=== PATIENT | female | born 1955 | race African-American/Black ===

== ENCOUNTER → 2017-05-07 | Outpatient (CLI) | payer MEDICARE | LOC: RAD 16:16 | PROVIDERS: ATTEND Nurse Practitioner Family | DX: Z53.29 Procedure and treatment not carried out because of patient's decision for other reasons; M25.512 Pain in left shoulder; M25.511 Pain in right shoulder ==

== ENCOUNTER → 2017-06-03 | Outpatient (CLI) | payer MEDICARE ==
--- NOTE | 2017-06-03 11:26 | Diagnostic Imaging Report ---
PROCEDURE: MRI right joint upper extremity without contrast. TECHNIQUE: Multiplanar, multisequence non contrast-enhanced MRI of the right upper extremity was accomplished. INDICATION: Right shoulder pain. FINDINGS: There is no os acromiale or Hill-Sachs deformity. The long head of biceps tendon is within its groove. The subscapularis tendon appears intact. The proximal aspect of the long head of biceps demonstrates a linear increased signal suggestive of a nondisplaced longitudinal tear involving the horizontal portion of the signal proximal to its turn around the lesser tuberosity. Acromioclavicular joint demonstrates subchondral edema and mild hypertrophy from osteoarthritis with small inferior osteophytes abutting the myotendinous junction of the supraspinatus. The supraspinatus tendon demonstrates thickening and low-grade bursal side and intrasubstance partial tears. There is background tendinosis in the supraspinatus and infraspinatus tendons. There are inferior osteophytes noted at the humeral head compatible with glenohumeral joint osteoarthritis. Suggestion of increased signal in the superior segment of the labrum posteriorly could be degenerative or related to labral tear. This can be better evaluated with MR arthrogram if needed. The muscle bulk and signal around the shoulder is normal. Minimal cystic change along the lateral posterior aspect of the humeral head is seen likely reactive change related to rotator cuff tendinopathy. IMPRESSION: 1. Rotator cuff tendinosis with partial tears particularly prominent in the supraspinatus. 2. There is a longitudinal nondisplaced tear suggested within the proximal aspect of the long head of biceps tendon. 3. Acromioclavicular and glenohumeral joints osteoarthritis. 4. Increased signal in the posterior superior aspect of the labrum may relate to degeneration or possible tear. Dictated by: Dictated on workstation # [id number]
--- NOTE | 2017-06-03 12:30 | Diagnostic Imaging Report ---
PROCEDURE: MRI left upper extremity without contrast. TECHNIQUE: Multiplanar, multisequence non contrast-enhanced MRI of the left upper extremity was accomplished. INDICATION: Chronic bilateral shoulder pain. FINDINGS: There is no os acromiale or Hill-Sachs deformity. The long head biceps tendon is within its groove. There is acromioclavicular joint osteoarthritis with small inferior osteophytes that have minimal impression upon the supraspinatus tendon. Mild subchondral edema is seen. The supraspinatus and infraspinatus tendons demonstrate thickening and increased signal compatible with tendinosis with associated intrasubstance and bursal-sided partial tears. No full-thickness or retracted tear. The subscapularis tendon demonstrates increased signal and thickening compatible with tendinosis. There are mild inferior osteophytes at the humeral head compatible with glenohumeral joint osteoarthritis changes. There is suggestion of mild thinning and fissuring of the cartilage of the glenohumeral joint. There is a klmmd-fe-tvosaajo joint effusion with suggestion of tiny loose bodies or debris seen within the axillary recess measuring up to 5 mm in length. There is increased signal along the posterosuperior aspect of the labrum suggestive of degeneration or nondisplaced tear. The muscle bulk and signal is within normal limits. IMPRESSION: 1. Prominent partial tears and background tendinosis within the supraspinatus and infraspinatus tendons. 2. Yxpti-gm-uusapcqk glenohumeral joint effusion with small debris or loose bodies seen within the axillary recess of the joint. 3. Glenohumeral and acromioclavicular osteoarthritis changes. 4. Suggestion of labral degeneration or possible underlying tear. Dictated by: Dictated on workstation # [id number]
== END ==
LOC: RAD 09:13
PROVIDERS: ATTEND Nurse Practitioner Family
DX: M25.512 Pain in left shoulder (principal); M25.511 Pain in right shoulder
CPT/HCPCS: 73221

== ENCOUNTER → 2017-08-26 | Outpatient (CLI) | payer MEDICARE ==
--- NOTE | 2017-08-26 08:44 | Diagnostic Imaging Report ---
INDICATION: Postprandial emesis. Gastroesophageal reflux disease with esophagitis. TECHNIQUE: Multiple real-time mayer scale sonographic images of the abdomen. CORRELATION STUDY: None FINDINGS: LIVER: Normal echotexture within the visualized portions of the liver. There is normal, hepatopedal direction of flow within the main portal vein. Liver length is 16 cm. GALLBLADDER: No shadowing gallstones or pericholecystic fluid. COMMON BILE DUCT: Borderline at 6 mm. PANCREAS: Largely obscured and not well visualized. SPLEEN: Largely obscured by overlying bowel gas not well visualized. ABDOMINAL AORTA: Proximal mid aspect appearing unremarkable. Distally not visualized, obscured. INFERIOR VENA CAVA: Limited in visualization. RIGHT KIDNEY: 8.6 cm. Unremarkable. LEFT KIDNEY: 9.4 cm. Limited in visualization. OTHER: None. IMPRESSION: 1. Overall fairly limited abdominal ultrasound evaluation with large number of particularly midline and left-sided abdominal structures obscured by overlying bowel gas. Visualized anatomical structures demonstrate borderline dilatation of the common bile duct, but otherwise unremarkable. Dictated by: Dictated on workstation # [id number]
== END ==
LOC: RAD 06:53
PROVIDERS: ATTEND Nurse Practitioner Family
DX: K21.9 Gastro-esophageal reflux disease without esophagitis (principal)
CPT/HCPCS: 76700

== ENCOUNTER → 2017-10-30 | Outpatient (CLI) | payer MEDICARE ==
--- NOTE | 2017-10-30 15:53 | Diagnostic Imaging Report ---
INDICATION: COPD. TIME OF EXAM: 3:55 p.m. No prior studies are available for comparison. The heart size is normal. The lungs do show some hyperinflation consistent with COPD. No infiltrates are seen. No effusion or pneumothorax is identified. IMPRESSION: COPD. No acute feature is detected. Dictated by: Dictated on workstation # [id number]
== END ==
LOC: RAD 15:27
PROVIDERS: ATTEND Nurse Practitioner Family
DX: J44.9 Chronic obstructive pulmonary disease, unspecified (principal)
CPT/HCPCS: 71046

== ENCOUNTER → 2017-11-03 | Outpatient (CLI) | payer MEDICARE ==
[~2017-11-03] MED LIST: RT-ALBUTEROL SULF 2.5 MG/3 ML PRE-MIX VIAL INH ONE
== END ==
LOC: RT 13:52
PROVIDERS: ATTEND Nurse Practitioner Family
DX: J44.9 Chronic obstructive pulmonary disease, unspecified (principal); J45.909 Unspecified asthma, uncomplicated
CPT/HCPCS: 94060; 94726; 94729

== ENCOUNTER 2018-01-05 19:52 | Inpatient (IN) | payer MEDICARE ==
[~2018-01-05] VITALS: Ht 165.1 cm; Wt 72.6 kg
--- OUTSIDE RECORDS SUMMARY | 2018-01-05 19:57 | XMS REPORT ---
Author Author THADDEUS LOVE Organization [facility] Address [address] [place] [address] Care Team Providers Care Superintendent Warehouse Name Role Phone THADDEUS LOVE Unavailable PROBLEMS Type Condition ICD9-CM Code ORA48-HY Code Onset Dates Condition Status SNOMED Code Problem COPD with acute bronchitis J44.0 Active 406789224059957 Problem Non-seasonal allergic rhinitis due to pollen J30.1 Active 41286335 Problem Chronic obstructive pulmonary disease, unspecified COPD type J44.9 Active 16098453 Problem Essential hypertension I10 Active 33354882 Problem GERD without esophagitis K21.9 Active 199829931 Problem Moderate single current episode of major depressive disorder F32.1 Active 16398982 Problem Other chronic pain G89.29 Active 08245607 ALLERGIES No Information ENCOUNTERS Encounter Location Date Diagnosis [place] [address] [place] [id number] [place] [address]60- 2063 Nov, [place] [address] [place] [id number] [place] [address] 98854- 5533 Nov, [place] [address] [place] [address] 99272- 8213 Oct, [place] [address] [place] [id number] [place] [address] 77705- 9112 Oct, Essential hypertension I10 ; Chronic obstructive pulmonary disease, unspecified COPD type J44.9 ; Closed fracture of left foot with routine healing, subsequent encounter S92.902D ; Syncope and collapse R55 ; Tobacco abuse Z72.0 ; Tobacco abuse counseling Z71.6 ; Moderate single current episode of major depressive disorder F32.1 and Non-seasonal allergic rhinitis due to pollen J30.1 [place] [address] [place] [id number] [place] [address] 51518- 4456 Sep, [place] [address] [place] [id number] [place] [address] 06017- 5370 Aug, [place] [address] [place] [id number] [place] [address] 08763- 3445 Aug, Essential hypertension I10 ; GERD without esophagitis K21.9 ; Moderate single current episode of major depressive disorder F32.1 ; Other chronic pain G89.29 ; Chronic obstructive pulmonary disease, unspecified COPD type J44.9 and Overweight (BMI 25.0-29.9) E66.3 [place] [address] [place] [address] [id number] [place] [address] 05416- 7867 Aug, [place] [address] [place] [id number] [place] [address] 92393- 9417 Jul, [place] [address] [place] [id number] [place] [address] 95704- 8010 Jun, [place] [address] [place] [id number] [place] [address] 08793- 9540 Jun, [place] [address] [place] [id number] [place] [address] 58416- 0501 Jun, COPD with acute bronchitis J44.0 [place] [address] [place] [address] [id number] [place] [address] 98406- 7934 May, Encounter for immunization Z23 [place] [address] [place] [address] [id number] [place] [address] 03237- 9993 May, [place] [address] [place] [id number] [place] [address] 36654- 3601 28 Apr, 2017 Encounter to establish care Z76.89 ; GERD without esophagitis K21.9 ; Moderate single current episode of major depressive disorder F32.1 ; Essential hypertension I10 ; COPD with acute bronchitis J44.0 ; Overweight (BMI 25.0-29.9) E66.3 ; Pain in left shoulder M25.512 ; Pain in right shoulder M25.511 and Other chronic pain G89.29 [place] [address] [id number] [place] [address], [place] [address] Apr, [facility] [address] [facility] [id number] [place] [address] Apr, Bruises easily R23.8 [facility] [address] [facility] [id number] [place] [address] Mar, Bruises easily R23.8 and COPD with acute bronchitis J44.0 IMMUNIZATIONS No Known Immunizations SOCIAL HISTORY Never Assessed REASON FOR VISIT Lab--[facility] PLAN OF CARE VITAL SIGNS MEDICATIONS Unknown Medications RESULTS No Results PROCEDURES Procedure Date Ordered Result Body Site LAB NOT BILLED BY [facility] Apr 10, 2017 PROTHROMBIN TIME Apr 10, 2017 VENIPUNCT, ROUTINE* Apr 10, 2017 INSTRUCTIONS MEDICATIONS ADMINISTERED No Known Medications MEDICAL (GENERAL) HISTORY Type Description Date Medical History Hypertension Medical History Acid Reflux Medical History Depression Medical History Anxiety Medical History COPD Surgical History Tonsilectomy Surgical History x2 Hospitalization History Kidney Infection Hospitalization History past surgery/childbirth Hospitalization History ortho left foot 10/18/17
--- OUTSIDE RECORDS SUMMARY | 2018-01-05 19:58 | XMS REPORT ---
Author Author ARIA PRECIADO Organization [facility] Address [address] [place] [address] Care Team Providers Care Sammying Machine Operator Name Role Phone ARIA PRECIADO Unavailable PROBLEMS Type Condition ICD9-CM Code QWP68-IK Code Onset Dates Condition Status SNOMED Code Problem COPD with acute bronchitis J44.0 Active 831426582035696 Problem Non-seasonal allergic rhinitis due to pollen J30.1 Active 22895663 Problem Chronic obstructive pulmonary disease, unspecified COPD type J44.9 Active 29853432 Problem Essential hypertension I10 Active 61433428 Problem GERD without esophagitis K21.9 Active 979450672 Problem Moderate single current episode of major depressive disorder F32.1 Active 79600192 Problem Other chronic pain G89.29 Active 65171966 ALLERGIES No Information ENCOUNTERS Encounter Location Date Diagnosis [place] [id number] [place] [address] 36248- 0355 December, Closed nondisplaced fracture of third metatarsal bone of left foot with routine healing, subsequent encounter S92.335D and Closed nondisplaced fracture of fourth metatarsal bone of left foot with routine healing, subsequent encounter S92.345D [place] [address] [place] [id number] [place] [address] 71631- 1287 Nov, Closed nondisplaced fracture of fifth metatarsal bone of left foot, initial encounter S92.355A [place] [address] [place] [id number] [address] Nov, [place] [address] [place] [id number] [place] [address] 57927- 7034 Oct, [place] [address] [place] [id number] [address] Oct, Essential hypertension I10 ; Chronic obstructive pulmonary disease, unspecified COPD type J44.9 ; Closed fracture of left foot with routine healing, subsequent encounter S92.902D ; Syncope and collapse R55 ; Tobacco abuse Z72.0 ; Tobacco abuse counseling Z71.6 ; Moderate single current episode of major depressive disorder F32.1 and Non-seasonal allergic rhinitis due to pollen J30.1 [place] [address] [address]- [address] Sep, [place] [address] 66643- 4695 Aug, [place] [address] 64927- 1412 Aug, Essential hypertension I10 ; GERD without esophagitis K21.9 ; Moderate single current episode of major depressive disorder F32.1 ; Other chronic pain G89.29 ; Chronic obstructive pulmonary disease, unspecified COPD type J44.9 and Overweight (BMI 25.0-29.9) E66.3 [place] [address] [address]20- 1137 Aug, [place] [address] 04305- 1514 Jul, [place] [address] 60237- 9013 Jun, [place] [address] 43279- 3925 Jun, [place] [address] 10796- 0673 Jun, COPD with acute bronchitis J44.0 [place] [address] 02630- 5105 May, Encounter for immunization Z23 [place] [address] 79920- 8937 May, [place] [address] 44383- 9407 Apr, Encounter to establish care Z76.89 ; GERD without esophagitis K21.9 ; Moderate single current episode of major depressive disorder F32.1 ; Essential hypertension I10 ; COPD with acute bronchitis J44.0 ; Overweight (BMI 25.0-29.9) E66.3 ; Pain in left shoulder M25.512 ; Pain in right shoulder M25.511 and Other chronic pain G89.29 [place] [address] [address] Apr, [place] [address] [place] [id number] [place] [address] 50548- 6552 Apr, Bruises easily R23.8 [place] [address] [place] [address] 95288- 1397 Mar, Bruises easily R23.8 and COPD with acute bronchitis J44.0 IMMUNIZATIONS Vaccine Route Administration Date Status FLUARIX QUAD (3 AND UP) 2016 IM Intramuscular Jun 02, 2017 Administered SOCIAL HISTORY Never Assessed REASON FOR VISIT Flu shot-AHarrymanRN PLAN OF CARE VITAL SIGNS MEDICATIONS Unknown Medications RESULTS No Results PROCEDURES Procedure Date Ordered Result Body Site FLUARIX QUAD (3 AND UP) 2016Jun 02, 2017 SINGLE IMMUNIZATION ADMIN Jun 02, 2017 INSTRUCTIONS MEDICATIONS ADMINISTERED No Known Medications MEDICAL (GENERAL) HISTORY Type Description Date Medical History Hypertension Medical History Acid Reflux Medical History Depression Medical History Anxiety Medical History COPD Surgical History Tonsilectomy Surgical History x2 Hospitalization History Kidney Infection Hospitalization History past surgery/childbirth Hospitalization History ortho left foot 10/18/17
--- OUTSIDE RECORDS SUMMARY | 2018-01-05 19:58 | XMS REPORT ---
Author Author ARIA PRECIADO Organization [facility] Address [address] [place] [address] Care Team Providers Care Assistant Public Defender Name Role Phone ARIA PRECIADO Unavailable PROBLEMS Type Condition ICD9-CM Code TWF91-AD Code Onset Dates Condition Status SNOMED Code Problem COPD with acute bronchitis J44.0 Active 608567408710441 Problem Non-seasonal allergic rhinitis due to pollen J30.1 Active 50152427 Problem Chronic obstructive pulmonary disease, unspecified COPD type J44.9 Active 02274005 Problem Essential hypertension I10 Active 21229459 Problem GERD without esophagitis K21.9 Active 971112426 Problem Moderate single current episode of major depressive disorder F32.1 Active 91490395 Problem Other chronic pain G89.29 Active 82898933 ALLERGIES No Information ENCOUNTERS Encounter Location Date Diagnosis [place] [address] [place] [address] 16498- 1827 December, Closed nondisplaced fracture of third metatarsal bone of left foot with routine healing, subsequent encounter S92.335D and Closed nondisplaced fracture of fourth metatarsal bone of left foot with routine healing, subsequent encounter S92.345D [place] [address] [place] [id number] [place] [address] 98084- 7177 Nov, Closed nondisplaced fracture of fifth metatarsal bone of left foot, initial encounter S92.355A [place] [address] [place] [id number] [address]- 5[address] Nov, [place] [address] [place] [id number] [place] [address] 72137- 8816 Oct, [place] [address] [place] [id number] [address] Oct, Essential hypertension I10 ; Chronic obstructive pulmonary disease, unspecified COPD type J44.9 ; Closed fracture of left foot with routine healing, subsequent encounter S92.902D ; Syncope and collapse R55 ; Tobacco abuse Z72.0 ; Tobacco abuse counseling Z71.6 ; Moderate single current episode of major depressive disorder F32.1 and Non-seasonal allergic rhinitis due to pollen J30.1 [place] [address] 77[address]- 6676 Sep, [place] [address] 67152- 4056 Aug, [place] [address] 75593- 7094 Aug, Essential hypertension I10 ; GERD without esophagitis K21.9 ; Moderate single current episode of major depressive disorder F32.1 ; Other chronic pain G89.29 ; Chronic obstructive pulmonary disease, unspecified COPD type J44.9 and Overweight (BMI 25.0-29.9) E66.3 [place] [address] 66463- 8958 Aug, [place] [address] 67744- 7787 Jul, [place] [address] 92516- 3049 Jun, [place] [address] 58064- 2911 Jun, [place] [address] 38208- 9734 Jun, COPD with acute bronchitis J44.0 [place] [address] 92783- 5309 May, Encounter for immunization Z23 [place] [address] 60162- 8274 May, [place] [address] 00839- 1749 Apr, Encounter to establish care Z76.89 ; GERD without esophagitis K21.9 ; Moderate single current episode of major depressive disorder F32.1 ; Essential hypertension I10 ; COPD with acute bronchitis J44.0 ; Overweight (BMI 25.0-29.9) E66.3 ; Pain in left shoulder M25.512 ; Pain in right shoulder M25.511 and Other chronic pain G89.29 [place] [address] [place] [id number] [place] [address] 59948- 8273 Apr, [place] [address] [place] [id number] [place] [address] 82209- 4642 Apr, Bruises easily R23.8 [place] [address] [place] [id number] [place] [address] 17142- 6543 Mar, Bruises easily R23.8 and COPD with acute bronchitis J44.0 IMMUNIZATIONS No Known Immunizations SOCIAL HISTORY Never Assessed REASON FOR VISIT PLAN OF CARE VITAL SIGNS MEDICATIONS Unknown Medications RESULTS No Results PROCEDURES No Known procedures INSTRUCTIONS MEDICATIONS ADMINISTERED No Known Medications MEDICAL (GENERAL) HISTORY Type Description Date Medical History Hypertension Medical History Acid Reflux Medical History Depression Medical History Anxiety Medical History COPD Surgical History Tonsilectomy Surgical History x2 Hospitalization History Kidney Infection Hospitalization History past surgery/childbirth Hospitalization History ortho left foot 10/18/17
--- OUTSIDE RECORDS SUMMARY | 2018-01-05 19:58 | XMS REPORT ---
Author Author ARIA PRECIADO Organization [facility] Address [address] [place] [address] Care Team Providers Care Insurance Producer Name Role Phone ARIA PRECIADO Unavailable PROBLEMS Type Condition ICD9-CM Code ASQ31-BE Code Onset Dates Condition Status SNOMED Code Problem COPD with acute bronchitis J44.0 Active 097990433320428 Problem Non-seasonal allergic rhinitis due to pollen J30.1 Active 10186972 Problem Chronic obstructive pulmonary disease, unspecified COPD type J44.9 Active 46341488 Problem Essential hypertension I10 Active 42745528 Problem GERD without esophagitis K21.9 Active 860685980 Problem Moderate single current episode of major depressive disorder F32.1 Active 28571096 Problem Other chronic pain G89.29 Active 95317598 ALLERGIES No Information ENCOUNTERS Encounter Location Date Diagnosis [place] [address] [place] [address] 98248- 0116 December, Closed nondisplaced fracture of third metatarsal bone of left foot with routine healing, subsequent encounter S92.335D and Closed nondisplaced fracture of fourth metatarsal bone of left foot with routine healing, subsequent encounter S92.345D [place] [address] [place] [id number] [place] [address] 88419- 2297 Nov, Closed nondisplaced fracture of fifth metatarsal bone of left foot, initial encounter S92.355A [place] [address] [place] [id number] [address]- 8[address] Nov, [place] [address] [place] [address] [id number] [place] [address] 86263- 8380 Oct, [place] [address] [place] [id number] [address]- [address] Oct, Essential hypertension I10 ; Chronic obstructive pulmonary disease, unspecified COPD type J44.9 ; Closed fracture of left foot with routine healing, subsequent encounter S92.902D ; Syncope and collapse R55 ; Tobacco abuse Z72.0 ; Tobacco abuse counseling Z71.6 ; Moderate single current episode of major depressive disorder F32.1 and Non-seasonal allergic rhinitis due to pollen J30.1 [place] [address] [address]- [address] Sep, [place] [address] 86388- 0708 Aug, [place] [address] 91460- 8749 Aug, Essential hypertension I10 ; GERD without esophagitis K21.9 ; Moderate single current episode of major depressive disorder F32.1 ; Other chronic pain G89.29 ; Chronic obstructive pulmonary disease, unspecified COPD type J44.9 and Overweight (BMI 25.0-29.9) E66.3 [place] [address] 22499- 5060 Aug, [place] [address] 44264- 7124 Jul, [place] [address] 29939- 4424 Jun, [place] [address] 91532- 6244 Jun, [place] [address] 28170- 4273 Jun, COPD with acute bronchitis J44.0 [place] [address] 54235- 0381 May, Encounter for immunization Z23 [place] [address] 50708- 2541 May, [place] [address] 96791- 9018 Apr, Encounter to establish care Z76.89 ; GERD without esophagitis K21.9 ; Moderate single current episode of major depressive disorder F32.1 ; Essential hypertension I10 ; COPD with acute bronchitis J44.0 ; Overweight (BMI 25.0-29.9) E66.3 ; Pain in left shoulder M25.512 ; Pain in right shoulder M25.511 and Other chronic pain G89.29 [place] [address] [place] [address] 32203- 1136 Apr, [place] [address] [place] [id number] [place] [address] 47976- 6599 Apr, Bruises easily R23.8 [place] [address] [place] [id number] [place] [address] 83618- 8908 Mar, Bruises easily R23.8 and COPD with acute bronchitis J44.0 IMMUNIZATIONS No Known Immunizations SOCIAL HISTORY Never Assessed REASON FOR VISIT Eye Exam PLAN OF CARE VITAL SIGNS MEDICATIONS Unknown [...]
--- OUTSIDE RECORDS SUMMARY | 2018-01-05 19:58 | XMS REPORT ---
Author Author PRECIADOARIA Charlton Organization [facility] Address [address] [place] [address] Care Team Providers Care Steel Manager Name Role Phone ARIA PRECIADO Unavailable PROBLEMS Type Condition ICD9-CM Code [id number] Code Onset Dates Condition Status SNOMED Code Problem COPD with acute bronchitis J44.0 Active 380095177547952 Problem Non-seasonal allergic rhinitis due to pollen J30.1 Active 86603843 Problem Chronic obstructive pulmonary disease, unspecified COPD type J44.9 Active 61258773 Problem Essential hypertension I10 Active 51610664 Problem GERD without esophagitis K21.9 Active 443345981 Problem Moderate single current episode of major depressive disorder F32.1 Active 50596367 Problem Other chronic pain G89.29 Active 71665294 ALLERGIES No Known Allergies ENCOUNTERS Encounter Location Date Diagnosis [place] [id number] [place] [phone] December, [place] [id number] [place] [address]1759- 2782 Nov, Closed nondisplaced fracture of fifth metatarsal bone of left foot, initial encounter S92.355A [place] [id number] [place] [address] 9[address]12- 8919 Nov, [place] [id number] [place] [address] 24403- 0929 Oct, [place] [address] [address] Oct, Essential hypertension I10 ; Chronic obstructive pulmonary disease, unspecified COPD type J44.9 ; Closed fracture of left foot with routine healing, subsequent encounter S92.902D ; Syncope and collapse R55 ; Tobacco abuse Z72.0 ; Tobacco abuse counseling Z71.6 ; Moderate single current episode of major depressive disorder F32.1 and Non-seasonal allergic rhinitis due to pollen J30.1 [place] [id number] [place] [address] 23679- 4919 Sep, [place] [id number] [place] [address] 46281- 2482 Aug, [place] [address] [address] Aug, Essential hypertension I10 ; GERD without esophagitis K21.9 ; Moderate single current episode of major depressive disorder F32.1 ; Other chronic pain G89.29 ; Chronic obstructive pulmonary disease, unspecified COPD type J44.9 and Overweight (BMI 25.0-29.9) E66.3 [place] [id number] [place] [address] 67620- 3873 Aug, [place] [address] [address] Jul, [place] [id number] [place] [address]12- [address] Jun, [place] [address] [address]- [address] Jun, [place] [id number] [place] [address] 59015- 15[address] Jun, COPD with acute bronchitis J44.0 [place] [id number] [place] [address] 91779- 4[address] May, Encounter for immunization Z23 [place] [id number] [place] [address] 50046- 1560 May, [place] [id number] [place] [address] 18222- 1754 28 Apr, 2017 Encounter to establish care Z76.89 ; GERD without esophagitis K21.9 ; Moderate single current episode of major depressive disorder F32.1 ; Essential hypertension I10 ; COPD with acute bronchitis J44.0 ; Overweight (BMI 25.0-29.9) E66.3 ; Pain in left shoulder M25.512 ; Pain in right shoulder M25.511 and Other chronic pain G89.29 [place] [address] [id number] [address] Apr, [facility] [address] [facility] [id number] [address] Apr, Bruises easily R23.8 [place] [id number] [address] Mar, Bruises easily R23.8 and COPD with acute bronchitis J44.0 IMMUNIZATIONS No Known Immunizations SOCIAL HISTORY Never Assessed REASON FOR VISIT Establish Care--Flo, -Pt transferring care from a provider in [place]., -Left leg pain/burning off and on for past few months, -Knot on right miranda pt would like looked at PLAN OF CARE Activity Details Follow Up 3 Months Reason:CHM VITAL SIGNS Height 65 in 2017-05-01 Weight 175.2 lbs 2017-05-01 Temperature 98.5 degrees Fahrenheit 2017-05-01 Heart Rate 76 bpm 2017-05-01 Respiratory Rate 20 2017-05-01 BMI 29.15 kg/m2 2017-05-01 Blood pressure systolic 136 mmHg 2017-05-01 Blood pressure diastolic 80 mmHg 2017-05-01 MEDICATIONS Medication Instructions Dosage Frequency Start Date End Date Duration Status Potassium 99 MG Orally Once a day 1 tablet 24h Active Losartan Potassium-HCTZ 100-25 MG Orally Once a day 1 tablet 24h Active Womens One Daily - Active Ventolin HFA 108 (90 Base) MCG/ACT Inhalation every 4 hrs 2 puffs as needed 4h Active Meloxicam 15 MG Orally Once a day 1 tablet 24h Active Ipratropium-Albuterol 0.5-2.5 (3) MG/3ML Inhalation every 6 hrs 3 ml 6h Active Amlodipine Besylate 10 MG Orally Once a day 1 tablet 24h Active Paroxetine HCl 40 MG Orally Once a day 1 tablet in the morning 24h Active BusPIRone HCl 10 mg Orally TID PRN 1 tablet Active PredniSONE 20 mg Orally Once a day 1 tablet 24h Apr, May, 05 days Active Aspirin 81 MG Orally Once a day 1 tablet 24h Active Pantoprazole Sodium 40 MG Orally Once a day 1 tablet 24h 90 days Active Albuterol Sulfate (2.5 MG/3ML) 0.083% Inhalation Three times a day 3 ml 8h Active Doxycycline Monohydrate 100 mg Orally every 12 hrs 1 capsule 12h 28 Apr, 2017 May, 10 days Active RESULTS Name Result Date Reference Range LIPID PANEL 2017-05-01 Cholesterol, Total 187 100-199 Triglycerides 93 0-149 HDL Cholesterol 63 >39 VLDL Cholesterol Jese 19 5-40 LDL Cholesterol Calc 105 0-99 Comment: MRI : Shoulder, Right 2017-06-03 MRI : Shoulder, Left 2017-06-03 PROCEDURES Procedure Date Ordered Result Body Site LAB [facility] May 01, 2017 FQ VISIT ESTABLISHED PATIENT May 01, 2017 VARGAS AN* May 01, 2017 INSTRUCTIONS MEDICATIONS ADMINISTERED No Known Medications MEDICAL (GENERAL) HISTORY Type Description Date Medical History Hypertension Medical History Acid Reflux Medical History Depression Medical History Anxiety Medical History COPD Surgical History Tonsilectomy Surgical History x2 Hospitalization History Kidney Infection Hospitalization History past surgery/childbirth Hospitalization History ortho left foot 10/18/17
--- OUTSIDE RECORDS SUMMARY | 2018-01-05 19:58 | XMS REPORT ---
Author Author THADDEUS LOVE Organization [facility] Address [address] [place] [address] Care Team Providers Care Test Preparation Tutor Name Role Phone THADDEUS LOVE Unavailable PROBLEMS Type Condition ICD9-CM Code GDT19-IT Code Onset Dates Condition Status SNOMED Code Problem COPD with acute bronchitis J44.0 Active 034922835339960 Problem Non-seasonal allergic rhinitis due to pollen J30.1 Active 99839772 Problem Chronic obstructive pulmonary disease, unspecified COPD type J44.9 Active 91377423 Problem Essential hypertension I10 Active 84007214 Problem GERD without esophagitis K21.9 Active 764005867 Problem Moderate single current episode of major depressive disorder F32.1 Active 69902452 Problem Other chronic pain G89.29 Active 64990041 ALLERGIES No Known Allergies ENCOUNTERS Encounter Location Date Diagnosis [place] [id number] [place] [address]- [address] Nov, [place] [id number] [place] [address]25- 4[address] Nov, [place] [id number] [place] [address] 22477- 5539 Oct, [place] [id number] [place] [address] 74008- 9[address] Oct, Essential hypertension I10 ; Chronic obstructive pulmonary disease, unspecified COPD type J44.9 ; Closed fracture of left foot with routine healing, subsequent encounter S92.902D ; Syncope and collapse R55 ; Tobacco abuse Z72.0 ; Tobacco abuse counseling Z71.6 ; Moderate single current episode of major depressive disorder F32.1 and Non-seasonal allergic rhinitis due to pollen J30.1 [place] [id number] [place] [address]- [address] Sep, [place] [address] [place] [address] 03842- 7661 Aug, [place] [id number] [place] [address] 18600- 2916 Aug, Essential hypertension I10 ; GERD without esophagitis K21.9 ; Moderate single current episode of major depressive disorder F32.1 ; Other chronic pain G89.29 ; Chronic obstructive pulmonary disease, unspecified COPD type J44.9 and Overweight (BMI 25.0-29.9) E66.3 [place] [id number] [place] [address] 98699- 6933 Aug, [place] [id number] [place] [address] 30613- 7855 Jul, [place] [id number] [place] [address] 85472- 3376 Jun, [place] [id number] [place] [address] 91727- 4817 Jun, [place] [id number] [place] [address] 64150- 9019 Jun, COPD with acute bronchitis J44.0 [place] [id number] [place] [address] 64098- 6216 May, Encounter for immunization Z23 [place] [id number] [place] [address] 80973- 2555 May, [place] [id number] [place] [address] 19802- 5428 28 Apr, 2017 Encounter to establish care Z76.89 ; GERD without esophagitis K21.9 ; Moderate single current episode of major depressive disorder F32.1 ; Essential hypertension I10 ; COPD with acute bronchitis J44.0 ; Overweight (BMI 25.0-29.9) E66.3 ; Pain in left shoulder M25.512 ; Pain in right shoulder M25.511 and Other chronic pain G89.29 [place] [id number] [place] [address] Apr, [facility] [address] [facility] [id number] [place] [address] Apr, Bruises easily R23.8 [facility] [address] [facility] [id number] [place] [address] Mar, Bruises easily R23.8 and COPD with acute bronchitis J44.0 IMMUNIZATIONS No Known Immunizations SOCIAL HISTORY Never Assessed REASON FOR VISIT bruising, does not recall running into or injury, misc bruises found on body- AHarrymanRN, Believes she has developed a sinus infection, cough, head congestion, runny nose x3 days PLAN OF CARE Activity Details Follow Up establish care with a new pcp Reason: VITAL SIGNS Height 65 in 2017-04-02 Weight 174.6 lbs 2017-04-02 Temperature 98.9 degrees Fahrenheit 2017-04-02 Heart Rate 86 bpm 2017-04-02 Respiratory Rate 20 2017-04-02 BMI 29.05 kg/m2 2017-04-02 Blood pressure systolic 136 mmHg 2017-04-02 Blood pressure diastolic 82 mmHg 2017-04-02 MEDICATIONS Medication Instructions Dosage Frequency Start Date End Date Duration Status Tylenol 325 MG Orally every 6 hrs 2 tablets as needed 6h Active Ipratropium-Albuterol 0.5-2.5 (3) MG/3ML Inhalation every 6 hrs 3 ml 6h Active Paroxetine HCl 40 MG Orally Once a day 1 tablet in the morning 24h Active Meloxicam 15 MG Orally Once a day 1 tablet 24h Active Amlodipine Besylate 10 MG Orally Once a day 1 tablet 24h Active Benzonatate 100 mg Orally Three times a day 1 capsule as needed 8h Mar, Apr, 07 days Active Doxycycline Hyclate 100 mg Orally every 12 hrs 1 capsule 12h Mar, Apr, 10 days Active Pantoprazole Sodium 40 MG Orally Once a day 1 tablet 24h Active Albuterol Sulfate (2.5 MG/3ML) 0.083% Inhalation Three times a day 3 ml 8h Active Aspirin 81 MG Orally Once a day 1 tablet 24h Active Potassium 99 MG Orally Once a day 1 tablet 24h Active Losartan Potassium-HCTZ 100-25 MG Orally Once a day 1 tablet 24h Active BusPIRone HCl 10 mg Orally TID PRN 1 tablet Active Ventolin HFA 108 (90 Base) MCG/ACT Inhalation every 4 hrs 2 puffs as needed 4h Active Womens One Daily - Active PredniSONE 20 mg Orally twice a day 1 tablet 12h 30 Mar, 2017 4 Apr, 2017 05 days Active RESULTS No Results PROCEDURES Procedure Date Ordered Result Body Site [facility] VISIT NEW PATIENT Apr 02, 2017 INSTRUCTIONS MEDICATIONS ADMINISTERED No Known Medications MEDICAL (GENERAL) HISTORY Type Description Date Medical History Hypertension Medical History Acid Reflux Medical History Depression Medical History Anxiety Medical History COPD Surgical History Tonsilectomy Surgical History x2 Hospitalization History Kidney Infection Hospitalization History past surgery/childbirth Hospitalization History ortho left foot 10/18/17
--- NOTE | 2018-01-05 20:55 | ED Respiratory ---
General Chief Complaint: Respiratory Problems Stated Complaint: HARD TO BREATHE, CP/RIB PAIN WHILE COUGHING Source: patient Exam Limitations: no limitations History of Present Illness Date Seen by Provider: Jan 05, 2018 Time Seen by Provider: 20:53 Initial Comments to ER with reports of wheezing, difficult breathing, chest pain with coughing. No fevers or chills. This is been getting progressively worse and has few days. She has a history of COPD. She takes a nebulizer at home 3 times a day. Timing/Duration: constant, getting worse Severity: moderate Modifying Factors: Improves With Coughing Associated Symptoms: cough, shortness of breath, wheezing Allergies and Home Medications Allergies Coded Allergies: No Known Drug Allergies (Unverified , 11/03/17) Patient Home Medication List Home Medication List Reviewed: Yes Review of Systems Constitutional: see HPI EENTM: see HPI, nose congestion Respiratory: see HPI, cough Cardiovascular: no symptoms reported Musculoskeletal: no symptoms reported Skin: no symptoms reported Psychiatric/Neurological: No Symptoms Reported Hematologic/Lymphatic: No Symptoms Reported Past Sviwhlm-Cmopil-Ckvtfw Hx Patient Social History Recent Foreign Travel: No Contact w/Someone Who Travel: No Physical Exam Vital Signs Capillary Refill : General Appearance: WD/WN, mild distress, other (speaks in short phrases; initial oxygen saturation 84% on room air.) HEENT: PERRL/EOMI, normal ENT inspection Neck: non-tender, full range of motion Respiratory: no respiratory distress, no accessory muscle use, decreased breath sounds, wheezing Cardiovascular: regular rate, rhythm, no murmur Gastrointestinal: normal bowel sounds, non tender, soft Neurologic/Psychiatric: alert, normal mood/affect, oriented x 3 Skin: normal color, warm/dry Focused Exam Lactate Level 01/05/18 20:45: Lactic Acid Level 1.99 Lactic Acid Level Laboratory Tests Test 01/05/18 20:45 Lactic Acid Level 1.99 MMOL/L (0.50-2.00) Progress/Results/Core Measures Suspected Sepsis SIRS Temperature: Pulse: Respiratory Rate: Laboratory Tests 01/05/18 20:45: White Blood Count 5.2 Blood Pressure / Mean: 01/05/18 20:45: Lactic Acid Level 1.99 Laboratory Tests 01/05/18 20:45: Creatinine 0.85, Platelet Count 274, Total Bilirubin 0.4 Results/Orders Lab Results Laboratory Tests Test 01/05/18 20:45 Range/Units White Blood Count 5.2 4.3-11.0 10^3/uL Red Blood Count 3.98 L 4.35-5.85 10^6/uL Hemoglobin 13.2 11.5-16.0 G/DL Hematocrit 38 35-52 % Mean Corpuscular Volume 95 80-99 FL Mean Corpuscular Hemoglobin 33 25-34 PG Mean Corpuscular Hemoglobin Concent 35 32-36 G/DL Red Cell Distribution Width 12.6 10.0-14.5 % Platelet Count 274 130-400 10^3/uL Mean Platelet Volume 9.1 7.4-10.4 FL Neutrophils (%) (Auto) 29 L 42-75 % Lymphocytes (%) (Auto) 60 H 12-44 % Monocytes (%) (Auto) 7 0-12 % Eosinophils (%) (Auto) 3 0-10 % Basophils (%) (Auto) 1 0-10 % Neutrophils # (Auto) 1.5 L 1.8-7.8 X 10^3 Lymphocytes # (Auto) 3.1 1.0-4.0 X 10^3 Monocytes # (Auto) 0.3 0.0-1.0 X 10^3 Eosinophils # (Auto) 0.2 0.0-0.3 10^3/uL Basophils # (Auto) 0.1 0.0-0.1 10^3/uL Sodium Level 143 135-145 MMOL/L Potassium Level 3.0 L 3.6-5.0 MMOL/L Chloride Level 107 98-107 MMOL/L Carbon Dioxide Level 23 21-32 MMOL/L Anion Gap 13 5-14 MMOL/L Blood Urea Nitrogen 8 7-18 MG/DL Creatinine 0.85 0.60-1.30 MG/DL Estimat Glomerular Filtration Rate > 60 BUN/Creatinine Ratio 9 Glucose Level 95 70-105 MG/DL Lactic Acid Level 1.99 0.50-2.00 MMOL/L Calcium Level 9.2 8.5-10.1 MG/DL Total Bilirubin 0.4 0.1-1.0 MG/DL Aspartate Amino Transf (AST/SGOT) 23 5-34 U/L Alanine Aminotransferase (ALT/SGPT) 17 0-55 U/L Alkaline Phosphatase 63 40-136 U/L Troponin I < 0.30 <0.30 NG/ML Total Protein 7.3 6.4-8.2 GM/DL Albumin 4.2 3.2-4.5 GM/DL My Orders Orders - TEETEE MONIQUE APRN Cbc With Automated Diff (01/05/18 20:50) Blood Culture (01/05/18 20:50) Lactic Acid Analyzer (01/05/18 20:50) Comprehensive Metabolic Panel (01/05/18 20:50) Troponin I (01/05/18 20:50) Ekg Tracing (01/05/18 20:50) Continuous Ekg Monitoring (01/05/18 20:50) Chest 1 View, Ap/Pa Only (01/05/18 20:50) Iv Heplock-Insert (Order) (01/05/18 20:50) Albuterol/Ipra Inhalation Soln (Duoneb I (01/05/18 21:00) Albuterol Pre-Mix Nebs (Rt) (Proventil (01/05/18 21:00) Svn Small Volume Nebulizer (01/05/18 20:50) Svn Small Volume Nebulizer (01/05/18 20:50) Methylprednisolone Sod Succ (Solu-Medrol (01/05/18 21:00) Medications Given in ED Current Medications Medications Dose Ordered Sig/Jeevan Route Start Time Stop Time Status Last Admin Dose Admin Methylprednisolone Sodium Succinate 125 mg ONCE ONCE IVP 01/05/18 21:00 01/05/18 21:01 DC 01/05/18 20:56 125 MG Vital Signs/I&O Capillary Refill : Diagnostic Imaging Diagonstic Imaging: Xray Plain Films/CT/US/NM/MRI: chest Comments NAME: MARY GUDINO [facility] REC#: [id number] PT STATUS: REG ER : 1955 PHYSICIAN: TEETEE MONIQUE APRN ADMIT DATE: 01/05/18/ER Draft Date of Exam:01/05/18 CHEST 1 VIEW, AP/PA ONLY INDICATION: Cough and wheezing. Comparison with 10/30/2017. FINDINGS: There is obstructive pulmonary disease with flattening of the diaphragm. Mild interstitial changes noted in the lung bases. No acute infiltrates have occurred. The upper lungs are clear. There is mild cardiomegaly. No pneumothorax or pleural effusion. IMPRESSION: 1. Obstructive interstitial lung disease. No acute infiltrates. 2. Slight increasing cardiac size with no evidence of pulmonary edema. Dictated on workstation # [id number] Dict: 01/05/182109 Trans: 01/05/182113 [facility] [id number] Interpreted by: CHECO GALLEGOS MD Electronically signed by: Departure Communication (Admissions) Time/Spoke to Admitting Phy: 22:[address] Panchal.labs and chest x-ray are unremarkable. Wheezing has improved after a DuoNeb and 2 albuterol treatments, however, oxygen saturation dropped back down to 87% on the oxygen is turned off. We'll admit for supplemental oxygen, home O2 study upstairs tomorrow steroids and Zithromax overnight. Impression Primary Impression: COPD exacerbation Disposition: 01 HOME, SELF-CARE Condition: Stable Admissions Decision to Admit Reason: Admit from ER (General) Decision to Admit/Date: Jan 05, 2018 Time/Decision to Admit Time: 22:10 Departure-Patient Inst. Referrals: [facility]/ (PCP) Primary Care Physician ARIA PRECIADO APRN (Family) Primary Care Physician TEETEE MONIQUE APRN Jan 05, 2018 20:55
[2018-01-05 20:57] LABS: BASOPHILS # (AUTO) 0.1 10^3/uL (0.0-0.1); BASOPHILS % (AUTO) 1 % (0-10); EOSINOPHILS # (AUTO) 0.2 10^3/uL (0.0-0.3); EOSINOPHILS % (AUTO) 3 % (0-10); HEMATOCRIT 38 % (35-52); HEMOGLOBIN 13.2 G/DL (11.5-16.0); LYMPHOCYTES # (AUTO) 3.1 X 10^3 (1.0-4.0); LYMPHOCYTES % (AUTO) 60 % (12-44); MEAN CORPUSCULAR HEMOGLOBIN 33 PG (25-34); MEAN CORPUSCULAR HGB CONC 35 G/DL (32-36); MEAN CORPUSCULAR VOLUME 95 FL (80-99); MEAN PLATELET VOLUME 9.1 FL (7.4-10.4); MONOCYTES # (AUTO) 0.3 X 10^3 (0.0-1.0); MONOCYTES % (AUTO) 7 % (0-12); NEUTROPHILS # (AUTO) 1.5 X 10^3 (1.8-7.8); NEUTROPHILS % (AUTO) 29 % (42-75); PLATELET COUNT 274 10^3/uL (130-400); RED BLOOD COUNT 3.98 10^6/uL (4.35-5.85); RED CELL DISTRIBUTION WIDTH 12.6 % (10.0-14.5); WHITE BLOOD COUNT 5.2 10^3/uL (4.3-11.0)
[2018-01-05] MEDS ORDERED: methylPREDNISolone 125 MG (Solu-MEDROL) VIAL IVP ONE (21:00)
[2018-01-05] MEDS ORDERED: RT-ALBUTEROL SULF 2.5 MG/3 ML PRE-MIX VIAL INH SCH (21:00)
[2018-01-05] MEDS ORDERED: RT-ALBUTEROL/IPRATROPIUM 3 ML (DUONEB) VIAL INH ONE (21:00)
--- NOTE | 2018-01-05 21:15 | Diagnostic Imaging Report ---
INDICATION: Cough and wheezing. Comparison with 10/30/2017. FINDINGS: There is obstructive pulmonary disease with flattening of the diaphragm. Mild interstitial changes noted in the lung bases. No acute infiltrates have occurred. The upper lungs are clear. There is mild cardiomegaly. No pneumothorax or pleural effusion. IMPRESSION: 1. Obstructive interstitial lung disease. No acute infiltrates. 2. Slight increasing cardiac size with no evidence of pulmonary edema. Dictated by: Dictated on workstation # [id number]
[2018-01-05 21:19] LABS: ALANINE AMINOTRANSFERASE 17 U/L (0-55); ALBUMIN 4.2 GM/DL (3.2-4.5); ALKALINE PHOSPHATASE 63 U/L (40-136); BILIRUBIN,TOTAL 0.4 MG/DL (0.1-1.0); BUN/CREATININE RATIO 9; CALCIUM 9.2 MG/DL (8.5-10.1); CARBON DIOXIDE 23 MMOL/L (21-32); CHLORIDE 107 MMOL/L (98-107); CREATININE SERUM 0.85 MG/DL (0.60-1.30); GFR ESTIMATED > 60; GLUCOSE 95 MG/DL (70-105); SODIUM 143 MMOL/L (135-145); TOTAL PROTEIN 7.3 GM/DL (6.4-8.2)
[2018-01-05] MEDS ORDERED: diphenhydrAMINE 50 MG/ML INJ (BENADRYL) ONE (22:23)
[2018-01-05] MEDS ORDERED: diphenhydrAMINE 50 MG/ML INJ (BENADRYL) IVP ONE (22:30)
[2018-01-05 22:55] VITALS: BP 133/60
[2018-01-05] MEDS ORDERED: diphenhydrAMINE 50 MG/ML INJ (BENADRYL) IV PRN (23:30)
[2018-01-05] MEDS ORDERED: AZITHROMYCIN 250 MG TAB (ZITHROMAX) PO ONE (23:30)
[2018-01-06] MEDS ORDERED: RT-ALBUTEROL SULF 2.5 MG/3 ML PRE-MIX VIAL INH PRN
[2018-01-06 00:03] VITALS: BP 133/60
[2018-01-06] MEDS: NS W/KCL 40 MEQ/L 1,000 ML IV SCH ×4 (00:47→23:58)
[2018-01-06] MEDS: RT-ALBUTEROL/IPRATROPIUM 3 ML (DUONEB) VIAL INH SCH ×6 (02:27→22:22)
[2018-01-06 04:00] VITALS: BP 121/69
[2018-01-06] MEDS: methylPREDNISolone 125 MG (Solu-MEDROL) VIAL IV SCH ×3 (06:03→22:47)
[2018-01-06 08:00] VITALS: BP 128/67
[2018-01-06] MEDS: AZITHROMYCIN 250 MG TAB (ZITHROMAX) PO SCH (08:35)
[2018-01-06] MEDS ORDERED: KCL 20 MEQ TAB (K-DUR) PO NR (09:30)
[2018-01-06] MEDS: RT-BUDESONIDE NEBS 0.5 MG/2ML (PULMICORT) AMP INH SCH ×2 (10:15→20:28)
[2018-01-06] MEDS ORDERED: AMLO10TA2 PO (10:17)
[2018-01-06] MEDS ORDERED: FLUT1AER INH (10:17)
[2018-01-06] MEDS ORDERED: FLUT16SP22 NS (10:17)
[2018-01-06] MEDS ORDERED: VARE1TAB22 PO (10:17)
[2018-01-06] MEDS ORDERED: CYCL10TA9 PO (10:17)
[2018-01-06] MEDS ORDERED: PARO40TA3 PO (10:17)
[2018-01-06] MEDS ORDERED: SERT50TA9 PO (10:17)
[2018-01-06] MEDS ORDERED: PANT40TA3 PO (10:17)
[2018-01-06] MEDS ORDERED: BUSP10TA95 PO (10:17)
[2018-01-06] MEDS ORDERED: TIOT18CA2 INH (10:17)
[2018-01-06] MEDS ORDERED: ALBU18HF2 INH (10:17)
[2018-01-06] MEDS ORDERED: IBUP-1780 PO (10:17)
[2018-01-06] MEDS ORDERED: RT-IPRATROPIUM (ATROVENT) 0.5MG/2.5ML AMP IH STA (10:22)
[2018-01-06] MEDS ORDERED: RT-ALBUTEROL SULF 2.5 MG/3 ML PRE-MIX VIAL INH STA (10:22)
[2018-01-06] MEDS ORDERED: RT-IPRATROPIUM (ATROVENT) 0.5MG/2.5ML AMP IH ONE (10:26)
[2018-01-06 12:00] VITALS: BP 131/69
[2018-01-06] MEDS: IBUPROFEN 600 MG (MOTRIN) TAB PO PRN (13:38)
[2018-01-06] MEDS ORDERED: MULT-985 PO (14:45)
[2018-01-06] MEDS ORDERED: ALBU2.5V4 NEB (14:45)
[2018-01-06] MEDS ORDERED: BUDE10.22 INH (14:45)
[2018-01-06] MEDS ORDERED: POTA99TA21 PO (14:45)
[2018-01-06] MEDS: amLODIPine 10 MG (NORVASC) TAB PO SCH (18:28)
[2018-01-06 19:56] VITALS: BP 142/80
--- NOTE | 2018-01-06 22:28 | History & Physicial ([facility]) ---
HPI History of Present Illness: 62 yo F with COPD that presented to ER with respiratory distress. States that she has been feeling sick for 2 weeks prior to coming to ER. 2 days prior to ER started having alot of troubles with breathing that was no longer improving with inhalers. States that she was using her albuterol inhaler 4-6 times per day. States that she is not usually on oxygen at home. She has never required oxygen at home. She is having a non productive cough. Denies any fever + chills. Denies any sick contacts. States that she does not have any allergies. States that she has been having coughing fits for the last month and has passed out 2 times due to these fits. She has had cardiac workup since she has had this passing out spells and everything has come back negative. States that she has never been hospitalized for her COPD and denies previous intubation. Patient received 2 hr of breathing treatments with little improvement and was still hypoxic. Source: patient, RN/MD, old records Exam Limitations: no limitations Date seen by provider: Jan 06, 2018 Time Seen by Provider: 09:45 Attending Physician Elvie Panchal MD PCP Center[facility] [place] Consult Date of Admission Jan 05, 2018 at 22:11 Home Medications Home Medications Reviewed patient Home Medication Reconciliation performed by pharmacy medication reconciliations filling technician and/or nursing. Patients Allergies have been reviewed. Allergies Coded Allergies: No Known Drug Allergies (Unverified , 11/03/17) [id number] Hx Patient Social History Alcohol Use: Denies Use Recreational Drug Use: No Smoking Status: Former Smoker Type Used: Cigarettes Recent Foreign Travel: No Contact w/other who traveled: No Recent Infectious Disease Expo: No Physical Abuse Screen: No Sexual Abuse: No Past Medical History COPD Tobacco Abuse Family Medical History Significant Family History: Heart Disease, Diabetes, Hypertension Family History: Patient reports no known family medical history. Review of Systems ([facility]) Constitutional: chills; No fever; weakness EENTM: no symptoms reported; No mouth pain, No nose congestion, No throat pain Respiratory: cough, dyspnea on exertion; No hemoptysis, No orthopnea; short of breath Cardiovascular: no symptoms reported; No chest pain, No edema, No palpitations Gastrointestinal: no symptoms reported; No abdominal pain, No constipation, No diarrhea, No nausea, No vomiting Genitourinary: no symptoms reported; No dysuria, No frequency, No hematuria : No Musculoskeletal: back pain; No joint pain, No muscle pain Skin: no symptoms reported; No lesions, No rash Psychiatric/Neurological: Anxiety; Denies Headache Reviewed Test Results Reviewed Test Results Lab Laboratory Tests Test 01/05/18 20:45 Range/Units White Blood Count 5.2 4.3-11.0 10^3/uL Red Blood Count 3.98 L 4.35-5.85 10^6/uL Hemoglobin 13.2 11.5-16.0 G/DL Hematocrit 38 35-52 % Mean Corpuscular Volume 95 80-99 FL Mean Corpuscular Hemoglobin 33 25-34 PG Mean Corpuscular Hemoglobin Concent 35 32-36 G/DL Red Cell Distribution Width 12.6 10.0-14.5 % Platelet Count 274 130-400 10^3/uL Mean Platelet Volume 9.1 7.4-10.4 FL Neutrophils (%) (Auto) 29 L 42-75 % Lymphocytes (%) (Auto) 60 H 12-44 % Monocytes (%) (Auto) 7 0-12 % Eosinophils (%) (Auto) 3 0-10 % Basophils (%) (Auto) 1 0-10 % Neutrophils # (Auto) 1.5 L 1.8-7.8 X 10^3 Lymphocytes # (Auto) 3.1 1.0-4.0 X 10^3 Monocytes # (Auto) 0.3 0.0-1.0 X 10^3 Eosinophils # (Auto) 0.2 0.0-0.3 10^3/uL Basophils # (Auto) 0.1 0.0-0.1 10^3/uL Sodium Level 143 135-145 MMOL/L Potassium Level 3.0 L 3.6-5.0 MMOL/L Chloride Level 107 98-107 MMOL/L Carbon Dioxide Level 23 21-32 MMOL/L Anion Gap 13 5-14 MMOL/L Blood Urea Nitrogen 8 7-18 MG/DL Creatinine 0.85 0.60-1.30 MG/DL Estimat Glomerular Filtration Rate > 60 BUN/Creatinine Ratio 9 Glucose Level 95 70-105 MG/DL Lactic Acid Level 1.99 0.50-2.00 MMOL/L Calcium Level 9.2 8.5-10.1 MG/DL Total Bilirubin 0.4 0.1-1.0 MG/DL Aspartate Amino Transf (AST/SGOT) 23 5-34 U/L Alanine Aminotransferase (ALT/SGPT) 17 0-55 U/L Alkaline Phosphatase 63 40-136 U/L Troponin I < 0.30 <0.30 NG/ML Total Protein 7.3 6.4-8.2 GM/DL Albumin 4.2 3.2-4.5 GM/DL Radiology Date of Exam: 01/05/18 CHEST 1 VIEW, AP/PA ONLY INDICATION: Cough and wheezing. Comparison with 10/30/2017. FINDINGS: There is obstructive pulmonary disease with flattening of the diaphragm. Mild interstitial changes noted in the lung bases. No acute infiltrates have occurred. The upper lungs are clear. There is mild cardiomegaly. No pneumothorax or pleural effusion. IMPRESSION: 1. Obstructive interstitial lung disease. No acute infiltrates. 2. Slight increasing cardiac size with no evidence of pulmonary edema. Physical Exam-([facility]) Physical Exam Vital Signs VS - Last 72 Hours, by Label 01/05/18 01/05/18 01/05/18 01/05/18 20:45 22:14 22:14 22:45 Temp 97.1 98.0 Pulse 73 92 Resp 20 20 B/P (MAP) 159/86 (110) 159/86 Pulse Ox 89 94 O2 Delivery Room Air Nasal Cannula Nasal Cannula O2 Flow Rate 3.00 3.00 01/05/18 01/05/18 01/06/18 01/06/18 22:55 23:00 00:03 00:03 Temp 97.5 Pulse 88 88 Resp 20 B/P (MAP) 133/60 (84) Pulse Ox 94 94 94 O2 Delivery Nasal Cannula Nasal Cannula Nasal Cannula O2 Flow Rate 4.00 4.00 4.00 FiO2 36 01/06/18 01/06/18 01/06/18 01/06/18 02:27 04:00 07:24 08:00 Temp 96.8 97.9 Pulse 63 77 Resp 17 20 B/P (MAP) 121/69 (86) 128/67 (87) Pulse Ox 94 96 97 97 O2 Delivery Nasal Cannula Nasal Cannula Nasal Cannula Nasal Cannula O2 Flow Rate 4.00 4.00 4.00 4.00 01/06/18 01/06/18 01/06/18 01/06/18 10:13 10:20 10:27 11:19 Pulse Ox 96 98 100 100 O2 Delivery Nasal Cannula Nasal Cannula O2 Flow Rate 4.00 4.00 01/06/18 01/06/18 01/06/18 01/06/18 12:00 14:48 15:58 16:00 Temp 96.9 98.1 Pulse 78 88 Resp 20 20 B/P (MAP) 131/69 (89) Pulse Ox 97 97 94 93 O2 Delivery Nasal Cannula Nasal Cannula Nasal Cannula Nasal Cannula O2 Flow Rate 4.00 4.00 3.00 4.00 01/06/18 01/06/18 01/06/18 19:56 20:28 20:31 Temp 97.1 Pulse 82 Resp 20 B/P (MAP) 142/80 (100) Pulse Ox 96 94 95 O2 Delivery Nasal Cannula Nasal Cannula Nasal Cannula O2 Flow Rate 3.00 3.00 3.00 Capillary Refill : Less Than 3 Seconds General Appearance: moderate distress (coughing fit during visit) HEENT: PERRL/EOMI Neck: non-tender, full range of motion, supple Respiratory: respiratory distress, decreased breath sounds, wheezing Cardiovascular: regular rate, rhythm, no edema, no murmur Gastrointestinal: normal bowel sounds, non tender, soft, no organomegaly Back: no CVA tenderness, no vertebral tenderness Extremities: normal range of motion, non-tender, no pedal edema, no calf tenderness, normal capillary refill 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 tested, no motor/sensory deficits, alert, normal mood/affect, oriented x 3 Skin: normal color, warm/dry Lymphatic: no adenopathy Assessment/Plan Assessment/Plan Admission Status: Observation (1) COPD exacerbation Status: Acute Assessment & Plan: - Patient having hypoxia and requiring 1hr long breathing treatments, Continue steroids and antibiotic at this time (2) HTN (hypertension) Status: Acute Assessment & Plan: - Start home meds Qualifiers: Qualified Codes: I10 - Essential (primary) hypertension (3) Hypokalemia Status: Acute Assessment & Plan: - replaced, repeat BMP in AM (4) Tobacco abuse Status: Chronic Assessment & Plan: - Discussed the importance of cessation (5) DVT prophylaxis Assessment & Plan: Lovenox Clinical Quality Measures DVT/VTE Risk/Contraindication: Risk Factor Score Per Nursin RFS Level Per Nursing on Admit: 3=High Copy Copies To 1: [facility], ELVIE Clark MD Jan 06, 2018 22:28
[2018-01-06] MEDS: ACETAMINOPHEN 500 MG TAB (TYLENOL) PO PRN (22:44)
[2018-01-06] MEDS: ENOXAPARIN 40 MG/0.4 ML (LOVENOX) SYR SC SCH (23:57)
[2018-01-07] VITALS: BP 148/79
[2018-01-07] MEDS: RT-ALBUTEROL/IPRATROPIUM 3 ML (DUONEB) VIAL INH SCH ×6 (02:01→22:49)
[2018-01-07 04:15] VITALS: BP 145/81
[2018-01-07] MEDS: NS W/KCL 40 MEQ/L 1,000 ML IV SCH (04:35)
[2018-01-07 05:26] LABS: BASOPHILS % (AUTO) 0 % (0-10); EOSINOPHILS % (AUTO) 0 % (0-10); HEMATOCRIT 36 % (35-52); HEMOGLOBIN 12.5 G/DL (11.5-16.0); LYMPHOCYTES # (AUTO) 1.1 X 10^3 (1.0-4.0); LYMPHOCYTES % (AUTO) 14 % (12-44); MEAN CORPUSCULAR HEMOGLOBIN 33 PG (25-34); MEAN CORPUSCULAR HGB CONC 35 G/DL (32-36); MEAN CORPUSCULAR VOLUME 95 FL (80-99); MEAN PLATELET VOLUME 9.1 FL (7.4-10.4); MONOCYTES # (AUTO) 0.3 X 10^3 (0.0-1.0); MONOCYTES % (AUTO) 4 % (0-12); NEUTROPHILS # (AUTO) 6.3 X 10^3 (1.8-7.8); NEUTROPHILS % (AUTO) 83 % (42-75); PLATELET COUNT 322 10^3/uL (130-400); RED BLOOD COUNT 3.81 10^6/uL (4.35-5.85); RED CELL DISTRIBUTION WIDTH 12.8 % (10.0-14.5); WHITE BLOOD COUNT 7.7 10^3/uL (4.3-11.0)
[2018-01-07 05:53] LABS: ALANINE AMINOTRANSFERASE 17 U/L (0-55); ALBUMIN 4.2 GM/DL (3.2-4.5); ALKALINE PHOSPHATASE 60 U/L (40-136); BILIRUBIN,TOTAL 0.6 MG/DL (0.1-1.0); BUN/CREATININE RATIO 8; CALCIUM 9.6 MG/DL (8.5-10.1); CARBON DIOXIDE 22 MMOL/L (21-32); CHLORIDE 112 MMOL/L (98-107); CREATININE SERUM 0.77 MG/DL (0.60-1.30); GFR ESTIMATED > 60; GLUCOSE 140 MG/DL (70-105); POTASSIUM 4.3 MMOL/L (3.6-5.0); SODIUM 144 MMOL/L (135-145); TOTAL PROTEIN 7.2 GM/DL (6.4-8.2)
[2018-01-07] MEDS: methylPREDNISolone 125 MG (Solu-MEDROL) VIAL IV SCH (06:13)
[2018-01-07] MEDS: RT-BUDESONIDE NEBS 0.5 MG/2ML (PULMICORT) AMP INH SCH ×2 (06:30→18:56)
[2018-01-07 08:00] VITALS: BP 163/76
[2018-01-07] MEDS: PANTOPRAZOLE 40 MG (PROTONIX) TAB PO SCH (10:00)
[2018-01-07] MEDS: AZITHROMYCIN 250 MG TAB (ZITHROMAX) PO SCH (10:00)
[2018-01-07] MEDS: amLODIPine 10 MG (NORVASC) TAB PO SCH (10:00)
[2018-01-07] MEDS: FLUTICASONE NASAL SPRAY (FLONASE) 16 GM BTL NS SCH (10:12)
[2018-01-07 12:00] VITALS: BP 170/98
[2018-01-07] MEDS: predniSONE 20 MG TAB PO SCH (12:14)
[2018-01-07] MEDS: IBUPROFEN 600 MG (MOTRIN) TAB PO PRN (13:17)
--- NOTE | 2018-01-07 15:51 | Progress Note (SOAP) ---
Subjective Subjective/Events-last exam Patient states that she feels better but still having profound shortness of breath. She has only been able to get up to the commode. She has had poor appetite and states that she has really only tolerated fluids. Review of Systems Date Seen by Provider: Jan 07, 2018 Time Seen by Provider: 11:20 Pulmonary: Dyspnea, Cough Cardiovascular: No: Chest Pain, Palpitations, Edema Gastrointestinal: Other (poor appetite) Genitourinary: No Dysuria, No Frequency, No Incontinence Focused Exam Lactate Level 01/05/18 20:45: Lactic Acid Level 1.99 Objective Exam Last Set of Vital Signs Vital Signs Date Time Temp Pulse Resp B/P (MAP) Pulse Ox O2 Delivery O2 Flow Rate FiO2 01/07/18 14:13 94 Nasal Cannula 2.00 01/07/18 12:00 98.4 95 18 170/98 (122) 01/06/18 00:03 36 Capillary Refill : Less Than 3 Seconds I&O Intake and Output 01/07/18 00:00 Intake Total 3960 ml Output Total 2400 ml Balance 1560 ml Intake Oral 1960 ml IV Total 2000 ml Output Urine Total 2400 ml # Voids 1 General: Alert, Oriented X3, Cooperative, Mild Distress (Converstational dypsnea) Lungs: Other (diffuse wheezing with diminshed breath sounds) Heart: Regular Rate, No Murmurs Abdomen: Normal Bowel Sounds, Soft, No Tenderness Extremities: No Edema, No Tenderness/Swelling Neuro: Normal Speech, Sensation Intact, Cranial Nerves 3-12 NL Psych/Mental Status: Mental Status NL, Mood NL Results/Procedures Lab Laboratory Tests 01/07/18 05:18: White Blood Count 7.7, Red Blood Count 3.81L, Hemoglobin 12.5, Hematocrit 36, Mean Corpuscular Volume 95, Mean Corpuscular Hemoglobin 33, Mean Corpuscular Hemoglobin Concent 35, Red Cell Distribution Width 12.8, Platelet Count 322, Mean Platelet Volume 9.1, Neutrophils (%) (Auto) 83H, Lymphocytes (%) (Auto) 14 , Monocytes (%) (Auto) 4, Eosinophils (%) (Auto) 0, Basophils (%) (Auto) 0, Neutrophils # (Auto) 6.3, Lymphocytes # (Auto) 1.1, Monocytes # (Auto) 0.3, Eosinophils # (Auto) 0.0, Basophils # (Auto) 0.0, Sodium Level 144, Potassium Level 4.3, Chloride Level 112H, Carbon Dioxide Level 22, Anion Gap 10, Blood Urea Nitrogen 6L, Creatinine 0.77, Estimat Glomerular Filtration Rate > 60, BUN/ Creatinine Ratio 8, Glucose Level 140H, Calcium Level 9.6, Total Bilirubin 0.6, Aspartate Amino Transf (AST/SGOT) 19, Alanine Aminotransferase (ALT/SGPT) 17, Alkaline Phosphatase 60, Total Protein 7.2, Albumin 4.2 Microbiology 01/05/18 Blood Culture - Preliminary, Resulted No growth Radiology Date of Exam: 01/05/18 CHEST 1 VIEW, AP/PA ONLY INDICATION: Cough and wheezing. Comparison with 10/30/2017. FINDINGS: There is obstructive pulmonary disease with flattening of the diaphragm. Mild interstitial changes noted in the lung bases. No acute infiltrates have occurred. The upper lungs are clear. There is mild cardiomegaly. No pneumothorax or pleural effusion. IMPRESSION: 1. Obstructive interstitial lung disease. No acute infiltrates. 2. Slight increasing cardiac size with no evidence of pulmonary edema. Assessment/Plan Assessment/Plan (1) COPD exacerbation Status: Acute Assessment & Plan: - Patient having hypoxia and requiring 1hr long breathing treatments, Continue steroids and antibiotic at this time 01/07: Steroids transitioned to PO, Continue Azithromycin, MAT protocol, Discussed with patient that she may need to d.c home on oxygen (2) HTN (hypertension) Status: Acute Assessment & Plan: - Start home meds Qualifiers: Qualified Codes: I10 - Essential (primary) hypertension (3) Hypokalemia Status: Acute Assessment & Plan: - replaced, repeat BMP in AM 01/07: Resolved (4) Tobacco abuse Status: Chronic Assessment & Plan: - Discussed the importance of cessation (5) DVT prophylaxis Assessment & Plan: Lovenox Clinical Quality Measures DVT/VTE Risk/Contraindication: Risk Factor Score Per Nursin RFS Level Per Nursing on Admit: 3=High ELVIE CARRIZALES MD Jan 07, 2018 15:51
[2018-01-07 16:25] VITALS: BP 136/68
[2018-01-07 19:35] VITALS: BP 139/82
[2018-01-07] MEDS: ACETAMINOPHEN 500 MG TAB (TYLENOL) PO PRN (20:25)
[2018-01-07] MEDS: ENOXAPARIN 40 MG/0.4 ML (LOVENOX) SYR SC SCH (22:05)
[2018-01-08] VITALS: BP 131/71
[2018-01-08] MEDS: RT-ALBUTEROL/IPRATROPIUM 3 ML (DUONEB) VIAL INH SCH ×6 (02:16→21:56)
[2018-01-08 05:56] LABS: BASOPHILS % (AUTO) 0 % (0-10); EOSINOPHILS % (AUTO) 0 % (0-10); HEMATOCRIT 40 % (35-52); HEMOGLOBIN 13.1 G/DL (11.5-16.0); LYMPHOCYTES # (AUTO) 2.6 X 10^3 (1.0-4.0); LYMPHOCYTES % (AUTO) 25 % (12-44); MEAN CORPUSCULAR HEMOGLOBIN 32 PG (25-34); MEAN CORPUSCULAR HGB CONC 33 G/DL (32-36); MEAN CORPUSCULAR VOLUME 96 FL (80-99); MEAN PLATELET VOLUME 9.3 FL (7.4-10.4); MONOCYTES # (AUTO) 0.9 X 10^3 (0.0-1.0); MONOCYTES % (AUTO) 8 % (0-12); NEUTROPHILS # (AUTO) 7.2 X 10^3 (1.8-7.8); NEUTROPHILS % (AUTO) 67 % (42-75); PLATELET COUNT 381 10^3/uL (130-400); RED BLOOD COUNT 4.13 10^6/uL (4.35-5.85); RED CELL DISTRIBUTION WIDTH 13.2 % (10.0-14.5); WHITE BLOOD COUNT 10.7 10^3/uL (4.3-11.0)
[2018-01-08] MEDS: RT-BUDESONIDE NEBS 0.5 MG/2ML (PULMICORT) AMP INH SCH ×2 (06:30→19:05)
[2018-01-08 06:38] LABS: ALANINE AMINOTRANSFERASE 19 U/L (0-55); ALBUMIN 4.2 GM/DL (3.2-4.5); ALKALINE PHOSPHATASE 58 U/L (40-136); BILIRUBIN,TOTAL 0.7 MG/DL (0.1-1.0); BUN/CREATININE RATIO 15; CALCIUM 9.8 MG/DL (8.5-10.1); CARBON DIOXIDE 24 MMOL/L (21-32); CHLORIDE 105 MMOL/L (98-107); GFR ESTIMATED > 60; GLUCOSE 98 MG/DL (70-105); POTASSIUM 3.5 MMOL/L (3.6-5.0); SODIUM 143 MMOL/L (135-145); TOTAL PROTEIN 7.2 GM/DL (6.4-8.2)
[2018-01-08 08:00] VITALS: BP 160/92
[2018-01-08] MEDS: PANTOPRAZOLE 40 MG (PROTONIX) TAB PO SCH (08:35)
[2018-01-08] MEDS: FLUTICASONE NASAL SPRAY (FLONASE) 16 GM BTL NS SCH (08:35)
[2018-01-08] MEDS: amLODIPine 10 MG (NORVASC) TAB PO SCH (08:35)
[2018-01-08] MEDS: AZITHROMYCIN 250 MG TAB (ZITHROMAX) PO SCH (08:35)
[2018-01-08] MEDS ORDERED: KCL 20 MEQ TAB (K-DUR) PO NR (09:30)
[2018-01-08] MEDS: predniSONE 20 MG TAB PO SCH (12:26)
--- NOTE | 2018-01-08 13:51 | Physical Therapy Evaluation ---
PT Evaluation-General Medical Diagnosis Admission Date Jan 07, 2018 at 09:57 Medical Diagnosis: COPD exacerbation Onset Date: Jan 07, 2018 Therapy Diagnosis Therapy Diagnosis: decreased pulmonary function Height/Weight Height (Feet): 5 Height (Inches): 5.00 Weight (Pounds): 160 Weight (Ounces): 0.0 Precautions Precautions/Isolations: Fall Prevention Weight Bear Status Right Lower Extremity: Right Full Weight Bearing Left Lower Extremity: Left Full Weight Bearing Referral Physician: Abdulkadir Reason for Referral: Evaluation/Treatment Medical History Pertinent Medical History: COPD, Smoking Current History ED with SOB Reviewed History: Yes Social History Home: [facility] Current Living Status: Other Family Prior/Core FIM Prior Level of Function Functional [place] Measure 0=Not Assessed/NA 4=Minimal Assistance 1=Total Assistance 5=Supervision or Setup 2=Maximal Assistance 6=Modified [place] 3=Moderate Assistance 7=Complete [place] Bed Mobility: 7 Transfers (B,C,W/C) (FIM): 7 Gait: 7 Locomotion: 7 PT Evaluation-Current Subjective Patient agrees to PT. Pain Numeric Pain Scale: 0-No Pain Location: No Pain Reported Objective Patient Orientation: Normal For Age Problem Solving: Fair Attachments: Oxygen (2L) ROM/Strength ROM Lower Extremities bilateral LE WNL Strength Lower Extremities 4+/5 grossly bilaterally Integumentary/Posture Integumentary refer to nursing notes Bowel Incontinence: No Bladder Incontinence: No Posture WFL Neuromuscular (Tone, Coordination, Reflexes) grossly intact Sensory Vision: Functional Hearing: Functional Sensation Right Lower Extremit: Intact Sensation Left Lower Extremity: Intact Transfers Functional [place] Measure 0=Not Assessed/NA 4=Minimal Assistance 1=Total Assistance 5=Supervision or Setup 2=Maximal Assistance 6=Modified [place] 3=Moderate Assistance 7=Complete [place] Transfers (B, C, W/C) (FIM): 7 Scootin Supine to/from Sit: 7 Sit to/from Stand: 7 Gait Mode of Locomotion: Walk Anticipated Mode of Locomotion: Walk Gait (FIM): 5 Distance (FIM): 3=150 ft Distance: 150' Gait Level of Assist: 5 Gait Persons Needed: 1 Gait Assistive Device: FWW Comments/Gait Description RA at 94% with ambulation with use of FWW Balance Sitting Static: Normal Sitting Dynamic: Normal Standing Static: Normal Standing Dynamic: Normal Assessment/Needs 62 y.o. female, will be seen short term by skilled PT to address pulmonary functional with functional mobility to ensure safe return to home with family. Rehab Potential: Fair PT Equities Trader Goals Custodial Goals PT Equities Trader Goals Time Frame: Jan 16, 2018 Transfers (B,C,W/C) (FIM): 7 Gait (FIM): 7 Gait distance (FIM): 3=150 ft Gait Level of Assist: 7 Gait Assistive Device: None PT Plan Problem List Problem List: Activity Tolerance, Safety, Gait Treatment/Plan Treatment Plan: Continue Plan of Care Treatment Plan: Education, Functional Activity [place], Functional Strength, Gait , Safety, Therapeutic Exercise Treatment Duration: Jan 16, 2018 Frequency: 6 times per week Estimated Hrs Per Day: .5 hour per day Patient and/or Family Agrees t: Yes Discharge Recommendations Therapy D/C Recommendations: Home w/ Family Support Time/GCodes Time In: 1305 Time Out: 1326 Total Billed Treatment Time: 21 Total Billed Treatment 1 visit EVModC 21 min G Codes Necessary: Yes PT/OT Therapy GCodes Therapy Functional Limitation: Physical Therapy Test(s)/Tool used to determine: Level of Assistance Scale Functional Limitation-Current Charge Code: JASMINCUVic Modifier: [place] Functional Limitation-Goal Charge Code: TIFF Modifier: JANNA DAY PT Jan 08, 2018 13:50
[2018-01-08 16:42] VITALS: BP 156/85
[2018-01-08 19:37] VITALS: BP 144/78
[2018-01-08] MEDS: IBUPROFEN 600 MG (MOTRIN) TAB PO PRN (20:29)
--- NOTE | 2018-01-08 20:58 | Progress Note (SOAP) ---
Subjective Subjective/Events-last exam Patient feeling better this AM but still having periods of profound shortness of breath. States that she is having alot of anxiety when she has these episodes. Continues to have non productive cough. Appetite improving. Has not been out of bed much since admission Review of Systems Date Seen by Provider: Jan 08, 2018 Time Seen by Provider: 11:15 Pulmonary: Dyspnea, Cough Cardiovascular: No: Chest Pain, Palpitations Gastrointestinal: No: Abdominal Pain, Diarrhea, Constipation Neurological: Weakness; No: Confusion Objective Exam Last Set of Vital Signs Vital Signs Date Time Temp Pulse Resp B/P (MAP) Pulse Ox O2 Delivery O2 Flow Rate FiO2 01/08/18 19:37 97.5 75 14 144/78 (100) 96 Nasal Cannula 2.00 01/06/18 00:03 36 Capillary Refill : Less Than 3 SecondsLess Than 3 Seconds I&O Intake and Output 01/08/18 00:00 Intake Total 2760 ml Output Total 3550 ml Balance -790 ml Intake Oral 1110 ml IV Total 1650 ml Output Urine Total 3550 ml # Bowel Movements 1 General: Alert, Oriented X3, Cooperative, Mild Distress (with coughing episodes ) Lungs: Other (diffuse wheezing, conversational dypsnea, + accessory muscle use with breathing) Heart: Regular Rate, No Murmurs Abdomen: Normal Bowel Sounds, Soft, No Tenderness, No Hepatosplenomegaly Extremities: No Edema, No Tenderness/Swelling Psych/Mental Status: Mental Status NL, Mood NL Results/Procedures Lab Laboratory Tests 01/08/18 05:20: White Blood Count 10.7, Red Blood Count 4.13L, Hemoglobin 13.1, Hematocrit 40, Mean Corpuscular Volume 96, Mean Corpuscular Hemoglobin 32, Mean Corpuscular Hemoglobin Concent 33, Red Cell Distribution Width 13.2, Platelet Count 381, Mean Platelet Volume 9.3, Neutrophils (%) (Auto) 67, Lymphocytes (%) (Auto) 25, Monocytes (%) (Auto) 8, Eosinophils (%) (Auto) 0, Basophils (%) (Auto) 0, Neutrophils # (Auto) 7.2, Lymphocytes # (Auto) 2.6, Monocytes # (Auto) 0.9, Eosinophils # (Auto) 0.0, Basophils # (Auto) 0.0, Sodium Level 143, Potassium Level 3.5L, Chloride Level 105, Carbon Dioxide Level 24, Anion Gap 14, Blood Urea Nitrogen 12, Creatinine 0.80, Estimat Glomerular Filtration Rate > 60, BUN/ Creatinine Ratio 15, Glucose Level 98, Calcium Level 9.8, Total Bilirubin 0.7, Aspartate Amino Transf (AST/SGOT) 20, Alanine Aminotransferase (ALT/SGPT) 19, Alkaline Phosphatase 58, Total Protein 7.2, Albumin 4.2 Microbiology 01/05/18 Blood Culture - Preliminary, Resulted No growth Radiology Date of Exam: 01/05/18 CHEST 1 VIEW, AP/PA ONLY INDICATION: Cough and wheezing. Comparison with 10/30/2017. FINDINGS: There is obstructive pulmonary disease with flattening of the diaphragm. Mild interstitial changes noted in the lung bases. No acute infiltrates have occurred. The upper lungs are clear. There is mild cardiomegaly. No pneumothorax or pleural effusion. IMPRESSION: 1. Obstructive interstitial lung disease. No acute infiltrates. 2. Slight increasing cardiac size with no evidence of pulmonary edema. Assessment/Plan Assessment/Plan (1) COPD exacerbation Status: Acute Assessment & Plan: - Patient having hypoxia and requiring 1hr long breathing treatments, Continue steroids and antibiotic at this time 01/07: Steroids transitioned to PO, Continue Azithromycin, MAT protocol, Discussed with patient that she may need to d.c home on oxygen 01/08: Home O2 eval tomorrow (2) HTN (hypertension) Status: Acute Assessment & Plan: - Start home meds Qualifiers: Qualified Codes: I10 - Essential (primary) hypertension (3) Hypokalemia Status: Acute Assessment & Plan: - replaced, repeat BMP in AM 01/07: Resolved 01/08: PO replacement, Repeat BMP in AM (4) Tobacco abuse Status: Chronic Assessment & Plan: - Discussed the importance of cessation 01/08: She has been tobacco free since October, Discussed the importance of continued cessation (5) DVT prophylaxis Assessment & Plan: Lovenox Dispo: Plan for D/c Friday or Friday, Will need home O2 Clinical Quality Measures DVT/VTE Risk/Contraindication: Risk Factor Score Per Nursin RFS Level Per Nursing on Admit: 3=High ELVIE CARRIZALES MD Jan 08, 2018 8:58 pm
[2018-01-08] MEDS: ENOXAPARIN 40 MG/0.4 ML (LOVENOX) SYR SC SCH (22:34)
[2018-01-09 00:23] VITALS: BP 123/70
[2018-01-09] MEDS: RT-ALBUTEROL/IPRATROPIUM 3 ML (DUONEB) VIAL INH SCH ×4 (02:06→14:40)
[2018-01-09 05:48] LABS: BASOPHILS % (AUTO) 0 % (0-10); EOSINOPHILS % (AUTO) 0 % (0-10); HEMATOCRIT 40 % (35-52); HEMOGLOBIN 13.8 G/DL (11.5-16.0); LYMPHOCYTES # (AUTO) 2.6 X 10^3 (1.0-4.0); LYMPHOCYTES % (AUTO) 34 % (12-44); MEAN CORPUSCULAR HEMOGLOBIN 32 PG (25-34); MEAN CORPUSCULAR HGB CONC 34 G/DL (32-36); MEAN CORPUSCULAR VOLUME 94 FL (80-99); MEAN PLATELET VOLUME 8.8 FL (7.4-10.4); MONOCYTES # (AUTO) 0.7 X 10^3 (0.0-1.0); MONOCYTES % (AUTO) 9 % (0-12); NEUTROPHILS # (AUTO) 4.4 X 10^3 (1.8-7.8); NEUTROPHILS % (AUTO) 58 % (42-75); PLATELET COUNT 362 10^3/uL (130-400); RED BLOOD COUNT 4.29 10^6/uL (4.35-5.85); RED CELL DISTRIBUTION WIDTH 12.7 % (10.0-14.5); WHITE BLOOD COUNT 7.7 10^3/uL (4.3-11.0)
[2018-01-09 06:07] LABS: BUN/CREATININE RATIO 21; CALCIUM 9.7 MG/DL (8.5-10.1); CARBON DIOXIDE 23 MMOL/L (21-32); CHLORIDE 106 MMOL/L (98-107); CREATININE SERUM 0.82 MG/DL (0.60-1.30); GFR ESTIMATED > 60; GLUCOSE 93 MG/DL (70-105); POTASSIUM 3.7 MMOL/L (3.6-5.0); SODIUM 141 MMOL/L (135-145)
[2018-01-09 06:27] VITALS: BP 123/70
[2018-01-09] MEDS: RT-BUDESONIDE NEBS 0.5 MG/2ML (PULMICORT) AMP INH SCH (06:27)
[2018-01-09 08:00] VITALS: BP 149/83
[2018-01-09] MEDS: PANTOPRAZOLE 40 MG (PROTONIX) TAB PO SCH (08:50)
[2018-01-09] MEDS: amLODIPine 10 MG (NORVASC) TAB PO SCH (08:51)
[2018-01-09] MEDS: AZITHROMYCIN 250 MG TAB (ZITHROMAX) PO SCH (08:51)
[2018-01-09] MEDS: FLUTICASONE NASAL SPRAY (FLONASE) 16 GM BTL NS SCH (08:51)
--- NOTE | 2018-01-09 10:45 | Physical Therapy Daily Note ---
PT Daily Note-Current Transfers Functional [place] Measure 0=Not Assessed/NA 4=Minimal Assistance 1=Total Assistance 5=Supervision or Setup 2=Maximal Assistance 6=Modified [place] 3=Moderate Assistance 7=Complete IndependenceIRFPAI Quality Coding Scale 6 Independent with activity with or without an assistive device 5 Patient requires set up or clean up by helper. Patient completes activity by themselves 4 Supervision or touching assist (CGA). [place] provide cues , steadying assist 3 The helper provides less than half the effort to complete the activity 2 The helper provides more than half the effort to complete the activity 1 Dependent. The helper does all the effort to complete an activity 7 Patient refused to complete or attempt activity 9 The patient did not perform the activity before the current illness or injury 88 Not attempted due to Medical conditions or safety concerns Weight Bearing Right Lower Extremity: Right Full Weight Bearing Left Lower Extremity: Left Full Weight Bearing Assessment Patient and nursing report she has been up in hallway with use of FWW for energy conservation modified independently. SAO2 remain >90% on RA with and without activity per RN. Patient also reports she has a FWW at home for use. PT to dismiss patient from services at this time due to current LOF. PT Retirement Goals Retirement Goals PT Assistant Professor Of Music Goals Time Frame: Jan 16, 2018 Transfers (B,C,W/C) (FIM): 7 Gait (FIM): 7 Gait distance (FIM): 3=150 ft Gait Level of Assist: 7 Gait Assistive Device: None PT Plan Treatment/Plan Treatment Plan: Discontinue PT Treatment Plan: Education, Functional Activity [place], Functional Strength, Gait , Safety, Therapeutic Exercise Treatment Duration: Jan 16, 2018 Frequency: 6 times per week Estimated Hrs Per Day: .5 hour per day Patient and/or Family Agrees t: Yes Time/GCodes Time In: 1035 Time Out: 1040 Total Billed Treatment Time: 5 Total Billed Treatment 1 visit G Codes Necessary: Yes PT/OT Therapy GCodes Therapy Functional Limitation: Physical Therapy Test(s)/Tool used to determine: Level of Assistance Scale Functional Limitation-Current Charge Code: MOBCUR Modifier: CJ Functional Limitation-Goal Charge Code: MOBGOAL Modifier: CH Functional Limitation-D/C Charge Codes: MOBDC Modifier: JANNA JESUS PT Jan 09, 2018 10:45
[2018-01-09] MEDS: predniSONE 20 MG TAB PO SCH (11:35)
--- NOTE | 2018-01-09 13:33 | Discharge Summary ---
Diagnosis/Chief Complaint Date of Admission Jan 07, 2018 at 09:57 Date of Discharge 01/09/2018 Admission Diagnosis Admission Diagnosis COPD Exacerbation HTN Hypokalemia Tobacco Abuse Discharge Diagnosis See Above Chief Complaint/HPI Chief Complaint/HPI 62 yo F with COPD that presented to ER with respiratory distress. States that she has been feeling sick for 2 weeks prior to coming to ER. 2 days prior to ER started having alot of troubles with breathing that was no longer improving with inhalers. States that she was using her albuterol inhaler 4-6 times per day. States that she is not usually on oxygen at home. She has never required oxygen at home. She is having a non productive cough. Denies any fever + chills. Denies any sick contacts. States that she does not have any allergies. States that she has been having coughing fits for the last month and has passed out 2 times due to these fits. She has had cardiac workup since she has had this passing out spells and everything has come back negative. States that she has never been hospitalized for her COPD and denies previous intubation. Patient received 2 hr of breathing treatments with little improvement and was still hypoxic. Discharge Summary-Simple/Stand Procedures None Consultations None Discharge Physical Examination Allergies: Coded Allergies: No Known Drug Allergies (Unverified , 11/03/17) Vitals & I&Os Vital Sign - Last 12Hours Date Time Temp Pulse Resp B/P (MAP) Pulse Ox O2 Delivery O2 Flow Rate FiO2 01/09/18 10:54 96 Room Air 01/09/18 08:00 98.4 77 19 149/83 (105) 2.00 01/06/18 00:03 36 Intake and Output 01/09/18 00:00 Intake Total 1740 ml Output Total 3250 ml Balance -1510 ml General Appearance: Alert, Oriented X3, Cooperative, No Acute Distress Respiratory: Clear to Auscultation, Normal Air Movement, Other (Normal work of breathing, mild dyspnea with activity) Cardiovascular: Regular Rate, No Murmurs Abdominal: Normal Bowel Sounds, Soft, No Tenderness, No Hepatosplenomegaly, No Masses Extremities: No Edema Skin: No Rashes Neuro: Normal Speech, Strength at 5/5 X4 Ext, Cranial Nerves 3-12 NL Psych/Mental Status: Mental Status NL, Mood NL Hospital Course See final discharge diagnosis. Radiology Reviewed Date of Exam: 01/05/18 CHEST 1 VIEW, AP/PA ONLY INDICATION: Cough and wheezing. Comparison with 10/30/2017. FINDINGS: There is obstructive pulmonary disease with flattening of the diaphragm. Mild interstitial changes noted in the lung bases. No acute infiltrates have occurred. The upper lungs are clear. There is mild cardiomegaly. No pneumothorax or pleural effusion. IMPRESSION: 1. Obstructive interstitial lung disease. No acute infiltrates. 2. Slight increasing cardiac size with no evidence of pulmonary edema. Discussion & Recommendations 62 yo F that presented with dyspnea and hypoxia that did not improve with continuous treatments COPD Exacerbation: Patient has long history of COPD w/o previous home oxygen requirements. Patient was hypoxic upon arrival and did not improve in ER with 2 hrs of treatments. She required MAT protocol and oxygen x 2 days. She was able to be titrated off oxygen and maintained oxygen with activity. Patient was sent home with steroid taper and nebulizer treatments. Discussed the importance of continued cessation of tobacco use as she has not smoked since October. Discussed possible pulmonary rehab as outpatient. HTN: Continued on home meds Hypokalemia: Replaced and resolved by discharge. Tobacco Abuse: See above Patient was sent home with close follow up with PCP at [facility] Discharge Condition at discharge Stable Instructions to patient/family Please see electronic discharge instructions given to patient. Discharge Medications Reviewed and agree with Discharge Medication list on patient's Discharge Instruction sheet Clinical Quality Measures DVT/VTE Risk/Contraindication: Risk Factor Score Per Nursin RFS Level Per Nursing on Admit: 3=High [facility] MD Jan 09, 2018 13:33
[2018-01-09] MEDS ORDERED: TIOT18CA2 INH (13:36)
[2018-01-09] MEDS ORDERED: PRD20T PO (13:36)
--- NOTE | 2018-01-09 13:51 | Discharge Instructions ---
Discharge Inst-[facility] Discharge Medications New, Converted or Re-Newed RX: Transmitted to Pharmacy New Medications: Prednisone (Prednisone) 20 Mg Tab 40 MG PO DAILY@1200 for 7 Days, #14 TAB Continued Medications: Albuterol Sulfate (Ventolin Hfa) 18 Gm Hfa.aer.ad 2 PUFF INH Q4H PRN for SHORTNESS OF BREATH, INHALER Albuterol Sulfate (Albuterol Sulfate) 2.5 Mg/3 Ml Vial.neb 2.5 MG NEB Q4H PRN for SHORTNESS OF BREATH, EA Amlodipine Besylate (Amlodipine Besylate) 10 Mg Tablet 10 MG PO DAILY, TAB Budesonide/Formoterol Fumarate (Symbicort 80-4.5 Mcg Inhaler) 10.2 Gm Hfa.aer.ad 2 PUFF INH DAILY, INHALER Fluticasone Propionate (Fluticasone Propionate) 16 Gm [place].susp 2 SPRAYS NS DAILY, EA Ibuprofen (Ibuprofen) 800 Mg Tablet 800 MG PO TID PRN for PAIN-MILD, TAB Multivitamin with Minerals (Hair, Skin & Nails) 1 Each Tablet 1 TAB PO DAILY, TAB Pantoprazole Sodium (Pantoprazole Sodium) 40 Mg Tablet.dr 40 MG PO DAILY, TAB Potassium Gluconate (Potassium) 99 Mg Tablet 99 MG PO DAILY, TAB Tiotropium [place] (Spiriva) 1 Inh Aerp 1 CAP INH DAILY, #30 EA (This prescription has been renewed) Varenicline Tartrate (Chantix) 1 Mg Tablet 1 MG PO DAILY, TAB Discontinued Medications: Buspirone HCl (Buspirone HCl) 10 Mg Tablet 10 MG PO DAILY, TAB Paroxetine HCl (Paroxetine HCl) 40 Mg Tablet 40 MG PO DAILY, TAB Sertraline HCl (Sertraline HCl) 50 Mg Tablet 50 MG PO DAILY, TAB Patient Instructions Goal/Follow Up Appt: You have a follow up appt on January 15 @ 1 pm with Minna Valera Patient Instructions: - make sure to complete your steroids - Schedule your breathing treatments Return to The Hospital For: - Shortness of breath that is not relieved by breathing treatments - chest pain Activity & Diet Discharge Diet: No Restrictions Activity as Tolerated: Yes Orders-Post D/C & Referrals Pneu Vac Indicated: Yes Copy Copies To 1: [facility] MD Jan 09, 2018 13:51
--- OUTSIDE RECORDS SUMMARY | 2018-01-12 09:58 | XMS REPORT ---
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 Name Role Phone ARIA PRECIADO Unavailable PROBLEMS Type Condition ICD9-CM Code VPQ48-SZ Code Onset Dates Condition Status SNOMED Code Problem COPD with acute bronchitis J44.0 Active 513091076707513 Problem Non-seasonal allergic rhinitis due to pollen J30.1 Active 55124119 Problem Chronic obstructive pulmonary disease, unspecified COPD type J44.9 Active 25161429 Problem Essential hypertension I10 Active 56304250 Problem GERD without esophagitis K21.9 Active 100351502 Problem Moderate single current episode of major depressive disorder F32.1 Active 20923819 Problem Other chronic pain G89.29 Active 46837414 ALLERGIES No Information ENCOUNTERS Encounter Location Date Diagnosis [place] [id number] [place] [phone] December, Closed nondisplaced fracture of third metatarsal bone of left foot with routine healing, subsequent encounter S92.335D and Closed nondisplaced fracture of fourth metatarsal bone of left foot with routine healing, subsequent encounter S92.345D [place] [address] [place] [id number] [place] [address] Nov, Closed nondisplaced fracture of fifth metatarsal bone of left foot, initial encounter S92.355A [place] [address] [place] [id number] [address] Nov, [place] [address] [place] [id number] [place] [address] Oct, [place] [address] [place] [id number] [address] Oct, Essential hypertension I10 ; Chronic obstructive pulmonary disease, unspecified COPD type J44.9 ; Closed fracture of left foot with routine healing, subsequent encounter S92.902D ; Syncope and collapse R55 ; Tobacco abuse Z72.0 ; Tobacco abuse counseling Z71.6 ; Moderate single current episode of major depressive disorder F32.1 and Non-seasonal allergic rhinitis due to pollen J30.1 [place] [address] [address] Sep, [place] [address] [address] Aug, [place] [address] [address] Aug, Essential hypertension I10 ; GERD without esophagitis K21.9 ; Moderate single current episode of major depressive disorder F32.1 ; Other chronic pain G89.29 ; Chronic obstructive pulmonary disease, unspecified COPD type J44.9 and Overweight (BMI 25.0-29.9) E66.3 [place] [address] [address] Aug, [place] [address] [address] Jul, [place] [address] [address] Jun, [place] [address] [address] Jun, [place] [address] [address] Jun, COPD with acute bronchitis J44.0 [place] [address] [address] May, Encounter for immunization Z23 [place] [address] [address] May, [place] [address] [address] Apr, Encounter to establish care Z76.89 ; GERD without esophagitis K21.9 ; Moderate single current episode of major depressive disorder F32.1 ; Essential hypertension I10 ; COPD with acute bronchitis J44.0 ; Overweight (BMI 25.0-29.9) E66.3 ; Pain in left shoulder M25.512 ; Pain in right shoulder M25.511 and Other chronic pain G89.29 [place] [address] [place] [address] Apr, [place] [address] [place] [id number] [place] [address] Apr, Bruises easily R23.8 [place] [address] [place] [id number] [place] [address] Mar, Bruises easily R23.8 and COPD with acute bronchitis J44.0 IMMUNIZATIONS No Known Immunizations SOCIAL HISTORY Never Assessed REASON FOR VISIT eye exam PLAN OF CARE VITAL SIGNS MEDICATIONS Unknown [...]
== END 2018-01-09 15:10 | disposition home or self-care (01) | DRG 192 ==
LOC: EDUNIT# 19:52 → ER 19:53 → UNDOADMOB 22:11 → 4TH 22:11 → UNDOADMOB 22:45 → INTOOBSV 01-07 09:57 → OBSVTOIN 01-07 09:57 → UNDODISIN 01-09 15:10
PROVIDERS: ADMIT Family Medicine; ATTEND Family Medicine
DX: J44.1 Chronic obstructive pulmonary disease with (acute) exacerbation (principal); R09.02 Hypoxemia; R06.03 Acute respiratory distress; I10 Essential (primary) hypertension; E87.6 Hypokalemia; F41.9 Anxiety disorder, unspecified; Z87.891 Personal history of nicotine dependence
CPT/HCPCS: 36415; 71045; 80048; 80053; 83605; 84484; 85025; 87040; 93005; 94640; 94644; 94760; 94761; G0378

== ENCOUNTER 2019-03-14 10:27 | Inpatient (IN) | payer MEDICARE | END 2019-03-18 11:04 | disposition other institution (70) | LOC: 4TH 03-16 08:38 → ER 10:27 → 4TH 13:03 | DX: J44.1 Chronic obstructive pulmonary disease with (acute) exacerbation (principal); J18.9 Pneumonia, unspecified organism; R64 Cachexia; F10.239 Alcohol dependence with withdrawal, unspecified; K90.9 Intestinal malabsorption, unspecified; T17.208A Unspecified foreign body in pharynx causing other injury, initial encounter; R07.89 Other chest pain; R01.1 Cardiac murmur, unspecified; K44.9 Diaphragmatic hernia without obstruction or gangrene; K46.9 Unspecified abdominal hernia without obstruction or gangrene; I10 Essential (primary) hypertension; R32 Unspecified urinary incontinence; R35.0 Frequency of micturition; I25.10 Atherosclerotic heart disease of native coronary artery without angina pectoris; F41.9 Anxiety disorder, unspecified; F32.9 Major depressive disorder, single episode, unspecified; F10.20 Alcohol dependence, uncomplicated; R68.81 Early satiety; E87.6 Hypokalemia; K21.9 Gastro-esophageal reflux disease without esophagitis; R13.10 Dysphagia, unspecified; R63.4 Abnormal weight loss; N73.6 Female pelvic peritoneal adhesions (postinfective); R55 Syncope and collapse; M81.0 Age-related osteoporosis without current pathological fracture; M19.91 Primary osteoarthritis, unspecified site; Z87.891 Personal history of nicotine dependence ==

== ENCOUNTER → 2019-10-19 | Outpatient (CLI) | payer MEDICARE ==
[~2019-10-19] MED LIST changes: +ALBU18HF2 INH; +ALBU2.5V4 NEB; +ALPR0.254 PO; +AMLO10TA7 PO; +BUDE10.22 INH; +BUSP10TA95 PO; +CEFD300C3 PO; +CYCL10TA9 PO; +FLUT16SP22 NS; +FLUT1AER INH; +IBUP-1780 PO; +IBUP-844 PO; +MULT-985 PO; +PANT40TA3 PO; +PARO40TA3 PO; +POTA99TA21 PO; +PRD20T PO; +PRED10TA22 PO; -RT-ALBUTEROL SULF 2.5 MG/3 ML PRE-MIX VIAL INH ONE; +SERT50TA9 PO; +TIOT18CA2 INH; +VARE1TAB22 PO; +VNL37.5T PO
--- NOTE | 2019-10-19 14:46 | Diagnostic Imaging Report ---
PROCEDURE: CT chest without contrast. TECHNIQUE: Multiple contiguous axial images were obtained through the chest without the use of intravenous contrast. Auto Exposure Controls were utilized during the CT exam to meet ALARA standards for radiation dose reduction. INDICATION: Cough, chest pain. COMPARISON: The previous CTA chest exam of 03/15/2019 noted emphysematous changes involving both lungs but failed to show any sign of an acute abnormality. FINDINGS: On this exam, the lungs remain hyperexpanded. There is still no evidence for failure, pneumonia or for pleural effusion to indicate an acute abnormality. There is no parenchymal lung mass visualized either. The heart size is stable when compared to the prior exam. Dense coronary artery calcifications are again evident. The ascending aorta is not abnormally dilated. There is no obvious mediastinal or hilar adenopathy. The thyroid gland was not well visualized. There is no definite breast mass identified. According to our records, the patient has not had a mammogram. If the patient has had a recent (within 1 year) mammogram elsewhere, then no further imaging would be necessary. However, if the patient has not had recent mammogram, then mammography would be recommended. The sections through the upper abdomen failed to show any sign of an acute abnormality. The bone windows are unremarkable for fracture or for destructive lesion. IMPRESSION: 1. There is no evidence for an acute cardiopulmonary abnormality. 2. There are emphysematous changes, cardiomegaly and evidence of coronary artery disease. 3. There is no obvious breast mass. Recommendations as above. Dictated by: Dictated on workstation # [id number]
== END ==
LOC: RAD 12:59
PROVIDERS: ATTEND Nurse Practitioner Primary Care
DX: J44.9 Chronic obstructive pulmonary disease, unspecified (principal); R05 Cough
CPT/HCPCS: 71250

== ENCOUNTER → 2019-12-07 | Outpatient (CLI) | payer MEDICARE ==
--- NOTE | 2019-12-07 16:32 | Diagnostic Imaging Report ---
INDICATION: Screening for osteoporosis. FINDINGS: The bone mineral density of the hips and spine was measured. COMPARISON: There are no prior studies available for comparison. The T-score for the spine is 0.8. This value is within normal limits. The total T-score for the left hip is -1.5 and for the right hip is -1.7. The T-score for the left femoral neck is -1.8 and for the right femoral neck is -1.5. All these values indicate osteopenia. AP Spine L1-L4: [BMD (g/cm2): 1.297] [T-Score: 0.8] [Z-Score: 2.1] [BMD Previous: NA] [BMD % Change: NA] LT Hip Neck: [BMD (g/cm2): 0.783] [T-Score: -1.8] [Z-Score: -1.0] LT Hip Total: [BMD (g/cm2):0.814] [T-Score:-1.5] [Z-Score: -1.1] [BMD Previous: NA] [BMD % Change: NA] RT Hip Neck: [BMD (g/cm2):0.824] [T-Score:-1.5] [Z-Score:-0.8] RT Hip Total: [BMD (g/cm2):0.795] [T-score:-1.7] [Z-Score:-1.2] [BMD Previous:NA] [BMD % Change:NA] *Indicates significant change from prior examination based on 95% confidence level. World Health Organization criteria for BMD interpretation classify patients as Normal (T-score at or above -1.0), Osteopenic (T-score between -1.0 and -2.5) or Osteoporotic (T-score at or below -2.5). LIMITATIONS AND MODIFICATION: None. FRACTURE RISK (FRAX SCORE): The ten year probability of (%): Major Osteoporotic Fracture: [NA] Hip Fracture: [NA] IMPRESSION: 1. The bone mineral density of the lumbar spine is within normal limits. 2. There is osteopenia of the hips and femoral necks. 3. See below National Osteoporosis Foundation guidelines on when to potentially initiate pharmacologic therapy. Based on the National Osteoporosis Foundation Guidelines, pharmacologic treatment should be initiated in any of the following, unless clinical conditions suggest otherwise: * Any patient with prior fragility fracture of the hip or vertebrae. A spine fracture indicates 5X risk for subsequent spine fracture and 2X risk for subsequent hip fracture. * Osteoporosis (T-score <-2.5). * Postmenopausal women and men age 50 and older with low bone mass/osteopenia (T-score between -1.0 and -2.5) by DXA and 10-year major osteoporotic fracture greater than 20% or a 10-year probability of hip fracture greater than 3%. These fracture risks are supplied above in the FRAX score, if applicable. * Clinician judgement and/or patient preferences may indicate treatment for people with 10-year fracture probabilities above or below these levels. Dictated by: Dictated on workstation # [id number]
--- NOTE | 2019-12-08 08:59 | Diagnostic Imaging Report ---
EXAMINATION: Digital mammogram bilateral screening with CAD. INDICATION: Screening. COMPARISON: There are no prior studies available for comparison. PERSONAL HISTORY: At this time, there are no current complaints. FINDINGS: There are scattered fibroglandular densities in both breasts which could obscure a lesion. There is no primary or secondary sign of malignancy noted. The tomographic views are also unremarkable for any evidence for malignancy. IMPRESSION: 1. There is no evidence for malignancy. 2. The patient should have her annual bilateral screening mammogram on schedule in December 2020. ACR BI-RADS Category 1: Negative. Result letter will be mailed to the patient. Note: At least 10% of breast cancer is not imaged by mammography. Dictated by: Dictated on workstation # [id number]
== END ==
LOC: RAD 14:05
PROVIDERS: ATTEND Nurse Practitioner Primary Care
DX: Z12.31 Encounter for screening mammogram for malignant neoplasm of breast (principal); N95.9 Unspecified menopausal and perimenopausal disorder; M85.851 Other specified disorders of bone density and structure, right thigh; M85.852 Other specified disorders of bone density and structure, left thigh
CPT/HCPCS: 77063; 77067; 77080

== ENCOUNTER → 2020-02-02 | Outpatient (CLI) | payer MEDICARE ==
[~2020-02-02] VITALS: Ht 165 cm; Wt 52.0 kg
[~2020-02-02] MED LIST changes: +CATHETER FLUSH 10 ML SYR IV PRN; +REGADENOSON 0.4 MG/5 ML SYR (LEXISCAN) IV ONE
[2020-02-02 13:07] VITALS: BP 167/112
--- NOTE | 2020-02-02 14:59 | Cardiology Stress Test Report ---
Stress Test Report Date of Procedure/Referring: Date of Procedure: Feb 02, 2020 PCP Sheila Lambert MD Admitting Physician [facility] Indications: Hypertension Baseline Heart Rate: 51 Baseline Blood Pressure: Blood Pressure Systolic: 167 Blood Pressure Diastolic: 112 Baseline EKG: Baseline EKG: normal sinus rhythm Summary After explaining the procedure to the patient, she signed a consent and then brought to the stress nuclear laboratory. Patient received 0.4 mg Lexiscan for stress test, ECG, heart rate and blood pressure were monitored continuously. Resting and stress dose of radio tracer were injected, imaging was acquired and reviewed in short axis, horizontal long axis and vertical long axis views. TID 1.09 SSS: 0 SDS: 0 EF: 66 1. Patient tolerated Lexiscan well 2. Baseline hypertension persisted throughout test 3. Baseline sinus bradycardia 4. No ischemia or infarction on SPECT images 5. Normal LV size, EF 66 percent SHEILA LAMBERT MD Feb 02, 2020 14:59
== END ==
LOC: CARD 11:35
PROVIDERS: ATTEND Internal Medicine Cardiovascular Disease
DX: J44.9 Chronic obstructive pulmonary disease, unspecified (principal); I10 Essential (primary) hypertension; R55 Syncope and collapse
CPT/HCPCS: 78452; 93017; 93306; A9502

== ENCOUNTER → 2020-03-29 | Outpatient (CLI) | payer MEDICARE ==
[~2020-03-29] MED LIST changes: -CATHETER FLUSH 10 ML SYR IV PRN; -REGADENOSON 0.4 MG/5 ML SYR (LEXISCAN) IV ONE; +RT-ALBUTEROL SULF 2.5 MG/3 ML PRE-MIX VIAL INH ONE
== END ==
LOC: RT 10:30
PROVIDERS: ATTEND Nurse Practitioner Family
DX: J44.9 Chronic obstructive pulmonary disease, unspecified (principal)
CPT/HCPCS: 94060; 94726; 94729

== ENCOUNTER 2020-04-22 09:42 | Emergency (ER) | payer MEDICARE ==
[~2020-04-22] VITALS: Ht 163 cm; Wt 47.0 kg
[~2020-04-22 09:42] MED LIST changes: -PANT40TA3 PO; +PANT40TA52 PO; -RT-ALBUTEROL SULF 2.5 MG/3 ML PRE-MIX VIAL INH ONE
[2020-04-22] MEDS ORDERED: RT-ALBUTEROL INHALER HFA (VENTOLIN HFA) 18 GM IH ONE (10:02)
[2020-04-22] MEDS ORDERED: RX-ALBUTEROL INHALER (VENTOLIN HFA) 18 GM IH STA (10:05)
[2020-04-22 10:14] LABS: BASOPHILS % (AUTO) 1 % (0-10); EOSINOPHILS # (AUTO) 0.3 10^3/uL (0.0-0.3); EOSINOPHILS % (AUTO) 5 % (0-10); HEMATOCRIT 43 % (35-52); HEMOGLOBIN 14.5 G/DL (11.5-16.0); LYMPHOCYTES # (AUTO) 2.3 X 10^3 (1.0-4.0); LYMPHOCYTES % (AUTO) 42 % (12-44); MEAN CORPUSCULAR HEMOGLOBIN 33 PG (25-34); MEAN CORPUSCULAR HGB CONC 34 G/DL (32-36); MEAN CORPUSCULAR VOLUME 96 FL (80-99); MEAN PLATELET VOLUME 8.7 FL (7.4-10.4); MONOCYTES # (AUTO) 0.6 X 10^3 (0.0-1.0); MONOCYTES % (AUTO) 11 % (0-12); NEUTROPHILS # (AUTO) 2.3 X 10^3 (1.8-7.8); NEUTROPHILS % (AUTO) 42 % (42-75); PLATELET COUNT 309 10^3/uL (130-400); WHITE BLOOD COUNT 5.6 10^3/uL (4.3-11.0)
[2020-04-22] MEDS ORDERED: methylPREDNISolone 125 MG (Solu-MEDROL) VIAL IVP ONE (10:15)
[2020-04-22 10:25] LABS: ALBUMIN 4.3 GM/DL (3.2-4.5); INR 0.9 (0.8-1.4); PROTHROMBIN TIME PATIENT 12.7 SEC (12.2-14.7)
[2020-04-22 10:26] LABS: CHLORIDE 105 MMOL/L (98-107); POTASSIUM 3.5 MMOL/L (3.6-5.0); SODIUM 140 MMOL/L (135-145)
[2020-04-22 10:27] LABS: CALCIUM 9.4 MG/DL (8.5-10.1)
[2020-04-22 10:28] LABS: GLUCOSE 104 MG/DL (70-105); TOTAL PROTEIN 7.3 GM/DL (6.4-8.2)
[2020-04-22 10:29] LABS: CARBON DIOXIDE 24 MMOL/L (21-32)
[2020-04-22 10:30] LABS: BILIRUBIN,TOTAL 0.6 MG/DL (0.1-1.0)
[2020-04-22 10:31] LABS: ALKALINE PHOSPHATASE 72 U/L (40-136)
[2020-04-22 10:32] LABS: CREATININE SERUM 0.78 MG/DL (0.60-1.30); GFR ESTIMATED > 60
--- NOTE | 2020-04-22 10:32 | ED Respiratory ---
General Chief Complaint: Respiratory Problems Stated Complaint: SOA / COUGH Nursing Triage Note: Patient reports SOA with exertion, chest pain with cough and raising L arm. Source: patient Exam Limitations: no limitations History of Present Illness Date Seen by Provider: Apr 22, 2020 Time Seen by Provider: 09:55 Initial Comments This 64-year-old woman with COPD presents to the emergency room with complaints of worsening cough and shortness of breath since last night. Cough is productive and she thought she saw a small amount of blood in her sputum. She used her nebulizer machine multiple times through the night without significant improvement. She was last on prednisone about a month ago. She denies any current smoking. She also complains of chest pain with cough, deep breathing, by movement of the arms. She is afebrile. She is not aware of any COVID-19 exposures. She currently uses Breo and Incr[employer]. She receives her primary care at the [facility] clinic. Oxygen saturation is presently 97 percent on room air and she is not in respiratory distress. She had a negative stress test and an echocardiogram showing grade 1 diastolic dysfunction about 2 months ago. Allergies and Home Medications Allergies Coded Allergies: No Known Drug Allergies (Unverified , 11/03/17) Home Medications Albuterol Sulfate 18 Gm Hfa.aer.ad, 2 PUFF INH Q4H PRN for SHORTNESS OF BREATH, (Reported) Albuterol Sulfate 2.5 Mg/3 Ml Vial.neb, 2.5 MG NEB Q4H PRN for SHORTNESS OF BREATH, (Reported) Alprazolam 0.25 Mg Tablet, 0.25 MG PO Q4H PRN for ANXIETY Prescribed by: VICKI WATERS on 03/18/19 1002 Amlodipine Besylate 10 Mg Tablet, 10 MG PO DAILY, (Reported) Azithromycin 250 Mg Tablet, 250 MG PO UD TAKE 2 TABLETS ON DAY ONE THEN TAKE 1 TABLET DAILY FOR FOUR MORE DAYS Prescribed by: VERONICA TORRES on 04/22/20 1118 Cefdinir 300 Mg Capsule, 300 MG PO BID Prescribed by: VICKI WATERS on 03/18/19 1002 Fluticasone Propionate 16 Gm [place].susp, 1 SPRAYS NS DAILY, (Reported) Ibuprofen 600 Mg Tablet, 600 MG PO DAILY PRN for PAIN-MILD, (Reported) Lisinopril 10 Mg Tablet, 10 MG PO DAILY Prescribed by: VERONICA TORRES on 04/22/20 1118 Pantoprazole Sodium 40 Mg Tablet.dr, 40 MG PO DAILY, (Reported) Potassium Gluconate 99 Mg Tablet, 99 MG PO Q48H, (Reported) Prednisone 10 Mg Tab.ds.pk, 10 MG PO DAILY Take 6 tabs(60mg)daily,decrease by 1 tab(10MG)daily. Prescribed by: VICKI WATERS on 03/18/19 1002 Prednisone 20 Mg Tab, 60 MG PO DAILY 60 mg x 2 days, then 40 mg x 2 days, then 20 mg x 2 days. Prescribed by: VERONICA TORRES on 04/22/20 1118 Venlafaxine HCl 37.5 Mg Tab, 37.5 MG PO DAILY@0800 Prescribed by: VICKI WATERS on 03/18/19 1002 Patient Home Medication List Home Medication List Reviewed: Yes Review of Systems Review of Systems Constitutional: weight loss EENTM: other (runny nose) Respiratory: see HPI Cardiovascular: no symptoms reported Gastrointestinal: no symptoms reported Genitourinary: no symptoms reported : No Musculoskeletal: see HPI Skin: no symptoms reported Psychiatric/Neurological: No Symptoms Reported Hematologic/Lymphatic: No Symptoms Reported Immunological/Allergic: no symptoms reported Past [id number] Hx Past Med/Social Hx: Reviewed Nursing Past Med/Soc Hx Patient Social History Alcohol Use: Denies Use Number of Drinks Today: Alcohol Beverage of Choice: Wine Recreational Drug Use: Yes Drug of Choice: marijuana Smoking Status: Former Smoker Type Used: Cigarettes Former Smoker, Quit: Oct 02, 2017 Recent Foreign Travel: No Contact w/Someone Who Travel: No Recent Infectious Disease Expo: No Recent Hopitalizations: No Seasonal Allergies Seasonal Allergies: No Past Medical History Surgeries: Yes (L foot) Section, Orthopedic, Tonsillectomy, Tubal Ligation Respiratory: Yes Asthma, Chronic Bronchitis, COPD Currently Using CPAP: No Currently Using BIPAP: No Cardiac: Yes Hypertension Neurological: No Female Reproductive Disorders: Denies 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 History: IUD, Tubal Ligation Sexually Transmitted Disease: No HIV/AIDS: No Genitourinary: Yes (INCONTINENCE ) Kidney Infection Gastrointestinal: Yes Gastroesophageal Reflux Musculoskeletal: Yes Osteoporosis, Arthritis Endocrine: No HEENT: Yes Dysphagia Hearing Impairment: Hard of Hearing Cancer: No Psychosocial: Yes Anxiety, Depression Integumentary: Yes Eczema Blood Disorders: Yes (had blood transfusion - 1972) Adverse Reaction/Blood Tranf: No Family Medical History Cardiovascular disease Diabetes mellitus Heart Disease, Diabetes, Hypertension Mother when she was 42 patient states she had a heart issue and also states it seems to run on her moms side of the family. Father when he was in his 70's and the reason is unknown. Patient has 4 kids and over 16 grandkids and 30 great grandkids. Physical Exam Vital Signs - First Documented 04/22/20 09:55 Temp 36.5 Pulse 68 Resp 30 B/P (MAP) 175/103 (127) Pulse Ox 98 Capillary Refill : Less Than 3 Seconds Height: 5'5.00" Weight: 136lbs. 1.0oz. 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 nml as tested, no motor/sensory deficits, alert, normal mood/affect, oriented x 3 Skin: normal color, warm/dry Progress/Results/Core Measures Suspected Sepsis Recent Fever Within 48 Hours: No Infection Criteria Present: None New/Unexplained Altered Menta: No Sepsis Screen: No Definite Risk SIRS Temperature: Pulse: 68 Respiratory Rate: 30 Laboratory Tests 04/22/20 10:00: White Blood Count 5.6 Blood Pressure 175 /103 Mean: 127 Laboratory Tests 04/22/20 10:00: Creatinine 0.78, INR Comment 0.9, Platelet Count 309, Total Bilirubin 0.6 Results/Orders Lab Results Laboratory Tests Test 04/22/20 10:00 Range/Units White Blood Count 5.6 4.3-11.0 10^3/uL Red Blood Count 4.46 4.35-5.85 10^6/uL Hemoglobin 14.5 11.5-16.0 G/DL Hematocrit 43 35-52 % Mean Corpuscular Volume 96 80-99 FL Mean Corpuscular Hemoglobin 33 25-34 PG Mean Corpuscular Hemoglobin Concent 34 32-36 G/DL Red Cell Distribution Width 12.9 10.0-14.5 % Platelet Count 309 130-400 10^3/uL Mean Platelet Volume 8.7 7.4-10.4 FL Neutrophils (%) (Auto) 42 42-75 % Lymphocytes (%) (Auto) 42 12-44 % Monocytes (%) (Auto) 11 0-12 % Eosinophils (%) (Auto) 5 0-10 % Basophils (%) (Auto) 1 0-10 % Neutrophils # (Auto) 2.3 1.8-7.8 X 10^3 Lymphocytes # (Auto) 2.3 1.0-4.0 X 10^3 Monocytes # (Auto) 0.6 0.0-1.0 X 10^3 Eosinophils # (Auto) 0.3 0.0-0.3 10^3/uL Basophils # (Auto) 0.0 0.0-0.1 10^3/uL Prothrombin Time 12.7 12.2-14.7 SEC INR Comment 0.9 0.8-1.4 Activated Partial Thromboplast Time 29 24-35 SEC D-Dimer 0.45 0.00-0.49 UG/ML Sodium Level 140 135-145 MMOL/L Potassium Level 3.5 L 3.6-5.0 MMOL/L Chloride Level 105 98-107 MMOL/L Carbon Dioxide Level 24 21-32 MMOL/L Anion Gap 11 5-14 MMOL/L Blood Urea Nitrogen 7 7-18 MG/DL Creatinine 0.78 0.60-1.30 MG/DL Estimat Glomerular Filtration Rate > 60 BUN/Creatinine Ratio 9 Glucose Level 104 70-105 MG/DL Calcium Level 9.4 8.5-10.1 MG/DL Corrected Calcium 9.2 8.5-10.1 MG/DL Magnesium Level 2.2 1.6-2.4 MG/DL Total Bilirubin 0.6 0.1-1.0 MG/DL Aspartate Amino Transf (AST/SGOT) 29 5-34 U/L Alanine Aminotransferase (ALT/SGPT) 38 0-55 U/L Alkaline Phosphatase 72 40-136 U/L Myoglobin 42.1 10.0-92.0 NG/ML Troponin I < 0.028 <0.028 NG/ML C-Reactive Protein High Sensitivity 0.67 H 0.00-0.50 MG/DL B-Type Natriuretic Peptide 23.3 <100.0 PG/ML Total Protein 7.3 6.4-8.2 GM/DL Albumin 4.3 3.2-4.5 GM/DL Micro Results Microbiology 04/22/20 Influenza Types A,B Antigen (BILL) - Final, Complete My Orders Orders - VERONICA MCDONALD MD Cbc With Automated Diff (04/22/20 10:04) Magnesium (04/22/20 10:04) Chest 1 View, Ap/Pa Only (04/22/20 10:04) Ekg Tracing (04/22/20 10:04) Comprehensive Metabolic Panel (04/22/20 10:04) Myoglobin Serum (04/22/20 10:04) Protime With Inr (04/22/20 10:04) Partial Thromboplastin Time (04/22/20 10:04) O2 (04/22/20 10:04) Monitor-Rhythm Ecg Trace Only (04/22/20 10:04) Lipid Panel (04/23/20 06:00) Ed Iv/Invasive Line Start (04/22/20 10:04) BNP (04/22/20 10:04) Troponin I (04/22/20 10:04) Hs C Reactive Protein (04/22/20 10:04) Rx-Albuterol Inhaler (Rx-Ventolin Hfa) (04/22/20 10:05) Albuterol Inhaler (Ventolin Hfa) (04/22/20 10:02) Methylprednisolone Sod Succ (Solu-Medrol (04/22/20 10:15) Fibrin Degradation Products (04/22/20 10:14) Influenza A And B Antigens (04/22/20 10:26) Coronavirus Sars-Cov-2 So 2018 (04/22/20 11:05) Medications Given in ED Current Medications Medications Dose Ordered Sig/Jeevan Route Start Time Stop Time Status Last Admin Dose Admin Albuterol Sulfate 18 gm STK-MED ONCE IH 04/22/20 10:02 04/22/20 10:06 DC 04/22/20 10:23 18 GM Methylprednisolone Sodium Succinate 125 mg ONCE ONCE IVP 04/22/20 10:15 04/22/20 10:16 DC 04/22/20 10:26 125 MG Vital Signs/I&O 04/22/20 09:55 Temp 36.5 Pulse 68 Resp 30 B/P (MAP) 175/103 (127) Pulse Ox 98 Capillary Refill : Less Than 3 Seconds Blood Pressure Mean: 127 Progress Note #1: Time: 10:33 Progress Note Patient was seen and examined. She is being given an albuterol inhaler with spacer and Solu-Medrol 125 mg IV. Workup is pending. Progress Note #2: Time: 11:21 Progress Note Workup was fairly unremarkable. Patient remained stable. She was noted to be persistently hypertensive. She takes amlodipine 10 mg daily including this morning. I will add lisinopril and have her follow-up with her primary care provider. For her COPD exacerbation I will do a high dose short taper of prednisone and azithromycin. Patient did desire to be screened for COVID 19 which was performed before her discharge. She was given an inhaler with spacer and performed 8 puffs while in the ER. Patient was stable for discharge and was advised to have close follow-up. A slight pleural effusion was noted on x-ray and she is being advised to follow-up with her primary care provider regarding that. ECG Initial ECG Impression Date: Apr 22, 2020 Departure Impression Primary Impression: COPD exacerbation Additional Impressions: HTN (hypertension) Qualified Codes: I10 - Essential (primary) hypertension Atypical chest pain Pleural effusion Disposition: HOME, SELF-CARE Condition: Improved Departure-Patient Inst. Decision time for Depature: 11:11 Referrals: [facility] (PCP/Family) Primary Care Physician Patient Instructions: Chronic Obstructive Pulmonary Disease (COPD) (DC), High Blood Pressure (DC) Add. Discharge Instructions: Drink plenty of clear liquids. Use your inhaled medications as prescribed. Start your prednisone therapy about 6 hours after you receive the IV steroids in the hospital. Follow-up with your primary care provider as soon as possible. Please call today to set up an appointment. You have been swabbed for barragan virus. Please isolate at home until your results are known. You should be contacted by phone with your results. If you're COVID-19 test is negative, please continue to isolate until free of fever and significant symptoms for at least 72 hours. If you're COVID-19 test is positive, please continue to quarantine at home until you receive further instructions from the health department. For your pain you may take Tylenol (acetaminophen) up to 1000 mg every 6 hours as needed. Your high blood pressure appears uncontrolled on your current medications. Try adding lisinopril as prescribed and discuss further with your primary care provider at your appointment. Your chest x-ray showed a tiny amount of fluid on your lungs. Please discuss this with your primary care provider. All discharge instructions reviewed with patient and/or family. Voiced understanding. Scripts Prednisone (Prednisone) 20 Mg Tab 60 MG PO DAILY, #12 TAB 0 Refills 60 mg x 2 days, then 40 mg x 2 days, then 20 mg x 2 days. Prov: VERONICA MCDONALD MD 04/22/20 Lisinopril (Lisinopril) 10 Mg Tablet 10 MG PO DAILY, #30 TAB Prov: VERONICA MCDONALD MD 04/22/20 Azithromycin (Azithromycin) 250 Mg Tablet 250 MG PO UD, #6 TAB TAKE 2 TABLETS ON DAY ONE THEN TAKE 1 TABLET DAILY FOR FOUR MORE DAYS Prov: VERONICA MCDONALD MD 04/22/20 Copy Copies To 1: KATE WEBB JOSHUA T MD Apr 22, 2020 10:32
[2020-04-22 10:33] LABS: BUN/CREATININE RATIO 9
[2020-04-22 10:34] LABS: MAGNESIUM 2.2 MG/DL (1.6-2.4)
[2020-04-22 10:35] LABS: ALANINE AMINOTRANSFERASE 38 U/L (0-55)
--- NOTE | 2020-04-22 10:40 | Diagnostic Imaging Report ---
INDICATION: Dyspnea on exertion with chest pain and cough. COMPARISON: 03/14/2019. DISCUSSION: Single portable upright view of the chest was obtained. Normal heart size. Small right pleural effusion appears new. Underlying COPD is stable. No focal consolidation. No pneumothorax or osseous abnormality. IMPRESSION: 1. COPD with new small right pleural effusion. Dictated by: Dictated on workstation # [id number]
[2020-04-22] MEDS ORDERED: PRD20T PO (11:18)
[2020-04-22] MEDS ORDERED: AZIT250T12 PO (11:18)
[2020-04-22] MEDS ORDERED: LISI10TA2 PO (11:18)
[2020-04-22 11:28] VITALS: BP 184/89
== END 2020-04-22 11:50 | disposition home or self-care (01) ==
LOC: EDUNIT# 09:42 → ER 09:43
DX: J44.1 Chronic obstructive pulmonary disease with (acute) exacerbation (principal); I10 Essential (primary) hypertension; R07.89 Other chest pain; J90 Pleural effusion, not elsewhere classified; K21.9 Gastro-esophageal reflux disease without esophagitis; F32.9 Major depressive disorder, single episode, unspecified; F41.9 Anxiety disorder, unspecified; Z82.49 Family history of ischemic heart disease and other diseases of the circulatory system; M81.0 Age-related osteoporosis without current pathological fracture; Z87.891 Personal history of nicotine dependence; Z20.828 Contact with and (suspected) exposure to other viral communicable diseases; Z79.52 Long term (current) use of systemic steroids
CPT/HCPCS: 71045; 80053; 83735; 83874; 83880; 84484; 85025; 85379; 85610; 85730; 86141; 87804; 93041; 99284; U0002; 36415; 87635

== ENCOUNTER 2022-05-18 23:32 | Inpatient (IN) | payer MEDICARE ==
[~2022-05-18] VITALS: Ht 167.7 cm; Wt 70.4 kg
[~2022-05-18 23:32] MED LIST changes: +ALPR.25T PO; -ALPR0.254 PO; +AMLO-251 PO; -AMLO10TA7 PO; +ASCO1TAB42 PO; +ASPI81TA64 PO; +AZIT250T12 PO; +BUSP15TA60 PO; +CETI10TA17 PO; +CLOP75TA28 PO; +CYCL10TA25 PO; -CYCL10TA9 PO; +ELDE50SY PO; +FLUT9.9S NS; +HYDR-700 PO; +IPRA3AMP31 NEB; +LISI10TA25 PO; +MULT-1054 PO; -MULT-985 PO; +NITR0.4T42 SL; -POTA99TA21 PO; +POTA99TA26 PO; +SERT-413 PO; -SERT50TA9 PO; +TERA1CAP3 PO; +UMEC62.5 INH; +[UNRECOGNIZED DRUG - CODE] PO
[2022-05-18] MEDS ORDERED: CEFEPIME INJECTION 1,000 MG in NS (IVPB) 50 ML IV ONE (23:45)
[2022-05-18] MEDS ORDERED: methylPREDNISolone 125 MG (Solu-MEDROL) VIAL IVP ONE (23:45)
[2022-05-18] MEDS ORDERED: LIDOCAINE UROJET 2% GEL 10 ML PKG TOP ONE (23:45)
[2022-05-18 23:58] LABS: BASOPHILS % (AUTO) 0 % (0-10); EOSINOPHILS % (AUTO) 0 % (0-10); HEMATOCRIT 43 % (35-52); HEMOGLOBIN 13.4 g/dL (11.5-16.0); LYMPHOCYTES # (AUTO) 2.5 10^3/uL (1.0-4.0); LYMPHOCYTES % (AUTO) 22 % (12-44); MEAN CORPUSCULAR HEMOGLOBIN 32 pg (25-34); MEAN CORPUSCULAR HGB CONC 31 g/dL (32-36); MEAN CORPUSCULAR VOLUME 103 fL (80-99); MEAN PLATELET VOLUME 9.1 fL (9.0-12.2); MONOCYTES # (AUTO) 0.9 10^3/uL (0.0-1.0); MONOCYTES % (AUTO) 8 % (0-12); NEUTROPHILS # (AUTO) 7.5 10^3/uL (1.8-7.8); NEUTROPHILS % (AUTO) 68 % (42-75); PLATELET COUNT 335 10^3/uL (130-400)
[2022-05-19] VITALS (7 sets, daily range): BP systolic 100–175; BP diastolic 52–96
--- NOTE | 2022-05-19 00:08 | ED Respiratory ---
General Chief Complaint: Respiratory Problems Stated Complaint: EMS ARRIVAL,PT CODED Source: EMS, other (FAMILY) History of Present Illness Date Seen by Provider: May 18, 2022 Time Seen by Provider: 23:33 Initial Comments PT ARRIVES VIA EMS FROM FAMILY MEMBER'S HOUSE PT WITH O2 DEPENDENT COPD--NORMALLY ON 2L/NC CONTINUOUSLY , HAS HAD INCREASED SHORTNESS OF BREATH SINCE FRIDAY EVENING PT HAS BEEN USING NEBULIZER AND INHALER ALL DAY TODAY WITHOUT IMPROVEMENT, AND GOT MUCH WORSE TONIGHT EMS REPORT THAT INITIAL O2 SATS WERE IN THE 30'S AND UP TO 99% O BVM EMS REPORT THAT PT BECAME UNRESPONSIVE ENROUTE, AND APNEIC, BUT NEVER LOST PULSE PT IS SEMI-OBTUNDED ON ARRIVAL AND IN SEVERE RESPIRATORY DISTRESS ON ARRIVAL AND IS PROFUSELY DIAPHORETIC PT IS UNABLE TO TALK OR ANSWER ANY QUESTIONS OR FOLLOW ANY COMMANDS ON ARRIVAL MULTIPLE FAMILY MEMBERS ARE HERE ON PT'S ARRIVAL THEY REPORT THAT PT LIVES IN [place], AND WAS IN [place] ER ON FRIDAY FOR DIFFICULTY BREATHING SHE WAS TREATED AND RELEASED. SHE CAME HERE TO [facility] THIS WEEKEND FOR A FAMILY GET TOGETHER. FAMILY STATES THAT SHE BEGAN HAVING INCREASED SHORTNESS OF BREATH ON FRIDAY NIGHT, AND THEN MUCH WORSE THROUGHOUT THE DAY ALL DAY, AND NO IMPROVEMENT WITH MULTIPLE USES OF HER INHALERS AND NEBULIZER ALL DAY. PT WAS HOSPITALIZED HERE IN FOR THE SAME PROBLEM SHE DID NOT REQUIRE INTUBATION AT THAT TIME, BUT DID REQUIRE BIPAP PT HAS HAD SEVERAL VISITS HERE FOR BREATHING DIFFICULTY--VISITS [facility] FREQUENTLY TO VISIT FAMILY. A MULTITUDE OF FAMILY MEMBERS ARE HERE IN WAITING ROOM FAMILY REPORTS THAT PT DID HAVE A NORMAL CARDIAC CATH DONE IN [place], [place] SOMETIME THIS SUMMER. PCP: [facility] Allergies and Home Medications Allergies Coded Allergies: No Known Drug Allergies (Unverified , 11/03/17) Patient Home Medication List Home Medication List Reviewed: Yes Albuterol Sulfate (Ventolin Hfa) 90 Mcg Hfa.aer.ad, 2 PUFF INH Q6H PRN for SHORTNESS OF BREATH, (Reported) Entered as Reported by: NAOMI SHEPHERD on 04/10/22 1015 Amlodipine Besylate (Amlodipine Besylate) 10 Mg Tablet, 10 MG PO DAILY, (Reported) Entered as Reported by: GRIFFIN GOMEZ on 01/06/18 1017 Ascorbic Acid/Elderberry Fruit (Elderberry-Vit C 50-100 mg Chw) 100 Mg-50 Mg Tab.chew, 1 EACH PO DAILY, (Reported) Entered as Reported by: NAOMI SHEPHERD on 04/10/22 1015 Aspirin (Children's Aspirin) 81 Mg Tab.chew, 81 MG PO DAILY Prescribed by: VICKI WATERS on 04/11/22 1159 Buspirone HCl (Buspirone HCl) 15 Mg Tablet, 15 MG PO BID, (Reported) Entered as Reported by: NAOMI SHEPHERD on 04/10/22 101 Cetirizine HCl (Cetirizine HCl) 10 Mg Tablet, 10 MG PO DAILY, (Reported) Entered as Reported by: NAOMI SHEPHERD on 04/10/22 101 Clopidogrel Bisulfate (Clopidogrel) 75 Mg Tablet, 75 MG PO DAILY Prescribed by: VICKI WATERS on 04/11/22 1159 Cyclobenzaprine HCl (Cyclobenzaprine HCl) 10 Mg Tablet, 10 MG PO Q8H PRN for MUSCLE SPASMS, (Reported) Entered as Reported by: NAOMI SHEPHERD on 04/10/22 1015 Elderberry Fruit (Sambucus Elderberry Original) 50 Mg/5 Ml Syrup, 50 MG PO DAILY, (Reported) Entered as Reported by: NAOMI SHEPHERD on 04/10/22 1015 Fluticasone Propionate (Flonase Allergy Relief) 50 Mcg/Actuation [place].susp, 1 SPRAY NS BID PRN for CONGESTION, (Reported) Entered as Reported by: NAOMI SHEPHERD on 04/10/22 1015 Fluticasone/Vilanterol (Breo Ellipta 100-25 Mcg INH) 100 Mcg-25 Mcg/Dose Blst.w.dev, 1 PUFF INH DAILY, (Reported) Entered as Reported by: NAOMI SHEPHERD on 04/10/22 1015 Hydroxyzine HCl (Hydroxyzine HCl) 25 Mg Tablet, 25 MG PO TID PRN for ANXIETY, (Reported) Entered as Reported by: NAOMI SHEPHERD on 04/10/22 1015 Ipratropium/Albuterol Sulfate (Iprat-Albut 0.5-3(2.5) mg/3 ml) 0.5 Mg-3 Mg (2.5 Mg Base)/3 Ml Ampul.neb, 3 ML NEB Q6H, (Reported) Entered as Reported by: NAOMI SHEPHERD on 04/10/22 1015 Nitroglycerin (Nitroglycerin) 0.4 Mg Tab.subl, 0 MG SL NEEDED PRN for angina Prescribed by: VICKI WATERS on 04/11/22 1159 [place]-3/Dha/Epa/Fish Oil/Krill (Krill-Fish Oil 500 mg Softgel) 339 Mg-314 Mg-500 Mg Capsule, 1 EACH PO DAILY, (Reported) Entered as Reported by: NAOMI SHEPHERD on 04/10/22 1015 Pantoprazole Sodium (Pantoprazole Sodium) 40 Mg Tablet.dr, 40 MG PO DAILY, (Reported) Entered as Reported by: GRIFFIN GOMEZ on 01/06/18 1017 Prednisone (Prednisone) 10 Mg Tab.ds.pk, 10 MG PO DAILY Prescribed by: VICKI WATERS on 04/11/22 1159 Terazosin HCl (Terazosin HCl) 1 Mg Capsule, 2 MG PO HS Prescribed by: VICKI WATERS on 04/11/22 1159 Umeclidinium [place] (Incruse Ellipta) 62.5 Mcg/Actuation Blst.w.dev, 1 PUFF INH DAILY, (Reported) Entered as Reported by: NAOMI SHEPHERD on 04/10/22 1015 Review of Systems Review of Systems Constitutional: other (PT UNABLE TO GIVE ANY INFORMATION AT THIS TIME) Respiratory: see HPI Past Bduqicd-Gvzwtw-Reycpj Hx Patient Social History Tobacco Use?: Yes Tobacco type used: Cigarettes Smoking Status: Former Smoker Substance use?: Yes Substance type: Marijuana, Other Additional substance use comme: UDS + FOR COCAINE, THC, TRICYCLICS ON 05/18/22 Alcohol Use?: Yes Alcohol type: Beer, Hard Liquor, Wine Immunizations Up To Date First/Initial COVID19 Vaccinat: 2020 Seasonal Allergies Seasonal Allergies: No Past Medical History Surgeries: Yes (LEFT FOOT SURGERY; CARDIAC CATH SUMMER 2021-NO INTERVENTION) Cardiac, Section, Orthopedic, Tonsillectomy, Tubal Ligation Respiratory: Yes (O2 DEPENDENT COPD. 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 History: IUD, Tubal Ligation, Menopausal Sexually Transmitted Disease: No HIV/AIDS: No Genitourinary: Yes (INCONTINENCE ) Kidney Infection Gastrointestinal: Yes Gastroesophageal Reflux Musculoskeletal: Yes (LEFT FOOT SURGERY) Osteoporosis, Arthritis Endocrine: No HEENT: Yes Dysphagia Hearing Impairment: Hard of Hearing Cancer: No Psychosocial: Yes Anxiety, Depression Integumentary: Yes Eczema Blood Disorders: Yes (had blood transfusion - 1972) Adverse Reaction/Blood Tranf: No Family Medical History Cardiovascular disease Diabetes mellitus Heart Disease, Diabetes, Hypertension Mother when she was 42 patient states she had a heart issue and also states it seems to run on her moms side of the family. Father when he was in his 70's and the reason is unknown. Patient has 4 kids and over 16 grandkids and 30 great grandkids. SOCIAL HISTORY: -SMOKED 1 PPD, QUIT -ETOH--HISTORY OF ABUSE/HEAVY USE -DRUGS--THC, COCAINE SOCIAL HISTORY: -SMOKES -ETOH--HEAVY/REGULAR USE -DRUGS--UDS POSITIVE FOR COCAINE, THC, TRICYCLICS ON 05/19/22 Physical Exam Vital Signs - First Documented 05/19/22 00:09 FiO2 30 Capillary Refill : Height: 5'5.00" Weight: 136lbs. 1.0oz. [id number]; 19.99 BMI Method:Stated General Appearance: severe distress, other (SEMI-OBTUNDED, SEVERELY DYSPNEIC, PROFUSELY DIAPHORETIC. UNABLE TO TALK OR FOLLOW COMMANDS, AND DOES NOT MAKE ANY EYE CONTACT--BLANK STARE. ) Respiratory: other (SEVERELY DYSPNEIC ON NRB MASK ON ARRIVAL, WITH MINIMAL AERATION. ) Cardiovascular: tachycardia Gastrointestinal: soft Extremities: no pedal edema, slow capillary refill Neurologic/Psychiatric: other ( ABOVE) Skin: diaphoresis (PROFUSELY DIAPHORETIC. ), other (PT IS BLACK) Focused Exam Sepsis Stage: Sepsis Possible Source: Pulmonary Lactate Level 05/18/22 23:45: Lactic Acid Level 8.67*H Time of Focused Exam: 00:30 Respiratory: Other (INTUBATED) Cardiovascular: Regular Rate, Rhythm, No Edema Lactic Acid Level Laboratory Tests Test 05/18/22 23:45 Lactic Acid Level 8.67 MMOL/L (0.50-2.00) *H Within 3hrs of presentation: Admin fluids, Admin ABX, Blood cultures prior to ABX's, Focus exam, Lactate level Procedures/Interventions Reason for Intubation: RESPIRATORY DISTRESS/FAILURE Date of ETT Placement: May 18, 2022 Intubation Method: orotracheal Tube Size: 7.0 Medications: Rocuronium, Succinylcholine, Versed Positive End Tide CO2: Yes Breath Sounds after Intubation: bilateral-equal Intubation Complications: no complications Post Intubation Xray: Yes Progress/Results/Core Measures Suspected Sepsis SIRS Temperature: Pulse: Respiratory Rate: Laboratory Tests 05/18/22 23:45: White Blood Count 11.0 Blood Pressure / Mean: 05/18/22 23:45: Lactic Acid Level 8.67*H Laboratory Tests 05/18/22 23:45: Creatinine 1.09, INR Comment 0.9, Platelet Count 335, Total Bilirubin 0.4 Results/Orders Lab Results Laboratory Tests Test 05/18/22 23:38 05/18/22 23:45 05/18/22 23:55 05/19/22 00:29 Range/Units Blood Gas Puncture Site L RAD LRAD Blood Gas Patient Temperature 36 36 Arterial Blood pH 6.96 *L 7.34 *L 7.37-7.43 Arterial Blood Partial Pressure CO2 72 *H 35-45 MMHG Arterial Blood Partial Pressure O2 239 H 83 79-93 MMHG Arterial Blood HCO3 39 H 23-27 MMOL/L Arterial Blood Total CO2 40.9 *H 21.0-31.0 MMOL/L Arterial Blood Oxygen Saturation 99 98 94-100 % Arterial Blood Base Excess 12.3 H -2.5-2.5 MMOL/L Abdirahman Test YES-POS YES-POS Blood Gas Ventilator Setting NO NO Blood Gas Inspired Oxygen 15L Positive End Expirat White Blood Count 11.0 4.3-11.0 10^3/uL Red Blood Count 4.18 3.80-5.11 10^6/uL Hemoglobin 13.4 11.5-16.0 g/dL Hematocrit 43 35-52 % Mean Corpuscular Volume 103 H 80-99 fL Mean Corpuscular Hemoglobin 32 25-34 pg Mean Corpuscular Hemoglobin Concent 31 L 32-36 g/dL Red Cell Distribution Width 13.1 10.0-14.5 % Platelet Count 335 130-400 10^3/uL Mean Platelet Volume 9.1 9.0-12.2 fL Immature Granulocyte % (Auto) 1 % Neutrophils (%) (Auto) 68 42-75 % Lymphocytes (%) (Auto) 22 12-44 % Monocytes (%) (Auto) 8 0-12 % Eosinophils (%) (Auto) 0 0-10 % Basophils (%) (Auto) 0 0-10 % Neutrophils # (Auto) 7.5 1.8-7.8 10^3/uL Lymphocytes # (Auto) 2.5 1.0-4.0 10^3/uL Monocytes # (Auto) 0.9 0.0-1.0 10^3/uL Eosinophils # (Auto) 0.0 0.0-0.3 10^3/uL Basophils # (Auto) 0.0 0.0-0.1 10^3/uL Immature Granulocyte # (Auto) 0.2 H 0.0-0.1 10^3/uL Erythrocyte Sedimentation Rate 7 0-30 MM/HR Prothrombin Time 12.6 12.2-14.7 SEC INR Comment 0.9 0.8-1.4 Activated Partial Thromboplast Time 24 24-35 SEC D-Dimer 0.41 0.00-0.49 UG/ML Sodium Level 147 H 135-145 MMOL/L Potassium Level 3.4 L 3.6-5.0 MMOL/L Chloride Level 100 98-107 MMOL/L Carbon Dioxide Level 26 21-32 MMOL/L Anion Gap 21 H 5-14 MMOL/L Blood Urea Nitrogen 20 H 7-18 MG/DL Creatinine 1.09 0.60-1.30 MG/DL Estimat Glomerular Filtration Rate 56 BUN/Creatinine Ratio 18 Glucose Level 226 H 70-105 MG/DL Lactic Acid Level 8.67 *H 0.50-2.00 MMOL/L Calcium Level 9.5 8.5-10.1 MG/DL Corrected Calcium 9.1 8.5-10.1 MG/DL Magnesium Level 2.9 H 1.6-2.4 MG/DL Total Bilirubin 0.4 0.1-1.0 MG/DL Aspartate Amino Transf (AST/SGOT) 100 H 5-34 U/L Alanine Aminotransferase (ALT/SGPT) 131 H 0-55 U/L Alkaline Phosphatase 101 40-136 U/L Total Creatine Kinase 124 29-168 U/L Creatine Kinase MB 3.0 <6.6 NG/ML Myoglobin 90.4 10.0-92.0 NG/ML Troponin I < 0.028 <0.028 NG/ML C-Reactive Protein High Sensitivity 0.10 0.00-0.50 MG/DL B-Type Natriuretic Peptide 81.5 <100.0 PG/ML Total Protein 7.8 6.4-8.2 GM/DL Albumin 4.5 3.2-4.5 GM/DL Procalcitonin 0.03 <0.10 NG/ML Serum Alcohol < 10 <10 MG/DL Urine Color YELLOW Urine Clarity CLEAR Urine pH 6.0 5-9 Urine Specific [place] >=1.030 1.016-1.022 Urine Protein 2+ H NEGATIVE Urine Glucose (UA) TRACE H NEGATIVE Urine Ketones NEGATIVE NEGATIVE Urine Nitrite NEGATIVE NEGATIVE Urine Bilirubin NEGATIVE NEGATIVE Urine Urobilinogen 1.0 < = 1.0 MG/DL Urine Leukocyte Esterase NEGATIVE NEGATIVE Urine RBC (Auto) 1+ H NEGATIVE Urine RBC 10-25 H /HPF Urine WBC 2-5 /HPF Urine Squamous Epithelial Cells 2-5 /HPF Urine Crystals NONE /LPF Urine Bacteria FEW H /HPF Urine Casts PRESENT /LPF Urine Hyaline Casts 0-2 H /LPF Urine Mucus NEGATIVE /LPF Urine Culture Indicated YES Urine Opiates Screen NEGATIVE NEGATIVE Urine Oxycodone Screen NEGATIVE NEGATIVE Urine Methadone Screen NEGATIVE NEGATIVE Urine Propoxyphene Screen NEGATIVE NEGATIVE Urine Barbiturates Screen NEGATIVE NEGATIVE Ur Tricyclic Antidepressants Screen POSITIVE H NEGATIVE Urine Phencyclidine Screen NEGATIVE NEGATIVE Urine Amphetamines Screen NEGATIVE NEGATIVE Urine Methamphetamines Screen NEGATIVE NEGATIVE Urine Benzodiazepines Screen NEGATIVE NEGATIVE Urine Cocaine Screen POSITIVE H NEGATIVE Urine Cannabinoids Screen POSITIVE H NEGATIVE Influenza Type A (RT-PCR) Not Detected Not Detecte Influenza Type B (RT-PCR) Not Detected Not Detecte SARS-CoV-2 RNA (RT-PCR) Not Detected Not Detecte My Orders Orders - MANUEL LANDAVERDE DO Ed Iv/Invasive Line Start (05/18/22 23:45) Ekg Tracing (05/18/22 23:45) Catheter(Urinary) Insert & Ass 03,15 (05/18/22 23:45) Ng Tube Insert & Assessment (05/18/22 23:45) O2 (05/18/22:45) Monitor-Rhythm Ecg Trace Only (05/18/22:45) Chest 1 View, Ap/Pa Only (10/15/22 23:45) Alcohol (05/18/22:45) Arterial Blood Gas (05/18/22:45) Bnp Esteban (05/18/22:45) Cbc With Automated Diff (05/18/22:45) Comprehensive Metabolic Panel (05/18/22:45) Creatine Kinase (05/18/22:45) Creatine Kinase Mb (05/18/22:45) Hs C Reactive Protein (05/18/22:45) Fibrin Degradation Products (05/18/22:45) Drug Screen Stat (Urine) (05/18/22:45) Lactic Acid Analyzer (05/18/22:45) Magnesium (05/18/22:45) Procalcitonin (Pct) (05/18/22:45) Protime With Inr (05/18/22:45) Partial Thromboplastin Time (05/18/22:45) Ua Culture If Indicated (05/18/22:45) Erythrocyte Sedimentation Rate (05/18/22:45) Myoglobin Serum (05/18/22:45) Troponin I Esteban (05/18/22:45) Covid 19 Inhouse Test (05/18/22:45) Blood Culture (05/18/22:45) Sputum Culture (05/18/22:45) Urine Culture (05/18/22:45) Ed Iv/Invasive Line Start (05/18/22:45) Ed Iv/Invasive Line Start (05/18/22:45) Vital Signs Adult Sepsis Patie Q15M (05/18/22:45) O2 (05/18/22:45) Remove Rings In Anticipation O (05/18/22:45) Cefepime Injection (Maxipime Injection) (05/18/22:45) Lidocaine 2% (Urojet) (Xylocaine Urojet) (05/18/22:45) Influenza A And B By Pcr (05/18/22:45) Isolation Central Supply Req (05/18/22:45) Methylprednisolone Sod Succ (Solu-Medrol (05/18/22:45) Propofol Drip (Icu) (Diprivan Drip (Icu) (05/19/22 00:15) Sedation Communication Q48H (05/19/22 00:13) Propofol Drip (Icu) (Diprivan Drip (Icu) (05/19/22 00:15) Arterial Blood Gas (05/19/22 00:20) Arterial Blood Gas (05/19/22 00:30) Ed Iv/Invasive Line Start (05/19/22 00:33) Ns Iv 1000 Ml (Sodium Chloride 0.9%) (05/19/22 00:45) Medications Given in ED Current Medications Medications Dose Ordered Sig/Jeevan Route Start Time Stop Time Status Last Admin Dose Admin Cefepime HCl 1000 mg/Sodium Chloride 50 ml @ 100 mls/hr ONCE ONCE IV 05/18/22 23:45 05/19/22 00:14 DC 05/19/22 00:14 100 MLS/HR Methylprednisolone Sodium Succinate 125 mg ONCE ONCE IVP 05/18/22 23:45 05/18/22 23:51 DC 05/18/22 23:54 125 MG Vital Signs/I&O 05/18/22 05/18/22 05/19/22 05/19/22 23:34 23:34 00:09 00:23 Temp 36.0 Pulse 125 90 89 Resp 36 14 B/P (MAP) 246/149 (181) 156/93 Pulse Ox 100 100 O2 Delivery Ambu Bag Nasal Cannula O2 Flow Rate 15.00 15.00 FiO2 30 Capillary Refill : Progress Note : Progress Note PT IMMEDIATELY INTUBATED ON ARRIVAL,DUE TO SEVERE RESPIRATORY DISTRESS AND WITNESSED RESPIRATORY ARREST ENROUTE. O2 SATS REMAINED 100% ON VENTILATOR BP 150'S/90'S HR 90'S SEPSIS PROTOCOL INITIATED AND PT WAS GIVEN: -IV FLUIDS -ANTIBIOTICS -SOLU-MEDROL COVID TESTING DONE AND WAS NEGATIVE. ECG Initial ECG Impression Date: May 19, 2022 Initial ECG Impression Time: 00:02 Initial ECG Rate: 96 Initial ECG Rhythm: Normal Sinus Initial ECG Impression: Nonspecific Changes Diagnostic Imaging Comments CXR--PENDING RADIOLOGIST REVIEW -COPD CHANGES -ET TUBE IN PLACE Reviewed: Reviewed by Me Critical Care Note Critical Care Start Time: 23:33 Total Time (minutes) 60 Departure Communication (Admissions) 004--SPOKE WITH DR. WATERS, HOSPITALIST, ACCEPTS PT FOR ADMIT. 41--REPORT TO E-ICU PHYSICIAN. NO ADDITIONAL RECOMMENDATIONS AT THIS TIME. Impression Primary Impression: Acute on chronic respiratory failure with hypoxia and hypercapnia Additional Impressions: COPD exacerbation Cocaine use Marijuana use History of alcohol abuse HTN (hypertension) Lactic acidosis Disposition: ADMITTED INPATIENT Condition: Stable (BUT SERIOUS) Admissions Decision to Admit Reason: Admit from ER (General) Decision to Admit/Date: May 19, 2022 Time/Decision to Admit Time: 00:40 Departure-Patient Inst. Referrals: [facility] (PCP/Family) Primary Care Physician MANUEL LANDAVERDE DO May 19, 2022 00:08
[2022-05-19 00:11] LABS: ABG OXYGEN SATURATION 99 % (94-100); ABG PO2 239 MMHG (79-93)
[2022-05-19 00:13] LABS: ALLENS TEST YES-POS; INSPIRED O2 15L; VENTILATOR NO
[2022-05-19 00:13] LABS: BILIRUBIN,URINE NEGATIVE (NEGATIVE); CLARITY,URINE CLEAR; COLOR,URINE YELLOW; GLUCOSE, URINE (UA) TRACE (NEGATIVE); KETONES,URINE NEGATIVE (NEGATIVE); LEUKOCYTE ESTERASE ,URINE NEGATIVE (NEGATIVE); NITRITE,URINE NEGATIVE (NEGATIVE); PROTEIN,URINE 2+ (NEGATIVE)
[2022-05-19 00:15] LABS: PATIENT TEMP 36
[2022-05-19 00:15] LABS: CHLORIDE 100 MMOL/L (98-107); POTASSIUM 3.4 MMOL/L (3.6-5.0); SODIUM 147 MMOL/L (135-145)
[2022-05-19] MEDS ORDERED: PROPOFOL DRIP (ICU) 100 ML IV ONE (00:15)
[2022-05-19] MEDS ORDERED: PROPOFOL DRIP (ICU) 100 ML IV SCH (00:15)
[2022-05-19 00:16] LABS: ALBUMIN 4.5 GM/DL (3.2-4.5)
[2022-05-19 00:16] LABS: ABG PH 6.96 (7.37-7.43)
[2022-05-19 00:17] LABS: CALCIUM 9.5 MG/DL (8.5-10.1)
[2022-05-19 00:18] LABS: GLUCOSE 226 MG/DL (70-105); TOTAL PROTEIN 7.8 GM/DL (6.4-8.2)
[2022-05-19 00:19] LABS: BILIRUBIN,TOTAL 0.4 MG/DL (0.1-1.0); CARBON DIOXIDE 26 MMOL/L (21-32); ERYTHROCYTE SEDIMENTATION RATE 7 MM/HR (0-30)
[2022-05-19 00:21] LABS: AMPHETAMINE SCREEN, URINE NEGATIVE (NEGATIVE); BARBITURATE SCREEN URINE NEGATIVE (NEGATIVE); BENZODIAZEPINES SCREEN URINE NEGATIVE (NEGATIVE); CANNABINOID SCREEN, URINE POSITIVE (NEGATIVE); COCAINE SCREEN URINE POSITIVE (NEGATIVE); METHADONE STAT NEGATIVE (NEGATIVE); OPIATE SCREEN URINE NEGATIVE (NEGATIVE); OXYCODONE STAT NEGATIVE (NEGATIVE); PROPOXYPHENE STAT NEGATIVE (NEGATIVE); TRICYCLIC ANTIDEPRESSANTS SCRE POSITIVE (NEGATIVE)
[2022-05-19 00:21] LABS: ALKALINE PHOSPHATASE 101 U/L (40-136)
[2022-05-19 00:22] LABS: CREATININE SERUM 1.09 MG/DL (0.60-1.30); GFR ESTIMATED 56
[2022-05-19 00:23] LABS: BUN/CREATININE RATIO 18
[2022-05-19 00:25] LABS: ALANINE AMINOTRANSFERASE 131 U/L (0-55); CREATINE KINASE 124 U/L (29-168); MAGNESIUM 2.9 MG/DL (1.6-2.4)
[2022-05-19 00:27] LABS: FIBRIN DEGRADATION PRODUCTS 0.41 UG/ML (0.00-0.49); INR 0.9 (0.8-1.4); PROTHROMBIN TIME PATIENT 12.6 SEC (12.2-14.7)
[2022-05-19 00:33] LABS: ABG BASE EXCESS 12.3 MMOL/L (-2.5-2.5); ABG OXYGEN SATURATION 98 % (94-100); ABG PO2 83 MMHG (79-93)
[2022-05-19 00:34] LABS: ALLENS TEST YES-POS; INSPIRED O2 Positive End Expirat; VENTILATOR NO
[2022-05-19 00:35] LABS: ABG PCO2 72 MMHG (35-45); ABG PH 7.34 (7.37-7.43); ABG TCO2 40.9 MMOL/L (21.0-31.0); PATIENT TEMP 36
[2022-05-19 00:42] LABS: BACTERIA,URINE FEW /HPF; HYALINE CASTS, URINE 0-2 /LPF
[2022-05-19] MEDS ORDERED: NS IV 1000 ML 1,000 ML IV SCH (00:45)
[2022-05-19] MEDS: NOREPINEPHRINE 8 MG/250 ML 250 ML IV SCH (01:30)
[2022-05-19] MEDS ORDERED: EPINEPHrine 1 MG INJECTION 4 MG in NS (IVPB) 248 ML IV SCH (01:30)
[2022-05-19] MEDS: VASOPRESSIN INJECTION 20 UNIT in NS (IVPB) 100 ML IV SCH ×3 (01:30→23:44)
[2022-05-19] MEDS: D5 1/2 NS W/KCL 20 MEQ/L 1,000 ML IV SCH ×4 (02:07→21:30)
[2022-05-19] MEDS: fentaNYL DRIP PRE-MIX 250 ML IV SCH ×3 (02:08→16:23)
[2022-05-19 04:08] LABS: BASOPHILS % (AUTO) 0 % (0-10); EOSINOPHILS % (AUTO) 0 % (0-10); HEMATOCRIT 35 % (35-52); HEMOGLOBIN 11.2 g/dL (11.5-16.0); LYMPHOCYTES # (AUTO) 0.6 10^3/uL (1.0-4.0); LYMPHOCYTES % (AUTO) 6 % (12-44); MEAN CORPUSCULAR HEMOGLOBIN 32 pg (25-34); MEAN CORPUSCULAR HGB CONC 32 g/dL (32-36); MEAN CORPUSCULAR VOLUME 99 fL (80-99); MONOCYTES # (AUTO) 0.5 10^3/uL (0.0-1.0); MONOCYTES % (AUTO) 5 % (0-12); NEUTROPHILS # (AUTO) 8.9 10^3/uL (1.8-7.8); NEUTROPHILS % (AUTO) 89 % (42-75); PLATELET COUNT 247 10^3/uL (130-400)
[2022-05-19 04:22] LABS: ALBUMIN 3.4 GM/DL (3.2-4.5); POTASSIUM 3.3 MMOL/L (3.6-5.0)
[2022-05-19 04:24] LABS: CALCIUM 8.1 MG/DL (8.5-10.1)
[2022-05-19 04:25] LABS: TOTAL PROTEIN 5.9 GM/DL (6.4-8.2)
[2022-05-19 04:26] LABS: BILIRUBIN,TOTAL 0.3 MG/DL (0.1-1.0)
[2022-05-19 04:28] LABS: CREATININE SERUM 0.78 MG/DL (0.60-1.30); LYMPHOCYTES % (MANUAL) 2 %; MONOCYTES % (MANUAL) 4 %; NEUTROPHILS % (MANUAL) 94 %; PHOSPHORUS 3.4 MG/DL (2.3-4.7); RBC MORPH NORMAL
[2022-05-19 04:31] LABS: MAGNESIUM 2.3 MG/DL (1.6-2.4)
[2022-05-19] MEDS: MAGNESIUM 1 GM/100 ML IVPB 100 ML IV SCH (06:00)
[2022-05-19] MEDS ORDERED: NS IV 500 ML 500 ML IV PRN (06:00)
[2022-05-19] MEDS: KCL 20 MEQ TAB (K-DUR) PO SCH (06:00)
[2022-05-19] MEDS: inSUlin ASPART (NovoLOG) 1 UNIT/0.01 ML (CHARGE PER UNIT) SC SCH ×3 (06:00→18:01)
[2022-05-19] MEDS ORDERED: CEFEPIME INJECTION 1,000 MG in NS (IVPB) 50 ML IV SCH (06:00)
[2022-05-19] MEDS: POTASSIUM CL 10MEQ/50ML IVPB 50 ML IV SCH (06:00)
[2022-05-19] MEDS: methylPREDNISolone 125 MG (Solu-MEDROL) VIAL IVP SCH ×3 (06:25→17:59)
[2022-05-19] MEDS: RT-ALBUTEROL/IPRATROPIUM 3 ML (DUONEB) VIAL INH SCH ×5 (06:55→22:34)
--- NOTE | 2022-05-19 07:02 | Diagnostic Imaging Report ---
INDICATION: Post code, respiratory distress. Compared 04/09/2022. FINDINGS: ET tube mid thoracic trachea. No focal contusion, effusion or pneumothorax. No failure pattern. IMPRESSION: ET tube in good position. The lungs clear with no acute pleural pathology. Dictated by: Dictated on workstation # [id number]
--- NOTE | 2022-05-19 07:45 | History & Physical-Hospitalist ---
History of Present Illness HPI/Chief Complaint CC: Acute respiratory failure HPI: This is a 66yoAAF who is known to this examiner who has a h/o severe COPD maintained on O2 supplement at home and also has a long history of alcoholism and cocaine use along with smoking who presented to the ER obtunded requiring intubation. Patient is currently intubated and sedated and family is at the bedside. Reviewed meds and labs and imaging. Source: RN/MD, old records Date Seen 05/19/22 Time Seen by a Provider: 10:30 Attending Physician [place] PCP Admitting Physician: Susan Hector DO Attending Physician: Susan Hector DO Referring Physician Date of Admission May 19, 2022 at 00:40 Home Medications & Allergies Home Medications Reviewed patient Home Medication Reconciliation performed by pharmacy medication reconciliations tissue technician and/or nursing. Patients Allergies have been reviewed. Allergies Allergies Coded Allergies No Known Drug Allergies (Unverified11/03/17) Past Qoqjhof-Nozjkd-Efvmrv Hx Patient Social History Marrital Status: single Employed/Student: unemployed Tobacco Use?: No Tobacco type used: Cigarettes Smoking Status: Former Smoker Use of E-Cig and/or Vaping dev: No Substance use?: Yes Substance type: Marijuana, Other Additional substance use comme: UDS + FOR COCAINE, THC, TRICYCLICS ON 05/18/22 Substance frequency: Daily Alcohol Use?: Yes Alcohol type: Beer, Hard Liquor, Wine Alcohol Frequency: Daily Pt feels they are or have been: No Immunizations Up To Date First/Initial COVID19 Vaccinat: 2020 Second COVID19 Vaccination Elder: 2020 Tetanus Booster (TDap): Unknown Hepatitis A: No Hepatitis B: No Seasonal Allergies Seasonal Allergies: No Current Status status: No status: No Advance Directives: No Communicates: Verbally Primary Language: Citizen Of [place] Preferred Spoken Language: Citizen Of [place] Is interpretation needed?: No Sensory deficits: Hearing impairment Implanted or Applied Medical D: None Past Medical History Surgeries: Cardiac, Section, Orthopedic, Tonsillectomy, Tubal Ligation Asthma, Chronic Bronchitis, COPD Currently Using CPAP: No Currently Using BIPAP: No Coronary Artery Disease, High Cholesterol, Hypertension [employer] History: IUD, Tubal Ligation, Menopausal Sexually Transmitted Disease: No HIV/AIDS: No Kidney Infection Gastroesophageal Reflux Osteoporosis, Arthritis Dysphagia Hearing Impairment: Hard of Hearing Anxiety, Depression Eczema Blood Disorders: Yes (had blood transfusion - 1972) Adverse Reaction/Blood Tranf: No COPD Tobacco Abuse Family Medical History Cardiovascular disease Diabetes mellitus Heart Disease, Diabetes, Hypertension Mother when she was 42 patient states she had a heart issue and also states it seems to run on her moms side of the family. Father when he was in his 70's and the reason is unknown. Patient has 4 kids and over 16 grandkids and 30 great grandkids. SOCIAL HISTORY: -SMOKED 1 PPD, QUIT -ETOH--HISTORY OF ABUSE/HEAVY USE -DRUGS--THC, COCAINE SOCIAL HISTORY: -SMOKES -ETOH--HEAVY/REGULAR USE -DRUGS--UDS POSITIVE FOR COCAINE, THC, TRICYCLICS ON 05/19/22 Review of Systems ROS-Unable to Obtain: intubated Constitutional: see HPI Physical Exam Physical Exam Vital Signs Vital Signs - First Documented 05/19/22 00:09 FiO2 30 Capillary Refill : Less Than 3 Seconds Height, Weight, BMI Height: 5'5.00" Weight: 136lbs. 1.0oz. 61.137643yj; 23.47 BMI Method:Stated General Appearance: Chronically ill, Other (sedated intubated) Respiratory: No Accessory Muscle Use, No Respiratory Distress, Decreased Breath Sounds Cardiovascular: Regular Rate, Rhythm Results Results/Procedures Labs Laboratory Tests 05/18/22 23:45 05/19/22 03:57 Patient resulted labs reviewed. Assessment/Plan Admission Diagnosis Assessment: Acute respiratory failure requiring intubation Chronic respiratory failure on O2 at home Severe COPD Cocaine use Former smoker CAD HTN Plan: Intubation Monitor closely Admission Status: Inpatient Order (span 2 midnights) Reason for Inpatient Admission: resp failure SUSAN HECTOR DO May 19, 2022 07:45
[2022-05-19] MEDS ORDERED: ROCURONIUM 10 MG/ML 5 ML SYRINGE IV ONE (08:39)
[2022-05-19] MEDS ORDERED: MIDAZOLAM 5 MG/5 ML (VERSED) VIAL INJ ONE (08:39)
[2022-05-19] MEDS ORDERED: SUCCINYLCHOLINE INJ 100 MG/5 ML SYR/VIAL INJ ONE (08:39)
[2022-05-19] MEDS: CEFEPIME INJECTION 1,000 MG in NS (IVPB) 50 ML IV SCH ×2 (12:18→18:01)
[2022-05-19] MEDS ORDERED: NS 100 ML (IVPB) BAG IV ONE (22:30)
[2022-05-20] MEDS: CEFEPIME INJECTION 1,000 MG in NS (IVPB) 50 ML IV SCH ×5 (00:33→23:40)
[2022-05-20] MEDS: NOREPINEPHRINE 8 MG/250 ML 250 ML IV SCH (01:30)
[2022-05-20] MEDS: fentaNYL DRIP PRE-MIX 250 ML IV SCH ×3 (01:31→17:00)
[2022-05-20] MEDS: D5 1/2 NS W/KCL 20 MEQ/L 1,000 ML IV SCH ×3 (02:01→16:59)
[2022-05-20 02:45] VITALS: BP 118/56
[2022-05-20] MEDS: RT-ALBUTEROL/IPRATROPIUM 3 ML (DUONEB) VIAL INH SCH ×6 (02:45→22:15)
[2022-05-20 05:49] LABS: BASOPHILS % (AUTO) 0 % (0-10); EOSINOPHILS % (AUTO) 0 % (0-10); HEMATOCRIT 33 % (35-52); HEMOGLOBIN 10.7 g/dL (11.5-16.0); LYMPHOCYTES # (AUTO) 0.9 10^3/uL (1.0-4.0); LYMPHOCYTES % (AUTO) 10 % (12-44); MEAN CORPUSCULAR HEMOGLOBIN 32 pg (25-34); MEAN CORPUSCULAR HGB CONC 32 g/dL (32-36); MEAN CORPUSCULAR VOLUME 100 fL (80-99); MEAN PLATELET VOLUME 9.2 fL (9.0-12.2); MONOCYTES # (AUTO) 0.8 10^3/uL (0.0-1.0); MONOCYTES % (AUTO) 9 % (0-12); NEUTROPHILS # (AUTO) 7.5 10^3/uL (1.8-7.8); NEUTROPHILS % (AUTO) 81 % (42-75); PLATELET COUNT 244 10^3/uL (130-400); WHITE BLOOD COUNT 9.3 10^3/uL (4.3-11.0)
[2022-05-20] MEDS: MAGNESIUM 1 GM/100 ML IVPB 100 ML IV SCH (06:00)
[2022-05-20] MEDS: POTASSIUM CL 10MEQ/50ML IVPB 50 ML IV SCH (06:00)
[2022-05-20] MEDS: KCL 20 MEQ TAB (K-DUR) PO SCH (06:00)
[2022-05-20] MEDS: inSUlin ASPART (NovoLOG) 1 UNIT/0.01 ML (CHARGE PER UNIT) SC SCH ×5 (06:00→23:39)
[2022-05-20 06:13] LABS: BILIRUBIN,TOTAL 0.4 MG/DL (0.1-1.0); CALCIUM 8.4 MG/DL (8.5-10.1); CREATININE SERUM 0.9 MG/DL (0.60-1.30); MAGNESIUM 2.2 MG/DL (1.6-2.4); PHOSPHORUS 4.1 MG/DL (2.3-4.7); TOTAL PROTEIN 5.2 GM/DL (6.4-8.2)
[2022-05-20 07:08] VITALS: BP 124/63
[2022-05-20] MEDS ORDERED: NITR0.4T39 SL (10:10)
[2022-05-20] MEDS ORDERED: ASPI-999 PO (10:10)
[2022-05-20] MEDS ORDERED: POTA-179 PO (10:10)
[2022-05-20] MEDS ORDERED: CLOP75TA28 PO (10:10)
[2022-05-20] MEDS: VASOPRESSIN INJECTION 20 UNIT in NS (IVPB) 100 ML IV SCH ×2 (11:13→21:50)
--- NOTE | 2022-05-20 11:59 | Progress Note - Hospitalist ---
BRENNEN GEE 05/20/22 1159: Subjective HPI/CC On Admission Date Seen by Provider: May 20, 2022 Time Seen by Provider: 09:00 CC: Acute respiratory failure HPI: This is a 66yoAAF who is known to this examiner who has a h/o severe COPD maintained on O2 supplement at home and also has a long history of alcoholism and cocaine use along with smoking who presented to the ER obtunded requiring intubation. Patient is currently intubated and sedated and family is at the bedside. Reviewed meds and labs and imaging. Subjective/Events-last exam Sedated Resting comfortable without distress Focused Exam Lactate Level 05/19/22 03:57: Lactic Acid Level 2.25*H 05/19/22 06:05: Lactic Acid Level 2.22*H 05/19/22 06:23: Lactic Acid Level 4.48*H Time of Focused Exam: 00:30 Objective Exam Vital Signs Vital Signs Date Time Temp Pulse Resp B/P (MAP) Pulse Ox O2 Delivery O2 Flow Rate FiO2 05/20/22 11:00 59 14 120/62 (81) 97 Mechanical Ventilator 25.00 05/20/22 08:00 25 05/20/22 08:00 37.2 Capillary Refill : Less Than 3 Seconds General Appearance: No Apparent Distress, WD/WN HEENT: Normal ENT Inspection Respiratory: Lungs Clear, Normal Breath Sounds, No Accessory Muscle Use, No Respiratory Distress, Wheezing (slightly expiratory wheezing), Other (intubated) Cardiovascular: Regular Rate, Rhythm, No Edema, No Gallop, No JVD, No Murmur, Normal Peripheral Pulses Gastrointestinal: Normal Bowel Sounds, No Organomegaly, No Pulsatile Mass, Soft Extremity: Normal Capillary Refill, Normal Inspection Neurologic/Psychiatric: Other (sedated) Skin: Normal Color, Warm/Dry Results/Procedures Lab Laboratory Tests 05/20/22 04:53 Patient resulted labs reviewed. Imaging: Reviewed Imaging Films, Reviewed Imaging Report Radiology CXR 05/18/22: IMPRESSION: ET tube in good position. The lungs clear with no acute pleural pathology. Assessment/Plan Assessment and Plan Assess & Plan/Chief Complaint Assessment: Ms. Merlin Rutledge is a 66 y/o Female with PMH COPD on home O2, Polysubstance abuse, GERD, OA, Dysphagia, CAD, HLD, HTN, Anxiety, and Depression who presented obtunded and in acute respiratory failure likely due to COPD exacerbation, and was subsequently intubated in the late evening of 05/18/22. Plan: 1. Acute on chronic respiratory failure due to COPD exacerbation - Ventilator day #2 - Vent settings: VC TV: 450 mL RR: 14 PEEP: 6 FiO2: 25% I:E ratio of 1:4.8 - ABG 05/20/22: 7.394/46.5/74 - s/p Methylprednisone 125mg x3 doses > Cont intubation and sedation > Cont Cefepime 1g q6 hrs IV - Cont Albuterol inhaler q4 hr 2. Lactic acidosis - LA on presentation 8.67 -? 2.30 -> 2.25 -> 2.20 -> 4.48 > Cont Cefepime > Cont D5W 1/2 NS at 150 mL/hr 3. Hx of polysubstance abuse - Initial UDS + cocaine, THC, and TCA - Hx of alcohol abuse 4. CAD - Home meds of ASA 81 mg and Clopidogrel 75mg daily 5. HTN - Home meds of Amlodipine 10mg daily 6. Hx of anxiety - home meds of hydroxyzine 25mg TID PRN and Buspirone 15mg BID 7. Hx of GERD - home meds of pantoprazole 40mg daily Dispo: Cont intubation in the ICU Code: Full code Diet: NPO and receiving IVF SUSAN WATERS DO 05/21/22 0533: Subjective Subjective/Events-last exam Remains on vent and sedated Daughter at bedside Objective Exam General Appearance: Chronically ill, Other (sedated) Respiratory: Wheezing (slightly expiratory wheezing) Cardiovascular: Regular Rate, Rhythm Assessment/Plan Assessment and Plan Assess & Plan/Chief Complaint Maintain ventilator Supervisory-Addendum Brief Verification & Attestation Participated in pt care: history, MDM, physical Personally performed: exam, history, MDM, supervision of care Care discussed with: Medical Student Procedures: n/a Results interpretation: Verified all documentation Verification and Attestation of Medical Student E/M Service A medical student performed and documented this service in my presence. I reviewed and verified all information documented by the medical student and made modifications to such information, when appropriate. I personally performed the physical exam and medical decision making. Susan Waters May 21, 2022,05:33 BRENNEN GEE May 20, 2022 11:59 SUSAN WATERS DO May 21, 2022 05:33
--- NOTE | 2022-05-20 13:25 | Tele-ICU Consult ---
History of Present Illness History of Present Illness Date Seen by Provider: May 20, 2022 Time Seen by Provider: 08:14 Date of Admission (Tele-ICU Physician , consultation) Available chart/ vitals / labs / Images reviewed H&P is from ER notes Patient's information available about PMH, Shx, Fhx allergy reviewed inEMR. ROS as per chart and RN report Now in ICU, hemodynamically stable Video assessment done using teleICU camera, rest of exam as perchart VENT SETTINGS and ABG reviewed Sedation: RASS discussed with RN , NOT CANDIDATE for SBTreviewed possible contraindications including Ca rdiovascular Stability /Sedation Score / FI02/PEEP / ABG / CXR/ secretions Consultants: Hospital course: (05/19) 66yr old female admitted with respriatory failure, COPD exacerbation. Tox screen positive for cocaine, marijuana, and tricyclics A/P Acute resp failure ) hypercapneic , hypoxic ) - intubated 05/19 - AC 14 450 255 +6 AECOPD- nebs , steroids Anemia - delutional Elev LFT - long history of alcoholism and cocaine use along with smoking -cpm Lines : peripg , (Central Line Necessity Reviewed) Mckeon: + OG: Nutrition: to start TF Analgesia: Anxiety/ delirium VTE Prophylaxis: scd Stress Ulcer Prophylaxis: ppi Plans in collaboration with bedside consultants and IM MDs. Discussed with RN to reach out if any questions or concerns A total of 31 minutes of critical care time was devoted to this patient today, required to treat and/or prevent further deterioration of critical care condition ( as above ) . I am remotely monitoring this patient from another state. I am unable to do the bedside exam, and history/physical and pertinent information is taken from other notes in the computer and bedside staff. I cannot take responsibility for the accuracy of this information. Allergies and Home Medications Allergies Coded Allergies: No Known Drug Allergies (Unverified , 11/03/17) Home Medications Albuterol Sulfate 90 Mcg Hfa.aer.ad, 2 PUFF INH Q6H PRN for SHORTNESS OF BREATH, (Reported) Amlodipine Besylate 10 Mg Tablet, 10 MG PO DAILY, (Reported) Aspirin 81 Mg Tab.chew, 81 MG PO DAILY, (Reported) Buspirone HCl 15 Mg Tablet, 15 MG PO BID, (Reported) Clopidogrel Bisulfate 75 Mg Tablet, 75 MG PO DAILY, (Reported) Cyclobenzaprine HCl 10 Mg Tablet, 10 MG PO Q8H PRN for MUSCLE SPASMS, (Reported) Fluticasone/Vilanterol 100 Mcg-25 Mcg/Dose Blst.w.dev, 1 PUFF INH DAILY, ( Reported) Hydroxyzine HCl 25 Mg Tablet, 25 MG PO TID PRN for ANXIETY, (Reported) Ipratropium/Albuterol Sulfate 0.5 Mg-3 Mg (2.5 Mg Base)/3 Ml Ampul.neb, 3 ML NEB Q6H PRN for SHORTNESS OF BREATH, (Reported) Nitroglycerin 0.4 Mg Tab.subl, 0.4 MG SL UD PRN for CHEST PAIN, (Reported) Pantoprazole Sodium 40 Mg Tablet.dr, 40 MG PO DAILY, (Reported) Potassium Chloride 20 Meq Tab.er.prt, 20 MEQ PO BID, (Reported) Umeclidinium [place] 62.5 Mcg/Actuation Blst.w.dev, 1 PUFF INH DAILY, (Reported) Past Medical/Social/Family Hx Patient Social History Marrital Status: single Employed/Student: unemployed Tobacco Use?: No Tobacco type used: Cigarettes Smoking Status: Former Smoker Use of E-Cig and/or Vaping dev: No Substance use?: Yes Substance type: Marijuana, Other UDS + FOR COCAINE, THC, TRICYCLICS ON 05/18/22 Substance frequency: Daily Alcohol Use?: Yes Alcohol type: Beer, Hard Liquor, Wine Alcohol Frequency: Daily Pt stated abuse/neglect: No Immunizations Up To Date Influenza Vaccine Up-to-Date: No; Not Current First/Initial COVID19 Vaccinat: 2020 Second COVID19 Vaccination Elder: 2020 Tetanus Booster (TDap): Unknown Hepatitis A: No Hepatitis B: No TB Skin Test: None Current Status status: No status: No Advance Directives: No Communicates: Verbally Primary Language: Malagasy Preferred Spoken Language: Malagasy Is interpretation needed?: No Sensory deficits: Hearing impairment Implanted or Applied Medical D: None Past Medical History COPD Tobacco Abuse Family Medical History Family Hx: Mother when she was 42 patient states she had a heart issue and also states it seems to run on her moms side of the family. Father when he was in his 70's and the reason is unknown. Patient has 4 kids and over 16 grandkids and 30 great grandkids. SOCIAL HISTORY: -SMOKED 1 PPD, QUIT -ETOH--HISTORY OF ABUSE/HEAVY USE -DRUGS--THC, COCAINE SOCIAL HISTORY: -SMOKES -ETOH--HEAVY/REGULAR USE -DRUGS--UDS POSITIVE FOR COCAINE, THC, TRICYCLICS ON 05/19/22 Review of Systems Constitutional: see HPI Focused Exam Lactate Level 05/19/22 03:57: Lactic Acid Level 2.25*H 05/19/22 06:05: Lactic Acid Level 2.22*H 05/19/22 06:23: Lactic Acid Level 4.48*H Height, Weight, BMI Height: 5'5.00" Weight: 136lbs. 1.0oz. 61.065765ud; 27.18 BMI Method:Stated Time of Focused Exam: 00:30 Exam Exam Patient acknowledged, consented, and participated in this virtual visit which was conducted using real time audio/video Vital Signs Date Time Temp Pulse Resp B/P (MAP) Pulse Ox O2 Delivery O2 Flow Rate FiO2 05/20/22 13:12 59 05/20/22 13:00 58 9 119/63 (81) 97 Mechanical Ventilator 25.00 05/20/22 12:00 58 9 130/68 (88) 97 Mechanical Ventilator 25.00 05/20/22 11:00 59 14 120/62 (81) 97 Mechanical Ventilator 25.00 05/20/22 10:00 58 14 115/62 (79) 97 Mechanical Ventilator 25.00 05/20/22 09:00 58 14 120/60 (80) 96 Mechanical Ventilator 25.00 05/20/22 08:00 58 14 118/63 (81) 97 Mechanical Ventilator 25.00 05/20/22 08:00 94 Mechanical Ventilator 25 05/20/22 08:00 37.2 05/20/22 07:08 57 14 97 25 05/20/22 07:00 60 14 128/65 (86) 97 Mechanical Ventilator 25.00 05/20/22 07:00 58 05/20/22 06:00 60 14 117/62 (80) 96 Mechanical Ventilator 25.00 05/20/22 05:00 75 14 125/64 (85) 98 Mechanical Ventilator 25.00 05/20/22 04:00 58 14 113/56 (73) 96 Mechanical Ventilator 25.00 05/20/22 04:00 36.6 05/20/22 04:00 94 Mechanical Ventilator 25 05/20/22 03:00 58 14 115/56 (75) 96 Mechanical Ventilator 25.00 05/20/22 02:45 57 14 97 25 05/20/22 02:00 58 14 114/60 (75) 96 Mechanical Ventilator 25.00 05/20/22 01:00 61 14 122/62 (79) 96 Mechanical Ventilator 25.00 05/20/22 01:00 61 05/20/22 00:00 36.4 05/20/22 00:00 59 14 119/57 (75) 96 Mechanical Ventilator 25.00 05/19/22 23:59 96 Mechanical Ventilator 25 05/19/22 23:00 65 14 112/59 (74) 96 Mechanical Ventilator 25.00 05/19/22 22:35 67 14 98 25 05/19/22 22:00 64 14 101/56 (69) 95 Mechanical Ventilator 25.00 05/19/22 21:00 61 14 103/50 (70) 96 Mechanical Ventilator 25.00 05/19/22 20:00 95 Mechanical Ventilator 25 05/19/22 20:00 61 14 93/49 (62) 95 Mechanical Ventilator 25.00 05/19/22 19:00 60 05/19/22 19:00 60 14 104/48 (66) 97 Mechanical Ventilator 25.00 05/19/22 18:46 64 14 98 25 05/19/22 18:00 55 14 100/56 (71) 97 Mechanical Ventilator 25.00 05/19/22 17:59 56 101/54 05/19/22 17:00 56 14 101/54 (70) 96 Mechanical Ventilator 25.00 05/19/22 16:23 56 99/53 05/19/22 16:19 56 99/53 05/19/22 16:00 99 Mechanical Ventilator 25 05/19/22 16:00 56 14 99/53 (68) 96 Mechanical Ventilator 25.00 05/19/22 15:00 56 14 92/49 (63) 97 Mechanical Ventilator 25.00 05/19/22 14:35 55 14 98 25 05/19/22 14:00 54 19 105/54 (71) 98 Mechanical Ventilator 25.00 05/19/22 13:52 56 99/53 I & O 05/20/22 07:00 Intake Total 1450 ml Output Total 1150 ml Balance 300 ml Height & Weight Height: 5'5.00" Weight: 136lbs. 1.0oz. 61.252582jq; 27.18 BMI Method:Stated General Appearance: No Apparent Distress, WD/WN HEENT: Normal ENT Inspection Respiratory: Lungs Clear, Normal Breath Sounds, No Accessory Muscle Use, No Respiratory Distress, Wheezing (slightly expiratory wheezing), Other (intubated) Cardiovascular: Regular Rate, Rhythm, No Edema, No Gallop, No JVD, No Murmur, Normal Peripheral Pulses Capillary Refill: Less Than 3 Seconds Gastrointestinal: soft Extremity: Normal Capillary Refill, Normal Inspection Neurologic/Psychiatric: Other (sedated) Skin: Normal Color, Warm/Dry Results Lab Laboratory Tests 05/18/22 23:45 05/19/22 03:57 05/20/22 04:53 Assessment/Plan Assessment/Plan 1 TIMBO MERCEDES MD May 20, 2022 13:25
[2022-05-20 14:45] VITALS: BP 124/66
[2022-05-20 19:02] VITALS: BP 110/59
[2022-05-20 22:16] VITALS: BP 127/81
[2022-05-21] MEDS: D5 1/2 NS W/KCL 20 MEQ/L 1,000 ML IV SCH ×4 (00:47→19:01)
[2022-05-21] MEDS: NOREPINEPHRINE 8 MG/250 ML 250 ML IV SCH (01:40)
[2022-05-21 02:53] VITALS: BP 129/64
[2022-05-21] MEDS: RT-ALBUTEROL/IPRATROPIUM 3 ML (DUONEB) VIAL INH SCH ×6 (02:53→21:41)
[2022-05-21] MEDS: fentaNYL DRIP PRE-MIX 250 ML IV SCH ×3 (03:43→19:47)
[2022-05-21 04:49] LABS: ABG BASE EXCESS -0.1 MMOL/L (-2.5-2.5); ABG OXYGEN SATURATION 95 % (94-100); ABG PCO2 47 MMHG (35-45); ABG PO2 73 MMHG (79-93); ABG TCO2 26.5 MMOL/L (21.0-31.0)
[2022-05-21 04:52] LABS: ALLENS TEST YES-POS; INSPIRED O2 25%
[2022-05-21 04:53] LABS: PATIENT TEMP 36.5; VENTILATOR YES
[2022-05-21 04:54] LABS: ABG PH 7.34 (7.37-7.43)
[2022-05-21 05:30] LABS: BASOPHILS % (AUTO) 0 % (0-10); EOSINOPHILS # (AUTO) 0.1 10^3/uL (0.0-0.3); EOSINOPHILS % (AUTO) 1 % (0-10); HEMATOCRIT 34 % (35-52); HEMOGLOBIN 10.8 g/dL (11.5-16.0); LYMPHOCYTES # (AUTO) 1.8 10^3/uL (1.0-4.0); LYMPHOCYTES % (AUTO) 25 % (12-44); MEAN CORPUSCULAR HEMOGLOBIN 32 pg (25-34); MEAN CORPUSCULAR HGB CONC 32 g/dL (32-36); MEAN CORPUSCULAR VOLUME 100 fL (80-99); MEAN PLATELET VOLUME 9.1 fL (9.0-12.2); MONOCYTES # (AUTO) 0.9 10^3/uL (0.0-1.0); MONOCYTES % (AUTO) 12 % (0-12); NEUTROPHILS # (AUTO) 4.3 10^3/uL (1.8-7.8); NEUTROPHILS % (AUTO) 60 % (42-75); PLATELET COUNT 233 10^3/uL (130-400); WHITE BLOOD COUNT 7.1 10^3/uL (4.3-11.0)
[2022-05-21 05:46] LABS: ALBUMIN 2.8 GM/DL (3.2-4.5); POTASSIUM 4.3 MMOL/L (3.6-5.0)
[2022-05-21 05:47] LABS: CALCIUM 7.9 MG/DL (8.5-10.1)
[2022-05-21] MEDS: POTASSIUM CL 10MEQ/50ML IVPB 50 ML IV SCH (05:48)
[2022-05-21 05:49] LABS: TOTAL PROTEIN 4.9 GM/DL (6.4-8.2)
[2022-05-21] MEDS: KCL 20 MEQ TAB (K-DUR) PO SCH (05:49)
[2022-05-21 05:50] LABS: BILIRUBIN,TOTAL 0.4 MG/DL (0.1-1.0)
[2022-05-21] MEDS: inSUlin ASPART (NovoLOG) 1 UNIT/0.01 ML (CHARGE PER UNIT) SC SCH ×4 (05:50→23:11)
[2022-05-21 05:52] LABS: CREATININE SERUM 0.76 MG/DL (0.60-1.30); PHOSPHORUS 4.2 MG/DL (2.3-4.7)
[2022-05-21 05:55] LABS: MAGNESIUM 2.5 MG/DL (1.6-2.4)
[2022-05-21] MEDS: CEFEPIME INJECTION 1,000 MG in NS (IVPB) 50 ML IV SCH (05:57)
[2022-05-21] MEDS: MAGNESIUM 1 GM/100 ML IVPB 100 ML IV SCH (05:58)
[2022-05-21 07:08] VITALS: BP 138/66
[2022-05-21] MEDS: VASOPRESSIN INJECTION 20 UNIT in NS (IVPB) 100 ML IV SCH ×2 (07:47→20:12)
--- NOTE | 2022-05-21 08:21 | Tele-ICU Progress Note ---
Subjective Date Seen by a Provider: May 21, 2022 Time Seen by a Provider: 08:19 Subjective/Events-last exam (Tele-ICU Physician , Progress Note ) Available chart/ vitals / labs / Images reviewed Video assessment done using teleICU camera, rest of exam as per RN Discussed with RN Events overnight : Afebrile hemodynamically stable Respiratory - I/O = Drips: d51/2 with k @ 150 cc/h Pressors- no VENT SETTINGS and ABG reviewed Sedation: RASS discussed with RN , fent 3- , propofol 45 CANDIDATE for SBTreviewed possible contraindications including Cardiovascular Stability /Sedation Score / FI02/PEEP / ABG / CXR/ secretions Consultants: Hospital course: (05/19) 66yr old female admitted with respriatory failure, COPD exacerbation. Tox screen positive for cocaine, marijuana, and tricyclics A/P Acute resp failure ) hypercapneic , hypoxic ) - intubated 05/19 - AC 14 450 255 +6 - no secretions in ETT CANDIDATE for SBT - will try decrerase sedation and extubate AECOPD- nebs Anemia - delutional Elev LFT - improving long history of alcoholism and cocaine use along with smoking -cpm -thiamine - claude need ciwa if extubated Lines : periph , (Central Line Necessity Reviewed) Mckeon: + OG: Nutrition: to start TF if not extubated Analgesia: Anxiety/ delirium VTE Prophylaxis: scd Stress Ulcer Prophylaxis: ppi Plans in collaboration with bedside consultants and IM MDs. Discussed with RN to reach out if any questions or concerns A total of 31 minutes of critical care time was devoted to this patient today, required to treat and/or prevent further deterioration of critical care condition ( as above ) . I am remotely monitoring this patient from another state. I am unable to do the bedside exam, and history/physical and pertinent information is taken from other notes in the computer and bedside staff. I cannot take responsibility for the accuracy of this information. Sepsis Event Evaluation Height, Weight, BMI Height: 5'5.00" Weight: 136lbs. 1.0oz. 61.928011jc; 27.76 BMI Method:Stated Focused Exam Lactate Level 05/19/22 03:57: Lactic Acid Level 2.25*H 05/19/22 06:05: Lactic Acid Level 2.22*H 05/19/22 06:23: Lactic Acid Level 4.48*H Time of Focused Exam: 00:30 Exam Exam Patient acknowledged, consented, and participated in this virtual visit which was conducted using real time audio/video Vital Signs Date Time Temp Pulse Resp B/P (MAP) Pulse Ox O2 Delivery O2 Flow Rate FiO2 05/21/22 07:15 64 05/21/22 07:08 75 18 93 24 05/21/22 06:00 55 14 128/64 (82) 98 Mechanical Ventilator 25.00 05/21/22 05:00 58 14 110/56 (73) 98 Mechanical Ventilator 25.00 05/21/22 04:08 68 14 134/63 (79) 99 Mechanical Ventilator 25.00 05/21/22 03:56 55 129/64 05/21/22 03:43 97 Mechanical Ventilator 25 05/21/22 03:43 55 129/64 05/21/22 03:00 54 14 123/60 (89) 99 Mechanical Ventilator 25.00 05/21/22 02:53 55 14 100 25 05/21/22 02:05 55 116/57 05/21/22 02:00 53 14 127/61 (87) 99 Mechanical Ventilator 25.00 05/21/22 01:40 55 116/57 05/21/22 01:00 56 14 119/61 (78) 99 Mechanical Ventilator 25.00 05/21/22 01:00 56 05/21/22 00:00 55 14 116/57 (77) 98 Mechanical Ventilator 25.00 05/20/22 23:45 98 Mechanical Ventilator 25 05/20/22 23:00 59 14 116/58 (75) 98 Mechanical Ventilator 25.00 05/20/22 22:16 56 14 97 25 05/20/22 22:05 57 117/62 05/20/22 22:00 57 14 120/62 (87) 98 Mechanical Ventilator 25.00 05/20/22 21:50 57 117/62 05/20/22 21:00 56 14 115/61 (79) 98 Mechanical Ventilator 25.00 05/20/22 21:00 57 110/59 05/20/22 21:00 57 110/59 05/20/22 20:03 36.6 05/20/22 20:00 60 14 127/64 (79) 97 Mechanical Ventilator 25.00 05/20/22 19:29 97 Mechanical Ventilator 25 05/20/22 19:02 57 14 97 25 05/20/22 19:00 58 05/20/22 19:00 58 14 110/59 (78) 97 Mechanical Ventilator 25.00 05/20/22 18:00 59 14 115/64 (81) 96 Mechanical Ventilator 25.00 05/20/22 17:00 56 11 126/66 (86) 98 Mechanical Ventilator 25.00 05/20/22 16:00 57 14 123/64 (83) 98 Mechanical Ventilator 25.00 05/20/22 16:00 94 Mechanical Ventilator 25 05/20/22 15:40 36.8 05/20/22 15:00 59 14 120/65 (83) 97 Mechanical Ventilator 25.00 05/20/22 14:45 58 14 97 25 05/20/22 14:00 58 11 122/63 (82) 97 Mechanical Ventilator 25.00 05/20/22 13:12 59 05/20/22 13:00 58 9 119/63 (81) 97 Mechanical Ventilator 25.00 05/20/22 12:00 37.2 05/20/22 12:00 94 Mechanical Ventilator 25 05/20/22 12:00 58 9 130/68 (88) 97 Mechanical Ventilator 25.00 05/20/22 11:00 59 14 120/62 (81) 97 Mechanical Ventilator 25.00 05/20/22 10:00 58 14 115/62 (79) 97 Mechanical Ventilator 25.00 05/20/22 09:00 58 14 120/60 (80) 96 Mechanical Ventilator 25.00 I & O 05/21/22 07:00 Intake Total 1550 ml Output Total 2850 ml Balance -1300 ml Height & Weight Height: 5'5.00" Weight: 136lbs. 1.0oz. 61.752841cj; 27.76 BMI Method:Stated General Appearance: Chronically ill, Other (sedated) HEENT: Normal ENT Inspection Respiratory: Wheezing (slightly expiratory wheezing) Cardiovascular: Regular Rate, Rhythm Capillary Refill: Less Than 3 Seconds Gastrointestinal: soft Extremity: Normal Capillary Refill, Normal Inspection Neurologic/Psychiatric: Other (sedated) Skin: Normal Color, Warm/Dry Results Lab Laboratory Tests 05/20/22 04:53 05/21/22 04:45 Assessment/Plan Assessment/Plan 1 TIMBO MERCEDES MD May 21, 2022 08:21
[2022-05-21] MEDS ORDERED: fentaNYL INJ 100 MCG/2 ML AMP IVP NR (08:30)
[2022-05-21] MEDS ORDERED: THIAMINE 100 MG/ML 2 ML (VITAMIN B-1) VIAL IV NR (08:30)
[2022-05-21] MEDS: PANTOPRAZOLE 40 MG (PROTONIX) VIAL IV SCH (08:38)
[2022-05-21] MEDS: DexMEDEtomidine 250 ML DRIP 250 ML IV SCH (08:42)
[2022-05-21 10:40] VITALS: BP 206/110
[2022-05-21] MEDS: hydrALAZINE (APESOLINE) 20 MG/ML VIAL IV PRN (10:50)
--- NOTE | 2022-05-21 11:11 | Progress Note - Hospitalist ---
BRENNEN GEE 05/21/22 1111: Subjective HPI/CC On Admission Date Seen by Provider: May 21, 2022 Time Seen by Provider: 08:45 CC: Acute respiratory failure HPI: This is a 66yoAAF who is known to this examiner who has a h/o severe COPD maintained on O2 supplement at home and also has a long history of alcoholism and cocaine use along with smoking who presented to the ER obtunded requiring intubation. Patient is currently intubated and sedated and family is at the bedside. Reviewed meds and labs and imaging. Subjective/Events-last exam Sedated Resting comfortably Not in acute distress Focused Exam Lactate Level 05/19/22 03:57: Lactic Acid Level 2.25*H 05/19/22 06:05: Lactic Acid Level 2.22*H 05/19/22 06:23: Lactic Acid Level 4.48*H Time of Focused Exam: 00:30 Objective Exam Vital Signs Vital Signs Date Time Temp Pulse Resp B/P (MAP) Pulse Ox O2 Delivery O2 Flow Rate FiO2 05/21/22 10:00 58 14 152/71 (98) 98 Mechanical Ventilator 24.00 05/21/22 08:00 36.7 05/21/22 08:00 25 Capillary Refill : Less Than 3 Seconds General Appearance: No Apparent Distress, WD/WN HEENT: Normal ENT Inspection Neck: Normal Inspection Respiratory: Lungs Clear, No Accessory Muscle Use, No Respiratory Distress, Wheezing (decrease in wheezing compared to yesterday) Cardiovascular: Regular Rate, Rhythm, No Edema, No Gallop, No JVD, No Murmur, Normal Peripheral Pulses Gastrointestinal: Normal Bowel Sounds, No Organomegaly, No Pulsatile Mass, Soft Rectal: Deferred Extremity: Normal Capillary Refill, Normal Inspection Neurologic/Psychiatric: Other (sedated) Skin: Normal Color, Warm/Dry Results/Procedures Lab Laboratory Tests 05/21/22 04:45 Patient resulted labs reviewed. Imaging: Reviewed Imaging Films, Reviewed Imaging Report Assessment/Plan Assessment and Plan Assess & Plan/Chief Complaint Assessment: Ms. Merlin Rutledge is a 66 y/o Female with PMH COPD on home O2, Polysubstance abuse, GERD, OA, Dysphagia, CAD, HLD, HTN, Anxiety, and Depression who presented obtunded and in acute respiratory failure likely due to COPD exacerbation, and was subsequently intubated in the late evening of 05/18/22. Plan: 1. Acute on chronic respiratory failure due to COPD exacerbation - Ventilator day #3 - Vent settings: AC TV: 450 mL RR: 14 PEEP: 5 FiO2: 24% I:E ratio of 1:4.8 - ABG 05/20/22: 7.394/46.5/74 - ABG 05/21/22: 7.34/47/73 - s/p Methylprednisone 125mg x3 doses - s/p Cefepime (05/19/22 - 05/21/22) > EICU consulted > Planing to wean sedation and try extubation > Cont Albuterol inhaler q4 hr 2. Lactic acidosis - LA on presentation 8.67 -> 2.30 -> 2.25 -> 2.20 -> 4.48 - s/p Cefepime > Cont D5W 1/2 NS at 150 mL/hr 3. Hx of polysubstance abuse - Initial UDS + for cocaine, THC, and TCA - Hx of alcohol abuse > Will need CIWA if extubated > Given Thiamine 100mg IV 4. CAD - Home meds of ASA 81 mg and Clopidogrel 75mg daily 5. HTN - Home meds of Amlodipine 10mg daily 6. Hx of anxiety - home meds of hydroxyzine 25mg TID PRN and Buspirone 15mg BID 7. Hx of GERD - home meds of pantoprazole 40mg daily Dispo: Attempting extubation today DVT PPI: SCDs GI PPx: PPI Code: Full code Diet: if remains intubated, will need TPN Critical Care: Ventilator Management SUSAN WATERS DO 05/22/22 0551: Assessment/Plan Assessment and Plan Assess & Plan/Chief Complaint Continue ventilator management appreciate eICU Supervisory-Addendum Brief Verification & Attestation Participated in pt care: history, MDM, physical Personally performed: exam, history, MDM, supervision of care Care discussed with: Medical Student Procedures: n/a Results interpretation: Verified all documentation Verification and Attestation of Medical Student E/M Service A medical student performed and documented this service in my presence. I reviewed and verified all information documented by the medical student and made modifications to such information, when appropriate. I personally performed the physical exam and medical decision making. Susan Waters May 22, 2022,05:51 BRENNEN GEE May 21, 2022 11:11 SUSAN WATERS DO May 22, 2022 05:51
[2022-05-21 14:00] VITALS: BP 131/60
[2022-05-21 18:22] VITALS: BP 164/85
[2022-05-21 21:42] VITALS: BP 120/70
[2022-05-22] MEDS: NOREPINEPHRINE 8 MG/250 ML 250 ML IV SCH (00:11)
[2022-05-22] MEDS: LORazepam INJ 2 MG/ML (ATIVAN) VIAL IVP PRN ×2 (01:17→09:13)
[2022-05-22 02:05] VITALS: BP 120/70
[2022-05-22] MEDS: RT-ALBUTEROL/IPRATROPIUM 3 ML (DUONEB) VIAL INH SCH ×6 (02:05→22:43)
[2022-05-22] MEDS: D5 1/2 NS W/KCL 20 MEQ/L 1,000 ML IV SCH ×4 (04:54→23:37)
[2022-05-22] MEDS: fentaNYL DRIP PRE-MIX 250 ML IV SCH ×2 (04:55→15:30)
[2022-05-22 05:24] LABS: BASOPHILS % (AUTO) 0 % (0-10); EOSINOPHILS # (AUTO) 0.3 10^3/uL (0.0-0.3); EOSINOPHILS % (AUTO) 5 % (0-10); HEMATOCRIT 35 % (35-52); HEMOGLOBIN 11.4 g/dL (11.5-16.0); LYMPHOCYTES # (AUTO) 1.8 10^3/uL (1.0-4.0); LYMPHOCYTES % (AUTO) 27 % (12-44); MEAN CORPUSCULAR HEMOGLOBIN 32 pg (25-34); MEAN CORPUSCULAR HGB CONC 32 g/dL (32-36); MEAN CORPUSCULAR VOLUME 99 fL (80-99); MEAN PLATELET VOLUME 8.8 fL (9.0-12.2); MONOCYTES # (AUTO) 0.6 10^3/uL (0.0-1.0); MONOCYTES % (AUTO) 9 % (0-12); NEUTROPHILS # (AUTO) 3.7 10^3/uL (1.8-7.8); NEUTROPHILS % (AUTO) 58 % (42-75); PLATELET COUNT 207 10^3/uL (130-400); WHITE BLOOD COUNT 6.5 10^3/uL (4.3-11.0)
[2022-05-22 05:42] LABS: ALBUMIN 2.6 GM/DL (3.2-4.5); BILIRUBIN,TOTAL 0.4 MG/DL (0.1-1.0); CALCIUM 7.9 MG/DL (8.5-10.1); CREATININE SERUM 0.68 MG/DL (0.60-1.30); MAGNESIUM 2.2 MG/DL (1.6-2.4); PHOSPHORUS 3.8 MG/DL (2.3-4.7); POTASSIUM 3.8 MMOL/L (3.6-5.0); TOTAL PROTEIN 4.6 GM/DL (6.4-8.2)
[2022-05-22] MEDS: MAGNESIUM 1 GM/100 ML IVPB 100 ML IV SCH (05:53)
[2022-05-22] MEDS: POTASSIUM CL 10MEQ/50ML IVPB 50 ML IV SCH (05:53)
[2022-05-22] MEDS: KCL 20 MEQ TAB (K-DUR) PO SCH (05:53)
[2022-05-22] MEDS: inSUlin ASPART (NovoLOG) 1 UNIT/0.01 ML (CHARGE PER UNIT) SC SCH ×3 (05:54→18:17)
[2022-05-22 06:45] VITALS: BP 114/72
[2022-05-22] MEDS: VASOPRESSIN INJECTION 20 UNIT in NS (IVPB) 100 ML IV SCH ×2 (07:42→18:17)
[2022-05-22] MEDS: PANTOPRAZOLE 40 MG (PROTONIX) VIAL IV SCH (08:17)
--- NOTE | 2022-05-22 08:21 | Tele-ICU Progress Note ---
Subjective Date Seen by a Provider: May 22, 2022 Time Seen by a Provider: 08:20 Subjective/Events-last exam (Tele-ICU Physician , Progress Note ) Available chart/ vitals / labs / Images reviewed Video assessment done using teleICU camera, rest of exam as per RN Discussed with RN Events overnight :hakan at night , changed to propofol from precedex Afebrile hemodynamically stable Respiratory - I/O = Drips: d51/2 with k @ 150 cc/h Pressors- no VENT SETTINGS and ABG reviewed Sedation: RASS discussed with RN , fent 270 , propofol 45 ( OFF PRECEDEX CANDIDATE for SBTreviewed possible contraindications including Cardiovascular Stability /Sedation Score / FI02/PEEP / ABG / CXR/ secretions Consultants: Hospital course: (05/19) 66yr old female admitted with respriatory failure, COPD exacerbation. Tox screen positive for cocaine, marijuana, and tricyclics 05/21- failed SBT with severe agitation , not follow commands, :hakan at night , changed to propofol from precedex 05/22- PHENOBARB 180 x1 A/P Acute resp failure ) hypercapneic , hypoxic ) - intubated 05/19 - AC 14 450 255 +6 - no secretions in ETT CANDIDATE for SBT - will PHENOBARB 180 x1 , try decrerase sedation and ex tubate AECOPD- nebs Anemia - delutional , stable Elev LFT - improving long history of alcoholism and cocaine use along with smoking -cpm -thiamine IV - given phenobarb , ativam prn - claude need ciwa if extubated Lines : periph , (Central Line Necessity Reviewed) Mckeon: + OG: Nutrition: to start TF if not extubated Analgesia: Anxiety/ delirium VTE Prophylaxis: scd Stress Ulcer Prophylaxis: ppi Plans in collaboration with bedside consultants and IM MDs. Discussed with RN to reach out if any questions or concerns A total of 31 minutes of critical care time was devoted to this patient today, required to treat and/or prevent further deterioration of critical care condition ( as above ) . I am remotely monitoring this patient from another state. I am unable to do the bedside exam, and history/physical and pertinent information is taken from other notes in the computer and bedside staff. I cannot take responsibility for the accuracy of this information. Sepsis Event Evaluation Height, Weight, BMI Height: 5'5.00" Weight: 136lbs. 1.0oz. 61.941386nb; 28.68 BMI Method:Stated Focused Exam Time of Focused Exam: 00:30 Exam Exam Patient acknowledged, consented, and participated in this virtual visit which was conducted using real time audio/video Vital Signs Date Time Temp Pulse Resp B/P (MAP) Pulse Ox O2 Delivery O2 Flow Rate FiO2 05/22/22 08:00 36.0 05/22/22 06:45 52 14 96 21 05/22/22 06:00 52 14 131/83 (99) 98 Mechanical Ventilator 21.00 05/22/22 05:00 52 14 119/74 (102) 97 Mechanical Ventilator 21.00 05/22/22 04:55 56 119/71 05/22/22 04:55 56 119/71 05/22/22 04:35 56 119/71 05/22/22 04:00 56 14 118/69 (89) 96 Mechanical Ventilator 21.00 05/22/22 03:45 36.2 56 14 119/71 (87) 96 Mechanical Ventilator 21.00 05/22/22 03:45 96 Mechanical Ventilator 21 05/22/22 03:00 59 14 107/68 (89) 96 Mechanical Ventilator 21.00 05/22/22 02:05 63 14 96 21 05/22/22 02:00 64 14 120/70 (86) 95 Mechanical Ventilator 21.00 05/22/22 01:00 84 05/22/22 01:00 84 14 121/87 (106) 98 Mechanical Ventilator 21.00 05/22/22 00:35 49 120/70 05/22/22 00:00 52 14 109/59 (79) 97 Mechanical Ventilator 21.00 05/21/22 23:57 98 Mechanical Ventilator 21 05/21/22 23:47 49 120/70 05/21/22 23:46 49 120/70 05/21/22 23:06 36.3 51 14 125/65 (85) 97 Mechanical Ventilator 21.00 05/21/22 23:00 51 14 127/65 (93) 97 21.00 05/21/22 22:00 50 14 109/64 (81) 96 Mechanical Ventilator 21.00 05/21/22 21:42 49 14 97 21 05/21/22 21:00 47 14 146/82 (115) 97 Mechanical Ventilator 21.00 05/21/22 20:12 49 164/85 05/21/22 20:00 96 Mechanical Ventilator 21 05/21/22 20:00 36.2 52 14 96 Mechanical Ventilator 21.00 05/21/22 20:00 49 14 152/89 (125) 97 Mechanical Ventilator 21.00 05/21/22 19:47 49 164/85 05/21/22 19:46 49 164/85 05/21/22 19:00 50 14 141/84 (114) 96 Mechanical Ventilator 21.00 05/21/22 19:00 50 05/21/22 18:22 49 14 96 21 05/21/22 18:00 50 14 163/84 (110) 96 Mechanical Ventilator 24.00 05/21/22 17:00 50 14 164/88 (113) 96 Mechanical Ventilator 24.00 05/21/22 16:00 51 14 148/67 (94) 96 Mechanical Ventilator 24.00 05/21/22 15:19 94 Mechanical Ventilator 21 05/21/22 15:00 52 14 134/63 (86) 97 Mechanical Ventilator 24.00 05/21/22 14:34 73 05/21/22 14:00 54 14 131/60 (83) 97 Mechanical Ventilator 24.00 05/21/22 14:00 53 14 98 21 05/21/22 13:18 57 05/21/22 13:00 59 14 109/57 (74) 96 Mechanical Ventilator 24.00 05/21/22 12:00 36.8 05/21/22 12:00 68 14 116/59 (78) 95 Mechanical Ventilator 24.00 05/21/22 11:44 73 05/21/22 11:31 95 Mechanical Ventilator 25 05/21/22 11:00 112 27 212/118 (149) 92 Mechanical Ventilator 05/21/22 10:40 110 30 95 24 05/21/22 10:00 58 14 152/71 (98) 98 Mechanical Ventilator 24.00 05/21/22 09:00 56 14 113/55 (74) 98 Mechanical Ventilator 24.00 05/21/22 08:42 57 107/52 I & O 05/22/22 07:00 Intake Total 2360 ml Output Total 3500 ml Balance -1140 ml Height & Weight Height: 5'5.00" Weight: 136lbs. 1.0oz. 61.852024au; 28.68 BMI Method:Stated General Appearance: No Apparent Distress, WD/WN HEENT: Normal ENT Inspection Neck: Normal Inspection Respiratory: Lungs Clear, No Accessory Muscle Use, No Respiratory Distress, Wheezing (decrease in wheezing compared to yesterday) Cardiovascular: Regular Rate, Rhythm, No Edema, No Gallop, No JVD, No Murmur, Normal Peripheral Pulses Capillary Refill: Less Than 3 Seconds Gastrointestinal: soft Extremity: Normal Capillary Refill, Normal Inspection Neurologic/Psychiatric: Other (sedated) Skin: Normal Color, Warm/Dry Results Lab Laboratory Tests 05/21/22 04:45 05/22/22 05:10 Assessment/Plan Assessment/Plan 1 TIMBO MERCEDES MD May 22, 2022 08:20
[2022-05-22] MEDS ORDERED: HYDROmorphone 2 MG/ML VIAL (DILAUDID) IVP PRN (10:30)
--- NOTE | 2022-05-22 10:50 | Progress Note - Hospitalist ---
MARLENBRENNEN 05/22/22 1050: Subjective HPI/CC On Admission Date Seen by Provider: May 22, 2022 Time Seen by Provider: 09:15 CC: Acute respiratory failure HPI: This is a 66yoAAF who is known to this examiner who has a h/o severe COPD maintained on O2 supplement at home and also has a long history of alcoholism and cocaine use along with smoking who presented to the ER obtunded requiring intubation. Patient is currently intubated and sedated and family is at the bedside. Reviewed meds and labs and imaging. Subjective/Events-last exam Sedated Resting comfortably In no acute distress Focused Exam Time of Focused Exam: 00:30 Objective Exam Vital Signs Vital Signs Date Time Temp Pulse Resp B/P (MAP) Pulse Ox O2 Delivery O2 Flow Rate FiO2 05/22/22 10:00 56 14 116/68 (84) 96 Mechanical Ventilator 21.00 05/22/22 08:00 21 05/22/22 08:00 36.0 Capillary Refill : Less Than 3 Seconds General Appearance: No Apparent Distress, WD/WN HEENT: Normal ENT Inspection Neck: Normal Inspection Respiratory: No Accessory Muscle Use, No Respiratory Distress, Wheezing (expiratory wheezing t/o all lung clark, similar to yesterday) Cardiovascular: Regular Rate, Rhythm, No Edema, No Gallop, No JVD, No Murmur, Normal Peripheral Pulses Gastrointestinal: Normal Bowel Sounds, No Organomegaly, No Pulsatile Mass, Soft Rectal: Deferred Extremity: Normal Inspection, No Pedal Edema Neurologic/Psychiatric: Other (sedated) Skin: Normal Color, Warm/Dry Results/Procedures Lab Laboratory Tests 05/22/22 05:10 Patient resulted labs reviewed. Imaging: Reviewed Imaging Films, Reviewed Imaging Report Assessment/Plan Assessment and Plan Assess & Plan/Chief Complaint Assessment: Ms. Merlin Rutledge is a 66 y/o Female with PMH COPD on home O2, Polysubstance abuse, GERD, OA, Dysphagia, CAD, HLD, HTN, Anxiety, and Depression who presented obtunded and in acute respiratory failure likely due to COPD exacerbation, and was subsequently intubated in the late evening of 05/18/22. Plan: 1. Acute on chronic respiratory failure due to COPD exacerbation - Ventilator day #4 - Vent settings: AC TV: 450 mL RR: 14 PEEP: 5 FiO2: 21% I:E ratio of 1:2 - ABG 05/20/22: 7.394/46.5/74 - ABG 05/21/22: 7.34/47/73 - ABG 05/22/22: 7.53/28.9/146 - s/p Methylprednisone 125mg x3 doses - s/p Cefepime (05/19/22 - 05/21/22) > EICU consulted > Given phenobarbital 180mg x1 and will attempt to extubate today, yesterday unable to extubate due to respiratory distress and hypertension > Cont Albuterol inhaler q4 hr 2. Lactic acidosis - LA on presentation 8.67 -> 2.30 -> 2.25 -> 2.20 -> 4.48 - s/p Cefepime > Cont D5W 1/2 NS at 150 mL/hr 3. Hx of polysubstance abuse - Initial UDS + for cocaine, THC, and TCA - Hx of alcohol abuse > Will need CIWA if extubated > Given Thiamine 100mg IV > Given Phenobartibal 180mg x1, will give Ativan PRN per eICU 4. CAD - Home meds of ASA 81 mg and Clopidogrel 75mg daily 5. HTN - Home meds of Amlodipine 10mg daily 6. Hx of anxiety - home meds of hydroxyzine 25mg TID PRN and Buspirone 15mg BID 7. Hx of GERD - home meds of pantoprazole 40mg daily Dispo: Attempting extubation today DVT PPI: SCDs GI PPx: PPI Code: Full code Diet: if remains intubated, will need TPN Critical Care: Ventilator Management VICKI WATERS DO 05/22/222053: Subjective Subjective/Events-last exam Still intubated Very slow recovery Objective Exam General Appearance: No Apparent Distress, WD/WN, Other (sedated) Respiratory: Decreased Breath Sounds, Wheezing (expiratory wheezing t/o all jayant g clark, similar to yesterday) Cardiovascular: Regular Rate, Rhythm Supervisory-Addendum Brief Verification & Attestation Participated in pt care: history, MDM, physical Personally performed: exam, history, MDM, supervision of care Care discussed with: Medical Student Procedures: n/a Results interpretation: Verified all documentation Verification and Attestation of Medical Student E/M Service A medical student performed and documented this service in my presence. I reviewed and verified all information documented by the medical student and made modifications to such information, when appropriate. I personally performed the physical exam and medical decision making. Vicki Waters, May 22, 2022,20:53 BRENNEN GEE May 22, 2022 10:50 VICKI WATERS DO May 22, 2022 20:54
[2022-05-22] MEDS ORDERED: LORazepam INJ 2 MG/ML (ATIVAN) VIAL IVP NR (11:00)
[2022-05-22] MEDS: hydrALAZINE (APESOLINE) 20 MG/ML VIAL IV PRN (11:11)
[2022-05-22 11:36] VITALS: BP 231/190
[2022-05-22] MEDS: ENOXAPARIN 40 MG/0.4 ML (LOVENOX) SYR SC SCH (13:32)
[2022-05-22] MEDS ORDERED: DEXTROSE 50% 50 ML (IMS) SYR ONE (14:37)
[2022-05-22 14:59] VITALS: BP 171/74
[2022-05-22 19:04] VITALS: BP 134/63
[2022-05-22 22:43] VITALS: BP 114/56
[2022-05-23] VITALS (7 sets, daily range): BP systolic 97–199; BP diastolic 47–93
[2022-05-23] MEDS: NOREPINEPHRINE 8 MG/250 ML 250 ML IV SCH (01:57)
[2022-05-23] MEDS: fentaNYL DRIP PRE-MIX 250 ML IV SCH ×2 (01:57→12:27)
[2022-05-23] MEDS: RT-ALBUTEROL/IPRATROPIUM 3 ML (DUONEB) VIAL INH SCH ×6 (02:48→22:12)
[2022-05-23 04:10] LABS: ABG BASE EXCESS -0.4 MMOL/L (-2.5-2.5); ABG OXYGEN SATURATION 92 % (94-100); ABG PCO2 42 MMHG (35-45); ABG PH 7.38 (7.37-7.43); ABG PO2 61 MMHG (79-93); ABG TCO2 25.4 MMOL/L (21.0-31.0); ALLENS TEST YES-POS; INSPIRED O2 21%; PATIENT TEMP 36.8; VENTILATOR YES
[2022-05-23 05:12] LABS: BASOPHILS % (AUTO) 0 % (0-10); EOSINOPHILS # (AUTO) 0.4 10^3/uL (0.0-0.3); EOSINOPHILS % (AUTO) 5 % (0-10); HEMATOCRIT 35 % (35-52); LYMPHOCYTES # (AUTO) 1.8 10^3/uL (1.0-4.0); LYMPHOCYTES % (AUTO) 25 % (12-44); MEAN CORPUSCULAR HEMOGLOBIN 31 pg (25-34); MEAN CORPUSCULAR HGB CONC 31 g/dL (32-36); MEAN CORPUSCULAR VOLUME 100 fL (80-99); MEAN PLATELET VOLUME 9.1 fL (9.0-12.2); MONOCYTES # (AUTO) 0.7 10^3/uL (0.0-1.0); MONOCYTES % (AUTO) 10 % (0-12); NEUTROPHILS # (AUTO) 4.4 10^3/uL (1.8-7.8); NEUTROPHILS % (AUTO) 59 % (42-75); PLATELET COUNT 206 10^3/uL (130-400); WHITE BLOOD COUNT 7.4 10^3/uL (4.3-11.0)
[2022-05-23] MEDS: VASOPRESSIN INJECTION 20 UNIT in NS (IVPB) 100 ML IV SCH ×2 (05:27→17:10)
[2022-05-23 05:38] LABS: ALBUMIN 2.4 GM/DL (3.2-4.5); BILIRUBIN,TOTAL 0.5 MG/DL (0.1-1.0); CALCIUM 7.9 MG/DL (8.5-10.1); CREATININE SERUM 0.72 MG/DL (0.60-1.30); MAGNESIUM 2.2 MG/DL (1.6-2.4); PHOSPHORUS 3.6 MG/DL (2.3-4.7); POTASSIUM 4.1 MMOL/L (3.6-5.0); TOTAL PROTEIN 4.7 GM/DL (6.4-8.2)
[2022-05-23] MEDS: KCL 20 MEQ TAB (K-DUR) PO SCH (05:42)
[2022-05-23] MEDS: MAGNESIUM 1 GM/100 ML IVPB 100 ML IV SCH (05:42)
[2022-05-23] MEDS: inSUlin ASPART (NovoLOG) 1 UNIT/0.01 ML (CHARGE PER UNIT) SC SCH ×5 (05:42→23:26)
[2022-05-23] MEDS: POTASSIUM CL 10MEQ/50ML IVPB 50 ML IV SCH (05:42)
--- NOTE | 2022-05-23 09:22 | Tele-ICU Progress Note ---
Subjective Date Seen by a Provider: May 23, 2022 Subjective/Events-last exam (Tele-ICU Physician , Progress Note ) Available chart/ vitals / labs / Images reviewed Video assessment done using teleICU camera, rest of exam as per RN Discussed with RN Events overnight :hakan at night , changed to propofol from precedex Afebrile hemodynamically stable Respiratory - I/O = Drips: d51/2 with k @ 150 cc/h Pressors- no VENT SETTINGS and ABG reviewed Sedation: RASS discussed with RN , fent 125, propofol 25 PRECEDEX 0.6 CANDIDATE for SBTreviewed possible contraindications including Cardiovascular Stability /Sedation Score / FI02/PEEP / ABG / CXR/ secretions Consultants: Hospital course: (05/19) 66yr old female admitted with respriatory failure, COPD exacerbation. Tox screen positive for cocaine, marijuana, and tricyclics 05/21- failed SBT with severe agitation , not follow commands, :hakan at night , changed to propofol from precedex 05/22- PHENOBARB 180 x1, failed SBT - very wild , not follow commands , hakan with precedex 05/23 NEW FEVER A/P Acute resp failure ) hypercapneic , hypoxic ) - intubated 05/19 - AC 14 450 255 +6 - no secretions in ETT CANDIDATE for SBT - -05/22- PHENOBARB 180 x1, failed SBT - very wild , not follow commands , hakan with precedex , -ry decrerase sedation and extubate AECOPD- nebs 05/23 NEW FEVER - cxr to do today Anemia - delutional , stable Elev LFT - improving Hypoglycemia, intermittent - was off TF - now on on TF - follow long history of alcoholism and cocaine use along with smoking -cpm -thiamine IV -ativam prn - claude need ciwa if extubated Lines : periph , (Central Line Necessity Reviewed) Mckeon: + OG: Nutrition:tf Analgesia: Anxiety/ delirium VTE Prophylaxis: lovenox Stress Ulcer Prophylaxis: ppi Plans in collaboration with bedside consultants and IM MDs. Discussed with RN to reach out if any questions or concerns A total of 31 minutes of critical care time was devoted to this patient today, required to treat and/or prevent further deterioration of critical care condition ( as above ) . Sepsis Event Evaluation Height, Weight, BMI Height: 5'5.00" Weight: 136lbs. 1.0oz. 61.535729nf; 29.01 BMI Method:Stated Focused Exam Time of Focused Exam: 00:30 Exam Exam Patient acknowledged, consented, and participated in this virtual visit which was conducted using real time audio/video Vital Signs Date Time Temp Pulse Resp B/P (MAP) Pulse Ox O2 Delivery O2 Flow Rate FiO2 05/23/22 08:35 62 102/50 05/23/22 08:35 62 102/50 05/23/22 08:02 68 150/70 05/23/22 08:02 68 150/70 05/23/22 08:00 98 Mechanical Ventilator 21 05/23/22 08:00 37.0 05/23/22 07:31 65 113/55 05/23/22 07:11 55 05/23/22 07:06 64 14 94 21 05/23/22 06:20 74 114/58 05/23/22 06:00 69 14 112/55 (74) 100 Mechanical Ventilator 21.00 05/23/22 05:57 74 114/58 05/23/22 05:56 74 114/58 05/23/22 05:00 74 14 114/58 (76) 96 Mechanical Ventilator 21.00 05/23/22 04:33 37.2 05/23/22 04:00 98 Mechanical Ventilator 21 05/23/22 04:00 73 14 154/71 (98) 93 Mechanical Ventilator 21.00 05/23/22 03:00 76 16 118/56 (76) 94 Mechanical Ventilator 21.00 05/23/22 02:49 84 14 94 21 05/23/22 02:00 84 16 124/60 (81) 100 Mechanical Ventilator 21.00 05/23/22 01:57 79 121/56 05/23/22 01:56 79 121/56 05/23/22 01:34 79 121/56 05/23/22 01:00 77 14 117/58 (77) 93 Mechanical Ventilator 21.00 05/23/22 01:00 77 05/23/22 00:01 37.4 05/23/22 00:00 79 14 121/56 (77) 93 Mechanical Ventilator 21.00 05/22/22 23:33 97 Mechanical Ventilator 21 05/22/22 23:00 79 15 123/56 (78) 94 Mechanical Ventilator 21.00 05/22/22 22:43 75 14 94 21 05/22/22 22:00 79 15 123/55 (77) 93 Mechanical Ventilator 21.00 05/22/22 21:34 80 145/69 05/22/22 21:12 80 145/69 05/22/22 21:00 82 15 130/57 (81) 95 Mechanical Ventilator 21.00 05/22/22 20:00 80 14 145/69 (94) 93 Mechanical Ventilator 21.00 05/22/22 20:00 99 Mechanical Ventilator 21 05/22/22 19:56 37.0 05/22/22 19:04 80 14 94 21 05/22/22 19:00 81 05/22/22 19:00 80 14 134/63 (86) 94 Mechanical Ventilator 21.00 05/22/22 18:00 80 15 133/63 (86) 94 Mechanical Ventilator 21.00 05/22/22 17:12 82 05/22/22 17:00 81 14 130/69 (89) 94 Mechanical Ventilator 21.00 05/22/22 16:00 95 Mechanical Ventilator 21 05/22/22 16:00 84 16 144/71 (95) 95 Mechanical Ventilator 21.00 05/22/22 15:30 82 05/22/22 15:00 90 25 171/74 (106) 87 Mechanical Ventilator 21.00 05/22/22 14:59 82 16 92 21 05/22/22 14:00 81 8 141/69 (93) 95 Mechanical Ventilator 21.00 05/22/22 13:00 83 14 134/75 (94) 95 Mechanical Ventilator 21.00 05/22/22 12:19 89 05/22/22 12:00 90 17 208/97 (134) 94 Mechanical Ventilator 21.00 05/22/22 12:00 95 Mechanical Ventilator 21 05/22/22 11:38 96 05/22/22 11:36 92 18 92 21 05/22/22 11:00 80 16 213/116 (148) 93 Mechanical Ventilator 21.00 05/22/22 10:00 56 14 116/68 (84) 96 Mechanical Ventilator 21.00 I & O 05/23/22 07:00 Intake Total 2390 ml Output Total 1500 ml Balance 890 ml Height & Weight Height: 5'5.00" Weight: 136lbs. 1.0oz. 61.317119bs; 29.01 BMI Method:Stated General Appearance: No Apparent Distress, WD/WN, Other (sedated) HEENT: Normal ENT Inspection Neck: Normal Inspection Respiratory: Decreased Breath Sounds, Wheezing (expiratory wheezing t/o all lung clark, similar to yesterday) Cardiovascular: Regular Rate, Rhythm Capillary Refill: Less Than 3 Seconds Gastrointestinal: soft Extremity: Normal Inspection, No Pedal Edema Neurologic/Psychiatric: Other (sedated) Skin: Normal Color, Warm/Dry Results Lab Laboratory Tests 05/22/22 05:10 05/23/22 04:40 Assessment/Plan Assessment/Plan 1 TIMBO MERCEDES MD May 23, 2022 09:22
[2022-05-23] MEDS: PANTOPRAZOLE 40 MG (PROTONIX) VIAL IV SCH (09:45)
[2022-05-23] MEDS: D5 1/2 NS W/KCL 20 MEQ/L 1,000 ML IV SCH (09:45)
[2022-05-23] MEDS ORDERED: LORazepam INJ 2 MG/ML (ATIVAN) VIAL IVP NR (10:00)
--- NOTE | 2022-05-23 10:21 | Diagnostic Imaging Report ---
INDICATION: Fever. Comparison is made with prior examination 05/19/2022 FINDINGS: There is cardiomegaly. There is some venous congestion. Lungs are otherwise relatively clear. There is no pleural effusion or pneumothorax. Lines and tubes are in satisfactory position. IMPRESSION: Cardiomegaly and mild central pulmonary venous congestion. Dictated by: Dictated on workstation # [id number]
[2022-05-23] MEDS: ENOXAPARIN 40 MG/0.4 ML (LOVENOX) SYR SC SCH (12:27)
--- NOTE | 2022-05-23 12:27 | Progress Note - Hospitalist ---
BRENNEN GEE 05/23/22 1227: Subjective HPI/CC On Admission Date Seen by Provider: May 23, 2022 Time Seen by Provider: 10:15 CC: Acute respiratory failure HPI: This is a 66yoAAF who is known to this examiner who has a h/o severe COPD maintained on O2 supplement at home and also has a long history of alcoholism and cocaine use along with smoking who presented to the ER obtunded requiring intubation. Patient is currently intubated and sedated and family is at the bedside. Reviewed meds and labs and imaging. Subjective/Events-last exam Subjective: Sedated Resting comfortably Significant interval events: Patient unable to be weaned due to respiratory distress and anxiety yesterday Hypoglycemic yesterday which resolved with initiation of TPN Increase in secretions requiring suction attempted wean this morning, by increasing precedex and decreasing propofol Patient had 20 sec period of asystole this morning, but recovered without intervention EICU recommeded discontinuing precedex and increased ativan dose to 2mg Focused Exam Time of Focused Exam: 00:30 Objective Exam Vital Signs Vital Signs Date Time Temp Pulse Resp B/P (MAP) Pulse Ox O2 Delivery O2 Flow Rate FiO2 05/23/22 12:00 84 17 184/84 (117) 93 Mechanical Ventilator 21.00 05/23/22 11:54 37.5 05/23/22 10:44 21 Capillary Refill : Less Than 3 Seconds General Appearance: No Apparent Distress, WD/WN HEENT: Normal ENT Inspection Neck: Normal Inspection Respiratory: Wheezing (decrease in expiratory wheezing), Other (harsh breath sounds on inspiration) Cardiovascular: Regular Rate, Rhythm, No Edema, No Gallop, No JVD, No Murmur, Normal Peripheral Pulses Gastrointestinal: Normal Bowel Sounds, No Organomegaly, No Pulsatile Mass Rectal: Deferred Extremity: Normal Capillary Refill, Normal Inspection, No Pedal Edema Neurologic/Psychiatric: Other (sedated) Skin: Normal Color, Warm/Dry Results/Procedures Lab Laboratory Tests 05/23/22 04:40 Patient resulted labs reviewed. Imaging: Reviewed Imaging Films, Reviewed Imaging Report Radiology CXR 05/23/22: IMPRESSION: Cardiomegaly and mild central pulmonary venous congestion. Assessment/Plan Assessment and Plan Assess & Plan/Chief Complaint Assessment: Ms. Merlin Rutledge is a 66 y/o Female with PMH COPD on home O2, Polysubstance abuse, GERD, OA, Dysphagia, CAD, HLD, HTN, Anxiety, and Depression who presented obtunded and in acute respiratory failure likely due to COPD exacerbation, and was subsequently intubated in the late evening of 05/18/22. Plan: 1. Acute on chronic respiratory failure due to COPD exacerbation - Ventilator day #5 - Vent settings: AC TV: 450 mL RR: 14 PEEP: 5 FiO2: 21% I:E ratio of 1:2 - ABG 05/20/22: 7.394/46.5/74 - ABG 05/21/22: 7.34/47/73 - ABG 05/22/22: 7.53/28.9/146 - ABG 05/23/22: 7.38/42/61 - s/p Methylprednisone 125mg x3 doses - s/p Cefepime (05/19/22 - 05/21/22) - CXR 05/23/22: no signs of pneumonia. - Discussed with family on 05/23/22, patient may require tracheotomy if she is unable to be extubated, which would also allow for tube feedings. 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 > EICU consulted and managing propofol and precedex > Given Ativan 2mg and will attempt to extubate today, yesterday unable to extubate due to respiratory distress and anxiety > Cont Albuterol inhaler q4 hr > Sputum culture ordered due to increasing secretions 2. Lactic acidosis - LA on presentation 8.67 -> 2.30 -> 2.25 -> 2.20 -> 4.48 - s/p Cefepime > Cont D5W 1/2 NS at 150 mL/hr 3. Hx of polysubstance abuse - Initial UDS + for cocaine, THC, and TCA - Hx of alcohol abuse > Will need CIWA if extubated > Given Thiamine 100mg IV > Given Phenobartibal 180mg x1, will give Ativan PRN per eICU 4. CAD - Home meds of ASA 81 mg and Clopidogrel 75mg daily 5. HTN - Home meds of Amlodipine 10mg daily 6. Hx of anxiety - home meds of hydroxyzine 25mg TID PRN and Buspirone 15mg BID 7. Hx of GERD - home meds of pantoprazole 40mg daily 8. Hypoglycemia, resolved > Cont TPN Dispo: Attempting extubation today DVT PPI: SCDs GI PPx: PPI Code: Full code Diet: TPN SUSAN WATERS DO 05/24/22 0525: Assessment/Plan Assessment and Plan Assess & Plan/Chief Complaint May need trach and PEG tube Supervisory-Addendum Brief Verification & Attestation Participated in pt care: history, MDM, physical Personally performed: exam, history, MDM, supervision of care Care discussed with: Medical Student Procedures: n/a Results interpretation: Verified all documentation Verification and Attestation of Medical Student E/M Service A medical student performed and documented this service in my presence. I review ed and verified all information documented by the medical student and made modifications to such information, when appropriate. I personally performed the physical exam and medical decision making. Susan Waters, May 24, 2022,05:25 BRENNEN GEE May 23, 2022 12:27 SUSAN WATERS DO May 24, 2022 05:25
[2022-05-23] MEDS ORDERED: THIAMINE INJECTION 100 MG in NS (IVPB) 50 ML IV NR (13:00)
[2022-05-23] MEDS: hydrALAZINE (APESOLINE) 20 MG/ML VIAL IV PRN ×3 (16:24→23:16)
[2022-05-23] MEDS ORDERED: ACETAMINOPHEN 500 MG TAB (TYLENOL) PO PRN (16:45)
[2022-05-23] MEDS: cefTRIAXone 1 GM PRE-MIX 50 ML IV SCH (17:10)
[2022-05-23] MEDS ORDERED: fentaNYL INJ 100 MCG/2 ML AMP IVP ONE (18:20)
[2022-05-23] MEDS ORDERED: fentaNYL INJ 100 MCG/2 ML AMP ONE (18:32)
[2022-05-23] MEDS: LORazepam INJ 2 MG/ML (ATIVAN) VIAL IVP PRN (20:06)
[2022-05-24] MEDS: fentaNYL DRIP PRE-MIX 250 ML IV SCH ×2 (01:09→12:43)
[2022-05-24] MEDS: NOREPINEPHRINE 8 MG/250 ML 250 ML IV SCH (01:34)
[2022-05-24 01:45] VITALS: BP 162/81
[2022-05-24] MEDS: RT-ALBUTEROL/IPRATROPIUM 3 ML (DUONEB) VIAL INH SCH ×6 (01:45→21:30)
[2022-05-24] MEDS: DexMEDEtomidine 250 ML DRIP 250 ML IV SCH (02:12)
[2022-05-24] MEDS: D5 1/2 NS W/KCL 20 MEQ/L 1,000 ML IV SCH (04:02)
[2022-05-24] MEDS: VASOPRESSIN INJECTION 20 UNIT in NS (IVPB) 100 ML IV SCH ×2 (04:04→14:54)
[2022-05-24 04:25] LABS: ABG BASE EXCESS -0.3 MMOL/L (-2.5-2.5); ABG OXYGEN SATURATION 97 % (94-100); ABG PCO2 39 MMHG (35-45); ABG PO2 70 MMHG (79-93); ABG TCO2 25.2 MMOL/L (21.0-31.0)
[2022-05-24 04:31] LABS: BASOPHILS % (AUTO) 0 % (0-10); EOSINOPHILS # (AUTO) 0.2 10^3/uL (0.0-0.3); EOSINOPHILS % (AUTO) 2 % (0-10); HEMATOCRIT 30 % (35-52); HEMOGLOBIN 9.8 g/dL (11.5-16.0); LYMPHOCYTES % (AUTO) 12 % (12-44); MEAN CORPUSCULAR HEMOGLOBIN 32 pg (25-34); MEAN CORPUSCULAR HGB CONC 33 g/dL (32-36); MEAN CORPUSCULAR VOLUME 97 fL (80-99); MEAN PLATELET VOLUME 9.4 fL (9.0-12.2); MONOCYTES # (AUTO) 0.8 10^3/uL (0.0-1.0); MONOCYTES % (AUTO) 10 % (0-12); NEUTROPHILS % (AUTO) 75 % (42-75); PLATELET COUNT 188 10^3/uL (130-400)
[2022-05-24 04:34] LABS: ALLENS TEST YES-POS; INSPIRED O2 30%; PATIENT TEMP 36.4; VENTILATOR YES
[2022-05-24 04:46] LABS: ALBUMIN 2.3 GM/DL (3.2-4.5); POTASSIUM 4.1 MMOL/L (3.6-5.0)
[2022-05-24 04:48] LABS: TOTAL PROTEIN 4.5 GM/DL (6.4-8.2)
[2022-05-24 04:50] LABS: BILIRUBIN,TOTAL 0.6 MG/DL (0.1-1.0)
[2022-05-24 04:52] LABS: CREATININE SERUM 0.61 MG/DL (0.60-1.30); PHOSPHORUS 3.3 MG/DL (2.3-4.7)
[2022-05-24 04:55] LABS: MAGNESIUM 2.1 MG/DL (1.6-2.4)
[2022-05-24] MEDS: KCL 20 MEQ TAB (K-DUR) PO SCH (06:15)
[2022-05-24] MEDS: inSUlin ASPART (NovoLOG) 1 UNIT/0.01 ML (CHARGE PER UNIT) SC SCH ×3 (06:15→18:00)
[2022-05-24] MEDS: POTASSIUM CL 10MEQ/50ML IVPB 50 ML IV SCH (06:15)
[2022-05-24] MEDS: MAGNESIUM 1 GM/100 ML IVPB 100 ML IV SCH (06:15)
--- NOTE | 2022-05-24 08:50 | Tele-ICU Progress Note ---
Subjective Date Seen by a Provider: May 24, 2022 Subjective/Events-last exam This virtual visit was conducted using real time audio/video. Thank you for asking us to see this patient for respiratory insufficiency due to AECOPD. Also pos urine tox screen, now w severe delirium. Recent events: unresponsive 05/23. PE: VSS. Sedated on vent. O2 sat 98% on 30%/+5 HEENT: No obvious masses, adenopathy or JVD. Chest: clear to auscultation. Diminished. CV: RRR S1 S2 No murmur or added sounds. Abd: Non-tender. Bowel sounds Y. : Unremarkable. Mckeon Y. MDM DEVELOPER/psychiatric: Grossly intact. No obvious focal findings. Extremities: 1+ edema. Capillary refill < 3 seconds. Skin: unremarkable. Results: Elevated BG 116. Decreased HB 9.8. B.4/39/70 on vent. CXR: Hyperinflated, congested. Available chart/ vitals / labs / images reviewed. Video assessment done using teleICU camera, rest of exam as per RN. A/P: Respiratory insufficiency: Continue present management with vent. Wean sedation and attempt SBT. May have to do trial of extubation despite delirium. Monitor for increasing oxygenation needs. Critical Care: critically ill patient. Cont. duonebs, fent., medrol, propofol, abx, SSI, PPI, B6, Betty. May need CIWA if extubated. Discussed with KARMEN Holly. Asked RN to reach out to eICU if any questions or concerns later. Time spent with patient/coordination of care with other health professionals (mins): 35 Sepsis Event Evaluation Height, Weight, BMI Height: 5'5.00" Weight: 136lbs. 1.0oz. 61.951662mm; 29.01 BMI Method:Stated Focused Exam Time of Focused Exam: 00:30 Exam Exam Patient acknowledged, consented, and participated in this virtual visit which was conducted using real time audio/video Vital Signs Date Time Temp Pulse Resp B/P (MAP) Pulse Ox O2 Delivery O2 Flow Rate FiO2 05/24/22 08:00 77 20 197/80 (119) 96 Mechanical Ventilator 25.00 05/24/22 07:57 37.6 05/24/22 07:50 76 174/93 05/24/22 07:00 58 15 104/54 (71) 98 Mechanical Ventilator 25.00 05/24/22 07:00 57 05/24/22 06:30 66 34 98 30 05/24/22 06:00 61 18 116/60 (78) 98 Mechanical Ventilator 30.00 05/24/22 05:00 59 16 92/51 (65) 98 Mechanical Ventilator 30.00 05/24/22 04:00 36.4 05/24/22 04:00 65 18 113/60 (77) 98 Mechanical Ventilator 30.00 05/24/22 04:00 97 Mechanical Ventilator 30 05/24/22 03:00 65 13 101/55 (70) 98 Mechanical Ventilator 30.00 05/24/22 02:12 79 162/81 05/24/22 02:12 79 162/81 05/24/22 02:00 72 16 133/67 (89) 97 Mechanical Ventilator 30.00 05/24/22 01:45 79 29 98 30 05/24/22 01:28 68 05/24/22 01:09 78 127/63 05/24/22 01:00 72 13 105/54 (71) 98 Mechanical Ventilator 30.00 05/24/22 00:00 78 15 127/63 (84) 98 Mechanical Ventilator 30.00 05/23/22 23:40 97 Mechanical Ventilator 30 05/23/22 23:26 37.7 05/23/22 23:00 89 20 174/75 (108) 97 Mechanical Ventilator 30.00 05/23/22 22:13 93 17 97 30 05/23/22 22:00 82 13 164/67 (99) 98 Mechanical Ventilator 30.00 05/23/22 21:00 85 24 156/66 (96) 98 Mechanical Ventilator 30.00 05/23/22 20:00 93 13 205/94 (131) 99 Mechanical Ventilator 30.00 05/23/22 20:00 97 Mechanical Ventilator 30 05/23/22 20:00 37.4 Mechanical Ventilator 30.00 05/23/22 19:21 85 05/23/22 19:00 93 15 129/66 (87) 97 Mechanical Ventilator 30.00 05/23/22 18:53 93 17 97 30 05/23/22 18:00 117 20 232/121 (158) 99 Mechanical Ventilator 30.00 05/23/22 17:41 37.3 05/23/22 17:11 38.0 05/23/22 17:00 88 10 244/114 (157) 100 Mechanical Ventilator 30.00 05/23/22 16:27 84 207/106 05/23/22 16:00 97 Mechanical Ventilator 30 05/23/22 16:00 90 17 179/98 (125) 99 Mechanical Ventilator 30.00 05/23/22 16:00 38.0 05/23/22 15:00 83 14 151/75 (100) 98 Mechanical Ventilator 30.00 05/23/22 14:09 80 17 98 30 05/23/22 14:00 80 16 166/83 (110) 97 Mechanical Ventilator 30.00 05/23/22 13:50 85 05/23/22 13:00 85 16 138/71 (93) 92 Mechanical Ventilator 30.00 05/23/22 12:37 87 27 91 21 05/23/22 12:27 96 187/118 05/23/22 12:00 84 17 184/84 (117) 93 Mechanical Ventilator 21.00 05/23/22 12:00 97 Mechanical Ventilator 21 05/23/22 11:54 37.5 05/23/22 11:00 68 15 252/129 (170) 95 Mechanical Ventilator 21.00 05/23/22 10:44 62 17 91 21 05/23/22 10:20 61 118/66 05/23/22 10:00 61 16 120/66 (84) 93 Mechanical Ventilator 21.00 05/23/22 09:00 61 14 180/84 (116) 93 Mechanical Ventilator 21.00 I & O 05/24/22 07:00 Intake Total 1021 ml Output Total 1135 ml Balance -114 ml Height & Weight Height: 5'5.00" Weight: 136lbs. 1.0oz. 61.256539qm; 29.01 BMI Method:Stated General Appearance: No Apparent Distress, WD/WN HEENT: Normal ENT Inspection Neck: Normal Inspection Respiratory: Wheezing (decrease in expiratory wheezing), Other (harsh breath sounds on inspiration) Cardiovascular: Regular Rate, Rhythm, No Edema, No Gallop, No JVD, No Murmur, Normal Peripheral Pulses Capillary Refill: Less Than 3 Seconds Gastrointestinal: soft Extremity: Normal Capillary Refill, Normal Inspection, No Pedal Edema Neurologic/Psychiatric: Other (sedated) Skin: Normal Color, Warm/Dry Results Lab Laboratory Tests 05/23/22 04:40 05/24/22 04:16 Assessment/Plan Assessment/Plan See free text Critical Care: Ventilator Management EZ WADE MD May 24, 2022 08:50
[2022-05-24] MEDS ORDERED: fentaNYL DRIP PRE-MIX 250 ML IV SCH (09:00)
[2022-05-24] MEDS: THIAMINE INJECTION 100 MG in NS (IVPB) 50 ML IV SCH (09:10)
[2022-05-24] MEDS: PANTOPRAZOLE 40 MG (PROTONIX) VIAL IV SCH (09:10)
[2022-05-24] MEDS: hydrALAZINE (APESOLINE) 20 MG/ML VIAL IV PRN ×2 (09:53→22:39)
[2022-05-24] MEDS: LABETALOL HCL 20 MG/4 ML VIAL IV PRN ×4 (10:04→21:14)
[2022-05-24] MEDS ORDERED: FUROSEMIDE 40 MG/4 ML INJ (LASIX) IVP NR (12:30)
[2022-05-24] MEDS: ENOXAPARIN 40 MG/0.4 ML (LOVENOX) SYR SC SCH (12:44)
[2022-05-24] MEDS: fentaNYL INJ 100 MCG/2 ML AMP IVP PRN (12:50)
--- NOTE | 2022-05-24 12:53 | Progress Note - Hospitalist ---
BRENNEN GEE 05/24/22 1253: Subjective HPI/CC On Admission Date Seen by Provider: May 24, 2022 Time Seen by Provider: 11:00 CC: Acute respiratory failure HPI: This is a 66yoAAF who is known to this examiner who has a h/o severe COPD maintained on O2 supplement at home and also has a long history of alcoholism and cocaine use along with smoking who presented to the ER obtunded requiring intubation. Patient is currently intubated and sedated and family is at the bedside. Reviewed meds and labs and imaging. Subjective/Events-last exam Waking up more Non cooperative Mild distress when breathing as being weaned but not in respiratory distress after extubation On BiPap Interval events: Extubated this morning and placed on BiPap of 14/6 at 35% and then quickly weaned to 25%. Focused Exam Time of Focused Exam: 00:30 Objective Exam Vital Signs Vital Signs Date Time Temp Pulse Resp B/P (MAP) Pulse Ox O2 Delivery O2 Flow Rate FiO2 05/24/22 12:43 98 222/119 05/24/22 12:00 25 97 NIV Bilevel 25.00 05/24/22 11:54 37.6 05/24/22 08:00 30 Capillary Refill : Less Than 3 Seconds General Appearance: No Apparent Distress, WD/WN, Mild Distress HEENT: PERRL/EOMI, Normal ENT Inspection Neck: Full Range of Motion, Normal Inspection Respiratory: Lungs Clear, Normal Breath Sounds, No Accessory Muscle Use, No Respiratory Distress Cardiovascular: Regular Rate, Rhythm, No Edema, No Gallop, No JVD, No Murmur, Normal Peripheral Pulses Gastrointestinal: Normal Bowel Sounds, No Organomegaly, No Pulsatile Mass, Soft Rectal: Deferred Extremity: Normal Capillary Refill, Normal Inspection Neurologic/Psychiatric: Other (Not oriented, not cooperative, not following commands) Skin: Normal Color, Warm/Dry Results/Procedures Lab Laboratory Tests 05/24/22 04:16 Patient resulted labs reviewed. Imaging: Reviewed Imaging Films, Reviewed Imaging Report Assessment/Plan Assessment and Plan Assess & Plan/Chief Complaint Assessment: Ms. Merlin Rutledge is a 66 y/o Female with PMH COPD on home O2, Polysubstance abuse, GERD, OA, Dysphagia, CAD, HLD, HTN, Anxiety, and Depression who presented obtunded and in acute respiratory failure likely due to COPD exacerbation, and was subsequently intubated in the late evening of 05/18/22. Plan: 1. Acute on chronic respiratory failure due to COPD exacerbation - Extubated on ventilator day #6 - Now on BiPap / on 25% - ABG 05/20/22: 7.394/46.5/74 - ABG 05/21/22: 7.34/47/73 - ABG 05/22/22: 7.53/28.9/146 - ABG 05/23/22: 7.38/42/61 - ABG 05/24/22: 7.40/29/70 - s/p Methylprednisone 125mg x3 doses - s/p Cefepime (05/19/22 - 05/21/22) - CXR 05/23/22: no signs of pneumonia. > EICU consulted, extubated today > Cont Albuterol inhaler q4 hr > follow Sputum culture > Cont Fentanyl 50 mcg for severe pain, nursing staff reports did better with fentanyl than with Ativan for sedation purposes 2. Lactic acidosis - LA on presentation 8.67 -> 2.30 -> 2.25 -> 2.20 -> 4.48 - s/p Cefepime > Cont D5W 1/2 NS at 150 mL/hr 3. Hx of polysubstance abuse - Initial UDS + for cocaine, THC, and TCA - Hx of alcohol abuse > Will need CIWA if extubated > Given Thiamine IV 4. CAD - Home meds of ASA 81 mg and Clopidogrel 75mg daily 5. HTN - Home meds of Amlodipine 10mg daily > Cont IV Labetalol 20mg q1 hr PRN > Cont IV Hydralazine 10mg q4 hr PRN > Lasix 40mg IV today 6. Hx of anxiety - home meds of hydroxyzine 25mg TID PRN and Buspirone 15mg BID 7. Hx of GERD - home meds of pantoprazole 40mg daily 8. Hypoglycemia, resolved > Cont TPN Dispo: Continue to see how she progress on Bipap and if mental status will improve DVT PPI: SCDs GI PPx: PPI Code: Full code Diet: TPN SUSAN WATERS DO 05/25/22 0514: Assessment/Plan Assessment and Plan Assess & Plan/Chief Complaint Continue BiPAP Supervisory-Addendum Brief Verification & Attestation Participated in pt care: history, MDM, physical Personally performed: exam, history, MDM, supervision of care Care discussed with: Medical Student Procedures: n/a Results interpretation: Verified all documentation Verification and Attestation of Medical Student E/M Service A medical student performed and documented this service in my presence. I reviewed and verified all information documented by the medical student and made modifications to such information, when appropriate. I personally performed the physical exam and medical decision making. Susan Waters, May 25, 2022,05:14 BRENNEN GEE May 24, 2022 12:53 SUSAN WATERS DO May 25, 2022 05:14
[2022-05-24 14:30] VITALS: BP 178/83
[2022-05-24] MEDS ORDERED: ACETAMINOPHEN 650 MG SUPP (TYLENOL) PR PRN (16:15)
[2022-05-24] MEDS: cefTRIAXone 1 GM PRE-MIX 50 ML IV SCH (17:31)
[2022-05-24 18:27] VITALS: BP 166/80
[2022-05-24] MEDS: fentaNYL 1,250 MCG/NS 250 ML DRIP IV SCH ×2 (18:59→23:08)
[2022-05-24] MEDS: ENALAPRILAT 2.5 MG/2 ML (VASOTEC) VIAL IV SCH (23:08)
[2022-05-24] MEDS: LORazepam INJ 2 MG/ML (ATIVAN) VIAL IVP PRN (23:28)
[2022-05-25] MEDS: inSUlin ASPART (NovoLOG) 1 UNIT/0.01 ML (CHARGE PER UNIT) SC SCH ×4 (00:41→18:28)
[2022-05-25] MEDS: NOREPINEPHRINE 8 MG/250 ML 250 ML IV SCH (01:38)
[2022-05-25] MEDS: VASOPRESSIN INJECTION 20 UNIT in NS (IVPB) 100 ML IV SCH ×2 (02:06→13:35)
[2022-05-25] MEDS: D5 1/2 NS W/KCL 20 MEQ/L 1,000 ML IV SCH ×2 (02:22→22:29)
[2022-05-25] MEDS: RT-ALBUTEROL/IPRATROPIUM 3 ML (DUONEB) VIAL INH SCH ×6 (02:24→22:46)
[2022-05-25] MEDS: LORazepam INJ 2 MG/ML (ATIVAN) VIAL IVP PRN ×3 (03:53→17:51)
[2022-05-25 04:35] LABS: BASOPHILS % (AUTO) 0 % (0-10); EOSINOPHILS # (AUTO) 0.3 10^3/uL (0.0-0.3); EOSINOPHILS % (AUTO) 3 % (0-10); HEMATOCRIT 30 % (35-52); HEMOGLOBIN 9.7 g/dL (11.5-16.0); LYMPHOCYTES # (AUTO) 1.3 10^3/uL (1.0-4.0); LYMPHOCYTES % (AUTO) 15 % (12-44); MEAN CORPUSCULAR HEMOGLOBIN 32 pg (25-34); MEAN CORPUSCULAR HGB CONC 32 g/dL (32-36); MEAN CORPUSCULAR VOLUME 100 fL (80-99); MEAN PLATELET VOLUME 9.1 fL (9.0-12.2); MONOCYTES # (AUTO) 1.5 10^3/uL (0.0-1.0); MONOCYTES % (AUTO) 17 % (0-12); NEUTROPHILS # (AUTO) 5.4 10^3/uL (1.8-7.8); NEUTROPHILS % (AUTO) 64 % (42-75); PLATELET COUNT 190 10^3/uL (130-400); WHITE BLOOD COUNT 8.6 10^3/uL (4.3-11.0)
[2022-05-25 04:55] LABS: ALBUMIN 2.5 GM/DL (3.2-4.5); POTASSIUM 3.8 MMOL/L (3.6-5.0)
[2022-05-25 04:56] LABS: CALCIUM 8.3 MG/DL (8.5-10.1)
[2022-05-25 04:57] LABS: TOTAL PROTEIN 5.4 GM/DL (6.4-8.2)
[2022-05-25 04:59] LABS: BILIRUBIN,TOTAL 0.6 MG/DL (0.1-1.0)
[2022-05-25 05:00] LABS: PHOSPHORUS 2.9 MG/DL (2.3-4.7)
[2022-05-25 05:01] LABS: CREATININE SERUM 0.68 MG/DL (0.60-1.30)
[2022-05-25 05:04] LABS: MAGNESIUM 2.1 MG/DL (1.6-2.4)
[2022-05-25] MEDS: POTASSIUM CL 10MEQ/50ML IVPB 50 ML IV SCH (05:13)
[2022-05-25] MEDS: KCL 20 MEQ TAB (K-DUR) PO SCH (05:14)
[2022-05-25] MEDS: MAGNESIUM 1 GM/100 ML IVPB 100 ML IV SCH (05:14)
--- NOTE | 2022-05-25 05:48 | Progress Note - Hospitalist ---
Subjective HPI/CC On Admission Date Seen by Provider: May 25, 2022 Time Seen by Provider: 12:00 CC: Acute respiratory failure HPI: This is a 66yoAAF who is known to this examiner who has a h/o severe COPD maintained on O2 supplement at home and also has a long history of alcoholism and cocaine use along with smoking who presented to the ER obtunded requiring intubation. Patient is currently intubated and sedated and family is at the bedside. Reviewed meds and labs and imaging. Subjective/Events-last exam BiPAP dependent Family at bedside Delirium will hopefully clear Review of Systems General: Fatigue, Malaise Focused Exam Time of Focused Exam: 00:30 Objective Exam Vital Signs Vital Signs Date Time Temp Pulse Resp B/P (MAP) Pulse Ox O2 Delivery O2 Flow Rate FiO2 05/25/22 19:34 37.1 65 19 128/72 (90) 100 NIV Bilevel 25.00 05/25/22 16:00 25 Capillary Refill : Less Than 3 Seconds General Appearance: No Apparent Distress, WD/WN, Chronically ill Respiratory: Lungs Clear Cardiovascular: Regular Rate, Rhythm Results/Procedures Lab Laboratory Tests 05/25/22 04:19 Patient resulted labs reviewed. Imaging: Reviewed Imaging Films, Reviewed Imaging Report Assessment/Plan Assessment and Plan Assess & Plan/Chief Complaint Assessment: Acute on chronic respiratory failure status post ventilator dependent now extubated on BiPAP Delirium Polysubstance abuse Hypertension Severe COPD Smoker Plan: ICU BiPAP Critical Care Ventilator Management VICKI WATERS DO May 25, 2022 05:48
[2022-05-25] MEDS: ENALAPRILAT 2.5 MG/2 ML (VASOTEC) VIAL IV SCH ×5 (06:20→23:33)
[2022-05-25 06:30] VITALS: BP 175/94
[2022-05-25] MEDS: PANTOPRAZOLE 40 MG (PROTONIX) VIAL IV SCH (08:04)
[2022-05-25] MEDS: LABETALOL HCL 20 MG/4 ML VIAL IV PRN ×3 (08:17→18:53)
[2022-05-25] MEDS: THIAMINE INJECTION 100 MG in NS (IVPB) 50 ML IV SCH (08:35)
--- NOTE | 2022-05-25 09:23 | Tele-ICU Progress Note ---
Subjective Date Seen by a Provider: May 25, 2022 Subjective/Events-last exam This virtual visit was conducted using real time audio/video. Thank you for asking us to see this patient for respiratory insufficiency due to AECOPD. Also pos urine tox screen, severe delirium. Recent events: Extubated to BiPAP 05/24 approx 10:15 AM. PE: VSS. Sedated on BiPAP O2 sat 97% on 25%, 07/09. HEENT: No obvious masses, adenopathy or JVD. Chest: clear to auscultation. Diminished. CV: RRR S1 S2 No murmur or added sounds. Abd: Non-tender. Bowel sounds Y. : Unremarkable. Mckeon Y. 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 No obvious focal findings. Extremities: 1+ edema. Capillary refill < 3 seconds. Skin: unremarkable. Results: Decreased HB 9.7. CXR: Hyperinflated, congested. Available chart/ vitals / labs / images reviewed. Video assessment done using teleICU camera, rest of exam as per RN. A/P: Respiratory insufficiency: Continue present management with BiPAP 07/09. Wean sedation. Monitor for increasing oxygenation needs/need for rreintubation. Critical Care: critically ill patient. Cont. duonebs, fent., abx, SSI, PPI, B6, SCDs. Weaning Fent. Discussed with RN Gricelda. Asked RN to reach out to eICU if any questions or c oncerns later. Time spent with patient/coordination of care with other health professionals (mins): 25 Sepsis Event Evaluation Height, Weight, BMI Height: 5'5.00" Weight: 136lbs. 1.0oz. 61.961280kd; 29.01 BMI Method:Stated Focused Exam Time of Focused Exam: 00:30 Exam Exam Patient acknowledged, consented, and participated in this virtual visit which was conducted using real time audio/video Vital Signs Date Time Temp Pulse Resp B/P (MAP) Pulse Ox O2 Delivery O2 Flow Rate FiO2 05/25/22 09:00 59 12 128/67 (87) 99 NIV Bilevel 25.00 05/25/22 08:00 99 NIV Bilevel 25 05/25/22 08:00 75 17 175/94 (121) 98 NIV Bilevel 25.00 05/25/22 07:59 35.7 05/25/22 07:49 35.7 05/25/22 07:00 65 05/25/22 07:00 64 13 143/73 (96) 98 NIV Bilevel 25.00 05/25/22 06:30 75 18 98 25.00 05/25/22 06:00 66 13 150/78 (102) 97 NIV Bilevel 25.00 05/25/22 05:00 62 16 145/64 (91) 100 NIV Bilevel 25.00 05/25/22 04:00 99 NIV Bilevel 25 05/25/22 04:00 61 12 143/66 (91) 98 NIV Bilevel 25.00 05/25/22 03:00 57 14 154/76 (102) 98 NIV Bilevel 25.00 05/25/22 02:24 62 21 97 25.00 05/25/22 02:00 63 14 129/62 (84) 96 NIV Bilevel 25.00 05/25/22 01:00 59 16 127/56 (79) 97 NIV Bilevel 25.00 05/25/22 01:00 60 05/25/22 00:00 61 12 117/51 (73) 95 NIV Bilevel 25.00 05/25/22 00:00 37.7 05/24/22 23:59 98 NIV Bilevel 25 05/24/22 23:08 66 166/80 05/24/22 23:00 71 17 112/53 (72) 98 NIV Bilevel 25.00 05/24/22 22:00 75 25 176/89 (118) 99 NIV Bilevel 25.00 05/24/22 21:30 66 21 99 25.00 05/24/22 21:00 72 17 151/74 (99) 99 NIV Bilevel 25.00 05/24/22 20:00 98 NIV Bilevel 25 05/24/22 20:00 65 14 166/89 (114) 99 NIV Bilevel 25.00 05/24/22 19:55 38.1 05/24/22 19:00 64 14 157/71 (99) 100 NIV Bilevel 25.00 05/24/22 19:00 73 05/24/22 18:27 75 18 98 25.00 05/24/22 18:00 68 10 157/80 (105) 98 NIV Bilevel 25.00 05/24/22 17:00 76 14 174/78 (110) 98 NIV Bilevel 25.00 05/24/22 16:58 37.2 05/24/22 16:43 75 166/80 05/24/22 16:28 38.0 05/24/22 16:00 38.0 05/24/22 16:00 98 NIV Bilevel 25 05/24/22 16:00 85 16 176/86 (116) 98 NIV Bilevel 25.00 05/24/22 15:00 90 22 155/85 (108) 97 NIV Bilevel 25.00 05/24/22 14:30 82 16 97 25.00 05/24/22 14:00 90 20 178/83 (114) 98 NIV Bilevel 25.00 05/24/22 13:00 79 05/24/22 13:00 89 22 189/105 (133) 97 NIV Bilevel 25.00 05/24/22 12:43 98 222/119 05/24/22 12:00 80 25 180/91 (120) 97 NIV Bilevel 25.00 05/24/22 12:00 99 NIV Bilevel 30 05/24/22 11:54 37.6 05/24/22 11:00 70 27 160/73 (102) 97 NIV Bilevel 25.00 05/24/22 10:35 71 31 98 25.00 05/24/22 10:00 105 19 136/70 (92) 97 Mechanical Ventilator 25.00 I & O 05/25/22 07:00 Intake Total 211 ml Output Total 2595 ml Balance -2384 ml Height & Weight Height: 5'5.00" Weight: 136lbs. 1.0oz. 61.838570bv; 29.01 BMI Method:Stated General Appearance: No Apparent Distress, WD/WN, Mild Distress HEENT: PERRL/EOMI, Normal ENT Inspection Neck: Full Range of Motion, Normal Inspection Respiratory: Lungs Clear, Normal Breath Sounds, No Accessory Muscle Use, No Respiratory Distress Cardiovascular: Regular Rate, Rhythm, No Edema, No Gallop, No JVD, No Murmur, Normal Peripheral Pulses Capillary Refill: Less Than 3 Seconds Gastrointestinal: soft Extremity: Normal Capillary Refill, Normal Inspection Neurologic/Psychiatric: Other (Not oriented, not cooperative, not following commands) Skin: Normal Color, Warm/Dry Results Lab Laboratory Tests 05/24/22 04:16 05/25/22 04:19 Assessment/Plan Assessment/Plan See free text. Critical Care: Critically Ill Patient EZ WADE MD May 25, 2022 09:23
[2022-05-25 11:09] VITALS: BP 150/76
[2022-05-25] MEDS: ENOXAPARIN 40 MG/0.4 ML (LOVENOX) SYR SC SCH (11:52)
[2022-05-25 14:30] VITALS: BP 188/91
[2022-05-25] MEDS: cefTRIAXone 1 GM PRE-MIX 50 ML IV SCH (16:05)
[2022-05-25] MEDS: fentaNYL 1,250 MCG/NS 250 ML DRIP IV SCH (16:38)
[2022-05-25 18:11] VITALS: BP 174/89
[2022-05-25 21:08] LABS: ABG BASE EXCESS 2.4 MMOL/L (-2.5-2.5); ABG OXYGEN SATURATION 89 % (94-100); ABG PCO2 59 MMHG (35-45); ABG PO2 64 MMHG (79-93); ABG TCO2 29.8 MMOL/L (21.0-31.0)
[2022-05-25 21:14] LABS: ALLENS TEST YES-POS; INSPIRED O2 25%; VENTILATOR YES
[2022-05-25 21:15] LABS: PATIENT TEMP 37.8
[2022-05-25] MEDS ORDERED: RT-ALBUTEROL SULF 2.5 MG/3 ML PRE-MIX VIAL INH ONE (21:15)
[2022-05-25] MEDS ORDERED: RT-ALBUTEROL/IPRATROPIUM 3 ML (DUONEB) VIAL INH ONE (21:15)
--- NOTE | 2022-05-25 22:01 | Tele-ICU Progress Note ---
Progress Note Patient in significant respiratory distress with tachypnea, accessory muscle use, head bobbing with respirations despite ongoing bipap. SpO2 94% on FiO2 25%.BP now up to 240/140. Has been getting nebs every 4-6 hours. Possible component of bronchospasm. Last neb about 3 hours ago. Reported to have diffuse wheezing and diffusely diminished aeration. Will give continuous neb x1 in hopes of avoiding intubation. ABG pending, if respiratory acidosis will proceed with intubation. Focused Exam Height, Weight, BMI Height: 5'5.00" Weight: 136lbs. 1.0oz. 61.254926iv; 29.01 BMI Method:Stated Time of Focused Exam: 00:30 JUANITA GRIGSBY MD May 25, 2022 22:01
[2022-05-25] MEDS: hydrALAZINE (APESOLINE) 20 MG/ML VIAL IV PRN (22:23)
[2022-05-25] MEDS: DexMEDEtomidine 250 ML DRIP 250 ML IV SCH (22:40)
[2022-05-25 22:44] VITALS: BP 170/137
[2022-05-25] MEDS ORDERED: RT-ALBUTEROL/IPRATROPIUM 3 ML (DUONEB) VIAL INH PRN (23:15)
[2022-05-25] MEDS: fentaNYL INJ 100 MCG/2 ML AMP IVP PRN (23:43)
[2022-05-26] VITALS (7 sets, daily range): BP systolic 115–161; BP diastolic 53–83
[2022-05-26] LABS: ABG BASE EXCESS 2.1 MMOL/L (-2.5-2.5); ABG OXYGEN SATURATION 97 % (94-100); ABG PCO2 45 MMHG (35-45); ABG PH 7.39 (7.37-7.43); ABG PO2 82 MMHG (79-93); ABG TCO2 28.1 MMOL/L (21.0-31.0)
[2022-05-26 00:02] LABS: ALLENS TEST YES-POS
[2022-05-26 00:03] LABS: INSPIRED O2 25%; PATIENT TEMP 36.7; VENTILATOR YES
[2022-05-26] MEDS: inSUlin ASPART (NovoLOG) 1 UNIT/0.01 ML (CHARGE PER UNIT) SC SCH ×4 (00:09→18:14)
[2022-05-26] MEDS: NOREPINEPHRINE 8 MG/250 ML 250 ML IV SCH (00:53)
[2022-05-26] MEDS: VASOPRESSIN INJECTION 20 UNIT in NS (IVPB) 100 ML IV SCH ×3 (00:53→20:45)
[2022-05-26] MEDS: fentaNYL 1,250 MCG/NS 250 ML DRIP IV SCH ×2 (02:17→17:15)
[2022-05-26] MEDS: RT-ALBUTEROL/IPRATROPIUM 3 ML (DUONEB) VIAL INH SCH ×6 (02:45→22:27)
[2022-05-26] MEDS: MAGNESIUM 1 GM/100 ML IVPB 100 ML IV SCH (04:15)
[2022-05-26] MEDS: POTASSIUM CL 10MEQ/50ML IVPB 50 ML IV SCH ×3 (04:15→07:43)
[2022-05-26] MEDS: KCL 20 MEQ TAB (K-DUR) PO SCH (04:16)
[2022-05-26 04:58] LABS: BASOPHILS % (AUTO) 0 % (0-10); EOSINOPHILS % (AUTO) 0 % (0-10); HEMATOCRIT 27 % (35-52); HEMOGLOBIN 8.9 g/dL (11.5-16.0); LYMPHOCYTES # (AUTO) 1.3 10^3/uL (1.0-4.0); LYMPHOCYTES % (AUTO) 11 % (12-44); MEAN CORPUSCULAR HEMOGLOBIN 32 pg (25-34); MEAN CORPUSCULAR HGB CONC 33 g/dL (32-36); MEAN CORPUSCULAR VOLUME 97 fL (80-99); MEAN PLATELET VOLUME 9.2 fL (9.0-12.2); MONOCYTES % (AUTO) 9 % (0-12); NEUTROPHILS # (AUTO) 8.9 10^3/uL (1.8-7.8); NEUTROPHILS % (AUTO) 79 % (42-75); PLATELET COUNT 218 10^3/uL (130-400); WHITE BLOOD COUNT 11.3 10^3/uL (4.3-11.0)
[2022-05-26 05:02] LABS: ALBUMIN 2.6 GM/DL (3.2-4.5); POTASSIUM 3.6 MMOL/L (3.6-5.0)
[2022-05-26 05:03] LABS: CALCIUM 8.3 MG/DL (8.5-10.1)
[2022-05-26 05:04] LABS: TOTAL PROTEIN 5.1 GM/DL (6.4-8.2)
[2022-05-26 05:06] LABS: BILIRUBIN,TOTAL 0.4 MG/DL (0.1-1.0)
[2022-05-26 05:08] LABS: CREATININE SERUM 0.58 MG/DL (0.60-1.30); PHOSPHORUS 2.6 MG/DL (2.3-4.7)
[2022-05-26 05:11] LABS: MAGNESIUM 1.9 MG/DL (1.6-2.4)
--- NOTE | 2022-05-26 05:34 | Progress Note - Hospitalist ---
Subjective HPI/CC On Admission Date Seen by Provider: May 26, 2022 Time Seen by Provider: 11:00 CC: Acute respiratory failure HPI: This is a 66yoAAF who is known to this examiner who has a h/o severe COPD maintained on O2 supplement at home and also has a long history of alcoholism and cocaine use along with smoking who presented to the ER obtunded requiring intubation. Patient is currently intubated and sedated and family is at the bedside. Reviewed meds and labs and imaging. Subjective/Events-last exam Patient still on BiPAP Doing actually really well Needs speech therapy Focused Exam Time of Focused Exam: 00:30 Objective Exam Vital Signs Vital Signs Date Time Temp Pulse Resp B/P (MAP) Pulse Ox O2 Delivery O2 Flow Rate FiO2 05/26/22 15:43 Nasal Cannula 4.00 05/26/22 15:40 76 101/42 05/26/22 15:29 36.0 05/26/22 15:00 18 98 05/26/22 11:10 97 Capillary Refill : Less Than 3 Seconds General Appearance: No Apparent Distress, WD/WN, Chronically ill Respiratory: Lungs Clear, Decreased Breath Sounds Cardiovascular: Regular Rate, Rhythm Results/Procedures Lab Laboratory Tests 05/26/22 04:45 Patient resulted labs reviewed. Imaging: Reviewed Imaging Films, Reviewed Imaging Report Assessment/Plan Assessment and Plan Assess & Plan/Chief Complaint Assessment: Acute on chronic respiratory failure status post ventilator dependent now extubated on BiPAP Delirium Polysubstance abuse Hypertension Severe COPD Smoker Plan: ICU BiPAP Critical Care Critically Ill Patient VICKI WATERS DO May 26, 2022 05:34
[2022-05-26] MEDS: ENALAPRILAT 2.5 MG/2 ML (VASOTEC) VIAL IV SCH ×3 (06:46→18:14)
--- NOTE | 2022-05-26 07:50 | Diagnostic Imaging Report ---
INDICATION: Respiratory distress. FINDINGS: There is cardiomegaly. Lungs are clear. No pleural effusion or pneumothorax. Mediastinum is unremarkable. IMPRESSION: No acute cardiopulmonary abnormality. Cardiomegaly. Dictated by: Dictated on workstation # [id number]
[2022-05-26] MEDS: PANTOPRAZOLE 40 MG (PROTONIX) VIAL IV SCH (08:01)
[2022-05-26] MEDS: fentaNYL INJ 100 MCG/2 ML AMP IVP PRN ×2 (08:15→20:14)
[2022-05-26 09:21] LABS: ABG BASE EXCESS 2.6 MMOL/L (-2.5-2.5); ABG OXYGEN SATURATION 93 % (94-100); ABG PCO2 45 MMHG (35-45); ABG PH 7.39 (7.37-7.43); ABG PO2 58 MMHG (79-93); ABG TCO2 28.7 MMOL/L (21.0-31.0)
[2022-05-26 09:22] LABS: ALLENS TEST YES-POS; INSPIRED O2 30%; VENTILATOR NO
--- NOTE | 2022-05-26 09:36 | Tele-ICU Progress Note ---
Subjective Date Seen by a Provider: May 26, 2022 Time Seen by a Provider: 09:36 Subjective/Events-last exam (Tele-ICU Physician , Progress Note ) Available chart/ vitals / labs / Images reviewed Video assessment done using teleICU camera, rest of exam as per RN Discussed with RN Events overnight :hakan at night , changed to propofol from precedex Afebrile hemodynamically stable Respiratory - NIPPV I/O =+ Drips: d51/2 with k Pressors- no Consultants: Hospital course: (05/19) 66yr old female admitted with respriatory failure, COPD exacerbation. Tox screen positive for cocaine, marijuana, and tricyclics 05/21- failed SBT with severe agitation , not follow commands, :hakan at night , changed to propofol from precedex 05/22- PHENOBARB 180 x1, failed SBT - very wild , not follow commands , hakan with precedex 05/23 NEW FEVER (05/24) extubated to NIV 05/26 -Bipap 14/5 fio2 30 % , rr 16 TV 600, started on precedex for agitation - WILL TRY OFF BIPAP A/P Acute resp failure ) hypercapneic , hypoxic ) - intubated 05/19 - AC 14 450 255 +6 -(05/24) extubated to NIV 05/26 - started on precedex for agitation , still on Bipap 14/5 fio2 30 % , rr 16 TV 600 Encephalopathy - unresponsibve in route by paramedics , never lost pulse - on admission UDS POSITIVE FOR COCAINE, THC, TRICYCLICS ON 05/19/22, -ETOH--HEAVY/REGULAR US - still not appropriate after extubation , not follow commands - CTH ordered - cont precedex for now 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 TF Lines : periph , (Central Line Necessity Reviewed) Mckeon: + OG: Nutrition: off any nutritions Analgesia: Anxiety/ delirium precedex VTE Prophylaxis: lovenox Stress Ulcer Prophylaxis: ppi Plans in collaboration with bedside consultants and IM MDs. Discussed with RN to reach out if any questions or concerns A total of 31 minutes of critical care time was devoted to this patient today, required to treat and/or prevent further deterioration of critical care condition ( as above ) . Sepsis Event Evaluation Height, Weight, BMI Height: 5'5.00" Weight: 136lbs. 1.0oz. 61.720266ng; 29.01 BMI Method:Stated Focused Exam Time of Focused Exam: 00:30 Exam Exam Patient acknowledged, consented, and participated in this virtual visit which was conducted using real time audio/video Vital Signs Date Time Temp Pulse Resp B/P (MAP) Pulse Ox O2 Delivery O2 Flow Rate FiO2 05/26/22 09:03 36.4 05/26/22 09:00 68 18 167/79 (108) 100 NIV Bilevel 30.00 05/26/22 08:29 68 138/75 05/26/22 08:00 55 16 111/54 (73) 99 NIV Bilevel 30.00 05/26/22 07:36 NIV Bilevel 30.00 05/26/22 07:22 36.4 05/26/22 07:04 72 19 100 30.00 05/26/22 07:00 69 05/26/22 07:00 74 19 161/86 (111) 100 NIV Bilevel 25.00 05/26/22 06:00 60 18 120/55 (76) 100 NIV Bilevel 25.00 05/26/22 05:11 61 19 100 30.00 05/26/22 05:00 62 16 115/56 (75) 100 NIV Bilevel 25.00 05/26/22 04:00 65 16 123/55 (77) 99 NIV Bilevel 25.00 05/26/22 04:00 97 NIV Bilevel 30 05/26/22 03:00 64 16 110/52 (71) 99 NIV Bilevel 25.00 05/26/22 02:45 62 16 99 30.00 05/26/22 02:40 62 140/59 05/26/22 02:00 64 17 130/63 (85) 98 NIV Bilevel 25.00 05/26/22 01:00 80 05/26/22 01:00 98 174/74 05/26/22 01:00 69 20 120/51 (74) 98 NIV Bilevel 25.00 05/26/22 00:02 72 153/74 05/26/22 00:00 64 35 153/74 (100) 98 NIV Bilevel 25.00 05/25/22 23:59 97 NIV Bilevel 30 05/25/22 23:40 96 241/121 05/25/22 23:20 96 218/105 05/25/22 23:00 109 28 251/138 (175) 99 NIV Bilevel 25.00 05/25/22 23:00 96 251/138 05/25/22 22:44 106 36 99 30.00 05/25/22 22:40 99 170/137 05/25/22 22:00 74 12 187/123 (144) 100 NIV Bilevel 25.00 05/25/22 21:10 112 32 99 45.00 05/25/22 21:00 87 18 178/100 (126) 97 NIV Bilevel 25.00 05/25/22 20:00 63 22 189/80 (116) 100 NIV Bilevel 25.00 05/25/22 20:00 95 NIV Bilevel 25 05/25/22 19:34 37.1 65 19 128/72 (90) 100 NIV Bilevel 25.00 05/25/22 19:00 61 05/25/22 18:11 67 20 98 25.00 05/25/22 18:00 72 27 174/89 (117) 98 NIV Bilevel 25.00 05/25/22 17:34 37.6 05/25/22 17:00 71 11 168/89 (115) 100 NIV Bilevel 25.00 05/25/22 16:00 98 NIV Bilevel 25 05/25/22 16:00 76 17 152/71 (98) 99 NIV Bilevel 25.00 05/25/22 15:00 77 10 146/67 (93) 99 NIV Bilevel 25.00 05/25/22 14:30 79 21 98 25.00 05/25/22 14:00 62 12 171/72 (105) 99 NIV Bilevel 25.00 05/25/22 13:35 61 142/66 05/25/22 13:00 62 16 128/65 (86) 99 NIV Bilevel 25.00 05/25/22 12:50 61 05/25/22 12:00 98 NIV Bilevel 25 05/25/22 12:00 63 11 142/66 (91) 99 NIV Bilevel 25.00 05/25/22 11:57 36.5 05/25/22 11:09 65 18 99 25.00 05/25/22 11:00 60 13 165/75 (105) 99 NIV Bilevel 25.00 05/25/22 10:00 60 14 136/66 (89) 96 NIV Bilevel 25.00 I & O 05/26/22 07:00 Intake Total 1351 ml Output Total 1425 ml Balance -74 ml Height & Weight Height: 5'5.00" Weight: 136lbs. 1.0oz. 61.967743cq; 29.01 BMI Method:Stated General Appearance: No Apparent Distress, WD/WN, Chronically ill HEENT: PERRL/EOMI, Normal ENT Inspection Neck: Full Range of Motion, Normal Inspection Respiratory: Lungs Clear Cardiovascular: Regular Rate, Rhythm Capillary Refill: Less Than 3 Seconds Gastrointestinal: soft Extremity: Normal Capillary Refill, Normal Inspection Neurologic/Psychiatric: Other (Not oriented, not cooperative, not following commands) Skin: Normal Color, Warm/Dry Results Lab Laboratory Tests 05/25/22 04:19 05/26/22 04:45 Assessment/Plan Assessment/Plan 1 TIMBO MERCEDES MD May 26, 2022 09:36
[2022-05-26] MEDS: THIAMINE INJECTION 100 MG in NS (IVPB) 50 ML IV SCH (09:56)
--- NOTE | 2022-05-26 09:56 | Diagnostic Imaging Report ---
PROCEDURE: CT head without contrast. TECHNIQUE: Multiple contiguous axial images were obtained through the brain without the use of intravenous contrast. Auto Exposure Controls were utilized during the CT exam to meet ALARA standards for radiation dose reduction. INDICATION: Altered mental status. COMPARISON: None available. FINDINGS: No hyperdense hemorrhage or space-occupying mass. No hydrocephalus or midline shift. The basilar cisterns are normal. Graves-white matter differentiation is well preserved. The mastoid air cells are clear. Paranasal sinuses are normal. No focal osseous abnormality of the calvarium. IMPRESSION: 1. No acute intracranial process. Dictated by: Dictated on workstation # [id number]
[2022-05-26] MEDS: ENOXAPARIN 40 MG/0.4 ML (LOVENOX) SYR SC SCH (11:30)
[2022-05-26] MEDS: DexMEDEtomidine 250 ML DRIP 250 ML IV SCH (14:28)
[2022-05-26] MEDS: cefTRIAXone 1 GM PRE-MIX 50 ML IV SCH (16:19)
[2022-05-26] MEDS: D5 1/2 NS W/KCL 20 MEQ/L 1,000 ML IV SCH (19:54)
[2022-05-27] MEDS: ENALAPRILAT 2.5 MG/2 ML (VASOTEC) VIAL IV SCH ×4 (01:01→18:32)
[2022-05-27] MEDS: inSUlin ASPART (NovoLOG) 1 UNIT/0.01 ML (CHARGE PER UNIT) SC SCH ×5 (01:12→23:22)
[2022-05-27] MEDS: NOREPINEPHRINE 8 MG/250 ML 250 ML IV SCH (01:13)
[2022-05-27] MEDS: fentaNYL INJ 100 MCG/2 ML AMP IVP PRN ×3 (01:35→16:10)
[2022-05-27] MEDS: fentaNYL 1,250 MCG/NS 250 ML DRIP IV SCH ×2 (01:48→18:33)
[2022-05-27 02:14] VITALS: BP 153/73
[2022-05-27] MEDS: RT-ALBUTEROL/IPRATROPIUM 3 ML (DUONEB) VIAL INH SCH ×6 (02:14→22:33)
[2022-05-27 05:42] LABS: BASOPHILS % (AUTO) 0 % (0-10); EOSINOPHILS # (AUTO) 0.2 10^3/uL (0.0-0.3); EOSINOPHILS % (AUTO) 4 % (0-10); HEMATOCRIT 25 % (35-52); LYMPHOCYTES # (AUTO) 1.3 10^3/uL (1.0-4.0); LYMPHOCYTES % (AUTO) 25 % (12-44); MEAN CORPUSCULAR HEMOGLOBIN 32 pg (25-34); MEAN CORPUSCULAR HGB CONC 32 g/dL (32-36); MEAN CORPUSCULAR VOLUME 98 fL (80-99); MEAN PLATELET VOLUME 9.2 fL (9.0-12.2); MONOCYTES # (AUTO) 0.9 10^3/uL (0.0-1.0); MONOCYTES % (AUTO) 17 % (0-12); NEUTROPHILS # (AUTO) 2.7 10^3/uL (1.8-7.8); NEUTROPHILS % (AUTO) 53 % (42-75); PLATELET COUNT 241 10^3/uL (130-400); WHITE BLOOD COUNT 5.2 10^3/uL (4.3-11.0)
[2022-05-27 05:59] LABS: ALBUMIN 2.3 GM/DL (3.2-4.5); POTASSIUM 3.6 MMOL/L (3.6-5.0)
[2022-05-27 06:01] LABS: TOTAL PROTEIN 4.8 GM/DL (6.4-8.2)
[2022-05-27 06:03] LABS: BILIRUBIN,TOTAL 0.4 MG/DL (0.1-1.0)
[2022-05-27 06:05] LABS: CREATININE SERUM 0.59 MG/DL (0.60-1.30); PHOSPHORUS 2.5 MG/DL (2.3-4.7)
[2022-05-27 06:07] LABS: MAGNESIUM 1.9 MG/DL (1.6-2.4)
[2022-05-27] MEDS: POTASSIUM CL 10MEQ/50ML IVPB 50 ML IV SCH ×3 (06:39→08:45)
[2022-05-27] MEDS: MAGNESIUM 1 GM/100 ML IVPB 100 ML IV SCH (06:39)
[2022-05-27] MEDS: KCL 20 MEQ TAB (K-DUR) PO SCH (06:40)
--- NOTE | 2022-05-27 08:38 | Tele-ICU Progress Note ---
Subjective Date Seen by a Provider: May 27, 2022 Time Seen by a Provider: 08:37 Subjective/Events-last exam (Tele-ICU Physician , Progress Note ) Available chart/ vitals / labs / Images reviewed Video assessment done using teleICU camera, rest of exam as per RN Discussed with RN Events overnight :hakan at night , changed to propofol from precedex Afebrile - low grade hemodynamically stable Respiratory - NIPPV I/O = neg 300 Drips: d51/2 with k Pressors- no Consultants: Hospital course: (05/19) 66yr old female admitted with respriatory failure, COPD exacerbation. Tox screen positive for cocaine, marijuana, and tricyclics 05/21- failed SBT with severe agitation , not follow commands, :hakan at night , changed to propofol from precedex 05/22- PHENOBARB 180 x1, failed SBT - very wild , not follow commands , hakan with precedex 05/23 NEW FEVER (05/24) extubated to NIV 05/26 -Bipap 14/5 fio2 30 % , rr 16 TV 600, started on precedex for agitation , CTH 05/26 - no acute changes - WILL TRY OFF BIPAP , OFF precedex A/P Acute resp failure ) hypercapneic , hypoxic ) - intubated 05/19 - AC 14 450 255 +6 -(05/24) extubated to NIV 05/26 - precedex precedex for agitation , still on Bipap 14/5 fio2 30 % , rr 16 TV 600 at NIGHT Encephalopathy - unresponsibve in route by paramedics , never lost pulse - on admission UDS POSITIVE FOR COCAINE, THC, TRICYCLICS ON 05/19/22, -ETOH--HEAVY/REGULAR US - still not appropriate after extubation , not follow commands - CTH 05/26 - no acute changes - OFF precedex for now , answers some questions 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 Discussed with RN to reach out if any questions or concerns A total of 31 minutes of critical care time was devoted to this patient today, required to treat and/or prevent further deterioration of critical care condition ( as above ) . Sepsis Event Evaluation Height, Weight, BMI Height: 5'5.00" Weight: 136lbs. 1.0oz. 61.759843at; 29.01 BMI Method:Stated Focused Exam Time of Focused Exam: 00:30 Exam Exam Patient acknowledged, consented, and participated in this virtual visit which was conducted using real time audio/video Vital Signs Date Time Temp Pulse Resp B/P (MAP) Pulse Ox O2 Delivery O2 Flow Rate FiO2 05/27/22 08:01 36.2 05/27/22 07:01 97 Nasal Cannula 2.00 05/27/22 06:00 68 24 156/79 (104) 99 Nasal Cannula 2.00 05/27/22 05:00 66 18 115/56 (75) 98 Nasal Cannula 2.00 05/27/22 04:00 65 23 120/57 (78) 99 Nasal Cannula 2.00 05/27/22 04:00 98 Nasal Cannula 2.00 05/27/22 03:15 73 10 172/87 (115) 100 Nasal Cannula 2.00 05/27/22 03:00 75 12 162/81 (108) 100 NIV Bilevel 30.00 05/27/22 02:54 71 189/95 05/27/22 02:14 70 21 100 30.00 05/27/22 02:00 63 9 152/73 (99) 100 NIV Bilevel 30.00 05/27/22 01:00 71 05/27/22 01:00 69 9 149/69 (95) 100 NIV Bilevel 30.00 05/27/22 00:00 72 11 166/76 (106) 100 NIV Bilevel 30.00 05/26/22 23:59 98 NIV Bilevel 30 05/26/22 23:00 60 16 144/62 (89) 100 NIV Bilevel 30.00 05/26/22 22:27 71 24 100 30.00 05/26/22 22:15 75 13 158/83 (108) 100 NIV Bilevel 30.00 05/26/22 22:00 75 11 186/80 (115) 100 NIV Bilevel 30.00 05/26/22 21:00 68 16 159/79 (105) 99 NIV Bilevel 30.00 05/26/22 20:48 72 143/97 05/26/22 20:00 97 NIV Bilevel 30 05/26/22 20:00 68 16 140/75 (96) 99 NIV Bilevel 30.00 05/26/22 19:27 37.3 05/26/22 19:00 66 16 136/63 (87) 99 NIV Bilevel 30.00 05/26/22 19:00 66 05/26/22 18:44 64 23 99 30.00 05/26/22 18:17 NIV Bilevel 30.00 05/26/22 18:14 64 129/68 05/26/22 18:14 69 131/57 05/26/22 18:00 57 21 105/41 (62) 100 Nasal Cannula 4.00 05/26/22 17:00 69 25 131/57 (81) 99 Nasal Cannula 4.00 05/26/22 16:51 70 129/54 05/26/22 16:10 70 118/65 05/26/22 16:00 58 26 118/65 (82) 100 Nasal Cannula 4.00 05/26/22 16:00 100 Nasal Cannula 4.00 05/26/22 15:43 Nasal Cannula 4.00 05/26/22 15:40 76 101/42 05/26/22 15:29 36.0 05/26/22 15:00 55 18 99/43 (61) 98 NIV Bilevel 30.00 05/26/22 14:38 NIV Bilevel 30.00 05/26/22 14:36 65 119/53 05/26/22 14:35 63 17 100 30.00 05/26/22 14:28 71 168/79 05/26/22 14:00 62 23 119/53 (75) 100 Nasal Cannula 4.00 05/26/22 13:00 71 05/26/22 13:00 65 19 124/52 (76) 100 Nasal Cannula 4.00 05/26/22 12:00 68 18 168/79 (108) 99 Nasal Cannula 4.00 05/26/22 11:36 100 Nasal Cannula 4.00 05/26/22 11:16 37.0 100 Nasal Cannula 4.00 05/26/22 11:10 Nasal Cannula 5.00 97 05/26/22 11:03 66 22 100 30.00 05/26/22 11:00 58 16 140/67 (91) 100 NIV Bilevel 30.00 05/26/22 10:00 57 14 119/60 (79) 100 NIV Bilevel 30.00 05/26/22 09:03 36.4 05/26/22 09:00 68 18 167/79 (108) 100 NIV Bilevel 30.00 I & O 05/27/22 07:00 Intake Total 1451 ml Output Total 1930 ml Balance -479 ml Height & Weight Height: 5'5.00" Weight: 136lbs. 1.0oz. 61.910224bf; 29.01 BMI Method:Stated General Appearance: No Apparent Distress, WD/WN, Chronically ill HEENT: PERRL/EOMI, Normal ENT Inspection Neck: Full Range of Motion, Normal Inspection Respiratory: Lungs Clear, Decreased Breath Sounds Cardiovascular: Regular Rate, Rhythm Capillary Refill: Less Than 3 Seconds Gastrointestinal: soft Extremity: Normal Capillary Refill, Normal Inspection Neurologic/Psychiatric: Other (Not oriented, not cooperative, not following commands) Skin: Normal Color, Warm/Dry Results Lab Laboratory Tests 05/26/22 04:45 05/27/22 05:25 Assessment/Plan Assessment/Plan 1 TIMBO MERCEDES MD May 27, 2022 08:38
--- NOTE | 2022-05-27 09:48 | ST Dysphagia Evaluation ---
Speech Evaluation-General Medical Diagnosis COPD Exacerbation Onset Date: May 18, 2022 Therapy Diagnosis Therapy Diagnosis: Suspected Oropharyngeal Swallow Precautions Precautions: Fall, Pressure Ulcer, Aspiration Precautions/Isolations: Aspiration, Fall Prevention, Pressure Ulcer Referral Referring Physician: Dr. Hector Reason for Referral: Evaluation/Treatment Medical History Pertinent Medical History: COPD, Smoking Current History The patient is a 66 year old female with a past medical history of COPD (2L of O2 at home), who presented to [facility] with increased shortness of breath. The patient was intubated on 05/18 and extubated on 05/24. CXR: No acute cardiopulmonary abnormality. Speech PLF/Current-Dysphagia Prior Level of Function The prior level of function is unknown to this clinician, as the patient is unable to provide relevant information. The patient is known to the clinician from prior evaluations. Throughout prior evaluations, the patient was micah mmended a mechanical soft consistency diet with thin liquids. Subjective The patient was reclined in her bed, awake, upon entrance to her room by the clinician. The patient placed the head of the bed in an upright position for safe swallowing and increased lighting in the room to improve alertness. The patient responded intermittently to requests, questions, and instructions by the clinician. The patient is receiving 2L supplemental oxygen via nasal cannula. Cognitive Status Patient Orientation: Person, Confused Oral Motor Skills Dentition: Edentalous Ability to Follow Directions: Fair Oral Expression Ability: Moderate Impairment Voice Voice Phonatory-Based Quality: Glottal [place] Voice Pitch: Moderately Low Voice Loudness: Moderately Soft/Quiet Face Facial Symmetry: Symmetrical Oral-Facial Assessment Oral-Facial Dentition: Normal Labial Seal Description: Normal Smile: Normal Lingual ROM: Normal Lingual Strength: Normal Volitional Dry Swallow: Yes Voluntary Cough: Yes Can Clear Throat Volitionally: Yes Productive Cough: Yes Productive Throat Clear: Yes Dysphagia Evaluation Consistencies Presented: Thin Liquid, Pureed The patient requires moderate verbal cueing to remove thin liquid from the teaspoon, as the clinician would not "dump" the contents into the oral cavity for the patient's safety. Once removed, the patient orally held contents (thin liquid and puree) for periods of 25 seconds to 47 seconds. Orally holding material increases the patient's risk for aspiration. Verbal prompting was required for the patient to elicit a pharyngeal swallow trigger. Pharyngeal Phase: Multiple Swallow Attempts, Clears Throat, Delayed Swallow Laryngeal elevation was present to palpation. The clinician suspects a delay in the pharyngeal swallow response. Multiple pharyngeal swallows were demonstrated per teaspoon. Intermittent throat clearing was present with teaspoon trials of thin liquids. Initially, the patient did not display s/s of suspected aspiration with puree, however, upon continued attempts, the patient does display delayed throat clearing and rigorous coughing (the behavior began following puree bolus six). The delayed throat clearing could display pharyngeal weakness and difficulty controlling pharyngeal residue following the swallow. The patient requires consistent verbal cueing to remain on task. At one point, the patient asked, "Why am I bound in this bed?" The clinician discussed the patient does not have restraints present and concluded the patient's upper extremities may be extremely weak which make her unable to lift her arms. Dietary Recommendations: NPO Liquid Recommendations: NPO Recommendations: - The patient should remain N.P.O. until improved alertness and reduced confusion is present. - Frequent and thorough oral care to reduce the transfer of oral bacteria should aspiration occur. - Speech pathology will continue assessing the patient's swallowing function as appropriate. The recommendations were provided to the RN and the patient immediately following the evaluation. The patient displays marked fatigue and weakness in comparison to the patient's prior hospitalization with speech pathology evaluation. Dysphagia Evaluation Summary The patient displays suspected oropharyngeal dysphagia characterized by reduced oral and lingual coordination, a suspected delay in the pharyngeal swallow function, and reduced airway protection in the presence of bolus material. At this time, the patient displays s/s of suspected aspiration with thin liquids and extended trials of puree. Speech Short Term Goals Short Term Goals Short Term Goals 1. The patient will tolerate trials of the least restrictive consistency without s/s of suspected aspiration. Time Frame-STG: Three Days. Speech Senior Living Goals Senior Living Goals The patient will tolerate the least restrictive diet consistency without s/s of suspected aspiration. Time Frame: One Week. Speech-Plan Treatment Plan Speech Therapy Treatment Plan: Continue Plan of Care Treatment Duration: Jun 03, 2022 Frequency: 3 times per week Estimated Hrs Per Day: .25 hour per day Rehab Potential: Guarded Safety Risks/Education Teaching Recipient: Patient Teaching Methods: Discussion Response to Teaching: Reinforcement Needed Education Topics Provided: Results, Recommendations, Plan of Care Time Speech Therapy Time In: 09:00 Speech Therapy Time Out: 09:20 Total Billed Time: 20 Billed Treatment Time 1, ESTUARDO LOPEZ [facility] May 27, 2022 09:48
[2022-05-27] MEDS: THIAMINE INJECTION 100 MG in NS (IVPB) 50 ML IV SCH (09:57)
[2022-05-27] MEDS: PANTOPRAZOLE 40 MG (PROTONIX) VIAL IV SCH (09:57)
[2022-05-27] MEDS: VASOPRESSIN INJECTION 20 UNIT in NS (IVPB) 100 ML IV SCH ×2 (10:59→19:31)
--- NOTE | 2022-05-27 11:23 | Physical Therapy Evaluation ---
PT Evaluation-General Medical Diagnosis Admission Date May 19, 2022 at 00:40 Medical Diagnosis: COPD Exacerbation Onset Date: May 18, 2022 Therapy Diagnosis Therapy Diagnosis: generalized weakness/debility Height/Weight Height (Feet): 5 Height (Inches): 5.00 Weight (Pounds): 136 Weight (Ounces): 1.0 Precautions Precautions/Isolations: Aspiration, Fall Prevention, Pressure Ulcer Referral Physician: Abdulkadir Medical History Pertinent Medical History: CAD, COPD, HTN, Smoking Current History EMS secondary to SOA Reviewed History: Yes Social History Home: Single Level Current Living Status: Other Family Prior Prior Level of Function SCALE: Activities may be completed with or without assistive devices. 5-Fmlspjhjab-fmxidol completes the activity by him/herself with no assistance from a helper. 5-Set-up or Clean-up Assistance-helper sets up or cleans up; patient completes activity. Tom Bean assists only prior to or following the activity. 4-Supervision or Touching Assistance-helper provides verbal cues and/or touching/steadying and/or contact guard assistance as patient completes activity. Assistance may be provided throughout the activity or intermittently. 3-Partial/Moderate Assistance-helper does LESS THAN HALF the effort. Tom Bean lifts, holds or supports trunk or limbs, but provides less than half the effort. 2-Substantial/Maximal Assistance-helper does MORE THAN HALF the effort. Tom Bean lifts or holds trunk or limbs and provides more than half the effort. 9-Egaqykkys-hvirfa does ALL the effort. Patient does none of the effort to complete the activity. Or, the assistance of 2 or more helpers is required for the patient to complete the activity. If activity was not attempted, code reason: 7-Patient Refused. 9-Not Applicable-not attempted and the patient did not perform the activity before the current illness, exacerbation or injury. 10-Not Attempted due to Environmental Limitations-(lack of equipment, weather restraints, etc.). 88-Not Attempted due to Medical Conditions or Safety Concerns. Bed Mobility: 6 Transfers (B,C,W/C): 6 Gait: 6 Stairs: 6 Indoor Mobility (Ambulation): Independent Stairs: Independent Prior Devices Use: None PT Evaluation-Current Subjective Patient agrees to PT. Family present and very attentive. Objective Patient Orientation: Person Attachments: SCD's, Oxygen, Mckeon Catheter, IV ROM/Strength ROM Lower Extremities bilateral LE WFL Strength Lower Extremities 2/5 grossly bilateral LE Integumentary/Posture Integumentary refer to nursing notes Bladder Incontinence: Mckeon Cath Posture WFL Neuromuscular (Tone, Coordination, Reflexes) diminished with all due to resent extubation Sensory Vision: Unable to Assess Hearing: Functional Transfers Roll Left to Right (QC): 1 Sit to Lying (QC): 1 Lying to Sitting/Side of Bed(Q: 1 Sit to Stand (QC): 88 Chair/Ikg-fn-Rmdev Xfer(QC): 88 Gait Does the Patient Walk?: No and Walking Goal IS indicated Balance Sitting Static: Poor Sitting Dynamic: Poor Assessment/Needs 66 y.o. female, will benefit from skilled PT to address functional strength and mobility to improve current LOF to safely return to home at maximum LOF. Rehab Potential: Guarded PT Custodial Goals Custodial Goals PT Barber Goals Time Frame: Jun 29, 2022 Roll Left & Right (QC): 4 Sit to Lying (QC): 4 Lying-Sitting on Side/Bed(QC): 4 Sit to Stand (QC): 4 Chair/Vqc-zb-Eponz Xfer(QC): 4 Toilet Transfer (QC): 4 Walk 10 feet (QC): 4 Walk 50ft with 2 Turns (QC): 4 Walk 150 ft (QC): 4 PT Plan Problem List Problem List: Activity Tolerance, Functional Strength, Safety, Balance, Gait, Transfer, Bed Mobility Treatment/Plan Treatment Plan: Continue Plan of Care Treatment Plan: Bed Mobility, Education, Functional Activity [place], Functional Strength, Gait, Safety, Therapeutic Exercise, Transfers Treatment Duration: Jun 29, 2022 Frequency: 6 times per week Estimated Hrs Per Day: .25 hour per day Patient and/or Family Agrees t: Yes Time/GCodes Time In: 1030 Time Out: 1046 Total Billed Treatment Time: 16 Total Billed Treatment 1 visit EVHigh 16 min JANNA CURIEL PT May 27, 2022 11:23
[2022-05-27] MEDS: ENOXAPARIN 40 MG/0.4 ML (LOVENOX) SYR SC SCH (11:41)
[2022-05-27] MEDS: LABETALOL HCL 20 MG/4 ML VIAL IV PRN ×2 (12:22→14:35)
--- NOTE | 2022-05-27 12:28 | Speech Therapy Progress Note ---
Therapy Progress Note Per RN, the patient displays increased alertness in comparison to the time of her evaluation on this date. ST will attempt to complete a re-evaluation, as able. If unable to complete, ST will complete a re-evaluation on 05/28/22. MURTAZA RAMON May 27, 2022 12:28
[2022-05-27] MEDS ORDERED: hydrALAZINE (APESOLINE) 20 MG/ML VIAL IV ONE (13:15)
[2022-05-27] MEDS ORDERED: hydrALAZINE (APESOLINE) 20 MG/ML VIAL IV NR (13:15)
[2022-05-27] MEDS: LORazepam INJ 2 MG/ML (ATIVAN) VIAL IVP PRN (13:26)
[2022-05-27] MEDS ORDERED: FUROSEMIDE 40 MG/4 ML INJ (LASIX) ONE (13:48)
--- NOTE | 2022-05-27 13:50 | Occ Therapy Progress Note ---
Therapy Progress Note OT orders received and chart reviewed. Upon arrival to room, RN requested that pt's eval be put on hold, due to being medically unstable. OT will attempt again on 05/28/22 if medically appropriate. Shani Rivas OT May 27, 2022 13:50
[2022-05-27] MEDS ORDERED: FUROSEMIDE 40 MG/4 ML INJ (LASIX) IVP NR (14:00)
--- NOTE | 2022-05-27 14:02 | Speech Therapy Progress Note ---
Therapy Progress Note attempted to re-evaluate the patient at 1359. At this time, the patient is with her RN. Additionally, RT is waiting for completion of care by RN to provide treatment. will re-attempt on the subsequent treatment date. MURTAZA RAMON May 27, 2022 14:02
[2022-05-27] MEDS: D5 1/2 NS W/KCL 20 MEQ/L 1,000 ML IV SCH (16:10)
--- NOTE | 2022-05-27 16:20 | Progress Note ---
Subjective Subjective/Events-last exam Patient comfortable but having some shortness of breath. Bed bound. Did not pass swallow study. Review of Systems Pulmonary: Dyspnea, Cough Cardiovascular: No: Chest Pain, Palpitations Neurological: Other (anxious) Focused Exam Time of Focused Exam: 00:30 Objective Exam Last Set of Vital Signs Vital Signs Date Time Temp Pulse Resp B/P (MAP) Pulse Ox O2 Delivery O2 Flow Rate FiO2 05/27/22 14:00 96 36 211/108 (142) 97 Nasal Cannula 2.00 05/27/22 08:01 36.2 05/26/22 23:59 30 Capillary Refill : Less Than 3 Seconds I&O Intake and Output 05/27/22 00:00 Intake Total 1451 ml Output Total 2105 ml Balance -654 ml Intake Oral 0 ml IV Total 1451 ml Output Urine Total 2105 ml General: Alert, Moderate Distress Lungs: Other (Diminished breath sounds, using secondary muslces) Heart: Regular Rate, No Murmurs Abdomen: Soft, No Tenderness Extremities: Other (2+ pitting edema) Psych/Mental Status: Other (agitated and anxious) Results/Procedures Lab Laboratory Tests 05/26/22 18:14: Glucometer 110 05/27/22 01:04: Glucometer 105 05/27/22 05:25: White Blood Count 5.2, Red Blood Count 2.53L, Hemoglobin 8.0L, Hematocrit 25L, Mean Corpuscular Volume 98, Mean Corpuscular Hemoglobin 32, Mean Corpuscular Hemoglobin Concent 32, Red Cell Distribution Width 13.0, Platelet Count 241, Mean Platelet Volume 9.2, Immature Granulocyte % (Auto) 0, Neutrophils (%) (Auto) 53, Lymphocytes (%) (Auto) 25, Monocytes (%) (Auto) 17H, Eosinophils (%) (Auto) 4, Basophils (%) (Auto) 0, Neutrophils # (Auto) 2.7, Lymphocytes # (Auto) 1.3, Monocytes # (Auto) 0.9, Eosinophils # (Auto) 0.2, Basophils # (Auto) 0.0, Immature Granulocyte # (Auto) 0.0, Sodium Level 142, Potassium Level 3.6, Chloride Level 109H, Carbon Dioxide Level 25, Anion Gap 8, Blood Urea Nitrogen 10, Creatinine 0.59L, Estimat Glomerular Filtration Rate 99, BUN/Creatinine Ratio 17, Glucose Level 99, Calcium Level 8.0L, Corrected Calcium 9.4, Phosphorus Level 2.5, Magnesium Level 1.9, Total Bilirubin 0.4, Aspartate Amino Transf (AST/SGOT) 26, Alanine Aminotransferase (ALT/SGPT) 32, Alkaline Phosphatase 43, Total Protein 4.8L, Albumin 2.3L 05/27/22 11:08: Glucometer 106 05/27/22 15:18: Bedside Blood Gas pH (LAB) 7.513H, Bedside Blood Gas pCO2 (LAB) 37.5L, Bedside Blood Gas pO2 (LAB) 79L, Bedside Blood Gas HCO3 (LAB) 30.1H, POC Blood Gas Total CO2 Calc 31H, Bedside Bl Gas O2 Saturation (Calc) 97, Bedside Arterial Blood Base Excess 7H Microbiology 05/24/22 Gram Stain - Final, Complete 05/24/22 Sputum Culture - Final, Complete Usual upper respiratory lindsey YEAST 05/19/22 Blood Culture - Final, Complete No growth 05/18/22 Urine Culture - Final, Complete NO GROWTH Assessment/Plan Assessment/Plan (1) Acute on chronic respiratory failure with hypoxia and hypercapnia Status: Acute Assessment & Plan: 05/27: Extubated 05/24, MAT protocol, declines to wear bipap, states that she does not want to be intubated but discussed with patient and family that could mean she will continue to get worse and and patient states that she does not know, will remain full code at this time as I could not get a clear answer, Called to room around 1400 and patient was having acute shortness of breath, RT called for breathing treatment, presedex was restarted, IV lasix given due to 2+ pitting edema, patient again declines to wear bipap. (2) COPD exacerbation Status: Acute (3) HTN (hypertension) Status: Chronic Assessment & Plan: 05/27: Required multiple doses of PRNs today, speech ok with PO meds, will restart PO meds Qualifiers: Qualified Codes: I10 - Essential (primary) hypertension (4) Encephalopathy acute Status: Acute Assessment & Plan: - 05/27: Seems to be improving, + TCAs and Cocaine on admiss ion (5) Normocytic anemia Status: Acute Assessment & Plan: 05/27: No signs of acute blood loss, Will continue to monitor (6) Dysphagia Status: Acute Assessment & Plan: 05/27: Speech consulted Qualifiers: Qualified Codes: R13.10 - Dysphagia, unspecified (7) Anxiety Status: Acute (8) Polysubstance abuse Status: Chronic (9) Cocaine use Status: Chronic (10) Alcohol abuse Status: Chronic ELVIE CARRIZALES MD May 27, 2022 16:20
[2022-05-27] MEDS: cefTRIAXone 1 GM PRE-MIX 50 ML IV SCH (16:24)
[2022-05-27] MEDS: DexMEDEtomidine 250 ML DRIP 250 ML IV SCH (20:46)
[2022-05-27 22:33] VITALS: BP 140/67
[2022-05-28] MEDS: ENALAPRILAT 2.5 MG/2 ML (VASOTEC) VIAL IV SCH ×5 (00:15→23:12)
[2022-05-28] MEDS: DexMEDEtomidine 250 ML DRIP 250 ML IV SCH (00:15)
[2022-05-28] MEDS: NOREPINEPHRINE 8 MG/250 ML 250 ML IV SCH (00:53)
[2022-05-28 02:22] VITALS: BP 111/79
[2022-05-28] MEDS: RT-ALBUTEROL/IPRATROPIUM 3 ML (DUONEB) VIAL INH SCH ×6 (02:22→22:17)
[2022-05-28 04:40] LABS: BASOPHILS % (AUTO) 0 % (0-10); EOSINOPHILS # (AUTO) 0.1 10^3/uL (0.0-0.3); EOSINOPHILS % (AUTO) 2 % (0-10); HEMATOCRIT 26 % (35-52); HEMOGLOBIN 8.6 g/dL (11.5-16.0); LYMPHOCYTES # (AUTO) 1.2 10^3/uL (1.0-4.0); LYMPHOCYTES % (AUTO) 20 % (12-44); MEAN CORPUSCULAR HEMOGLOBIN 32 pg (25-34); MEAN CORPUSCULAR HGB CONC 33 g/dL (32-36); MEAN CORPUSCULAR VOLUME 98 fL (80-99); MEAN PLATELET VOLUME 8.7 fL (9.0-12.2); MONOCYTES % (AUTO) 17 % (0-12); NEUTROPHILS # (AUTO) 3.5 10^3/uL (1.8-7.8); NEUTROPHILS % (AUTO) 60 % (42-75); PLATELET COUNT 249 10^3/uL (130-400); WHITE BLOOD COUNT 5.8 10^3/uL (4.3-11.0)
[2022-05-28 05:02] LABS: ALBUMIN 2.6 GM/DL (3.2-4.5); BILIRUBIN,TOTAL 0.6 MG/DL (0.1-1.0); CALCIUM 8.6 MG/DL (8.5-10.1); CREATININE SERUM 0.63 MG/DL (0.60-1.30); MAGNESIUM 1.8 MG/DL (1.6-2.4); PHOSPHORUS 2.9 MG/DL (2.3-4.7); TOTAL PROTEIN 5.3 GM/DL (6.4-8.2)
[2022-05-28] MEDS: MAGNESIUM 1 GM/100 ML IVPB 100 ML IV SCH (05:25)
[2022-05-28] MEDS: KCL 20 MEQ TAB (K-DUR) PO SCH (05:25)
[2022-05-28] MEDS: inSUlin ASPART (NovoLOG) 1 UNIT/0.01 ML (CHARGE PER UNIT) SC SCH ×3 (05:25→17:53)
[2022-05-28] MEDS: POTASSIUM CL 10MEQ/50ML IVPB 50 ML IV SCH ×4 (05:25→10:14)
--- NOTE | 2022-05-28 08:36 | Physical Therapy Daily Note ---
PT Daily Note-Current Subjective Patient in bed pre tx, agrees to PT, has no complaints of pain. Pain Section J - Health Conditions 1. Rarely or not at all 2. Occasionally 3. Frequently 4. Almost constantly 8. Unable to answer Pain Effect on Sleep: 1 Pain Interference with Therapy: 1 Pain Interference w/Day-to-Day: 1 Appearance Patient in bed post tx with nurse call, phone, tray, all needs met. Mental Status Patient Orientation: Person, Place, Situation Attachments: Oxygen, Mckeon Catheter, IV Transfers SCALE: Activities may be completed with or without assistive devices. 1-Isvjqnhkyq-gvnycye completes the activity by him/herself with no assistance from a helper. 5-Set-up or Clean-up Assistance-helper sets up or cleans up; patient completes activity. [place] assists only prior to or following the activity. 4-Supervision or Touching Assistance-helper provides verbal cues and/or touching/steadying and/or contact guard assistance as patient completes activity. Assistance may be provided throughout the activity or intermittently. 3-Partial/Moderate Assistance-helper does LESS THAN HALF the effort. [place] lifts, holds or supports trunk or limbs, but provides less than half the effort. 2-Substantial/Maximal Assistance-helper does MORE THAN HALF the effort. [place] lifts or holds trunk or limbs and provides more than half the effort. 5-Eahvvfimu-tfytxt does ALL the effort. Patient does none of the effort to complete the activity. Or, the assistance of 2 or more helpers is required for the patient to complete the activity. If activity was not attempted, code reason: 7-Patient Refused. 9-Not Applicable-not attempted and the patient did not perform the activity before the current illness, exacerbation or injury. 10-Not Attempted due to Environmental Limitations-(lack of equipment, weather restraints, etc.). 88-Not Attempted due to Medical Conditions or Safety Concerns. Roll Left & Right (QC): 6 Sit to Lying (QC): 3 Lying to Sitting/Side of Bed(Q: 3 Sit to Stand (QC): 4 Min assist for supine to sit, mod assist for sit to supine, CGA for sit to stand. Patient was able to stand for a couple of minutes, she was unsteady, knees slightly buckling the whole time but never completely. Exercises Seated Therapy Exercises: Ankle pumps, Long arc quads Seated Reps: 20 Treatments standing, LE ROM Assessment Current Status: Fair Progress dramatically improved strength compared to yesterday PT V Belt Inspector Goals Senior Care Goals PT Senior Care Goals Time Frame: Jun 29, 2022 Roll Left & Right (QC): 4 Sit to Lying (QC): 4 Lying-Sitting on Side/Bed(QC): 4 Sit to Stand (QC): 4 Chair/Vzc-nh-Dtciu Xfer(QC): 4 Toilet Transfer (QC): 4 Walk 10 feet (QC): 4 Walk 50ft with 2 Turns (QC): 4 Walk 150 ft (QC): 4 PT Plan Problem List Problem List: Activity Tolerance, Functional Strength, Safety, Balance, Gait, Transfer, Bed Mobility, ROM Treatment/Plan Treatment Plan: Continue Plan of Care Treatment Plan: Bed Mobility, Education, Functional Activity [place], Functional Strength, Gait, Safety, Therapeutic Exercise, Transfers Treatment Duration: Jun 29, 2022 Frequency: 6 times per week Estimated Hrs Per Day: .25 hour per day Patient and/or Family Agrees t: Yes Safety Risks/Education Patient Education: Correct Positioning, Safety Issues Teaching Recipient: Patient Teaching Methods: Demonstration, Discussion Response to Teaching: Reinforcement Needed Time/GCodes Time In: 808 Time Out: 824 Total Billed Treatment Time: 16 Total Billed Treatment 1 visit FA AGATHA OTTO PT May 28, 2022 08:36
[2022-05-28] MEDS: PANTOPRAZOLE 40 MG (PROTONIX) VIAL IV SCH (08:40)
--- NOTE | 2022-05-28 08:40 | Occupational Therapy Eval ---
OT Evaluation-General/PLF Medical Diagnosis Admission Date May 19, 2022 at 00:40 Medical Diagnosis: COPD Exacerbation Onset Date: May 18, 2022 Therapy Diagnosis Therapy Diagnosis: decreased ADL status, UE weakness Height/Weight Height (Feet): 5 Height (Inches): 5.00 Weight (Pounds): 136 Weight (Ounces): 1.0 Precautions Precautions/Isolations: Fall Prevention, Standard Precautions Referral Physician: Abdulkadir Referral Reason: Evaluation/Treatment Medical History Pertinent Medical History: CAD, COPD, HTN, Smoking Additional Medical History COPD, ETOH use, cocaine use, tobacco use. Current History ED due to SOA 05/19, requiring intubated, extubated 05/24 Social History Home: Single Level Current Living Status: Other Family ADL-Prior Level of Function SCALE: Activities may be completed with or without assistive devices. 7-Hmulimceqw-xabyrkf completes the activity by him/herself with no assistance from a helper. 5-Set-up or Clean-up Assistance-helper sets up or cleans up; patient completes activity. [place] assists only prior to or following the activity. 4-Supervision or Touching Assistance-helper provides verbal cues and/or touching/steadying and/or contact guard assistance as patient completes activity. Assistance may be provided throughout the activity or intermittently. 3-Partial/Moderate Assistance-helper does LESS THAN HALF the effort. [place] lifts, holds or supports trunk or limbs, but provides less than half the effort. 2-Substantial/Maximal Assistance-helper does MORE THAN HALF the effort. [place] lifts or holds trunk or limbs and provides more than half the effort. 9-Njoifyvse-vklcmg does ALL the effort. Patient does none of the effort to complete the activity. Or, the assistance of 2 or more helpers is required for the patient to complete the activity. If activity was not attempted, code reason: 7-Patient Refused. 9-Not Applicable-not attempted and the patient did not perform the activity before the current illness, exacerbation or injury. 10-Not Attempted due to Environmental Limitations-(lack of equipment, weather restraints, etc.). 88-Not Attempted due to Medical Conditions or Safety Concerns. ADL PLOF Comments Pt reports IND with ADLs and functional mobility at PLOF, no AD. Self Care: Independent Functional Cognition: Independent OT Current Status Subjective Pt in bed, agreeable to tx. RN states pt OK to be seen by therapy today, pt was on hold yesterday for OT. Mental Status/Objective Patient Orientation: Person, Place, Situation Attachments: Mckeon Catheter, IV, Oxygen, Telemetry Current Upper Extremity ROM Decreased bilaterally. BUE shoulder flexion to approx 90 degrees, WFL at elbow/wrist/hand. Pt required increased time with movements. Upper Extremity Coordination slightly decreased Upper Extremity Strength grossly 3/5 ADL-Treatment Eating (QC): 88 Lower Body Dressing (QC): 1 (assist x2 would be required for task.) Toileting Hygiene (QC): 1 (assist x2 required) Other Treatments Pt transferred supine to sit EOB, min A, mod A sit to supine, CGA sit to stand. Pt able to stand for a couple of mins, but unsteady with slight knee buckling throughout. Pt sat back EOB, completed x5 reps shoulder flexion, elbow flexion/extension, and front punch bilaterally. Pt returned supine. Post tx, pt in bed, call light in reach and all needs met. Education OT Patient Education: Correct positioning, Energy conservation, Exercise program, Modified ADL techniques, Progress toward Goal/Update tx plan, Purpose of tx/functional activities Teaching Recipient: Patient Teaching Methods: Discussion Response to Teaching: Verbalize Understanding OT Associate Professor Of Musicology Goals Snf Goals Time Frame: Jun 21, 2022 Eating (QC): 6 Oral Hygiene (QC): 6 Toileting Hygiene (QC): 4 Shower/Bathe Self (QC): 4 Upper Body Dressing (QC): 5 Lower Body Dressing (QC): 4 On/Off Footwear (QC): 4 Additional Goals: 1-Demonstrate ADL Tasks, 2-Verbalize Understanding, 3- ImproveStrength/[place] 1=Demonstrate adherence to instructed precautions during ADL tasks. 2=Patient will verbalize/demonstrate understanding of assistive devices/modifications for ADL. 3=Patient will improve strength/tolerance for activity to enable patient to perform ADL's. OT Education/Plan Problem List/Assessment Assessment: Decreased Activ Tolerance, Decreased UE Strength, Impaired Bed Mobility, Impaired Funct Balance, Impaired I ADL's, Impaired Self-Care Skills Discharge Recommendations Plan/Recommendations: Continue POC Treatment Plan/Plan of Care Patient would benefit from OT for education, treatment and training to promote independence in ADL's, mobility, safety and/or upper extremity function for ADL's. Plan of Care: ADL Retraining, Functional Mobility, UE Funct Exercise/Act Treatment Duration: Jun 21, 2022 Frequency: 3 times per week (3-5 times per week) Rehab Potential: Guarded Time/GCodes Start Time: 08:11 Stop Time: 08:26 Total Time Billed (hr/min): 15 Billed Treatment Time 1, LORETA FLORENCE OT May 28, 2022 08:40
[2022-05-28] MEDS: hydrALAZINE (APESOLINE) 20 MG/ML VIAL IV PRN ×2 (08:41→23:13)
[2022-05-28] MEDS: THIAMINE INJECTION 100 MG in NS (IVPB) 50 ML IV SCH (08:41)
--- NOTE | 2022-05-28 09:06 | Speech Therapy Daily Note ---
Speech Daily Progress Note Subjective Date Seen by Provider: May 28, 2022 Time Seen by Provider: 08:40 The patient was lying in bed, awake and alert, upon entrance to her room by the clinician. The patient greeted the clinician appropriately and was agreeable to participation in the dysphagia treatment session. The patient was seated upright in bed for safe swallowing. Objective The patient consumed multiple teaspoons of water, multiple straw drinks of water, multiple teaspoons of applesauce and parts of a saltine cracker. The patient was offered her dentures from bedside on multiple occasions and the patient continuously (politely) declined. The patient does not demonstrate s/s of suspected aspiration with any consistency consumed. The patient does display prolonged mastication with the solid consistency which is most likely due to her edentulous state, however, fatigue could play an additional factor. Intermittently increased respirations and fatigue were displayed, however, the patient was able to return to baseline with ease. The clinician attempted to have the patient self-feed, however, she was unable to grasp the cup or bring the cup to her mouth due to weakness. The RN was present in the room for the end of the evaluation. Recommendations: - Minced and moist (MM5, Dysphagia Two) with thin liquids, as tolerated. - Fully upright and alert for P.O. intake. - Small, single bites and sips. - Feeding assistance due to current weakness. - Cease P.O. intake during periods of respiratory or physical fatigue. - Monitor for s/s of suspected aspiration with P.O. intake. If demonstrated, contact speech pathology. The results and recommendations were provided to the RN and the patient following completion. Assessment Assessment Current Status: Fair Progress Treatment Plan Continue Plan of Care Speech Short Term Goals Short Term Goals Short Term Goals 1. The patient will tolerate trials of the least restrictive consistency without s/s of suspected aspiration. Time Frame-STG: Three Days. Speech Talent Acquisition Program Manager Goals Talent Acquisition Program Manager Goals The patient will tolerate the least restrictive diet consistency without s/s of suspected aspiration. Time Frame: One Week. Speech-Plan Treatment Plan Speech Therapy Treatment Plan: Continue Plan of Care Treatment Duration: Jun 03, 2022 Frequency: 3 times per week Estimated Hrs Per Day: .25 hour per day Rehab Potential: Guarded Safety Risks/Education Teaching Recipient: Patient Teaching Methods: Discussion Response to Teaching: Verbalize Understanding Education Topics Provided: Results, Recommendations, Plan of Care Time Speech Therapy Time In: 08:40 Speech Therapy Time Out: 09:00 Total Billed Time: 20 Billed Treatment Time 1, MURTAZA PENG May 28, 2022 09:06
[2022-05-28] MEDS: LABETALOL HCL 20 MG/4 ML VIAL IV PRN ×2 (10:51→23:13)
--- NOTE | 2022-05-28 11:21 | Tele-ICU Progress Note ---
Subjective Date Seen by a Provider: May 28, 2022 Time Seen by a Provider: 11:21 Subjective/Events-last exam Tele-ICU Physician , Progress Note ) Available chart/ vitals / labs / Images reviewed Video assessment done using teleICU camera, rest of exam as per RN Discussed with RN Events overnight : Afebrile hemodynamically stable Respiratory - I/O = Drips: Pressors- no Consultants: Hospital course:, she is currently on nasal cannula A/P CVS/HTN low bp imroving. off pressors. Rhythem nsr Echo Respiratory System. Off bipap. on n/c. copd exacerbation improving GI pssed swallow eval now on mechanical soft diet Kidneys. normal bun/cr k 3.0 replaced . nad [employer] TE[employer]ER/MENTAL STATUS improved. - Lines : periph , (Central Line Necessity Reviewed) Mckeon: OG: Nutrition: po diet started Analgesia: Anxiety/ delirium VTE Prophylaxis: Stress Ulcer Prophylaxis: Plans in collaboration with bedside consultants and IM MDs. Discussed with RN to reach out if any questions or concerns Sepsis Event Evaluation Height, Weight, BMI Height: 5'5.00" Weight: 136lbs. 1.0oz. [id number]; 27.65 BMI Method:Stated Focused Exam Time of Focused Exam: 00:30 Exam Exam Patient acknowledged, consented, and participated in this virtual visit which was conducted using real time audio/video Vital Signs Date Time Temp Pulse Resp B/P (MAP) Pulse Ox O2 Delivery O2 Flow Rate FiO2 05/28/22 10:41 99 Nasal Cannula 2.00 05/28/22 10:00 84 19 222/100 (140) 99 Nasal Cannula 2.00 05/28/22 09:00 72 13 187/86 (119) 97 Nasal Cannula 2.00 05/28/22 08:00 97 Nasal Cannula 2.00 05/28/22 08:00 68 15 177/81 (113) 99 Nasal Cannula 2.00 05/28/22 07:59 36.9 05/28/22 07:29 67 05/28/22 07:00 66 14 161/76 (104) 99 Nasal Cannula 2.00 05/28/22 06:39 100 Nasal Cannula 2.00 05/28/22 06:35 Nasal Cannula 2.00 05/28/22 06:03 37.5 05/28/22 06:00 59 17 151/70 (97) 100 NIV Bilevel 30.00 05/28/22 05:00 57 11 162/78 (106) 99 NIV Bilevel 30.00 05/28/22 04:43 NIV Bilevel 30.00 05/28/22 04:42 99 NIV Bilevel 30 05/28/22 04:00 53 13 166/66 (99) 100 NIV Bilevel 30.00 05/28/22 03:57 37.3 05/28/22 03:00 57 11 141/72 (115) 100 NIV Bilevel 30.00 05/28/22 02:22 48 16 100 30.00 05/28/22 02:00 52 16 121/63 (87) 100 NIV Bilevel 30.00 05/28/22 01:15 68 11 133/65 (87) 100 NIV Bilevel 30.00 05/28/22 01:00 54 18 94/50 (66) 100 NIV Bilevel 30.00 05/28/22 01:00 54 05/28/22 00:53 59 140/67 05/28/22 00:17 100 NIV Bilevel 30 05/28/22 00:16 NIV Bilevel 30.00 05/28/22 00:15 59 140/67 05/28/22 00:00 56 16 147/65 (100) 100 NIV Bilevel 05/27/22 23:48 36.4 05/27/22 23:00 59 16 156/71 (108) 100 NIV Bilevel 30.00 05/27/22 22:40 59 25 100 NIV Bilevel 30.00 05/27/22 22:33 59 24 100 30.00 05/27/22 22:00 64 28 119/58 (78) 99 Nasal Cannula 2.00 05/27/22 21:00 68 35 148/76 (100) 100 Nasal Cannula 2.00 05/27/22 20:46 84 178/84 05/27/22 20:41 97 Nasal Cannula 2.00 05/27/22 20:00 63 31 116/54 (74) 98 Nasal Cannula 2.00 05/27/22 20:00 Nasal Cannula 2.00 05/27/22 19:31 84 178/84 05/27/22 19:15 66 25 111/72 (85) 98 Nasal Cannula 2.00 05/27/22 19:00 78 05/27/22 19:00 78 163/72 (102) 98 Nasal Cannula 2.00 05/27/22 18:42 99 Nasal Cannula 2.00 05/27/22 18:00 84 32 178/84 (115) 98 Nasal Cannula 2.00 05/27/22 17:00 75 37 156/85 (108) 100 Nasal Cannula 2.00 05/27/22 16:00 38.0 05/27/22 16:00 83 36 161/73 (102) 98 Nasal Cannula 2.00 05/27/22 16:00 98 Nasal Cannula 2.00 05/27/22 15:00 79 35 149/75 (99) 99 Nasal Cannula 2.00 05/27/22 14:00 96 36 211/108 (142) 97 Nasal Cannula 2.00 05/27/22 13:57 96 Nasal Cannula 2.00 05/27/22 13:00 77 24 184/91 (122) 98 Nasal Cannula 2.00 05/27/22 12:26 85 05/27/22 12:00 80 30 219/102 (141) 98 Nasal Cannula 2.00 05/27/22 12:00 98 Nasal Cannula 2.00 I & O 05/28/22 07:00 Intake Total 400 ml Output Total 5125 ml Balance -4725 ml Height & Weight Height: 5'5.00" Weight: 136lbs. 1.0oz. [id number]; 27.65 BMI Method:Stated General Appearance: No Apparent Distress, WD/WN, Chronically ill HEENT: PERRL/EOMI, Normal ENT Inspection Neck: Full Range of Motion, Normal Inspection Respiratory: Lungs Clear, Decreased Breath Sounds Cardiovascular: Regular Rate, Rhythm Capillary Refill: Less Than 3 Seconds Gastrointestinal: soft Extremity: Normal Capillary Refill, Normal Inspection Neurologic/Psychiatric: Other (Not oriented, not cooperative, not following commands) Skin: Normal Color, Warm/Dry Results Lab Laboratory Tests 05/27/22 05:25 05/28/22 04:30 Assessment/Plan Assessment/Plan 1. copd exacerbation improved. 2. acute respiratory failure improved. 3. hx of poly substance abuse. Critical Care: Critically Ill Patient Time spent with patient (mins): 15 KRISTIE VALDEZ MD May 28, 2022 11:21
[2022-05-28] MEDS: ENOXAPARIN 40 MG/0.4 ML (LOVENOX) SYR SC SCH (12:43)
[2022-05-28] MEDS: D5 1/2 NS W/KCL 20 MEQ/L 1,000 ML IV SCH (12:43)
--- NOTE | 2022-05-28 19:23 | Progress Note ---
Subjective Subjective/Events-last exam Patient feeling much better. She passed her swallow study and is ready to eat. Has episodes of anxiety and shortness of breath. Review of Systems Pulmonary: Dyspnea, Cough Cardiovascular: Edema; No: Chest Pain, Palpitations Gastrointestinal: No: Nausea, Vomiting, Abdominal Pain Neurological: Weakness, Incoordination; No: Confusion Focused Exam Time of Focused Exam: 00:30 Objective Exam Last Set of Vital Signs Vital Signs Date Time Temp Pulse Resp B/P (MAP) Pulse Ox O2 Delivery O2 Flow Rate FiO2 05/28/22 18:47 99 Nasal Cannula 2.00 05/28/22 18:00 80 24 183/102 (129) 05/28/22 15:37 37.1 05/28/22 04:42 30 Capillary Refill : Less Than 3 Seconds I&O Intake and Output 05/28/22 00:00 Intake Total 150 ml Output Total 5400 ml Balance -5250 ml IV Total 150 ml Output Urine Total 5400 ml # Voids 1 General: Alert, Oriented X3, Moderate Distress (with converstational dsypnea and shortness of breath with any activity) Lungs: Other (diminished breath sounds, diffuse wheezing) Heart: Regular Rate, No Murmurs Abdomen: Normal Bowel Sounds, Soft, No Tenderness, No Masses Extremities: Other (2+ pitting edema) Neuro: Normal Speech Results/Procedures Lab Laboratory Tests 05/27/22 23:18: Glucometer 104 05/28/22 04:30: White Blood Count 5.8, Red Blood Count 2.68L, Hemoglobin 8.6L, Hematocrit 26L, Mean Corpuscular Volume 98, Mean Corpuscular Hemoglobin 32, Mean Corpuscular Hemoglobin Concent 33, Red Cell Distribution Width 13.2, Platelet Count 249, Mean Platelet Volume 8.7L, Immature Granulocyte % (Auto) 1, Neutrophils (%) (Auto) 60, Lymphocytes (%) (Auto) 20, Monocytes (%) (Auto) 17H, Eosinophils (%) (Auto) 2, Basophils (%) (Auto) 0, Neutrophils # (Auto) 3.5, Lymphocytes # (Auto) 1.2, Monocytes # (Auto) 1.0, Eosinophils # (Auto) 0.1, Basophils # (Auto) 0.0, Immature Granulocyte # (Auto) 0.0, Sodium Level 144, Potassium Level 3.0L, Chloride Level 106, Carbon Dioxide Level 27, Anion Gap 11, Blood Urea Nitrogen 10, Creatinine 0.63, Estimat Glomerular Filtration Rate 98, BUN/Creatinine Ratio 16, Glucose Level 113H, Calcium Level 8.6, Corrected Calcium 9.7, Phosphorus Level 2.9, Magnesium Level 1.8, Total Bilirubin 0.6, Aspartate Amino Transf (AST/SGOT) 20, Alanine Aminotransferase (ALT/SGPT) 33, Alkaline Phosphatase 53, Total Protein 5.3L, Albumin 2.6L 05/28/22 05:26: Glucometer 169H 05/28/22 11:40: Glucometer 116H 05/28/22 17:46: Glucometer 152H Microbiology 05/24/22 Gram Stain - Final, Complete 05/24/22 Sputum Culture - Final, Complete Usual upper respiratory lindsey YEAST 05/19/22 Blood Culture - Final, Complete No growth 05/18/22 Urine Culture - Final, Complete NO GROWTH Assessment/Plan Assessment/Plan (1) Acute on chronic respiratory failure with hypoxia and hypercapnia Status: Acute Assessment & Plan: 05/27: Extubated 05/24, MAT protocol, declines to wear bipap, states that she does not want to be intubated but discussed with patient and family that could mean she will continue to get worse and and patient states that she does not know, will remain full code at this time as I could not get a clear answer, Called to room around 1400 and patient was having acute shortness of breath, RT called for breathing treatment, presedex was restarted, IV lasix given due to 2+ pitting edema, patient again declines to wear bipap. 05/28: More comfortable this AM, continue antibiotics and steroids, MAT protocol, Encouraged IS (2) COPD exacerbation Status: Acute (3) HTN (hypertension) Status: Chronic Assessment & Plan: 05/27: Required multiple doses of PRNs today, speech ok with PO meds, will restart PO meds 05/28: Restart home meds, Added Lisinopril today Qualifiers: Qualified Codes: I10 - Essential (primary) hypertension (4) Encephalopathy acute Status: Resolved Assessment & Plan: - 05/27: Seems to be improving, + TCAs and Cocaine on admission (5) Normocytic anemia Status: Acute Assessment & Plan: 05/27: No signs of acute blood loss, Will continue to monitor (6) Dysphagia Status: Acute Assessment & Plan: 05/27: Speech consulted 05/28: cleared to start diet Qualifiers: Qualified Codes: R13.10 - Dysphagia, unspecified (7) Anxiety Status: Acute (8) Polysubstance abuse Status: Chronic (9) Cocaine use Status: Chronic (10) Alcohol abuse Status: Chronic ELVIE CARRIZALES MD May 28, 2022 19:23
[2022-05-28] MEDS ORDERED: amLODIPine 10 MG (NORVASC) TAB PO NR (19:45)
[2022-05-28] MEDS: lisINopril 10 MG (PRINIVIL) TABLET PO SCH (20:05)
[2022-05-28] MEDS ORDERED: KCL 20 MEQ TAB (K-DUR) PO ONE ×2 (21:15→23:15)
[2022-05-29] MEDS: LABETALOL HCL 20 MG/4 ML VIAL IV PRN ×2 (00:52→05:27)
[2022-05-29] MEDS: LORazepam INJ 2 MG/ML (ATIVAN) VIAL IVP PRN (00:52)
[2022-05-29] MEDS ORDERED: KCL 20 MEQ TAB (K-DUR) PO ONE ×2 (01:15→09:00)
[2022-05-29] MEDS: RT-ALBUTEROL/IPRATROPIUM 3 ML (DUONEB) VIAL INH SCH ×6 (02:34→22:04)
[2022-05-29 04:17] LABS: BASOPHILS % (AUTO) 0 % (0-10); EOSINOPHILS # (AUTO) 0.1 10^3/uL (0.0-0.3); EOSINOPHILS % (AUTO) 1 % (0-10); HEMATOCRIT 26 % (35-52); HEMOGLOBIN 8.7 g/dL (11.5-16.0); LYMPHOCYTES # (AUTO) 1.4 10^3/uL (1.0-4.0); LYMPHOCYTES % (AUTO) 16 % (12-44); MEAN CORPUSCULAR HEMOGLOBIN 32 pg (25-34); MEAN CORPUSCULAR HGB CONC 33 g/dL (32-36); MEAN CORPUSCULAR VOLUME 98 fL (80-99); MEAN PLATELET VOLUME 8.7 fL (9.0-12.2); MONOCYTES # (AUTO) 1.2 10^3/uL (0.0-1.0); MONOCYTES % (AUTO) 14 % (0-12); NEUTROPHILS % (AUTO) 69 % (42-75); PLATELET COUNT 290 10^3/uL (130-400); WHITE BLOOD COUNT 8.8 10^3/uL (4.3-11.0)
[2022-05-29 04:38] LABS: ALBUMIN 2.9 GM/DL (3.2-4.5); BILIRUBIN,TOTAL 0.8 MG/DL (0.1-1.0); CALCIUM 8.8 MG/DL (8.5-10.1); CREATININE SERUM 0.6 MG/DL (0.60-1.30); MAGNESIUM 1.7 MG/DL (1.6-2.4); PHOSPHORUS 1.9 MG/DL (2.3-4.7); POTASSIUM 3.6 MMOL/L (3.6-5.0); TOTAL PROTEIN 5.6 GM/DL (6.4-8.2)
[2022-05-29] MEDS: inSUlin ASPART (NovoLOG) 1 UNIT/0.01 ML (CHARGE PER UNIT) SC SCH ×2 (05:05→11:11)
[2022-05-29] MEDS: POTASSIUM CL 10MEQ/50ML IVPB 50 ML IV SCH (05:07)
[2022-05-29] MEDS: KCL 20 MEQ TAB (K-DUR) PO SCH (05:07)
[2022-05-29] MEDS: MAGNESIUM 1 GM/100 ML IVPB 100 ML IV SCH ×3 (05:07→05:29)
[2022-05-29] MEDS: hydrALAZINE (APESOLINE) 20 MG/ML VIAL IV PRN ×2 (05:28→12:46)
[2022-05-29] MEDS: fentaNYL INJ 100 MCG/2 ML AMP IVP PRN ×2 (05:28→20:53)
[2022-05-29] MEDS: ENALAPRILAT 2.5 MG/2 ML (VASOTEC) VIAL IV SCH ×3 (05:28→18:27)
[2022-05-29] MEDS: PANTOPRAZOLE 40 MG (PROTONIX) VIAL IV SCH (08:16)
[2022-05-29] MEDS: lisINopril 10 MG (PRINIVIL) TABLET PO SCH (08:22)
[2022-05-29] MEDS: amLODIPine 10 MG (NORVASC) TAB PO SCH (08:22)
[2022-05-29] MEDS: THIAMINE INJECTION 100 MG in NS (IVPB) 50 ML IV SCH (08:35)
--- NOTE | 2022-05-29 08:54 | Physical Therapy Daily Note ---
PT Daily Note-Current Subjective Patient sitting EOB pre tx, already working with OT, agrees to PT, has no complaints of pain. Pain Section J - Health Conditions 1. Rarely or not at all 2. Occasionally 3. Frequently 4. Almost constantly 8. Unable to answer Pain Effect on Sleep: 1 Pain Interference with Therapy: 1 Pain Interference w/Day-to-Day: 1 Appearance Patient in recliner post tx with nurse call, phone, tray, all needs met. Mental Status Patient Orientation: Person, Place Attachments: Oxygen, Mckeon Catheter, IV Transfers SCALE: Activities may be completed with or without assistive devices. 6-Cwnrbkaagy-ercjjos completes the activity by him/herself with no assistance from a helper. 5-Set-up or Clean-up Assistance-helper sets up or cleans up; patient completes activity. [place] assists only prior to or following the activity. 4-Supervision or Touching Assistance-helper provides verbal cues and/or t ouching/steadying and/or contact guard assistance as patient completes activity. Assistance may be provided throughout the activity or intermittently. 3-Partial/Moderate Assistance-helper does LESS THAN HALF the effort. [place] lifts, holds or supports trunk or limbs, but provides less than half the effort. 2-Substantial/Maximal Assistance-helper does MORE THAN HALF the effort. [place] lifts or holds trunk or limbs and provides more than half the effort. 6-Tcwyxduag-qvplrw does ALL the effort. Patient does none of the effort to complete the activity. Or, the assistance of 2 or more helpers is required for the patient to complete the activity. If activity was not attempted, code reason: 7-Patient Refused. 9-Not Applicable-not attempted and the patient did not perform the activity before the current illness, exacerbation or injury. 10-Not Attempted due to Environmental Limitations-(lack of equipment, weather restraints, etc.). 88-Not Attempted due to Medical Conditions or Safety Concerns. Sit to Stand (QC): 3 Chair/Jcn-pd-Clgbk Xfer(QC): 3 mod assist for sit to stand, patient is slightly retropulsive with standing. Attempted to get patient to ambulate a few feet to the recliner but she could only turn to sit in the recliner. Patient could not take any steps at this time. Exercises Seated Therapy Exercises: Ankle pumps, Long arc quads Seated Reps: 20 Treatments transfers, LE ROM Assessment Current Status: Fair Progress slightly improved standing but patient could not ambulate PT Senior Care Goals Gem Expert Goals PT Gem Expert Goals Time Frame: Jun 29, 2022 Roll Left & Right (QC): 4 Sit to Lying (QC): 4 Lying-Sitting on Side/Bed(QC): 4 Sit to Stand (QC): 4 Chair/Ogx-lh-Mluje Xfer(QC): 4 Toilet Transfer (QC): 4 Walk 10 feet (QC): 4 Walk 50ft with 2 Turns (QC): 4 Walk 150 ft (QC): 4 PT Plan Problem List Problem List: Activity Tolerance, Functional Strength, Safety, Balance, Gait, Transfer, Bed Mobility, ROM Treatment/Plan Treatment Plan: Continue Plan of Care Treatment Plan: Bed Mobility, Education, Functional Activity [place], Functional Strength, Gait, Safety, Therapeutic Exercise, Transfers Treatment Duration: Jun 29, 2022 Frequency: 6 times per week Estimated Hrs Per Day: .25 hour per day Patient and/or Family Agrees t: Yes Safety Risks/Education Patient Education: Transfer Techniques, Correct Positioning, Safety Issues Teaching Recipient: Patient Teaching Methods: Demonstration, Discussion Response to Teaching: Reinforcement Needed Time Time In: 824 Time Out: 834 Total Billed Treatment Time: 10 Total Billed Treatment 1 visit FA AGATHA [place] PT May 29, 2022 08:54
--- NOTE | 2022-05-29 09:16 | Speech Therapy Daily Note ---
Speech Daily Progress Note Subjective Date Seen by Provider: May 29, 2022 Time Seen by Provider: 08:50 The patient was seated upright in a recliner upon entrance to her room by the clinician. The patient recently received Occupational Therapy and has her breakfast tray present with adaptive silverware present. The patient is currently receiving supplemental O2 via nasal cannula. Per RN, the patient is not compliant with BiPAP recommendations throughout the evening. In addition, the RN believes the patient will be unable to tolerate extensive therapy at this time due to her consistently displayed fatigue and poor respiratory status. Objective The patient appears fatigued with labored respirations at the initiation of the session. The clinician verbally cues the patient to take deep diaphragmatic breaths through her nose in attempts to relax her respirations. The patient denied shortness of breath to the clinician. The patient displays significantly difficulty feeding herself. The clinician places all liquids in containers with lids and straws. The patient has minced sausage (with gravy), scrambled eggs (with gravy), cream of wheat, coffee, orange juice, and water. The patient displays one episode of rigorous coughing in isolation of P.O. intake. The patient does not consume food or liquid prior to the rigorous coughing event with requested oral suctioning from the patient. The patient consumes multiple straw drinks of orange juice and multiple bites of sausage and eggs. The patient requires consistent verbal cueing from the clinician to reduce her rate of intake and consume small bites and sips. The patient displayed one delayed cough following one drink of orange juice. No additional s/s of suspected aspiration were demonstrated. The patient's increased respiratory fatigue places her at an increased risk for aspiration. The information and risks were shared and discussed with the patient. If the patient's respiratory status remains labored, a video swallow would be appropriate to rule out additional silent aspiration risks. The RN believes the patient is currently unable to tolerate extensive therapy at this time due to her consistently displayed fatigue and poor respiratory status. The RN feels the patient would be appropriate for a transition to med/surgery with a goal of inpatient rehabilitation placement. As the patient is known to the clinician from prior admissions, the clinician remains with concerns reg arding compliance and motivation. Assessment Assessment Current Status: Fair Progress Treatment Plan Continue Plan of Care Speech Short Term Goals Short Term Goals Short Term Goals 1. The patient will tolerate trials of the least restrictive consistency without s/s of suspected aspiration. Time Frame-STG: Three Days. Speech Penitentiary Goals Penitentiary Goals The patient will tolerate the least restrictive diet consistency without s/s of suspected aspiration. Time Frame: One Week. Speech-Plan Treatment Plan Speech Therapy Treatment Plan: Continue Plan of Care Treatment Duration: Jun 03, 2022 Frequency: 3 times per week Estimated Hrs Per Day: .25 hour per day Rehab Potential: Guarded Safety Risks/Education Teaching Recipient: Patient Teaching Methods: Discussion Response to Teaching: Reinforcement Needed Education Topics Provided: Results, Recommendations, Plan of Care, Aspiration Risks Time Speech Therapy Time In: 08:50 Speech Therapy Time Out: 09:10 Total Billed Time: 20 Billed Treatment Time 1, MURTAZA PENG May 29, 2022 09:16
--- NOTE | 2022-05-29 09:21 | Occupational Ther Daily Note ---
OT Current Status-Daily Note Subjective Pt in lying in bed at incline asleep upon arrival. After encouragement, pt agrees to therapy. Pt c/o no pain. Mental Status/Objective Patient Orientation: Person, Place, Time, Situation Attachments: Mckeon Catheter, IV, Oxygen, Telemetry ADL-Treatment Pt required mod A to EOB. Pt required max A for sit to stand transfer. Pt ambulated with FWW and CGA to recliner. Pt required use of built up handles for fork and universal cuff for spoon to bring food to mouth using R UE. Pt required therapist to open all containers. Pt displays weakness throughout BUE, LUE demonstrates more weakness than RUE. Call light/phone in reach and pt in recliner at end of session. All needs met. Therapy Code Descriptions/Definitions Functional [place] Measure: 0=Not Assessed/NA 4=Minimal Assistance 1=Total Assistance 5=Supervision or Setup 2=Maximal Assistance 6=Modified [place] 3=Moderate Assistance 7=Complete IndependenceSCALE: Activities may be completed with or without assistive devices. 1-Ukgeqorxqm-wlnghrk completes the activity by him/herself with no assistance from a helper. 5-Set-up or Clean-up Assistance-helper sets up or cleans up; patient completes activity. [place] assists only prior to or following the activity. 4-Supervision or Touching Assistance-helper provides verbal cues and/or touching/steadying and/or contact guard assistance as patient completes activity. Assistance may be provided throughout the activity or intermittently. 3-Partial/Moderate Assistance-helper does LESS THAN HALF the effort. [place] l ifts, holds or supports trunk or limbs, but provides less than half the effort. 2-Substantial/Maximal Assistance-helper does MORE THAN HALF the effort. [place] lifts or holds trunk or limbs and provides more than half the effort. 1-Piczvgout-mlzzxl does ALL the effort. Patient does none of the effort to complete the activity. Or, the assistance of 2 or more helpers is required for t he patient to complete the activity. If activity was not attempted, code reason: 7-Patient Refused. 9-Not Applicable-not attempted and the patient did not perform the activity before the current illness, exacerbation or injury. 10-Not Attempted due to Environmental Limitations-(lack of equipment, weather restraints, etc.). 88-Not Attempted due to Medical Conditions or Safety Concerns. Eating (QC): 2 OT Stations Superintendent Goals [facility] Goals Time Frame: Jun 21, 2022 Eating (QC): 6 Oral Hygiene (QC): 6 Toileting Hygiene (QC): 4 Shower/Bathe Self (QC): 4 Upper Body Dressing (QC): 5 Lower Body Dressing (QC): 4 On/Off Footwear (QC): 4 Additional Goals: 1-Demonstrate ADL Tasks, 2-Verbalize Understanding, 3- ImproveStrength/[place] 1=Demonstrate adherence to instructed precautions during ADL tasks. 2=Patient will verbalize/demonstrate understanding of assistive devices/modifications for ADL. 3=Patient will improve strength/tolerance for activity to enable patient to perform ADL's. OT Education/Plan Problem List/Assessment Assessment: Decreased Activ Tolerance, Decreased UE Strength, Impaired Cognition, Impaired Coordination, Impaired Funct Balance, Impaired I ADL's, Impaired Self-Care Skills Discharge Recommendations Plan/Recommendations: Continue POC Treatment Plan/Plan of Care Patient would benefit from OT for education, treatment and training to promote independence in ADL's, mobility, safety and/or upper extremity function for AD L's. Plan of Care: ADL Retraining, Functional Mobility, UE Funct Exercise/Act Treatment Duration: Jun 21, 2022 Frequency: 3 times per week (3-5 times per week) Rehab Potential: Guarded Time/GCodes Start Time: 08:19 Stop Time: 08:51 Total Time Billed (hr/min): 32 Billed Treatment Time 1 visit ADL 2 (32 min) COREY GARCIA May 29, 2022 09:21
[2022-05-29] MEDS: D5 1/2 NS W/KCL 20 MEQ/L 1,000 ML IV SCH (09:31)
--- NOTE | 2022-05-29 09:54 | Tele-ICU Progress Note ---
Subjective Date Seen by a Provider: May 29, 2022 Time Seen by a Provider: 09:52 Subjective/Events-last exam (Tele-ICU Physician , Progress Note ) Available chart/ vitals / labs / Images reviewed Video assessment done using teleICU camera, rest of exam as per RN Discussed with RN Events overnight : Afebrile - l hemodynamically stable Respiratory -2 l nc I/O = even Drips: d51/2 with k Pressors- no Consultants: Hospital course: (05/19) 66yr old female admitted with respriatory failure, COPD exacerbation. Tox screen positive for cocaine, marijuana, and tricyclics 05/21- failed SBT with severe agitation , not follow commands, :hakan at night , changed to propofol from precedex 05/22- PHENOBARB 180 x1, failed SBT - very wild , not follow commands , hakan with precedex 05/23 NEW FEVER (05/24) extubated to NIV 05/26 -Bipap 14/5 fio2 30 % , rr 16 TV 600, started on precedex for agitation , CTH 05/26 - no acute changes - WILL TRY OFF BIPAP , OFF precedex 05/19 - refusing bipap, on nc , A/P Acute resp failure ) hypercapneic , hypoxic ) - intubated 05/19 - AC 14 450 255 +6 -(05/24) extubated to NIV 05/26 - precedex precedex for agitation , still on Bipap 14/5 fio2 30 % , rr 16 TV 600 at NIGHT Encephalopathy - resolved> AAO x 2 - on admission UDS POSITIVE FOR COCAINE, THC, TRICYCLICS ON 05/19/22, -ETOH--HEAVY/REGULAR US - OFF precedex for now AECOPD- - on 2 L home VISE HAND nebs . not on steroids - resume home resp meds 05/23 NEW FEVER - started on cefepime - afebrile , cx negative - STOPPED 05/28 Anemia - delutional , stable with slow trand down - w/up pending , add folate level Elev LFT - improved Hypoglycemia, intermittent - resolved long history of alcoholism and cocaine use along with smoking -cpm -thiamine IV - to change to PO Cont to monitor nutrition, can take po - d/c IVF - supplement phos -PT /OT Lines : periph , (Central Line Necessity Reviewed) Mckeon: + OG: Nutrition: off any nutritions Analgesia: Anxiety/ delirium precedex VTE Prophylaxis: lovenox Stress Ulcer Prophylaxis: ppi Plans in collaboration with bedside consultants and IM MDs. Discussed with RN to reach out if any questions or concerns A total of 25 minutes of critical care time was devoted to this patient today, required to treat and/or prevent further deterioration of critical care condition ( as above ) . Sepsis Event Evaluation Height, Weight, BMI Height: 5'5.00" Weight: 136lbs. 1.0oz. [id number]; 27.47 BMI Method:Stated Focused Exam Time of Focused Exam: 00:30 Exam Exam Patient acknowledged, consented, and participated in this virtual visit which was conducted using real time audio/video Vital Signs Date Time Temp Pulse Resp B/P (MAP) Pulse Ox O2 Delivery O2 Flow Rate FiO2 05/29/22 09:00 77 27 188/100 (129) 99 Nasal Cannula 2.00 05/29/22 08:13 36.7 72 25 167/78 (107) 100 Nasal Cannula 2.00 05/29/22 08:00 70 30 167/78 (107) 99 Nasal Cannula 2.00 05/29/22 08:00 100 Nasal Cannula 2.00 05/29/22 07:15 97 Nasal Cannula 2.00 05/29/22 07:05 76 05/29/22 07:00 79 16 178/86 (116) 100 Nasal Cannula 2.00 05/29/22 06:00 72 40 139/68 (91) 100 Nasal Cannula 2.00 05/29/22 05:00 87 26 188/90 (122) 98 Nasal Cannula 2.00 05/29/22 04:12 98 Nasal Cannula 2.00 05/29/22 04:00 80 37 160/78 (105) 98 Nasal Cannula 2.00 05/29/22 03:51 36.6 Nasal Cannula 2.00 05/29/22 03:00 85 172/81 (111) 98 Nasal Cannula 2.00 05/29/22 02:34 98 Nasal Cannula 2.00 05/29/22 02:00 87 14 159/87 (111) 98 Nasal Cannula 2.00 05/29/22 01:00 85 17 179/91 (120) 97 Nasal Cannula 2.00 05/29/22 01:00 92 05/29/22 00:00 81 30 167/99 (128) 100 Nasal Cannula 2.00 05/28/22 23:45 78 20 157/71 (116) 97 Nasal Cannula 2.00 05/28/22 23:30 74 27 144/72 (108) 99 Nasal Cannula 2.00 05/28/22 23:23 99 Nasal Cannula 2.00 05/28/22 23:13 Nasal Cannula 2.00 05/28/22 23:12 87 14 190/88 (126) 100 Nasal Cannula 2.00 05/28/22 23:00 82 37 194/86 (116) 100 Nasal Cannula 2.00 05/28/22 22:48 36.4 05/28/22 22:17 99 Nasal Cannula 2.00 05/28/22 22:00 92 27 189/95 (129) 97 Nasal Cannula 2.00 05/28/22 21:30 98 29 178/82 (114) 98 Nasal Cannula 2.00 05/28/22 21:00 101 22 135/71 (86) 97 Nasal Cannula 2.00 05/28/22 20:30 96 33 151/65 (85) 99 Nasal Cannula 2.00 05/28/22 20:07 97 Nasal Cannula 2.00 05/28/22 20:06 Nasal Cannula 2.00 05/28/22 20:00 102 31 171/73 (105) 98 Nasal Cannula 2.00 05/28/22 19:30 96 22 179/76 (105) 98 Nasal Cannula 2.00 05/28/22 19:11 36.2 05/28/22 19:00 90 05/28/22 19:00 90 25 206/97 (132) 100 Nasal Cannula 2.00 05/28/22 18:47 99 Nasal Cannula 2.00 05/28/22 18:00 80 24 183/102 (129) 98 Nasal Cannula 2.00 05/28/22 17:00 80 22 189/91 (123) 98 Nasal Cannula 2.00 05/28/22 16:00 97 Nasal Cannula 2.00 05/28/22 16:00 88 14 177/77 (110) 98 Nasal Cannula 2.00 05/28/22 15:37 37.1 05/28/22 15:00 88 20 171/81 (111) 97 Nasal Cannula 2.00 05/28/22 14:56 98 Nasal Cannula 2.00 05/28/22 14:00 88 20 178/81 (130) 98 Nasal Cannula 2.00 05/28/22 13:45 91 22 183/87 (116) 96 Nasal Cannula 2.00 05/28/22 13:30 89 20 180/79 (107) 99 Nasal Cannula 2.00 05/28/22 13:21 85 16 187/83 (114) 97 Nasal Cannula 2.00 05/28/22 13:15 89 19 166/74 (95) 100 Nasal Cannula 2.00 05/28/22 13:00 90 27 186/81 (112) 97 Nasal Cannula 2.00 05/28/22 12:59 89 05/28/22 12:45 85 15 193/81 (116) 98 Nasal Cannula 2.00 05/28/22 12:30 80 16 192/86 (121) 97 Nasal Cannula 2.00 05/28/22 12:15 80 14 182/79 (118) 98 Nasal Cannula 2.00 05/28/22 12:00 78 21 175/79 (112) 99 Nasal Cannula 2.00 05/28/22 12:00 97 Nasal Cannula 2.00 05/28/22 11:51 37.8 05/28/22 11:45 79 16 168/76 (111) 96 Nasal Cannula 2.00 05/28/22 11:30 77 15 159/72 (112) 99 Nasal Cannula 2.00 05/28/22 11:15 76 16 145/66 (87) 97 Nasal Cannula 2.00 05/28/22 11:00 74 16 158/63 (95) 99 Nasal Cannula 2.00 05/28/22 10:41 99 Nasal Cannula 2.00 05/28/22 10:00 84 19 222/100 (140) 99 Nasal Cannula 2.00 I & O 05/29/22 07:00 Intake Total 1490 ml Output Total 2450 ml Balance -960 ml Height & Weight Height: 5'5.00" Weight: 136lbs. 1.0oz. 61.863778om; 27.47 BMI Method:Stated General Appearance: No Apparent Distress, WD/WN, Chronically ill HEENT: PERRL/EOMI, Normal ENT Inspection Neck: Full Range of Motion, Normal Inspection Respiratory: Lungs Clear, Decreased Breath Sounds Cardiovascular: Regular Rate, Rhythm Capillary Refill: Less Than 3 Seconds Gastrointestinal: soft Extremity: Normal Capillary Refill, Normal Inspection Neurologic/Psychiatric: Other (Not oriented, not cooperative, not following commands) Skin: Normal Color, Warm/Dry Results Lab Laboratory Tests 05/28/22 04:30 05/28/22 20:45 05/29/22 04:05 Assessment/Plan Assessment/Plan 1 TIMBO MERCEDES MD May 29, 2022 09:54
[2022-05-29] MEDS: ENOXAPARIN 40 MG/0.4 ML (LOVENOX) SYR SC SCH (11:01)
[2022-05-29] MEDS: POT PHOS/NA PHOS (K-PHOS NEUTRAL) PO SCH ×2 (11:01→20:52)
--- NOTE | 2022-05-29 11:49 | Progress Note ---
Subjective Subjective/Events-last exam Patient feeling much better this AM. Tolerating PO diet. She is up in chair. She is extremely weak and gets short of breath with minimal exertion. Review of Systems General: Fatigue, Malaise Pulmonary: Cough Cardiovascular: Edema (UE and LE bilaterally); No: Chest Pain, Palpitations Gastrointestinal: No: Abdominal Pain Neurological: Weakness, Incoordination; No: Confusion Focused Exam Time of Focused Exam: 00:30 Objective Exam Last Set of Vital Signs Vital Signs Date Time Temp Pulse Resp B/P (MAP) Pulse Ox O2 Delivery O2 Flow Rate FiO2 05/29/22 11:16 36.9 05/29/22 11:10 99 Nasal Cannula 2.00 05/29/22 11:00 75 26 158/83 (108) 05/28/22 04:42 30 Capillary Refill : Less Than 3 Seconds I&O Intake and Output 05/29/22 00:00 Intake Total 1500 ml Output Total 1525 ml Balance -25 ml Intake Oral 1200 ml IV Total 300 ml Output Urine Total 1525 ml # Voids 1 # Bowel Movements 2 General: Alert, Oriented X3, Mild Distress (with conversational dyspnea) Lungs: Other (Diffuse wheezing, air movement improving) Heart: Regular Rate, No Murmurs Abdomen: Soft, No Tenderness Extremities: Other (2+ pitting edema to UE and LE bilaterally) Results/Procedures Lab Laboratory Tests 05/28/22 17:46: Glucometer 152H 05/28/22 20:28: Glucometer 150H 05/28/22 20:45: Potassium Level 2.8L 05/29/22 04:05: Potassium Level 3.6, White Blood Count 8.8, Red Blood Count 2.69L, Hemoglobin 8.7L, Hematocrit 26L, Mean Corpuscular Volume 98, Mean Corpuscular Hemoglobin 32, Mean Corpuscular Hemoglobin Concent 33, Red Cell Distribution Width 13.6, Platelet Count 290, Mean Platelet Volume 8.7L, Immature Granulocyte % (Auto) 1, Neutrophils (%) (Auto) 69, Lymphocytes (%) (Auto) 16, Monocytes (%) (Auto) 14H, Eosinophils (%) (Auto) 1, Basophils (%) (Auto) 0, Neutrophils # (Auto) 6.0, Lymphocytes # (Auto) 1.4, Monocytes # (Auto) 1.2H, Eosinophils # (Auto) 0.1, Basophils # (Auto) 0.0, Immature Granulocyte # (Auto) 0.0, Sodium Level 144, Chloride Level 107, Carbon Dioxide Level 27, Anion Gap 10, Blood Urea Nitrogen 10, Creatinine 0.60, Estimat Glomerular Filtration Rate 99, BUN/Creatinine Ratio 17, Glucose Level 106H, Calcium Level 8.8, Corrected Calcium 9.7, Phosphorus Level 1.9L, Magnesium Level 1.7, Total Bilirubin 0.8, Aspartate Amino Transf (AST/SGOT) 27, Alanine Aminotransferase (ALT/SGPT) 37, Alkaline Phosphatase 58, Total Protein 5.6L, Albumin 2.9L 05/29/22 11:03: Glucometer 95 Microbiology 05/24/22 Gram Stain - Final, Complete 05/24/22 Sputum Culture - Final, Complete Usual upper respiratory lindsey YEAST 05/19/22 Blood Culture - Final, Complete No growth 05/18/22 Urine Culture - Final, Complete NO GROWTH Assessment/Plan Assessment/Plan (1) Acute on chronic respiratory failure with hypoxia and hypercapnia Status: Acute Assessment & Plan: 05/27: Extubated 05/24, MAT protocol, declines to wear bipap, states that she does not want to be intubated but discussed with patient and family that could mean she will continue to get worse and and patient states that she does not know, will remain full code at this time as I could not get a clear answer, Called to room around 1400 and patient was having acute shortness of breath, RT called for breathing treatment, presedex was restarted, IV lasix given due to 2+ pitting edema, patient again declines to wear bipap. 05/28: More comfortable this AM, continue antibiotics and steroids, MAT protocol, Encouraged IS 05/29: Much improved, will transfer down to 4th floor, IRF to start evaluation process, transition meds to PO (2) COPD exacerbation Status: Acute (3) HTN (hypertension) Status: Chronic Assessment & Plan: 05/27: Required multiple doses of PRNs today, speech ok with PO meds, will restart PO meds 05/28: Restart home meds, Added Lisinopril today 05/29: Increased Lisinopril today, continues to have elevated blood pressures but they are improving Qualifiers: Qualified Codes: I10 - Essential (primary) hypertension (4) Encephalopathy acute Status: Resolved Assessment & Plan: - 05/27: Seems to be improving, + TCAs and Cocaine on admission (5) Normocytic anemia Status: Acute Assessment & Plan: 05/27: No signs of acute blood loss, Will continue to monitor (6) Dysphagia Status: Acute Assessment & Plan: 05/27: Speech consulted 05/28: cleared to start diet Qualifiers: Qualified Codes: R13.10 - Dysphagia, unspecified (7) Anxiety Status: Acute (8) Polysubstance abuse Status: Chronic (9) Cocaine use Status: Chronic (10) Alcohol abuse Status: Chronic (11) Physical debility Status: Acute Assessment & Plan: 05/29: IRF eval in process, otherwise patient will need SNF ELVIE CARRIZALES MD May 29, 2022 11:49
[2022-05-29 15:27] VITALS: BP 152/71
[2022-05-29 19:10] VITALS: BP 143/65
[2022-05-29] MEDS ORDERED: POT PHOS/NA PHOS (K-PHOS NEUTRAL) PO SCH (21:00)
[2022-05-30] VITALS (7 sets, daily range): BP systolic 147–175; BP diastolic 65–81
[2022-05-30] MEDS: ENALAPRILAT 2.5 MG/2 ML (VASOTEC) VIAL IV SCH ×5 (00:16→23:39)
[2022-05-30] MEDS: RT-ALBUTEROL/IPRATROPIUM 3 ML (DUONEB) VIAL INH SCH ×6 (02:00→21:58)
[2022-05-30] MEDS: fentaNYL INJ 100 MCG/2 ML AMP IVP PRN (02:13)
[2022-05-30 04:25] LABS: BASOPHILS % (AUTO) 0 % (0-10); EOSINOPHILS # (AUTO) 0.2 10^3/uL (0.0-0.3); EOSINOPHILS % (AUTO) 3 % (0-10); HEMATOCRIT 25 % (35-52); LYMPHOCYTES # (AUTO) 1.6 10^3/uL (1.0-4.0); LYMPHOCYTES % (AUTO) 21 % (12-44); MEAN CORPUSCULAR HEMOGLOBIN 32 pg (25-34); MEAN CORPUSCULAR HGB CONC 33 g/dL (32-36); MEAN CORPUSCULAR VOLUME 99 fL (80-99); MEAN PLATELET VOLUME 8.7 fL (9.0-12.2); MONOCYTES # (AUTO) 0.8 10^3/uL (0.0-1.0); MONOCYTES % (AUTO) 11 % (0-12); NEUTROPHILS # (AUTO) 4.7 10^3/uL (1.8-7.8); NEUTROPHILS % (AUTO) 64 % (42-75); PLATELET COUNT 297 10^3/uL (130-400); WHITE BLOOD COUNT 7.4 10^3/uL (4.3-11.0)
[2022-05-30 04:35] LABS: ALBUMIN 2.7 GM/DL (3.2-4.5)
[2022-05-30 04:37] LABS: CALCIUM 8.1 MG/DL (8.5-10.1)
[2022-05-30 04:40] LABS: BILIRUBIN,TOTAL 1.2 MG/DL (0.1-1.0)
[2022-05-30 04:41] LABS: PHOSPHORUS 2.6 MG/DL (2.3-4.7)
[2022-05-30 04:42] LABS: CREATININE SERUM 0.61 MG/DL (0.60-1.30)
[2022-05-30 04:44] LABS: MAGNESIUM 2.1 MG/DL (1.6-2.4)
[2022-05-30] MEDS: MAGNESIUM 1 GM/100 ML IVPB 100 ML IV SCH (04:46)
[2022-05-30] MEDS: POTASSIUM CL 10MEQ/50ML IVPB 50 ML IV SCH (04:49)
[2022-05-30] MEDS: KCL 20 MEQ TAB (K-DUR) PO SCH (04:49)
[2022-05-30] MEDS ORDERED: KCL 20 MEQ TAB (K-DUR) PO ONE ×3 (06:00→10:00)
[2022-05-30] MEDS ORDERED: KCL 20 MEQ TAB (K-DUR) PO SCH (06:00)
[2022-05-30] MEDS: THIAMINE 100 MG (VITAMIN B-1) TAB PO SCH (06:04)
[2022-05-30] MEDS: amLODIPine 10 MG (NORVASC) TAB PO SCH (09:01)
[2022-05-30] MEDS: POT PHOS/NA PHOS (K-PHOS NEUTRAL) PO SCH ×2 (09:02→19:39)
[2022-05-30] MEDS: PANTOPRAZOLE 40 MG (PROTONIX) TAB PO SCH (09:03)
[2022-05-30] MEDS: lisINopril 10 MG (PRINIVIL) TABLET PO SCH (09:03)
--- NOTE | 2022-05-30 10:07 | Occupational Ther Daily Note ---
OT Current Status-Daily Note Subjective Pt laying in bed with son present. Pt agrees to therapy but declines all ADLs. Agrees to UE exercises. Per RN, she is still fatiguing extremely easily and is SOB with any minimal activity. Appearance Pt left laying in bed with all needs within reach. Mental Status/Objective Patient Orientation: Person, Place, Time, Situation Attachments: Oxygen ADL-Treatment Therapy Code Descriptions/Definitions Functional [place] Measure: 0=Not Assessed/NA 4=Minimal Assistance 1=Total Assistance 5=Supervision or Setup 2=Maximal Assistance 6=Modified [place] 3=Moderate Assistance 7=Complete IndependenceSCALE: Activities may be completed with or without assistive devices. 9-Fmcmuxqknn-egnvjam completes the activity by him/herself with no assistance from a helper. 5-Set-up or Clean-up Assistance-helper sets up or cleans up; patient completes activity. [place] assists only prior to or following the activity. 4-Supervision or Touching Assistance-helper provides verbal cues and/or touching/steadying and/or contact guard assistance as patient completes activity. Assistance may be provided throughout the activity or intermittently. 3-Partial/Moderate Assistance-helper does LESS THAN HALF the effort. [place] lifts, holds or supports trunk or limbs, but provides less than half the effort. 2-Substantial/Maximal Assistance-helper does MORE THAN HALF the effort. [place] lifts or holds trunk or limbs and provides more than half the effort. 4-Qutlyltrn-ijciuc does ALL the effort. Patient does none of the effort to complete the activity. Or, the assistance of 2 or more helpers is required for the patient to complete the activity. If activity was not attempted, code reason: 7-Patient Refused. 9-Not Applicable-not attempted and the patient did not perform the activity before the current illness, exacerbation or injury. 10-Not Attempted due to Environmental Limitations-(lack of equipment, weather restraints, etc.). 88-Not Attempted due to Medical Conditions or Safety Concerns. Declined all ADL options and any OOB activities at this time. Per RN and pt, she completed a shower last night with max assist from hcplndue-tv-bum. Other Treatment Pt completed AROM UE exercises 1x10 sitting up in bed. She required adequate rest breaks in between all exercises and exhibits SOB. Cues to not hold breath during exercises. She demonstrates and verbalizes fatigue with exercises but still able to perform all reps in set. Per patient, her son has been helping her get up and walk but declines performin g with therapy. Education OT Patient Education: Correct positioning, Exercise program, Home exercise program, Progress toward Goal/Update tx plan, Purpose of tx/functional activities, Rehab process Teaching Recipient: Patient, Family Teaching Methods: Demonstration, Discussion Response to Teaching: Verbalize Understanding, Return Demonstration, Reinforcement Needed OT Senior Care Goals Borematic Operator Goals Time Frame: Jun 21, 2022 Eating (QC): 6 Oral Hygiene (QC): 6 Toileting Hygiene (QC): 4 Shower/Bathe Self (QC): 4 Upper Body Dressing (QC): 5 Lower Body Dressing (QC): 4 On/Off Footwear (QC): 4 Additional Goals: 1-Demonstrate ADL Tasks, 2-Verbalize Understanding, 3- ImproveStrength/[place] 1=Demonstrate adherence to instructed precautions during ADL tasks. 2=Patient will verbalize/demonstrate understanding of assistive devices/ modifications for ADL. 3=Patient will improve strength/tolerance for activity to enable patient to perform ADL's. OT Education/Plan Problem List/Assessment Assessment: Decreased Activ Tolerance, Decreased Safety Aware, Decreased UE Strength, Impaired Cognition, Impaired Coordination, Impaired Funct Balance, Impaired I ADL's, Impaired Self-Care Skills Pt reports wanting to get stronger, but unknown if she is willing to participate in intense therapy. Pt does not have the stamina or endurance to tolerate 3 hours of therapy. Discharge Recommendations Plan/Recommendations: Continue POC Comment Pt would potentially benefit from going to halfway facility to regain endurance and then coming to rehab to be able to actively participate in intense duration therapy. Treatment Plan/Plan of Care Treatment,Training & Education: Yes Patient would benefit from OT for education, treatment and training to promote independence in ADL's, mobility, safety and/or upper extremity function for ADL's. Plan of Care: ADL Retraining, Functional Mobility, UE Funct Exercise/Act Treatment Duration: Jun 21, 2022 Frequency: 3 times per week (3-5 times per week) Rehab Potential: Guarded Time/GCodes Start Time: 09:11 Stop Time: 09:25 Total Time Billed (hr/min): 14 Billed Treatment Time 1 visit EX Shani Rivas OT May 30, 2022 10:06
--- NOTE | 2022-05-30 11:08 | Physical Therapy Daily Note ---
PT Daily Note-Current Subjective Patient in bed on the phone pre-tx, reports no pain, agrees to PT. Pain Section J - Health Conditions 1. Rarely or not at all 2. Occasionally 3. Frequently 4. Almost constantly 8. Unable to answer Pain Effect on Sleep: 1 Pain Interference with Therapy: 1 Pain Interference w/Day-to-Day: 1 Appearance Patient in bed post-tx with tray, nurse call, phone, and all needs met. Mental Status Patient Orientation: Person, Place, Situation Attachments: Oxygen, Mckeon Catheter Transfers SCALE: Activities may be completed with or without assistive devices. 3-Xqkintyexo-kwpmeta completes the activity by him/herself with no assistance from a helper. 5-Set-up or Clean-up Assistance-helper sets up or cleans up; patient completes activity. [place] assists only prior to or following the activity. 4-Supervision or Touching Assistance-helper provides verbal cues and/or touching/steadying and/or contact guard assistance as patient completes activity. Assistance may be provided throughout the activity or intermittently. 3-Partial/Moderate Assistance-helper does LESS THAN HALF the effort. [place] lifts, holds or supports trunk or limbs, but provides less than half the effort. 2-Substantial/Maximal Assistance-helper does MORE THAN HALF the effort. [place] lifts or holds trunk or limbs and provides more than half the effort. 2-Nbugotizp-lcpcsr does ALL the effort. Patient does none of the effort to complete the activity. Or, the assistance of 2 or more helpers is required for the patient to complete the activity. If activity was not attempted, code reason: 7-Patient Refused. 9-Not Applicable-not attempted and the patient did not perform the activity before the current illness, exacerbation or injury. 10-Not Attempted due to Environmental Limitations-(lack of equipment, weather restraints, etc.). 88-Not Attempted due to Medical Conditions or Safety Concerns. Sit to Lying (QC): 3 (mod A to swing legs into bed) Lying to Sitting/Side of Bed(Q: 4 Sit to Stand (QC): 4 CGA except for sit to lying is mod A to swing legs into bed Weight Bearing Right Lower Extremity: Right Full Weight Bearing Left Lower Extremity: Left Full Weight Bearing Gait Training Does the Patient Walk?: Yes Distance: 50', 50' Walk 10 feet (QC): 4 Walk 50 ft with 2 Turns(QC): 4 Gait Persons Needed: 1 Gait Assistive Device: FWW CGA, Patient has decreased gait speed, step length, and foot clearance. Slight forward posturing over the FFW. Took short standing break to look out the window and admire the scenery. Wheelchair Training Does the Pt Use a Wheelchair?: No Treatments Gait Training Assessment Current Status: Fair Progress Patient making good progress since previous visit of only being able to get out of bed, walk a couple steps to the recliner and sit back down, to now being able to walk 100' with a small standing break care home with CGA. PT Pain Management Nurse Practitioner Goals Shelter Goals PT Pain Management Nurse Practitioner Goals Time Frame: Jun 29, 2022 Roll Left & Right (QC): 4 Sit to Lying (QC): 4 Lying-Sitting on Side/Bed(QC): 4 Sit to Stand (QC): 4 Chair/Eiy-eg-Zzgqy Xfer(QC): 4 Toilet Transfer (QC): 4 Walk 10 feet (QC): 4 Walk 50ft with 2 Turns (QC): 4 Walk 150 ft (QC): 4 PT Plan Problem List Problem List: Activity Tolerance, Functional Strength, Safety, Balance, Gait, Transfer, Bed Mobility, ROM Treatment/Plan Treatment Plan: Continue Plan of Care Treatment Plan: Bed Mobility, Education, Functional Activity [place], Functional Strength, Gait, Safety, Therapeutic Exercise, Transfers Treatment Duration: Jun 29, 2022 Frequency: 6 times per week Estimated Hrs Per Day: .25 hour per day Patient and/or Family Agrees t: Yes Safety Risks/Education Patient Education: Gait Training, Transfer Techniques, Correct Positioning, Safety Issues Teaching Recipient: Patient Teaching Methods: Demonstration, Discussion Response to Teaching: Reinforcement Needed Time Time In: 1034 Time Out: 1050 Total Billed Treatment Time: 16 Total Billed Treatment 1 visit GT 16min AGATHA CHO PT May 30, 2022 11:08
[2022-05-30] MEDS: ENOXAPARIN 40 MG/0.4 ML (LOVENOX) SYR SC SCH (12:04)
[2022-05-30] MEDS: hydrALAZINE (APESOLINE) 20 MG/ML VIAL IV PRN ×2 (16:18→20:29)
[2022-05-30] MEDS ORDERED: FLU QUAD HIGH DOSE 240 MCG/0.7 ML 2022-23 (FLUZONE) IM ONE (17:00)
--- NOTE | 2022-05-30 17:37 | Progress Note ---
Subjective Subjective/Events-last exam Patient feeling better this AM. She is still having some troubles swallowing. She is still max assist. Tolerating PO diet Review of Systems General: Fatigue, Malaise Pulmonary: Dyspnea, Cough Cardiovascular: Edema; No: Chest Pain, Palpitations Neurological: Weakness, Numbness, Incoordination; No: Confusion Focused Exam Time of Focused Exam: 00:30 Objective Exam Last Set of Vital Signs Vital Signs Date Time Temp Pulse Resp B/P (MAP) Pulse Ox O2 Delivery O2 Flow Rate FiO2 05/30/22 16:05 36.4 60 20 160/70 (100) 94 Nasal Cannula 2.00 05/30/22 07:31 28 Capillary Refill : Less Than 3 Seconds I&O Intake and Output 05/30/22 00:00 Intake Total 1120 ml Output Total 2300 ml Balance -1180 ml Intake Oral 920 ml IV Total 200 ml Output Urine Total 2300 ml # Bowel Movements 2 General: Alert, Oriented X3, Moderate Distress (with any activity) Lungs: Other (Diffuse wheezing in all lung clark) Heart: Regular Rate Abdomen: Soft, No Tenderness Extremities: Other (2+ pitting edema bilateral LE) Results/Procedures Lab Laboratory Tests 05/30/22 04:20: White Blood Count 7.4, Red Blood Count 2.49L, Hemoglobin 8.0L, Hematocrit 25L, Mean Corpuscular Volume 99, Mean Corpuscular Hemoglobin 32, Mean Corpuscular Hemoglobin Concent 33, Red Cell Distribution Width 13.9, Platelet Count 297, Mean Platelet Volume 8.7L, Immature Granulocyte % (Auto) 0, Neutrophils (%) (Auto) 64, Lymphocytes (%) (Auto) 21, Monocytes (%) (Auto) 11, Eosinophils (%) (Auto) 3, Basophils (%) (Auto) 0, Neutrophils # (Auto) 4.7, Lymphocytes # (Auto) 1.6, Monocytes # (Auto) 0.8, Eosinophils # (Auto) 0.2, Basophils # (Auto) 0.0, Immature Granulocyte # (Auto) 0.0, Sodium Level 142, Potassium Level 3.0L, Chloride Level 103, Carbon Dioxide Level 28, Anion Gap 11, Blood Urea Nitrogen 8, Creatinine 0.61, Estimat Glomerular Filtration Rate 99, BUN/Creatinine Ratio 13, Glucose Level 108H, Calcium Level 8.1L, Corrected Calcium 9.1, Phosphorus Level 2.6, Magnesium Level 2.1, Total Bilirubin 1.2H, Aspartate Amino Transf (AST/SGOT) 24, Alanine Aminotransferase (ALT/SGPT) 28, Alkaline Phosphatase 50, Total Protein 5.0L, Albumin 2.7L Microbiology 05/24/22 Gram Stain - Final, Complete 05/24/22 Sputum Culture - Final, Complete Usual upper respiratory lindsey YEAST 05/19/22 Blood Culture - Final, Complete No growth 05/18/22 Urine Culture - Final, Complete NO GROWTH Assessment/Plan Assessment/Plan (1) Acute on chronic respiratory failure with hypoxia and hypercapnia Status: Acute Assessment & Plan: 05/27: Extubated 05/24, MAT protocol, declines to wear bipap, states that she does not want to be intubated but discussed with patient and family that could mean she will continue to get worse and and patient states that she does not know, will remain full code at this time as I could not get a clear answer, Called to room around 1400 and patient was having acute sh ortness of breath, RT called for breathing treatment, presedex was restarted, IV lasix given due to 2+ pitting edema, patient again declines to wear bipap. 05/28: More comfortable this AM, continue antibiotics and steroids, MAT protocol, Encouraged IS 05/29: Much improved, will transfer down to 4th floor, IRF to start evaluation process, transition meds to PO 05/30: Doing well on 2L NC, insurance has declined IRF after peer to peer, will work on SNF (2) COPD exacerbation Status: Acute Assessment & Plan: 05/30: Restarted home COPD meds (3) HTN (hypertension) Status: Chronic Assessment & Plan: 05/27: Required multiple doses of PRNs today, speech ok with PO meds, will restart PO meds 05/28: Restart home meds, Added Lisinopril today 05/29: Increased Lisinopril today, continues to have elevated blood pressures but they are improving Qualifiers: Qualified Codes: I10 - Essential (primary) hypertension (4) Encephalopathy acute Status: Resolved Assessment & Plan: - 05/27: Seems to be improving, + TCAs and Cocaine on admission (5) Normocytic anemia Status: Acute Assessment & Plan: 05/27: No signs of acute blood loss, Will continue to monitor (6) Dysphagia Status: Acute Assessment & Plan: 05/27: Speech consulted 05/28: cleared to start diet Qualifiers: Qualified Codes: R13.10 - Dysphagia, unspecified (7) Anxiety Status: Acute (8) Polysubstance abuse Status: Chronic (9) Cocaine use Status: Chronic (10) Alcohol abuse Status: Chronic (11) Physical debility Status: Acute Assessment & Plan: 05/29: IRF eval in process, otherwise patient will need SNF ELVIE CARRIZALES MD May 30, 2022 17:37
--- NOTE | 2022-05-30 18:11 | Diagnostic Imaging Report ---
INDICATION: Left hip pain. FINDINGS: There are no findings of hip dislocation. The morphology of the femoral head is normal without collapse or avascular necrosis. There is a small spur at the femoral head and neck junction. There is no identified fracture. The visualized portion of the pelvic ring appears intact without left SI joint or pubic symphysis diastasis. IMPRESSION: Left hip osteoarthritic changes without plain film findings of dislocation or fracture. Dictated by: Dictated on workstation # [id number]
[2022-05-30 18:21] LABS: POTASSIUM 3.5 MMOL/L (3.6-5.0)
[2022-05-30 18:23] LABS: CALCIUM 8.7 MG/DL (8.5-10.1)
[2022-05-30 18:27] LABS: CREATININE SERUM 0.61 MG/DL (0.60-1.30)
[2022-05-30] MEDS: LORazepam INJ 2 MG/ML (ATIVAN) VIAL IVP PRN (21:37)
[2022-05-31] VITALS: BP 173/81
[2022-05-31] MEDS: RT-ALBUTEROL/IPRATROPIUM 3 ML (DUONEB) VIAL INH SCH ×4 (03:07→14:33)
[2022-05-31 04:11] VITALS: BP 147/65
[2022-05-31 04:58] LABS: BASOPHILS % (AUTO) 0 % (0-10); EOSINOPHILS # (AUTO) 0.2 10^3/uL (0.0-0.3); EOSINOPHILS % (AUTO) 3 % (0-10); HEMATOCRIT 25 % (35-52); HEMOGLOBIN 8.1 g/dL (11.5-16.0); LYMPHOCYTES # (AUTO) 1.7 10^3/uL (1.0-4.0); LYMPHOCYTES % (AUTO) 23 % (12-44); MEAN CORPUSCULAR HEMOGLOBIN 32 pg (25-34); MEAN CORPUSCULAR HGB CONC 32 g/dL (32-36); MEAN CORPUSCULAR VOLUME 99 fL (80-99); MEAN PLATELET VOLUME 8.6 fL (9.0-12.2); MONOCYTES # (AUTO) 0.8 10^3/uL (0.0-1.0); MONOCYTES % (AUTO) 10 % (0-12); NEUTROPHILS # (AUTO) 4.6 10^3/uL (1.8-7.8); NEUTROPHILS % (AUTO) 63 % (42-75); PLATELET COUNT 310 10^3/uL (130-400); WHITE BLOOD COUNT 7.3 10^3/uL (4.3-11.0)
[2022-05-31 05:20] LABS: ALBUMIN 2.9 GM/DL (3.2-4.5); POTASSIUM 2.8 MMOL/L (3.6-5.0)
[2022-05-31 05:21] LABS: CALCIUM 8.3 MG/DL (8.5-10.1)
[2022-05-31 05:23] LABS: TOTAL PROTEIN 5.4 GM/DL (6.4-8.2)
[2022-05-31 05:24] LABS: BILIRUBIN,TOTAL 1.1 MG/DL (0.1-1.0)
[2022-05-31 05:26] LABS: CREATININE SERUM 0.62 MG/DL (0.60-1.30)
[2022-05-31] MEDS: ENALAPRILAT 2.5 MG/2 ML (VASOTEC) VIAL IV SCH ×2 (05:36→13:10)
[2022-05-31] MEDS: KCL 20 MEQ TAB (K-DUR) PO SCH (05:58)
[2022-05-31] MEDS ORDERED: KCL 20 MEQ TAB (K-DUR) PO ONE ×3 (06:00→10:00)
[2022-05-31] MEDS: THIAMINE 100 MG (VITAMIN B-1) TAB PO SCH (06:25)
[2022-05-31 08:01] VITALS: BP 151/67
[2022-05-31] MEDS: amLODIPine 10 MG (NORVASC) TAB PO SCH (08:56)
[2022-05-31] MEDS: PANTOPRAZOLE 40 MG (PROTONIX) TAB PO SCH (08:56)
[2022-05-31] MEDS: lisINopril 10 MG (PRINIVIL) TABLET PO SCH (08:56)
[2022-05-31] MEDS ORDERED: UMECLIDINIUM BROMIDE (INCRUSE ELLIPTA) 7'S IH SCH (09:00)
[2022-05-31] MEDS ORDERED: FLUTICASONE/VILANTEROL 100 MCG 14'S (BREO) IH SCH (09:00)
--- NOTE | 2022-05-31 09:58 | Physical Therapy Daily Note ---
PT Daily Note-Current Subjective Patient in bed pre-tx, reports pain 6/10 in L hip joint, reported she's feeling a bit depressed today, agrees to PT, Pain Section J - Health Conditions 1. Rarely or not at all 2. Occasionally 3. Frequently 4. Almost constantly 8. Unable to answer Pain Effect on Sleep: 3 Pain Interference with Therapy: 2 Pain Interference w/Day-to-Day: 2 Appearance Patient in bed post tx with nurse call, phone, tray, all needs met. Mental Status Patient Orientation: Person, Place, Situation Attachments: Oxygen, Mckeon Catheter Transfers SCALE: Activities may be completed with or without assistive devices. 4-Vydrfrbbdx-urfbfth completes the activity by him/herself with no assistance from a helper. 5-Set-up or Clean-up Assistance-helper sets up or cleans up; patient completes activity. [place] assists only prior to or following the activity. 4-Supervision or Touching Assistance-helper provides verbal cues and/or touching/steadying and/or contact guard assistance as patient completes activity. Assistance may be provided throughout the activity or intermittently. 3-Partial/Moderate Assistance-helper does LESS THAN HALF the effort. [place] lifts, holds or supports trunk or limbs, but provides less than half the effort. 2-Substantial/Maximal Assistance-helper does MORE THAN HALF the effort. [place] lifts or holds trunk or limbs and provides more than half the effort. 1-Gycjulgdd-kdgqlg does ALL the effort. Patient does none of the effort to complete the activity. Or, the assistance of 2 or more helpers is required for the patient to complete the activity. If activity was not attempted, code reason: 7-Patient Refused. 9-Not Applicable-not attempted and the patient did not perform the activity before the current illness, exacerbation or injury. 10-Not Attempted due to Environmental Limitations-(lack of equipment, weather restraints, etc.). 88-Not Attempted due to Medical Conditions or Safety Concerns. Lying to Sitting/Side of Bed(Q: 4 Sit to Stand (QC): 4 Chair/Wgx-as-Fltqg Xfer(QC): 4 Weight Bearing Right Lower Extremity: Right Full Weight Bearing Left Lower Extremity: Left Full Weight Bearing Gait Training Does the Patient Walk?: Yes Distance: 150' Walk 10 feet (QC): 4 Walk 50 ft with 2 Turns(QC): 4 Walk 150 ft (QC): 4 Gait Persons Needed: 1 Gait Assistive Device: FWW CGA, more unsteady today due to pain, depressed feelings, and generalized weakness. Patient had slight buckling of right knee during ambulation. Treatments Ambulation Assessment Current Status: Fair Progress Patient took longer to complete ambulation today and moved slower overall due to depressed feelings, generalized weakness, and unsteadiness. PT Skilled Nursing Goals Spray Stainer Goals PT Spray Stainer Goals Time Frame: Jun 29, 2022 Roll Left & Right (QC): 4 Sit to Lying (QC): 4 Lying-Sitting on Side/Bed(QC): 4 Sit to Stand (QC): 4 Chair/Inp-ui-Oykbk Xfer(QC): 4 Toilet Transfer (QC): 4 Walk 10 feet (QC): 4 Walk 50ft with 2 Turns (QC): 4 Walk 150 ft (QC): 4 PT Plan Problem List Problem List: Activity Tolerance, Functional Strength, Safety, Balance, Gait, Transfer, Bed Mobility, ROM Treatment/Plan Treatment Plan: Continue Plan of Care Treatment Plan: Bed Mobility, Education, Functional Activity [place], Functional Strength, Gait, Safety, Therapeutic Exercise, Transfers Treatment Duration: Jun 29, 2022 Frequency: 6 times per week Estimated Hrs Per Day: .25 hour per day Patient and/or Family Agrees t: Yes Safety Risks/Education Patient Education: Gait Training, Transfer Techniques, Correct Positioning, Safety Issues Teaching Recipient: Patient Teaching Methods: Demonstration, Discussion Response to Teaching: Reinforcement Needed Time Time In: 917 Time Out: 939 Total Billed Treatment Time: 22 Total Billed Treatment 1 visit FA 22min AGATHA CHO PT May 31, 2022 09:58
--- NOTE | 2022-05-31 10:37 | Speech Therapy Progress Note ---
Therapy Progress Note Speech pathology attempted to complete a treatment with the patient at 1022. At this time, the patient is seated upright in bed, scratching lottery tickets and visiting with a family member. The patient greeted the clinician appropriately and completed discussions regarding her oropharyngeal swallowing function. Following a chart review, the patient was documented to "still have some trouble swallowing" on 05/30/22. On the same date, the patient was upgraded to a regular consistency diet with thin liquids. At bedside on this date, the patient denied swallowing difficulties and stated, "It goes fine when I'm hungry." The clinician asked the patient if she would be able to consume any consistencies for a follow up and the patient politely deferred stating, "Not right now." As the patient denies swallowing difficulties and was upgraded to a regular consistency diet with thin liquids, speech pathology will sign off. MURTAZA RAMON May 31, 2022 10:37
--- NOTE | 2022-05-31 10:47 | Occupational Ther Daily Note ---
OT Current Status-Daily Note Subjective Pt sitting up in bed playing scratch offs. She was in good spirits and was waiting for SW to come in and talk to her about the next steps of getting out of the hospital. Appearance Pt left sitting up in bed with all needs within reach. Mental Status/Objective Patient Orientation: Person, Place, Time, Situation Attachments: IV, Oxygen ADL-Treatment Therapy Code Descriptions/Definitions Functional [place] Measure: 0=Not Assessed/NA 4=Minimal Assistance 1=Total Assistance 5=Supervision or Setup 2=Maximal Assistance 6=Modified [place] 3=Moderate Assistance 7=Complete IndependenceSCALE: Activities may be completed with or without assistive devices. 3-Aklrwnajph-anlxpac completes the activity by him/herself with no assistance from a helper. 5-Set-up or Clean-up Assistance-helper sets up or cleans up; patient completes activity. [place] assists only prior to or following the activity. 4-Supervision or Touching Assistance-helper provides verbal cues and/or touching/steadying and/or contact guard assistance as patient completes activity. Assistance may be provided throughout the activity or intermittently. 3-Partial/Moderate Assistance-helper does LESS THAN HALF the effort. [place] lifts, holds or supports trunk or limbs, but provides less than half the effort. 2-Substantial/Maximal Assistance-helper does MORE THAN HALF the effort. [place] lifts or holds trunk or limbs and provides more than half the effort. 0-Pzizylrpu-nehpla does ALL the effort. Patient does none of the effort to complete the activity. Or, the assistance of 2 or more helpers is required for the patient to complete the activity. If activity was not attempted, code reason: 7-Patient Refused. 9-Not Applicable-not attempted and the patient did not perform the activity before the current illness, exacerbation or injury. 10-Not Attempted due to Environmental Limitations-(lack of equipment, weather restraints, etc.). 88-Not Attempted due to Medical Conditions or Safety Concerns. Pt declined all OOB activity and all ADL options at this time. Other Treatment Pt agreed to arm exercises. Pt was educated about theraband UE exercises. Therapist demonstrated and pt performed UE exercises with yellow theraband 1x15. Educated about importance of doing these exercises throughout the day. Pt then stated, "okay but what about getting my legs stronger." Pt educated about importance of getting out of bed, walking, and performing her leg exercises that PT has demonstrated for her. She still declined getting out of bed at this time, but stated she does her leg exercises. Education OT Patient Education: Energy conservation, Progress toward Goal/Update tx plan, Purpose of tx/functional activities, Rehab process Teaching Recipient: Patient, Family Teaching Methods: Demonstration, Discussion Response to Teaching: Verbalize Understanding, Return Demonstration, Reinforcement Needed OT Reed Press Feeder Goals Reed Press Feeder Goals Time Frame: Jun 21, 2022 Eating (QC): 6 Oral Hygiene (QC): 6 Toileting Hygiene (QC): 4 Shower/Bathe Self (QC): 4 Upper Body Dressing (QC): 5 Lower Body Dressing (QC): 4 On/Off Footwear (QC): 4 Additional Goals: 1-Demonstrate ADL Tasks, 2-Verbalize Understanding, 3- ImproveStrength/Everette 1=Demonstrate adherence to instructed precautions during ADL tasks. 2=Patient will verbalize/demonstrate understanding of assistive device s/modifications for ADL. 3=Patient will improve strength/tolerance for activity to enable patient to perform ADL's. OT Education/Plan Problem List/Assessment Assessment: Decreased Activ Tolerance, Decreased Safety Aware, Decreased UE Strength, Impaired Coordination, Impaired Funct Balance, Impaired I ADL's, Impaired Self-Care Skills Pt reports wanting to get stronger, but unknown if she is willing to participate in intense therapy. Pt does not have the stamina or endurance to tolerate 3 hours of therapy. Discharge Recommendations Plan/Recommendations: Continue POC Treatment Plan/Plan of Care Treatment,Training & Education: Yes Patient would benefit from OT for education, treatment and training to promote independence in ADL's, mobility, safety and/or upper extremity function for ADL's. Plan of Care: ADL Retraining, Functional Mobility, UE Funct Exercise/Act Treatment Duration: Jun 21, 2022 Frequency: 3 times per week (3-5 times per week) Rehab Potential: Guarded Time/GCodes Start Time: 10:23 Stop Time: 10:38 Total Time Billed (hr/min): 15 Billed Treatment Time 1 visit EX Shani Rivas OT May 31, 2022 10:47
[2022-05-31 11:57] VITALS: BP 174/77
[2022-05-31] MEDS: ENOXAPARIN 40 MG/0.4 ML (LOVENOX) SYR SC SCH (13:10)
[2022-05-31] MEDS ORDERED: LISI10TA25 PO (13:11)
[2022-05-31] MEDS ORDERED: OXC5T PO (13:11)
--- NOTE | 2022-05-31 13:13 | D/C HH Face to Face Order ---
D/C Face to Face Orders Reconcile Patient Problems Problems Reviewed?: Yes Instructions for Patient Via [employer], Patient Instructions/FollowUp: PCP 1 week Physician to follow Patient: [facility] Discharge Diet for Home: No Restrictions Patient Problems: COPD Patient Data-Allergies,Ht & Wt Patient Allergies: Coded Allergies: No Known Drug Allergies (Unverified , 11/03/17) Height (Feet): 5 Height (Inches): 5.00 Weight (Pounds): 136 Weight (Ounces): 1.0 Home Health Need/Face to Face Date of Face to Face: May 31, 2022 Clinical Findings: Generalized weakness and fatigue, Muscle weakness I have seen Pt [id number]: Yes Discharged To: Home Diagnosis/Conditions: COPD Patient is Homebound due to: Krista fall risk due to instabilty, Muscle weakness Homebound Status Due to the above stated illness, injury or surgical procedure (medical condition or diagnosis) and associated clinical findings, the patient is h omebound because of his/her inability to leave home except with aid of a supportive device and/or person AND leaving the home requires a considerable and taxing effort or is medically contraindicated. Pt req the following assistanc: [facility] Nursing Orders Home Health Services Order: Nursing Services, [facility]-Evaluate & Treat, Physical Therapy-Evaluate & Treat Home Health Infusion Therapy Line Start Date: May 26, 2022 Certify Stmt I certify that this patient is under my care and that I, a nurse practitioner or a physician; a legal administrative assistant working with me, had a face to face encounter that - meets the physician face to face encounter requirements with this patient as dated. VICKI WATERS DO May 31, 2022 13:13
--- NOTE | 2022-05-31 13:13 | Discharge Summary ---
Discharge Summary Hospital Course Hospital Course Date of Admission: May 19, 2022 at 00:40 Admission Diagnosis : Family Physician/Provider: [place] Date of Discharge: 05/31/22 Discharge Diagnosis: [ ] Hospital Course: [ ] Labs and Pending Lab Test: Laboratory Tests 05/30/22 18:00: Sodium Level 140, Potassium Level 3.5L, Chloride Level 103, Carbon Dioxide Level 29, Anion Gap 8, Blood Urea Nitrogen 8, Creatinine 0.61, Estimat Glomerular Fi ltration Rate 99, BUN/Creatinine Ratio 13, Glucose Level 101, Calcium Level 8.7 05/31/22 04:49: Sodium Level 142, Potassium Level 2.8L, Chloride Level 103, Carbon Dioxide Level 29, Anion Gap 10, Blood Urea Nitrogen 6L, Creatinine 0.62, Estimat Glomerular Filtration Rate 98, BUN/Creatinine Ratio 10, Glucose Level 117H, Calcium Level 8.3L, White Blood Count 7.3, Red Blood Count 2.53L, Hemoglobin 8.1L, Hematocrit 25L, Mean Corpuscular Volume 99, Mean Corpuscular Hemoglobin 32, Mean Corpuscular Hemoglobin Concent 32, Red Cell Distribution Width 14.0, Platelet Count 310, Mean Platelet Volume 8.6L, Immature Granulocyte % (Auto) 0, Neutrophils (%) (Auto) 63, Lymphocytes (%) (Auto) 23, Monocytes (%) (Auto) 10, Eosinophils (%) (Auto) 3, Basophils (%) (Auto) 0, Neutrophils # (Auto) 4.6, Lymphocytes # (Auto) 1.7, Monocytes # (Auto) 0.8, Eosinophils # (Auto) 0.2, Basophils # (Auto) 0.0, Immature Granulocyte # (Auto) 0.0, Corrected Calcium 9.2, Total Bilirubin 1.1H, Aspartate Amino Transf (AST/SGOT) 23, Alanine Aminotransferase (ALT/SGPT) 27, Alkaline Phosphatase 51, Total Protein 5.4L, Albumin 2.9L Microbiology 05/24/22 Gram Stain - Final, Complete 05/24/22 Sputum Culture - Final, Complete Usual upper respiratory lindsey YEAST 05/19/22 Blood Culture - Final, Complete No growth 05/18/22 Urine Culture - Final, Complete NO GROWTH Home Meds Active Oxyir Tablet (Oxycodone HCl) 5 Mg Tab 5 Mg PO Q4H PRN Lisinopril 10 Mg Tablet 20 Mg PO DAILY Reported Aspirin 81 Mg Tab.chew 81 Mg PO DAILY Nitroglycerin 0.4 Mg Tab.subl 0.4 Mg SL UD PRN Potassium Chloride 20 Meq Tab.er.prt 20 Meq PO BID Clopidogrel (Clopidogrel Bisulfate) 75 Mg Tablet 75 Mg PO DAILY Cyclobenzaprine HCl 10 Mg Tablet 10 Mg PO Q8H PRN Iprat-Albut 0.5-3(2.5) mg/3 ml (Ipratropium/Albuterol Sulfate) 0.5 Mg-3 Mg (2.5 Mg Base)/3 Ml Ampul.neb 3 Ml NEB Q6H PRN Buspirone HCl 15 Mg Tablet 15 Mg PO BID Hydroxyzine HCl 25 Mg Tablet 25 Mg PO TID PRN Ventolin Hfa (Albuterol Sulfate) 90 Mcg Hfa.aer.ad 2 Puff INH Q6H PRN Incruse Ellipta (Umeclidinium [place]) 62.5 Mcg/Actuation Blst.w.dev 1 Puff INH DAILY Breo Ellipta 100-25 Mcg INH (Fluticasone/Vilanterol) 100 Mcg-25 Mcg/Dose Blst.w.dev 1 Puff INH DAILY Pantoprazole Sodium 40 Mg Tablet.dr 40 Mg PO DAILY Amlodipine Besylate 10 Mg Tablet 10 Mg PO DAILY Discharge Physical Examination Vital Signs Vital Signs Date Time Temp Pulse Resp B/P (MAP) Pulse Ox O2 Delivery O2 Flow Rate FiO2 05/31/22 11:57 36.8 68 18 174/77 (109) 95 Nasal Cannula 2.00 05/30/22 07:31 28 Allergies: Coded Allergies: No Known Drug Allergies (Unverified , 11/03/17) Discharge Summary Date of Admission May 19, 2022 at 00:40 Date of Discharge Discharge Date: May 31, 2022 Admission Diagnosis Assessment: Acute respiratory failure requiring intubation Chronic respiratory failure on O2 at home Severe COPD Cocaine use Former smoker CAD HTN Plan: Intubation Monitor closely Discharge Diagnosis Assessment: Acute on chronic respiratory failure status post ventilator dependent now extubated on BiPAP Delirium Polysubstance abuse Hypertension Severe COPD Smoker Plan: ICU BiPAP VICKI WATERS DO May 31, 2022 13:13
--- NOTE | 2022-05-31 13:50 | Progress Note - Hospitalist ---
ZOILA WHITEHEAD 05/31/22 1350: Subjective HPI/CC On Admission Date Seen by Provider: May 31, 2022 Time Seen by Provider: 09:00 CC: Acute respiratory failure HPI: This is a 66yoAAF who is known to this examiner who has a h/o severe COPD maintained on O2 supplement at home and also has a long history of alcoholism and cocaine use along with smoking who presented to the ER obtunded requiring intubation. Patient is currently intubated and sedated and family is at the bedside. Reviewed meds and labs and imaging. Subjective/Events-last exam Patient is a 66 yo F admitted for acute on chronic respiratory failure with hypoxia and hypercapnia with COPD exacerbation. When admitted to the ED she required intubation due to respiratory distress but has since been extubated. She has been treated with antibiotics and steroids, and her home COPD medications have been restarted. Hypertension required multiple doses of PRN drugs throughout her stay, home meds restarted and lisinopril was added. Patient tested positive for TCAs and cocaine on admission. She states that she is feeling a little depressed this morning but that her breathing is much improved. She indicates minor pain in her left hand and left hip due to arthritis. She is walking well and is able to ambulate throughout the halls. Indicates minor chills and intermittent nausea but denies headache, dizziness, and constipation. Review of Systems General: Chills, Fatigue HEENT: No Head Aches, No Visual Changes; Eye Pain Pulmonary: Dyspnea Cardiovascular: No: Chest Pain, Palpitations, Lt Headedness Gastrointestinal: Nausea; No: Vomiting, Constipation Genitourinary: No Dysuria, No Frequency Musculoskeletal: hand pain (Right hand due to arthritis), leg pain (Pain in left hip due to arthritis) Neurological: No: Weakness, Confusion Focused Exam Sepsis Stage: Ruled Out Reason for ruling out sepsis: Patient does not meet SIRS criteria for sepsis diagnosis Time of Focused Exam: 00:30 Objective Exam Vital Signs Vital Signs Date Time Temp Pulse Resp B/P (MAP) Pulse Ox O2 Delivery O2 Flow Rate FiO2 05/31/22 11:57 36.8 68 18 174/77 (109) 95 Nasal Cannula 2.00 05/30/22 07:31 28 Capillary Refill : Less Than 3 Seconds General Appearance: No Apparent Distress, WD/WN Neck: Full Range of Motion, Normal Inspection, Non Tender, Supple; No Carotid Bruit, No JVD, No Limited Range of Motion Respiratory: Chest Non Tender, No Accessory Muscle Use, No Respiratory Distress, Wheezing (Minor wheezing bilaterally) Cardiovascular: Regular Rate, Rhythm, No Gallop, No JVD, No Murmur, Normal Peripheral Pulses Gastrointestinal: Normal Bowel Sounds, Non Tender, Soft Extremity: Normal Capillary Refill, Normal Inspection, Normal Range of Motion, Non Tender, Swelling (Trace pitting edema noted in both shins bilaterally) Neurologic/Psychiatric: Alert, Oriented x3, No Motor/Sensory Deficits, Normal Mood/Affect Skin: Normal Color, Warm/Dry Results/Procedures Lab Laboratory Tests 05/30/22 18:00 05/31/22 04:49 Patient resulted labs reviewed. Imaging: Reviewed Imaging Films, Reviewed Imaging Report Radiology Date of Exam:05/25/22 CHEST 1 VIEW, AP/PA ONLY INDICATION: Respiratory distress. FINDINGS: There is cardiomegaly. Lungs are clear. No pleural effusion or pneumothorax. Mediastinum is unremarkable. IMPRESSION: No acute cardiopulmonary abnormality. Cardiomegaly. Dictated by: Dictated on workstation # [id number] Dict: 05/26/22 0746 Trans: 05/26/22829 CVB [id number] Interpreted by: TAHMINA FLEMING MD Electronically signed by: TAHMINA FLEMING MD 05/26/22829 Date of Exam:05/30/22 HIP, LEFT, 2 VIEWS INDICATION: Left hip pain. FINDINGS: There are no findings of hip dislocation. The morphology of the femoral head is normal without collapse or avascular necrosis. There is a small spur at the femoral head and neck junction. There is no identified fracture. The visualized portion of the pelvic ring appears intact without left SI joint or pubic symphysis diastasis. IMPRESSION: Left hip osteoarthritic changes without plain film findings of dislocation or fracture. Dictated by: Dictated on workstation # [id number] Dict: 05/30/22 180 Trans: 05/30/221913 [id number] Interpreted by: YANETH CASTRO MD Electronically signed by: YANETH CASTRO MD 05/30/221913 Meds As noted in medications list Assessment/Plan Assessment and Plan Assess & Plan/Chief Complaint (1) Acute on chronic respiratory failure with hypoxia and hypercapnia Status: Acute Assessment & Plan: 05/27: Extubated 05/24, MAT protocol, declines to wear bipap, states that she does not want to be intubated but discussed with patient and family that could mean she will continue to get worse and and patient states that she does not know, will remain full code at this time as I could not get a clear answer, Called to room around 1400 and patient was having acute shortness of breath, RT called for breathing treatment, presedex was restarted, IV lasix given due to 2+ pitting edema, patient again declines to wear bipap. 05/28: More comfortable this AM, continue antibiotics and steroids, MAT protocol, Encouraged IS 05/29: Much improved, will transfer down to 4th floor, IRF to start evaluation process, transition meds to PO 05/30: Doing well on 2L NC, insurance has declined IRF after peer to peer, will work on SNF 05/31: Patient continues to improve on 2L NC, will be staying with her oldest son on discharge (2) COPD exacerbation Status: Acute Assessment & Plan: 05/30: Restarted home COPD meds (3) HTN (hypertension) Status: Chronic Assessment & Plan: 05/27: Required multiple doses of PRNs today, speech ok with PO meds, will restart PO meds 05/28: Restart home meds, Added Lisinopril today 05/29: Increased Lisinopril today, continues to have elevated blood pressures but they are improving Qualifiers: Qualified Codes: I10 - Essential (primary) hypertension (4) Encephalopathy acute Status: Resolved Assessment & Plan: - 05/27: Seems to be improving, + TCAs and Cocaine on admission (5) Normocytic anemia Status: Acute Assessment & Plan: 05/27: No signs of acute blood loss, Will continue to monitor (6) Dysphagia Status: Acute Assessment & Plan: 05/27: Speech consulted 05/28: cleared to start diet Qualifiers: Qualified Codes: R13.10 - Dysphagia, unspecified (7) Anxiety Status: Acute (8) Polysubstance abuse Status: Chronic (9) Cocaine use Status: Chronic (10) Alcohol abuse Status: Chronic (11) Physical debility Status: Acute Assessment & Plan: 05/29: IRF eval in process, otherwise patient will need SNF SUSAN WATERS DO 06/01/22 7030: Supervisory-Addendum Brief Verification & Attestation Participated in pt care: history, MDM, physical Personally performed: exam, history, MDM, supervision of care Care discussed with: Medical Student Procedures: n/a Results interpretation: Verified all documentation Verification and Attestation of Medical Student E/M Service A medical student performed and documented this service in my presence. I reviewed and verified all information documented by the medical student and made modifications to such information, when appropriate. I personally performed the physical exam and medical decision making. Susan Waters, Jun 01, 2022,05:30 ZOILA WHITEHEAD May 31, 2022 13:50 SUSAN WATERS DO Jun 01, 2022 05:30
[2022-05-31 15:41] VITALS: BP 162/72
[2022-05-31 16:59] VITALS: BP 162/72
--- NOTE | 2022-05-31 17:27 | Discharge Summary ---
Diagnosis/Chief Complaint Date of Admission May 19, 2022 at 00:40 Date of Discharge May 31, 2022 at 17:10 Discharge Date: May 31, 2022 Discharge Diagnosis Assessment/Plan (1) Acute on chronic respiratory failure with hypoxia and hypercapnia Status: Acute Assessment & Plan: 05/27: Extubated 05/24, MAT protocol, declines to wear bipap, states that she does not want to be intubated but discussed with patient and family that could mean she will continue to get worse and and patient states that she does not know, will remain full code at this time as I could not get a clear answer, Called to room around 1400 and patient was having acute shortness of breath, RT called for breathing treatment, presedex was restarted, IV lasix given due to 2+ pitting edema, patient again declines to wear bipap. 05/28: More comfortable this AM, continue antibiotics and steroids, MAT protocol, Encouraged IS 05/29: Much improved, will transfer down to 4th floor, IRF to start evaluation process, transition meds to PO (2) COPD exacerbation Status: Acute (3) HTN (hypertension) Status: Chronic Assessment & Plan: 05/27: Required multiple doses of PRNs today, speech ok with PO meds, will restart PO meds 05/28: Restart home meds, Added Lisinopril today 05/29: Increased Lisinopril today, continues to have elevated blood pressures but they are improving Qualifiers: Qualified Codes: I10 - Essential (primary) hypertension (4) Encephalopathy acute Status: Resolved Assessment & Plan: - 05/27: Seems to be improving, + TCAs and Cocaine on admission (5) Normocytic anemia Status: Acute Assessment & Plan: 05/27: No signs of acute blood loss, Will continue to monit or (6) Dysphagia Status: Acute Assessment & Plan: 05/27: Speech consulted 05/28: cleared to start diet Qualifiers: Qualified Codes: R13.10 - Dysphagia, unspecified (7) Anxiety Status: Acute (8) Polysubstance abuse Status: Chronic (9) Cocaine use Status: Chronic (10) Alcohol abuse Status: Chronic (11) Physical debility Status: Acute Assessment & Plan: 05/29: IRF eval in process, otherwise patient will need SNF Discharge Summary Discharge Physical Examination Allergies: Coded Allergies: No Known Drug Allergies (Unverified , 11/03/17) Vitals & I&Os Vital Signs Date Time Temp Pulse Resp B/P (MAP) Pulse Ox O2 Delivery O2 Flow Rate FiO2 05/31/22 16:59 36.9 80 18 162/72 97 Nasal Cannula 2.00 05/30/22 07:31 28 General Appearance: Alert, Oriented X3, Cooperative Respiratory: Clear to Auscultation Cardiovascular: Regular Rate Hospital Course Was the Problem List Reviewed?: Yes Patient is a 66 yo F admitted for acute on chronic respiratory failure with hypoxia and hypercapnia with COPD exacerbation. When admitted to the ED she required intubation due to respiratory distress but has since been extubated. She has been treated with antibiotics and steroids, and her home COPD medications have been restarted. Hypertension required multiple doses of PRN drugs throughout her stay, home meds restarted and lisinopril was added. Patient tested positive for TCAs and cocaine on admission. She states that she is feeling a little depressed this morning but that her breathing is much improved. She indicates minor pain in her left hand and left hip due to arthritis. She is walking well and is able to ambulate throughout the halls. Indicates minor chills and intermittent nausea but denies headache, dizziness, and constipation. Labs (last 24 hrs) Laboratory Tests 05/18/22 23:38: Blood Gas Puncture Site L RAD, Blood Gas Patient Temperature 36, Arterial Blood pH 6.96*L, Arterial Blood Partial Pressure CO2 , Arterial Blood Partial Pressure O2 239H, Arterial Blood HCO3 , Arterial Blood Total CO2 , Arterial Blood Oxygen Saturation 99, Arterial Blood Base Excess , Abdirahman Test YES-POS, Blood Gas Ventilator Setting NO, Blood Gas Inspired Oxygen 15L 05/18/22 23:45: White Blood Count 11.0, Red Blood Count 4.18, Hemoglobin 13.4, Hematocrit 43, Mean Corpuscular Volume 103H, Mean Corpuscular Hemoglobin 32, Mean Corpuscular Hemoglobin Concent 31L, Red Cell Distribution Width 13.1, Platelet Count 335, Mean Platelet Volume 9.1, Immature Granulocyte % (Auto) 1, Neutrophils (%) (Auto) 68, Lymphocytes (%) (Auto) 22, Monocytes (%) (Auto) 8, Eosinophils (%) (Auto) 0, Basophils (%) (Auto) 0, Neutrophils # (Auto) 7.5, Lymphocytes # (Auto) 2.5, Monocytes # (Auto) 0.9, Eosinophils # (Auto) 0.0, Basophils # (Auto) 0.0, Immature Granulocyte # (Auto) 0.2H, Erythrocyte Sedimentation Rate 7, Prothrombin Time 12.6, INR Comment 0.9, Activated Partial Thromboplast Time 24, D-Dimer 0.41, Sodium Level 147H, Potassium Level 3.4L, Chloride Level 100, Carbon Dioxide Level 26, Anion Gap 21H, Blood Urea Nitrogen 20H, Creatinine 1.09, Estimat Glomerular Filtration Rate 56, BUN/Creatinine Ratio 18, Glucose Level 226H, Lactic Acid Level 8.67*H, Calcium Level 9.5, Corrected Calcium 9.1, Magnesium Level 2.9H, Total Bilirubin 0.4, Aspartate Amino Transf (AST/SGOT) 100H, Alanine Aminotransferase (ALT/SGPT) 131H, Alkaline Phosphatase 101, Total Creatine Kinase 124, Creatine Kinase MB 3.0, Myoglobin 90.4, Troponin I < 0.028, C-Reactive Protein High Sensitivity 0.10, B-Type Natriuretic Peptide 81.5, Total Protein 7.8, Albumin 4.5, Procalcitonin 0.03, Serum Alcohol < 10 05/18/22 23:55: Urine Color YELLOW, Urine Clarity CLEAR, Urine pH 6.0, Urine Specific [place] >=1.030, Urine Protein 2+H, Urine Glucose (UA) TRACEH, Urine Ketones NEGATIVE, Urine Nitrite NEGATIVE, Urine Bilirubin NEGATIVE, Urine Urobilinogen 1.0, Urine Leukocyte Esterase NEGATIVE, Urine RBC (Auto) 1+H, Urine RBC 10-25H, Urine WBC 2-5, Urine Squamous Epithelial Cells 2-5, Urine Crystals NONE, Urine Bacteria FEWH, Urine Casts PRESENT, Urine Hyaline Casts 0-2H, Urine Mucus NEGATIVE, Urine Culture Indicated YES, Urine Opiates Screen NEGATIVE, Urine Oxycodone Screen NEGATIVE, Urine Methadone Screen NEGATIVE, Urine Propoxyphene Screen NEGATIVE, Urine Barbiturates Screen NEGATIVE, Ur Tricyclic Antidepressants Screen POSITIVEH, Urine Phencyclidine Screen NEGATIVE, Urine Amphetamines Screen NEGATIVE, Urine Methamphetamines Screen NEGATIVE, Urine Benzodiazepines Screen NEGATIVE, Urine Cocaine Screen POSITIVEH, Urine Cannabinoids Screen POSITIVEH, Influenza Type A (RT-PCR) Not Detected, Influenza Type B (RT-PCR) Not Detected, SARS-CoV-2 RNA (RT-PCR) Not Detected 05/19/22 00:29: Blood Gas Puncture Site LRAD, Blood Gas Patient Temperature 36, Arterial Blood pH 7.34*L, Arterial Blood Partial Pressure CO2 72*H, Arterial Blood Partial Pressure O2 83, Arterial Blood HCO3 39H, Arterial Blood Total CO2 40.9*H, Arterial Blood Oxygen Saturation 98, Arterial Blood Base Excess 12.3H, Abdirahman Test YES-POS, Blood Gas Ventilator Setting NO, Blood Gas Inspired Oxygen Positive End Expirat 05/19/22 00:40: Lab Scanned Report Referred Lab Report 05/19/22 01:53: Lactic Acid Level 2.30*H 05/19/22 03:57: Lactic Acid Level 2.25*H, White Blood Count 10.0, Red Blood Count 3.52L, Hemoglobin 11.2L, Hematocrit 35, Mean Corpuscular Volume 99, Mean Corpuscular Hemoglobin 32, Mean Corpuscular Hemoglobin Concent 32, Red Cell Distribution Width 13.1, Platelet Count 247, Mean Platelet Volume 9.0, Immature Granulocyte % (Auto) 1, Neutrophils (%) (Auto) 89H, Lymphocytes (%) (Auto) 6L, Monocytes (%) (Auto) 5, Eosinophils (%) (Auto) 0, Basophils (%) (Auto) 0, Neutrophils # (Auto) 8.9H, Lymphocytes # (Auto) 0.6L, Monocytes # (Auto) 0.5, Eosinophils # (Auto) 0.0, Basophils # (Auto) 0.0, Immature Granulocyte # (Auto) 0.1, Neutrophils % (Manual) 94, Lymphocytes % (Manual) 2, Monocytes % (Manual) 4, Blood Morphology Comment NORMAL, Sodium Level 145, Potassium Level 3.3L, Chloride Level 102, Carb on Dioxide Level 31, Anion Gap 12, Blood Urea Nitrogen 18, Creatinine 0.78, Estimat Glomerular Filtration Rate 84, BUN/Creatinine Ratio 23, Glucose Level 176H, Calcium Level 8.1L, Corrected Calcium 8.6, Phosphorus Level 3.4, Magnesium Level 2.3, Total Bilirubin 0.3, Aspartate Amino Transf (AST/SGOT) 87H, Alanine Aminotransferase (ALT/SGPT) 122H, Alkaline Phosphatase 76, Total Protein 5.9L, Albumin 3.4 05/19/22 06:05: Lactic Acid Level 2.22*H 05/19/22 06:15: Glucometer 149H 05/19/22 06:23: Lactic Acid Level 4.48*H 05/19/22 11:02: Glucometer 117H 05/19/22 17:55: Glucometer 135H 05/20/22 00:38: Glucometer 126H 05/20/22 04:44: Bedside Blood Gas pH (LAB) 7.394, Bedside Blood Gas pCO2 (LAB) 46.5, Bedside Blood Gas pO2 (LAB) 74L, Bedside Blood Gas HCO3 (LAB) 28.4H, POC Blood Gas Total CO2 Calc 30H, Bedside Bl Gas O2 Saturation (Calc) 94L, Bedside Arterial Blood Base Excess 3 05/20/22 04:53: White Blood Count 9.3, Red Blood Count 3.34L, Hemoglobin 10.7L, Hematocrit 33L, Mean Corpuscular Volume 100H, Mean Corpuscular Hemoglobin 32, Mean Corpuscular Hemoglobin Concent 32, Red Cell Distribution Width 13.6, Platelet Count 244, Mean Platelet Volume 9.2, Immature Granulocyte % (Auto) 1, Neutrophils (%) (Auto) 81H, Lymphocytes (%) (Auto) 10L, Monocytes (%) (Auto) 9, Eosinophils (%) (Auto) 0, Basophils (%) (Auto) 0, Neutrophils # (Auto) 7.5, Lymphocytes # (Auto) 0.9L, Monocytes # (Auto) 0.8, Eosinophils # (Auto) 0.0, Basophils # (Auto) 0.0, Immature Granulocyte # (Auto) 0.1, Sodium Level 142, Potassium Level 4.0, Chloride Level 107, Carbon Dioxide Level 24, Anion Gap 11, Blood Urea Nitrogen 24H, Creatinine 0.90, Estimat Glomerular Filtration Rate 71, BUN/Creatinine Ratio 27, Glucose Level 127H, Calcium Level 8.4L, Corrected Calcium 9.2, Phosphorus Level 4.1, Magnesium Level 2.2, Total Bilirubin 0.4, Aspartate Amino Transf (AST/SGOT) 56H, Alanine Aminotransferase (ALT/SGPT) 122H, Alkaline Phosphatase 64, Total Protein 5.2L, Albumin 3.0L 05/20/22 06:13: Glucometer 131H 05/20/22 12:10: Glucometer 109 05/20/22 19:46: Glucometer 105 05/20/22 23:38: Glucometer 100 05/21/22 04:32: Blood Gas Puncture Site RR, Blood Gas Patient Temperature 36.5, Arterial Blood pH 7.34*L, Arterial Blood Partial Pressure CO2 47H, Arterial Blood Partial Pressure O2 73L, Arterial Blood HCO3 25, Arterial Blood Total CO2 26.5, Arterial Blood Oxygen Saturation 95, Arterial Blood Base Excess -0.1, Abdirahman Test YES-POS, Blood Gas Ventilator Setting YES, Blood Gas Inspired Oxygen 25% 05/21/22 04:45: White Blood Count 7.1, Red Blood Count 3.38L, Hemoglobin 10.8L, Hematocrit 34L, Mean Corpuscular Volume 100H, Mean Corpuscular Hemoglobin 32, Mean Corpuscular Hemoglobin Concent 32, Red Cell Distribution Width 14.2, Platelet Count 233, Mean Platelet Volume 9.1, Immature Granulocyte % (Auto) 2, Neutrophils (%) (Auto) 60, Lymphocytes (%) (Auto) 25, Monocytes (%) (Auto) 12, Eosinophils (%) (Auto) 1, Basophils (%) (Auto) 0, Neutrophils # (Auto) 4.3, Lymphocytes # (Auto) 1.8, Monocytes # (Auto) 0.9, Eosinophils # (Auto) 0.1, Basophils # (Auto) 0.0, Immature Granulocyte # (Auto) 0.1, Sodium Level 141, Potassium Level 4.3, Chloride Level 112H, Carbon Dioxide Level 22, Anion Gap 7, Blood Urea Nitrogen 21H, Creatinine 0.76, Estimat Glomerular Filtration Rate 86, BUN/Creatinine Ratio 28, Glucose Level 98, Calcium Level 7.9L, Corrected Calcium 8.9, Phosphorus Level 4.2, Magnesium Level 2.5H, Total Bilirubin 0.4, Aspartate Amino Transf (AST/SGOT) 51H, Alanine Aminotransferase (ALT/SGPT) 142H, Alkaline Phosphatase 59, Total Protein 4.9L, Albumin 2.8L 05/21/22 12:56: Glucometer 93 05/21/22 18:17: Glucometer 101 05/21/22 23:03: Glucometer 98 05/22/22 04:51: Bedside Blood Gas pH (LAB) 7.529H, Bedside Blood Gas pCO2 (LAB) 28.9L, Bedside Blood Gas pO2 (LAB) 146H, Bedside Blood Gas HCO3 (LAB) 24.1, POC Blood Gas Total CO2 Calc 25, Bedside Bl Gas O2 Saturation (Calc) 100H, Bedside Arterial Blood Base Excess 1 05/22/22 05:10: White Blood Count 6.5, Red Blood Count 3.54L, Hemoglobin 11.4L, Hematocrit 35, Mean Corpuscular Volume 99, Mean Corpuscular Hemoglobin 32, Mean Corpuscular Hemoglobin Concent 32, Red Cell Distribution Width 14.0, Platelet Count 207, Mean Platelet Volume 8.8L, Immature Granulocyte % (Auto) 1, Neutrophils (%) (Auto) 58, Lymphocytes (%) (Auto) 27, Monocytes (%) (Auto) 9, Eosinophils (%) (Auto) 5, Basophils (%) (Auto) 0, Neutrophils # (Auto) 3.7, Lymphocytes # (Auto) 1.8, Monocytes # (Auto) 0.6, Eosinophils # (Auto) 0.3, Basophils # (Auto) 0.0, Immature Granulocyte # (Auto) 0.1, Sodium Level 145, Potassium Level 3.8, Chloride Level 114H, Carbon Dioxide Level 23, Anion Gap 8, Blood Urea Nitrogen 14, Creatinine 0.68, Estimat Glomerular Filtration Rate 96, BUN/Creatinine Ratio 21, Glucose Level 102, Calcium Level 7.9L, Corrected Calcium 9.0, Phosphorus Level 3.8, Magnesium Level 2.2, Total Bilirubin 0.4, Aspartate Amino Transf (AST/SGOT) 48H, Alanine Aminotransferase (ALT/SGPT) 133H, Alkaline Phosphatase 69, Total Protein 4.6L, Albumin 2.6L 05/22/22 13:30: Glucometer 52*L 05/22/22 13:35: Glucometer 63L 05/22/22 14:34: Glucometer 48*L 05/22/22 16:20: Glucometer 93 05/22/22 17:48: Glucometer 82 05/22/22 19:42: Glucometer 90 05/23/22 00:03: Glucometer 95 05/23/22 04:00: Blood Gas Puncture Site LT RADIAL, Blood Gas Patient Temperature 36.8, Arterial Blood pH 7.38, Arterial Blood Partial Pressure CO2 42, Arterial Blood Partial Pressure O2 61L, Arterial Blood HCO3 24, Arterial Blood Total CO2 25.4, Arterial Blood Oxygen Saturation 92L, Arterial Blood Base Excess -0.4, Abdirahman Test YES-PO S, Blood Gas Ventilator Setting YES, Blood Gas Inspired Oxygen 21% 05/23/22 04:40: White Blood Count 7.4, Red Blood Count 3.53L, Hemoglobin 11.0L, Hematocrit 35, Mean Corpuscular Volume 100H, Mean Corpuscular Hemoglobin 31, Mean Corpuscular Hemoglobin Concent 31L, Red Cell Distribution Width 14.4, Platelet Count 206, Mean Platelet Volume 9.1, Immature Granulocyte % (Auto) 1, Neutrophils (%) (Auto) 59, Lymphocytes (%) (Auto) 25, Monocytes (%) (Auto) 10, Eosinophils (%) (Auto) 5, Basophils (%) (Auto) 0, Neutrophils # (Auto) 4.4, Lymphocytes # (Auto) 1.8, Monocytes # (Auto) 0.7, Eosinophils # (Auto) 0.4H, Basophils # (Auto) 0.0, Immature Granulocyte # (Auto) 0.1, Sodium Level 141, Potassium Level 4.1, Chloride Level 112H, Carbon Dioxide Level 22, Anion Gap 7, Blood Urea Nitrogen 12, Creatinine 0.72, Estimat Glomerular Filtration Rate 92, BUN/Creatinine Ratio 17, Glucose Level 103, Calcium Level 7.9L, Corrected Calcium 9.2, Phosphorus Level 3.6, Magnesium Level 2.2, Total Bilirubin 0.5, Aspartate Amino Transf (AST/SGOT) 26, Alanine Aminotransferase (ALT/SGPT) 88H, Alkaline Phosphatase 63, Total Protein 4.7L, Albumin 2.4L 05/23/22 11:34: Glucometer 91 05/23/22 18:09: Glucometer 106 05/23/22 23:25: Glucometer 82 05/24/22 04:15: Blood Gas Puncture Site RIGHT RADIAL, Blood Gas Patient Temperature 36.4, Arterial Blood pH 7.40, Arterial Blood Partial Pressure CO2 39, Arterial Blood Partial Pressure O2 70L, Arterial Blood HCO3 24, Arterial Blood Total CO2 25.2, Arterial Blood Oxygen Saturation 97, Arterial Blood Base Excess -0.3, Abdirahman Test YES-POS, Blood Gas Ventilator Setting YES, Blood Gas Inspired Oxygen 30% 05/24/22 04:16: White Blood Count 8.0, Red Blood Count 3.06L, Hemoglobin 9.8L, Hematocrit 30L, Mean Corpuscular Volume 97, Mean Corpuscular Hemoglobin 32, Mean Corpuscular Hemoglobin Concent 33, Red Cell Distribution Width 13.7, Platelet Count 188, Mean Platelet Volume 9.4, Immature Granulocyte % (Auto) 1, Neutrophils (%) (Auto) 75, Lymphocytes (%) (Auto) 12, Monocytes (%) (Auto) 10, Eosinophils (%) (Auto) 2, Basophils (%) (Auto) 0, Neutrophils # (Auto) 6.0, Lymphocytes # (Auto) 1.0, Monocytes # (Auto) 0.8, Eosinophils # (Auto) 0.2, Basophils # (Auto) 0.0, Immature Granulocyte # (Auto) 0.1, Sodium Level 138, Potassium Level 4.1, Chloride Level 110H, Carbon Dioxide Level 22, Anion Gap 6, Blood Urea Nitrogen 14, Creatinine 0.61, Estimat Glomerular Filtration Rate 99, BUN/Creatinine Ratio 23, Glucose Level 116H, Calcium Level 8.0L, Corrected Calcium 9.4, Phosphorus Level 3.3, Magnesium Level 2.1, Total Bilirubin 0.6, Aspartate Amino Transf (AST/SGOT) 23, Alanine Aminotransferase (ALT/SGPT) 59H, Alkaline Phosphatase 60, Total Protein 4.5L, Albumin 2.3L, Procalcitonin 0.79H 05/24/22 11:42: Glucometer 137H 05/24/22 17:59: Glucometer 132H 05/25/22 04:19: White Blood Count 8.6, Red Blood Count 3.02L, Hemoglobin 9.7L, Hematocrit 30L, Mean Corpuscular Volume 100H, Mean Corpuscular Hemoglobin 32, Mean Corpuscular Hemoglobin Concent 32, Red Cell Distribution Width 13.5, Platelet Count 190, Mean Platelet Volume 9.1, Immature Granulocyte % (Auto) 1, Neutrophils (%) (Auto) 64, Lymphocytes (%) (Auto) 15, Monocytes (%) (Auto) 17H, Eosinophils (%) (Auto) 3, Basophils (%) (Auto) 0, Neutrophils # (Auto) 5.4, Lymphocytes # (Auto) 1.3, Monocytes # (Auto) 1.5H, Eosinophils # (Auto) 0.3, Basophils # (Auto) 0.0, Immature Granulocyte # (Auto) 0.1, Sodium Level 141, Potassium Level 3.8, Chloride Level 108H, Carbon Dioxide Level 25, Anion Gap 8, Blood Urea Nitrogen 14, Creatinine 0.68, Estimat Glomerular Filtration Rate 96, BUN/Creatinine Ratio 21, Glucose Level 105, Calcium Level 8.3L, Corrected Calcium 9.5, Phosphorus Level 2.9, Magnesium Level 2.1, Total Bilirubin 0.6, Aspartate Amino Transf (AST/SGOT) 26, Alanine Aminotransferase (ALT/SGPT) 54, Alkaline Phosphatase 55, Total Protein 5.4L, Albumin 2.5L 05/25/22 11:51: Glucometer 98 05/25/22 18:17: Glucometer 102 05/25/22 21:00: Blood Gas Puncture Site RIGHT RADIAL, Blood Gas Patient Temperature 37.8, Arterial Blood pH 7.30*L, Arterial Blood Partial Pressure CO2 59H, Arterial Blood Partial Pressure O2 64L, Arterial Blood HCO3 28H, Arterial Blood Total CO2 29.8, Arterial Blood Oxygen Saturation 89L, Arterial Blood Base Excess 2.4, Abdirahman Test YES-POS, Blood Gas Ventilator Setting YES, Blood Gas Inspired Oxygen 25% 05/25/22 21:15: Glucometer 136H 05/25/22 23:50: Blood Gas Puncture Site LEFT RADIAL, Blood Gas Patient Temperature 36.7, Arterial Blood pH 7.39, Arterial Blood Partial Pressure CO2 45, Arterial Blood Partial Pressure O2 82, Arterial Blood HCO3 27, Arterial Blood Total CO2 28.1, Arterial Blood Oxygen Saturation 97, Arterial Blood Base Excess 2.1, Abdirahman Test YES-POS, Blood Gas Ventilator Setting YES, Blood Gas Inspired Oxygen 25% 05/26/22 00:09: Glucometer 103 05/26/22 04:45: White Blood Count 11.3H, Red Blood Count 2.76L, Hemoglobin 8.9L, Hematocrit 27L, Mean Corpuscular Volume 97, Mean Corpuscular Hemoglobin 32, Mean Corpuscular Hemoglobin Concent 33, Red Cell Distribution Width 13.1, Platelet Count 218, Mean Platelet Volume 9.2, Immature Granulocyte % (Auto) 0, Neutrophils (%) (Auto) 79H, Lymphocytes (%) (Auto) 11L, Monocytes (%) (Auto) 9, Eosinophils (%) (Auto) 0, Basophils (%) (Auto) 0, Neutrophils # (Auto) 8.9H, Lymphocytes # (Auto) 1.3, Monocytes # (Auto) 1.0, Eosinophils # (Auto) 0.0, Basophils # (Auto) 0.0, Immature Granulocyte # (Auto) 0.0, Sodium Level 140, Potassium Level 3.6, Chloride Level 107, Carbon Dioxide Level 23, Anion Gap 10, Blood Urea Nitrogen 13, Creatinine 0.58L, Estimat Glomerular Filtration Rate 100, BUN/Creatinine Ratio 22, Glucose Level 109H, Calcium Level 8.3L, Corrected Calcium 9.4, Phosphorus Level 2.6, Magnesium Level 1.9, Total Bilirubin 0.4, Aspartate Amino Transf (AST/SGOT) 23, Alanine Aminotransferase (ALT/SGPT) 42, Alkaline Phosphatase 57, Total Protein 5.1L, Albumin 2.6L 05/26/22 09:15: Blood Gas Puncture Site RT RADIAL, Blood Gas Patient Temperature 36.0, Arterial Blood pH 7.39, Arterial Blood Partial Pressure CO2 45, Arterial Blood Partial Pressure O2 58L, Arterial Blood HCO3 27, Arterial Blood Total CO2 28.7, Arterial Blood Oxygen Saturation 93L, Arterial Blood Base Excess 2.6H, Abdirahman Test YES- POS, Blood Gas Ventilator Setting NO, Blood Gas Inspired Oxygen 30% 05/26/22 11:19: Glucometer 88 05/26/22 18:14: Glucometer 110 05/27/22 01:04: Glucometer 105 05/27/22 05:25: White Blood Count 5.2, Red Blood Count 2.53L, Hemoglobin 8.0L, Hematocrit 25L, Mean Corpuscular Volume 98, Mean Corpuscular Hemoglobin 32, Mean Corpuscular Hemoglobin Concent 32, Red Cell Distribution Width 13.0, Platelet Count 241, Mean Platelet Volume 9.2, Immature Granulocyte % (Auto) 0, Neutrophils (%) (Auto) 53, Lymphocytes (%) (Auto) 25, Monocytes (%) (Auto) 17H, Eosinophils (%) (Auto) 4, Basophils (%) (Auto) 0, Neutrophils # (Auto) 2.7, Lymphocytes # (Auto) 1.3, Monocytes # (Auto) 0.9, Eosinophils # (Auto) 0.2, Basophils # (Auto) 0.0, Immature Granulocyte # (Auto) 0.0, Sodium Level 142, Potassium Level 3.6, Chloride Level 109H, Carbon Dioxide Level 25, Anion Gap 8, Blood Urea Nitrogen 10, Creatinine 0.59L, Estimat Glomerular Filtration Rate 99, BUN/Creatinine Ratio 17, Glucose Level 99, Calcium Level 8.0L, Corrected Calcium 9.4, P hosphorus Level 2.5, Magnesium Level 1.9, Total Bilirubin 0.4, Aspartate Amino Transf (AST/SGOT) 26, Alanine Aminotransferase (ALT/SGPT) 32, Alkaline Phosphatase 43, Total Protein 4.8L, Albumin 2.3L 05/27/22 11:08: Glucometer 106 05/27/22 15:18: Bedside Blood Gas pH (LAB) 7.513H, Bedside Blood Gas pCO2 (LAB) 37.5L, Bedside Blood Gas pO2 (LAB) 79L, Bedside Blood Gas HCO3 (LAB) 30.1H, POC Blood Gas Total CO2 Calc 31H, Bedside Bl Gas O2 Saturation (Calc) 97, Bedside Arterial Blood Base Excess 7H 05/27/22 18:17: Glucometer 120H 05/27/22 23:18: Glucometer 104 05/28/22 04:30: White Blood Count 5.8, Red Blood Count 2.68L, Hemoglobin 8.6L, Hematocrit 26L, Mean Corpuscular Volume 98, Mean Corpuscular Hemoglobin 32, Mean Corpuscular Hemoglobin Concent 33, Red Cell Distribution Width 13.2, Platelet Count 249, Mean Platelet Volume 8.7L, Immature Granulocyte % (Auto) 1, Neutrophils (%) (Auto) 60, Lymphocytes (%) (Auto) 20, Monocytes (%) (Auto) 17H, Eosinophils (%) (Auto) 2, Basophils (%) (Auto) 0, Neutrophils # (Auto) 3.5, Lymphocytes # (Auto) 1.2, Monocytes # (Auto) 1.0, Eosinophils # (Auto) 0.1, Basophils # (Auto) 0.0, Immature Granulocyte # (Auto) 0.0, Sodium Level 144, Potassium Level 3.0L, Chloride Level 106, Carbon Dioxide Level 27, Anion Gap 11, Blood Urea Nitrogen 10, Creatinine 0.63, Estimat Glomerular Filtration Rate 98, BUN/Creatinine Ratio 16, Glucose Level 113H, Calcium Level 8.6, Corrected Calcium 9.7, Phosphorus Level 2.9, Magnesium Level 1.8, Total Bilirubin 0.6, Aspartate Amino Transf (AST/SGOT) 20, Alanine Aminotransferase (ALT/SGPT) 33, Alkaline Phosphatase 53, Total Protein 5.3L, Albumin 2.6L 05/28/22 05:26: Glucometer 169H 05/28/22 11:40: Glucometer 116H 05/28/22 17:46: Glucometer 152H 05/28/22 20:28: Glucometer 150H 05/28/22 20:45: Potassium Level 2.8L 05/29/22 04:05: Potassium Level 3.6, White Blood Count 8.8, Red Blood Count 2.69L, Hemoglobin 8.7L, Hematocrit 26L, Mean Corpuscular Volume 98, Mean Corpuscular Hemoglobin 32, Mean Corpuscular Hemoglobin Concent 33, Red Cell Distribution Width 13.6, Platelet Count 290, Mean Platelet Volume 8.7L, Immature Granulocyte % (Auto) 1, Neutrophils (%) (Auto) 69, Lymphocytes (%) (Auto) 16, Monocytes (%) (Auto) 14H, Eosinophils (%) (Auto) 1, Basophils (%) (Auto) 0, Neutrophils # (Auto) 6.0, Lymphocytes # (Auto) 1.4, Monocytes # (Auto) 1.2H, Eosinophils # (Auto) 0.1, Basophils # (Auto) 0.0, Immature Granulocyte # (Auto) 0.0, Sodium Level 144, Chloride Level 107, Carbon Dioxide Level 27, Anion Gap 10, Blood Urea Nitrogen 10, Creatinine 0.60, Estimat Glomerular Filtration Rate 99, BUN/Creatinine Ratio 17, Glucose Level 106H, Calcium Level 8.8, Corrected Calcium 9.7, Phosphorus Level 1.9L, Magnesium Level 1.7, Iron Level 46, Total Iron Binding Capacity 173L , Unsaturated Iron Binding Capacity 127, Transferrin % Saturation 27, Ferritin 163.9, Total Bilirubin 0.8, Aspartate Amino Transf (AST/SGOT) 27, Alanine Aminotransferase (ALT/SGPT) 37, Alkaline Phosphatase 58, Total Protein 5.6L, Alb umin 2.9L, Folate 8.8 05/29/22 11:03: Glucometer 95 05/29/22 15:32: Glucometer 110 05/30/22 04:20: White Blood Count 7.4, Red Blood Count 2.49L, Hemoglobin 8.0L, Hematocrit 25L, Mean Corpuscular Volume 99, Mean Corpuscular Hemoglobin 32, Mean Corpuscular Hemoglobin Concent 33, Red Cell Distribution Width 13.9, Platelet Count 297, Mean Platelet Volume 8.7L, Immature Granulocyte % (Auto) 0, Neutrophils (%) (Auto) 64, Lymphocytes (%) (Auto) 21, Monocytes (%) (Auto) 11, Eosinophils (%) (Auto) 3, Basophils (%) (Auto) 0, Neutrophils # (Auto) 4.7, Lymphocytes # (Auto) 1.6, Monocytes # (Auto) 0.8, Eosinophils # (Auto) 0.2, Basophils # (Auto) 0.0, Immature Granulocyte # (Auto) 0.0, Sodium Level 142, Potassium Level 3.0L, Chloride Level 103, Carbon Dioxide Level 28, Anion Gap 11, Blood Urea Nitrogen 8, Creatinine 0.61, Estimat Glomerular Filtration Rate 99, BUN/Creatinine Ratio 13, Glucose Level 108H, Calcium Level 8.1L, Corrected Calcium 9.1, Phosphorus Level 2.6, Magnesium Level 2.1, Total Bilirubin 1.2H, Aspartate Amino Transf (A ST/SGOT) 24, Alanine Aminotransferase (ALT/SGPT) 28, Alkaline Phosphatase 50, Total Protein 5.0L, Albumin 2.7L 05/30/22 18:00: Sodium Level 140, Potassium Level 3.5L, Chloride Level 103, Carbon Dioxide Level 29, Anion Gap 8, Blood Urea Nitrogen 8, Creatinine 0.61, Estimat Glomerular Filtration Rate 99, BUN/Creatinine Ratio 13, Glucose Level 101, Calcium Level 8.7 05/31/22 04:49: White Blood Count 7.3, Red Blood Count 2.53L, Hemoglobin 8.1L, Hematocrit 25L, Mean Corpuscular Volume 99, Mean Corpuscular Hemoglobin 32, Mean Corpuscular Hemoglobin Concent 32, Red Cell Distribution Width 14.0, Platelet Count 310, Mean Platelet Volume 8.6L, Immature Granulocyte % (Auto) 0, Neutrophils (%) (Auto) 63, Lymphocytes (%) (Auto) 23, Monocytes (%) (Auto) 10, Eosinophils (%) (Auto) 3, Basophils (%) (Auto) 0, Neutrophils # (Auto) 4.6, Lymphocytes # (Auto) 1.7, Monocytes # (Auto) 0.8, Eosinophils # (Auto) 0.2, Basophils # (Auto) 0.0, Immature Granulocyte # (Auto) 0.0, Sodium Level 142, Potassium Level 2.8L, Chloride Level 103, Carbon Dioxide Level 29, Anion Gap 10, Blood Urea Nitrogen 6L, Creatinine 0.62, Estimat Glomerular Filtration Rate 98, BUN/Creatinine Ratio 10, Glucose Level 117H, Calcium Level 8.3L, Corrected Calcium 9.2, Total Bilirubin 1.1H, Aspartate Amino Transf (AST/SGOT) 23, Alanine Aminotransferase (ALT/SGPT) 27, Alkaline Phosphatase 51, Total Protein 5.4L, Albumin 2.9L 05/31/22 14:27: Potassium Level 4.0 Microbiology 05/24/22 Gram Stain - Final, Complete 05/24/22 Sputum Culture - Final, Complete Usual upper respiratory lindsey YEAST 05/19/22 Blood Culture - Final, Complete No growth 05/18/22 Urine Culture - Final, Complete NO GROWTH Pending Labs Microbiology Date/Time Source Procedure Growth Status 05/24/22 10:30 Sputum Endotracheal Gram Stain - Final Complete 05/24/22 10:30 Sputum Culture - Final Usual upper respiratory lindsey YEAST Complete 05/19/22 01:34 Nasal MRSA Screen - Final MRSA not isolated Complete 05/19/22 00:11 Peripheral Rt Hand Blood Culture - Final No growth Complete 05/18/22 23:55 Urine U Cath,Nos Urine Culture - Final NO GROWTH Complete 05/18/22 23:45 Peripheral External Jugular Blood Culture - Final No growth Complete Laboratory Tests 05/18/22 23:38: Blood Gas Puncture Site L RAD, Blood Gas Patient Temperature 36, Arterial Blood pH 6.96, Arterial Blood Partial Pressure CO2 , Arterial Blood Partial Pressure O2 239, Arterial Blood HCO3 , Arterial Blood Total CO2 , Arterial Blood Oxygen Saturation 99, Arterial Blood Base Excess , Abdirahman Test YES-POS, Blood Gas Ventilator Setting NO, Blood Gas Inspired Oxygen 15L 05/18/22 23:45: White Blood Count 11.0, Red Blood Count 4.18, Hemoglobin 13.4, Hematocrit 43, Mean Corpuscular Volume 103, Mean Corpuscular Hemoglobin 32, Mean Corpuscular Hemoglobin Concent 31, Red Cell Distribution Width 13.1, Platelet Count 335, Mean Platelet Volume 9.1, Immature Granulocyte % (Auto) 1, Neutrophils (%) (Auto) 68, Lymphocytes (%) (Auto) 22, Monocytes (%) (Auto) 8, Eosinophils (%) (Auto) 0, Basophils (%) (Auto) 0, Neutrophils # (Auto) 7.5, Lymphocytes # (Auto) 2.5, Monocytes # (Auto) 0.9, Eosinophils # (Auto) 0.0, Basophils # (Auto) 0.0, Immature Granulocyte # (Auto) 0.2, Erythrocyte Sedimentation Rate 7, Prothrombin Time 12.6, INR Comment 0.9, Activated Partial Thromboplast Time 24, D-Dimer 0.41, Sodium Level 147, Potassium Level 3.4, Chloride Level 100, Carbon Dioxide Level 26, Anion Gap 21, Blood Urea Nitrogen 20, Creatinine 1.09, Estimat Glomerular Filtration Rate 56, BUN/Creatinine Ratio 18, Glucose Level 226, Lactic Acid Level 8.67, Calcium Level 9.5, Corrected Calcium 9.1, Magnesium Level 2.9, Total Bilirubin 0.4, Aspartate Amino Transf (AST/SGOT) 100, Alanine Aminotransferase (ALT/SGPT) 131, Alkaline Phosphatase 101, Total Creatine Kinase 124, Creatine Kinase MB 3.0, Myoglobin 90.4, Troponin I < 0.028, C-Reactive Protein High Sensitivity 0.10, B-Type Natriuretic Peptide 81.5, Total Protein 7.8, Albumin 4.5, Procalcitonin 0.03, Serum Alcohol < 10 05/18/22 23:55: Urine Color YELLOW, Urine Clarity CLEAR, Urine pH 6.0, Urine Specific [place] >=1.030, Urine Protein 2+, Urine Glucose (UA) TRACE, Urine Ketones NEGATIVE, Urine Nitrite NEGATIVE, Urine Bilirubin NEGATIVE, Urine Urobilinogen 1.0, Urine Leukocyte Esterase NEGATIVE, Urine RBC (Auto) 1+, Urine RBC 10-25, Urine WBC 2- 5, Urine Squamous Epithelial Cells 2-5, Urine Crystals NONE, Urine Bacteria FEW, Urine Casts PRESENT, Urine Hyaline Casts 0-2, Urine Mucus NEGATIVE, Urine Culture Indicated YES, Urine Opiates Screen NEGATIVE, Urine Oxycodone Screen NEGATIVE, Urine Methadone Screen NEGATIVE, Urine Propoxyphene Screen NEGATIVE, Urine Barbiturates Screen NEGATIVE, Ur Tricyclic Antidepressants Screen POSITIVE, Urine Phencyclidine Screen NEGATIVE, Urine Amphetamines Screen NEGATIVE, Urine Methamphetamines Screen NEGATIVE, Urine Benzodiazepines Screen NEGATIVE, Urine Cocaine Screen POSITIVE, Urine Cannabinoids Screen POSITIVE, Influenza Type A (RT-PCR) Not Detected, Influenza Type B (RT-PCR) Not Detected, SARS-CoV-2 RNA (RT-PCR) Not Detected 05/19/22 00:29: Blood Gas Puncture Site LRAD, Blood Gas Patient Temperature 36, Arterial Blood pH 7.34, Arterial Blood Partial Pressure CO2 72, Arterial Blood Partial Pressure O2 83, Arterial Blood HCO3 39, Arterial Blood Total CO2 40.9, Arterial Blood Oxygen Saturation 98, Arterial Blood Base Excess 12.3, Abdirahman Test YES-POS, Blood Gas Ventilator Setting NO, Blood Gas Inspired Oxygen Positive End Expirat 05/19/22 00:40: Lab Scanned Report Referred Lab Report 05/19/22 01:53: Lactic Acid Level 2.30 05/19/22 03:57: Lactic Acid Level 2.25, White Blood Count 10.0, Red Blood Count 3.52, Hemoglobin 11.2, Hematocrit 35, Mean Corpuscular Volume 99, Mean Corpuscular Hemoglobin 32, Mean Corpuscular Hemoglobin Concent 32, Red Cell Distribution Width 13.1, Platelet Count 247, Mean Platelet Volume 9.0, Immature Granulocyte % (Auto) 1, Neutrophils (%) (Auto) 89, Lymphocytes (%) (Auto) 6, Monocytes (%) (Auto) 5, Eosinophils (%) (Auto) 0, Basophils (%) (Auto) 0, Neutrophils # (Auto) 8.9, Lymphocytes # (Auto) 0.6, Monocytes # (Auto) 0.5, Eosinophils # (Auto) 0.0, Basophils # (Auto) 0.0, Immature Granulocyte # (Auto) 0.1, Neutrophils % (Manual) 94, Lymphocytes % (Manual) 2, Monocytes % (Manual) 4, Blood Morphology Comment NORMAL, Sodium Level 145, Potassium Level 3.3, Chloride Level 102, Carbon Dioxide Level 31, Anion Gap 12, Blood Urea Nitrogen 18, Creatinine 0.78, Estimat Glomerular Filtration Rate 84, BUN/Creatinine Ratio 23, Glucose Level 176, Calcium Level 8.1, Corrected Calcium 8.6, Phosphorus Level 3.4, Magnesium Level 2.3, Total Bilirubin 0.3, Aspartate Amino Transf (AST/SGOT) 87, Alanine Aminotransferase (ALT/SGPT) 122, Alkaline Phosphatase 76, Total Protein 5.9, Albumin 3.4 05/19/22 06:05: Lactic Acid Level 2.22 05/19/22 06:15: Glucometer 149 05/19/22 06:23: Lactic Acid Level 4.48 05/19/22 11:02: Glucometer 117 05/19/22 17:55: Glucometer 135 05/20/22 00:38: Glucometer 126 05/20/22 04:44: Bedside Blood Gas pH (LAB) 7.394, Bedside Blood Gas pCO2 (LAB) 46.5, Bedside Blood Gas pO2 (LAB) 74, Bedside Blood Gas HCO3 (LAB) 28.4, POC Blood Gas Total CO2 Calc 30, Bedside Bl Gas O2 Saturation (Calc) 94, Bedside Arterial Blood Base Excess 3 05/20/22 04:53: White Blood Count 9.3, Red Blood Count 3.34, Hemoglobin 10.7, Hematocrit 33, Mean Corpuscular Volume 100, Mean Corpuscular Hemoglobin 32, Mean Corpuscular Hemoglobin Concent 32, Red Cell Distribution Width 13.6, Platelet Count 244, Mean Platelet Volume 9.2, Immature Granulocyte % (Auto) 1, Neutrophils (%) (Auto) 81, Lymphocytes (%) (Auto) 10, Monocytes (%) (Auto) 9, Eosinophils (%) (Auto) 0, Basophils (%) (Auto) 0, Neutrophils # (Auto) 7.5, Lymphocytes # (Auto) 0.9, Monocytes # (Auto) 0.8, Eosinophils # (Auto) 0.0, Basophils # (Auto) 0.0, Immature Granulocyte # (Auto) 0.1, Sodium Level 142, Potassium Level 4.0, Chloride Level 107, Carbon Dioxide Level 24, Anion Gap 11, Blood Urea Nitrogen 24, Creatinine 0.90, Estimat Glomerular Filtration Rate 71, BUN/Creatinine Ratio 27, Glucose Level 127, Calcium Level 8.4, Corrected Calcium 9.2, Phosphorus Level 4.1, Magnesium Level 2.2, Total Bilirubin 0.4, Aspartate Amino Transf (AST/SGOT) 56, Alanine Aminotransferase (ALT/SGPT) 122, Alkaline Phosphatase 64, Total Protein 5.2, Albumin 3.0 05/20/22 06:13: Glucometer 131 05/20/22 12:10: Glucometer 109 05/20/22 19:46: Glucometer 105 05/20/22 23:38: Glucometer 100 05/21/22 04:32: Blood Gas Puncture Site RR, Blood Gas Patient Temperature 36.5, Arterial Blood pH 7.34, Arterial Blood Partial Pressure CO2 47, Arterial Blood Partial Pressure O2 73, Arterial Blood HCO3 25, Arterial Blood Total CO2 26.5, Arterial Blood Oxygen Saturation 95, Arterial Blood Base Excess -0.1, Abdirahman Test YES-POS, Blood Gas Ventilator Setting YES, Blood Gas Inspired Oxygen 25% 05/21/22 04:45: White Blood Count 7.1, Red Blood Count 3.38, Hemoglobin 10.8, Hematocrit 34, Mean Corpuscular Volume 100, Mean Corpuscular Hemoglobin 32, Mean Corpuscular Hemoglobin Concent 32, Red Cell Distribution Width 14.2, Platelet Count 233, Mean Platelet Volume 9.1, Immature Granulocyte % (Auto) 2, Neutrophils (%) (Auto) 60, Lymphocytes (%) (Auto) 25, Monocytes (%) (Auto) 12, Eosinophils (%) (Auto) 1, Basophils (%) (Auto) 0, Neutrophils # (Auto) 4.3, Lymphocytes # (Auto) 1.8, Monocytes # (Auto) 0.9, Eosinophils # (Auto) 0.1, Basophils # (Auto) 0.0, Immature Granulocyte # (Auto) 0.1, Sodium Level 141, Potassium Level 4.3, Chloride Level 112, Carbon Dioxide Level 22, Anion Gap 7, Blood Urea Nitrogen 21, Creatinine 0.76, Estimat Glomerular Filtration Rate 86, BUN/Creatinine Ratio 28, Glucose Level 98, Calcium Level 7.9, Corrected Calcium 8.9, Phosphorus Level 4.2, Magnesium Level 2.5, Total Bilirubin 0.4, Aspartate Amino Transf (AST/SGOT) 51, Alanine Aminotransferase (ALT/SGPT) 142, Alkaline Phosphatase 59, Total Protein 4.9, Albumin 2.8 05/21/22 12:56: Glucometer 93 05/21/22 18:17: Glucometer 101 05/21/22 23:03: Glucometer 98 05/22/22 04:51: Bedside Blood Gas pH (LAB) 7.529, Bedside Blood Gas pCO2 (LAB) 28.9, Bedside Blood Gas pO2 (LAB) 146, Bedside Blood Gas HCO3 (LAB) 24.1, POC Blood Gas Total CO2 Calc 25, Bedside Bl Gas O2 Saturation (Calc) 100, Bedside Arterial Blood Base Excess 1 05/22/22 05:10: White Blood Count 6.5, Red Blood Count 3.54, Hemoglobin 11.4, Hematocrit 35, Mean Corpuscular Volume 99, Mean Corpuscular Hemoglobin 32, Mean Corpuscular Hemoglobin Concent 32, Red Cell Distribution Width 14.0, Platelet Count 207, Mean Platelet Volume 8.8, Immature Granulocyte % (Auto) 1, Neutrophils (%) (Auto) 58, Lymphocytes (%) (Auto) 27, Monocytes (%) (Auto) 9, Eosinophils (%) (Auto) 5, Basophils (%) (Auto) 0, Neutrophils # (Auto) 3.7, Lymphocytes # (Auto) 1.8, Monocytes # (Auto) 0.6, Eosinophils # (Auto) 0.3, Basophils # (Auto) 0.0, Immature Granulocyte # (Auto) 0.1, Sodium Level 145, Potassium Level 3.8, Chloride Level 114, Carbon Dioxide Level 23, Anion Gap 8, Blood Urea Nitrogen 14, Creatinine 0.68, Estimat Glomerular Filtration Rate 96, BUN/Creatinine Ratio 21, Glucose Level 102, Calcium Level 7.9, Corrected Calcium 9.0, Phosphorus Level 3.8, Magnesium Level 2.2, Total Bilirubin 0.4, Aspartate Amino Transf (AST/SGOT) 48, Alanine Aminotransferase (ALT/SGPT) 133, Alkaline Phosphatase 69, Total Protein 4.6, Albumin 2.6 05/22/22 13:30: Glucometer 52 05/22/22 13:35: Glucometer 63 05/22/22 14:34: Glucometer 48 05/22/22 16:20: Glucometer 93 05/22/22 17:48: Glucometer 82 05/22/22 19:42: Glucometer 90 05/23/22 00:03: Glucometer 95 05/23/22 04:00: Blood Gas Puncture Site LT RADIAL, Blood Gas Patient Temperature 36.8, Arterial Blood pH 7.38, Arterial Blood Partial Pressure CO2 42, Arterial Blood Partial Pressure O2 61, Arterial Blood HCO3 24, Arterial Blood Total CO2 25.4, Arterial Blood Oxygen Saturation 92, Arterial Blood Base Excess -0.4, Abdirahman Test YES-POS, Blood Gas Ventilator Setting YES, Blood Gas Inspired Oxygen 21% 05/23/22 04:40: White Blood Count 7.4, Red Blood Count 3.53, Hemoglobin 11.0, Hematocrit 35, Mean Corpuscular Volume 100, Mean Corpuscular Hemoglobin 31, Mean Corpuscular Hemoglobin Concent 31, Red Cell Distribution Width 14.4, Platelet Count 206, Mean Platelet Volume 9.1, Immature Granulocyte % (Auto) 1, Neutrophils (%) (Auto) 59, Lymphocytes (%) (Auto) 25, Monocytes (%) (Auto) 10, Eosinophils (%) (Auto) 5, Basophils (%) (Auto) 0, Neutrophils # (Auto) 4.4, Lymphocytes # (Auto) 1.8, Monocytes # (Auto) 0.7, Eosinophils # (Auto) 0.4, Basophils # (Auto) 0.0, Immature Granulocyte # (Auto) 0.1, Sodium Level 141, Potassium Level 4.1, Chloride Level 112, Carbon Dioxide Level 22, Anion Gap 7, Blood Urea Nitrogen 12, Creatinine 0.72, Estimat Glomerular Filtration Rate 92, BUN/Creatinine Ratio 17, Glucose Level 103, Calcium Level 7.9, Corrected Calcium 9.2, Phosphorus Level 3.6, Magnesium Level 2.2, Total Bilirubin 0.5, Aspartate Amino Transf (AST/SGOT) 26, Alanine Aminotransferase (ALT/SGPT) 88, Alkaline Phosphatase 63, Total Protein 4.7, Albumin 2.4 05/23/22 11:34: Glucometer 91 05/23/22 18:09: Glucometer 106 05/23/22 23:25: Glucometer 82 05/24/22 04:15: Blood Gas Puncture Site RIGHT RADIAL, Blood Gas Patient Temperature 36.4, Arterial Blood pH 7.40, Arterial Blood Partial Pressure CO2 39, Arterial Blood Partial Pressure O2 70, Arterial Blood HCO3 24, Arterial Blood Total CO2 25.2, Arterial Blood Oxygen Saturation 97, Arterial Blood Base Excess -0.3, Abdirahman Test YES-POS, Blood Gas Ventilator Setting YES, Blood Gas Inspired Oxygen 30% 05/24/22 04:16: White Blood Count 8.0, Red Blood Count 3.06, Hemoglobin 9.8, Hematocrit 30, Mean Corpuscular Volume 97, Mean Corpuscular Hemoglobin 32, Mean Corpuscular Hemoglobin Concent 33, Red Cell Distribution Width 13.7, Platelet Count 188, Mean Platelet Volume 9.4, Immature Granulocyte % (Auto) 1, Neutrophils (%) (Auto) 75, Lymphocytes (%) (Auto) 12, Monocytes (%) (Auto) 10, Eosinophils (%) (Auto) 2, Basophils (%) (Auto) 0, Neutrophils # (Auto) 6.0, Lymphocytes # (Auto) 1.0, Monocytes # (Auto) 0.8, Eosinophils # (Auto) 0.2, Basophils # (Auto) 0.0, Immature Granulocyte # (Auto) 0.1, Sodium Level 138, Potassium Level 4.1, Chloride Level 110, Carbon Dioxide Level 22, Anion Gap 6, Blood Urea Nitrogen 14, Creatinine 0.61, Estimat Glomerular Filtration Rate 99, BUN/Creatinine Ratio 23, Glucose Level 116, Calcium Level 8.0, Corrected Calcium 9.4, Phosphorus Level 3.3, Magnesium Level 2.1, Total Bilirubin 0.6, Aspartate Amino Transf (AST/SGOT) 23, Alanine Aminotransferase (ALT/SGPT) 59, Alkaline Phosphatase 60, Total Protein 4.5, Albumin 2.3, Procalcitonin 0.79 05/24/22 11:42: Glucometer 137 05/24/22 17:59: Glucometer 132 05/25/22 04:19: White Blood Count 8.6, Red Blood Count 3.02, Hemoglobin 9.7, Hematocrit 30, Mean Corpuscular Volume 100, Mean Corpuscular Hemoglobin 32, Mean Corpuscular Hemoglobin Concent 32, Red Cell Distribution Width 13.5, Platelet Count 190, Mean Platelet Volume 9.1, Immature Granulocyte % (Auto) 1, Neutrophils (%) (Auto) 64, Lymphocytes (%) (Auto) 15, Monocytes (%) (Auto) 17, Eosinophils (%) (Auto) 3, Basophils (%) (Auto) 0, Neutrophils # (Auto) 5.4, Lymphocytes # (Auto) 1.3, Monocytes # (Auto) 1.5, Eosinophils # (Auto) 0.3, Basophils # (Auto) 0.0, Immature Granulocyte # (Auto) 0.1, Sodium Level 141, Potassium Level 3.8, Chloride Level 108, Carbon Dioxide Level 25, Anion Gap 8, Blood Urea Nitrogen 14, Creatinine 0.68, Estimat Glomerular Filtration Rate 96, BUN/Creatinine Ratio 21, Glucose Level 105, Calcium Level 8.3, Corrected Calcium 9.5, Phosphorus Level 2.9, Magnesium Level 2.1, Total Bilirubin 0.6, Aspartate Amino Transf (AST/SGOT) 26, Alanine Aminotransferase (ALT/SGPT) 54, Alkaline Phosphatase 55, Total Protein 5.4, Albumin 2.5 05/25/22 11:51: Glucometer 98 05/25/22 18:17: Glucometer 102 05/25/22 21:00: Blood Gas Puncture Site RIGHT RADIAL, Blood Gas Patient Temperature 37.8, Arterial Blood pH 7.30, Arterial Blood Partial Pressure CO2 59, Arterial Blood Partial Pressure O2 64, Arterial Blood HCO3 28, Arterial Blood Total CO2 29.8, Arterial Blood Oxygen Saturation 89, Arterial Blood Base Excess 2.4, Abdirahman Test YES-POS, Blood Gas Ventilator Setting YES, Blood Gas Inspired Oxygen 25% 05/25/22 21:15: Glucometer 136 05/25/22 23:50: Blood Gas Puncture Site LEFT RADIAL, Blood Gas Patient Temperature 36.7, Arterial Blood pH 7.39, Arterial Blood Partial Pressure CO2 45, Arterial Blood Partial Pressure O2 82, Arterial Blood HCO3 27, Arterial Blood Total CO2 28.1, Arterial Blood Oxygen Saturation 97, Arterial Blood Base Excess 2.1, Abdirahman Test YES-POS, Blood Gas Ventilator Setting YES, Blood Gas Inspired Oxygen 25% 05/26/22 00:09: Glucometer 103 05/26/22 04:45: White Blood Count 11.3, Red Blood Count 2.76, Hemoglobin 8.9, Hematocrit 27, Mean Corpuscular Volume 97, Mean Corpuscular Hemoglobin 32, Mean Corpuscular Hemoglobin Concent 33, Red Cell Distribution Width 13.1, Platelet Count 218, Mean Platelet Volume 9.2, Immature Granulocyte % (Auto) 0, Neutrophils (%) (Auto) 79, Lymphocytes (%) (Auto) 11, Monocytes (%) (Auto) 9, Eosinophils (%) (Auto) 0, Basophils (%) (Auto) 0, Neutrophils # (Auto) 8.9, Lymphocytes # (Auto) 1.3, Monocytes # (Auto) 1.0, Eosinophils # (Auto) 0.0, Basophils # (Auto) 0.0, Immature Granulocyte # (Auto) 0.0, Sodium Level 140, Potassium Level 3.6, Chloride Level 107, Carbon Dioxide Level 23, Anion Gap 10, Blood Urea Nitrogen 13, Creatinine 0.58, Estimat Glomerular Filtration Rate 100, BUN/Creatinine Ratio 22, Glucose Level 109, Calcium Level 8.3, Corrected Calcium 9.4, Phosphorus Level 2.6, Magnesium Level 1.9, Total Bilirubin 0.4, Aspartate Amino Transf (AST/SGOT) 23, Alanine Aminotransferase (ALT/SGPT) 42, Alkaline Phosphatase 57, Total Protein 5.1, Albumin 2.6 05/26/22 09:15: Blood Gas Puncture Site RT RADIAL, Blood Gas Patient Temperature 36.0, Arterial Blood pH 7.39, Arterial Blood Partial Pressure CO2 45, Arterial Blood Partial Pressure O2 58, Arterial Blood HCO3 27, Arterial Blood Total CO2 28.7, Arterial Blood Oxygen Saturation 93, Arterial Blood Base Excess 2.6, Abdirahman Test YES-POS, Blood Gas Ventilator Setting NO, Blood Gas Inspired Oxygen 30% 05/26/22 11:19: Glucometer 88 05/26/22 18:14: Glucometer 110 05/27/22 01:04: Glucometer 105 05/27/22 05:25: White Blood Count 5.2, Red Blood Count 2.53, Hemoglobin 8.0, Hematocrit 25, Mean Corpuscular Volume 98, Mean Corpuscular Hemoglobin 32, Mean Corpuscular Hemoglobin Concent 32, Red Cell Distribution Width 13.0, Platelet Count 241, Mean Platelet Volume 9.2, Immature Granulocyte % (Auto) 0, Neutrophils (%) (Auto) 53, Lymphocytes (%) (Auto) 25, Monocytes (%) (Auto) 17, Eosinophils (%) (Auto) 4, Basophils (%) (Auto) 0, Neutrophils # (Auto) 2.7, Lymphocytes # (Auto) 1.3, Monocytes # (Auto) 0.9, Eosinophils # (Auto) 0.2, Basophils # (Auto) 0.0, Immature Granulocyte # (Auto) 0.0, Sodium Level 142, Potassium Level 3.6, Chloride Level 109, Carbon Dioxide Level 25, Anion Gap 8, Blood Urea Nitrogen 10, Creatinine 0.59, Estimat Glomerular Filtration Rate 99, BUN/Creatinine Ratio 17, Glucose Level 99, Calcium Level 8.0, Corrected Calcium 9.4, Phosphorus Level 2.5, Magnesium Level 1.9, Total Bilirubin 0.4, Aspartate Amino Transf (AST/SGOT) 26, Alanine Aminotransferase (ALT/SGPT) 32, Alkaline Phosphatase 43, Total Protein 4.8, Albumin 2.3 05/27/22 11:08: Glucometer 106 05/27/22 15:18: Bedside Blood Gas pH (LAB) 7.513, Bedside Blood Gas pCO2 (LAB) 37.5, Bedside Blood Gas pO2 (LAB) 79, Bedside Blood Gas HCO3 (LAB) 30.1, POC Blood Gas Total CO2 Calc 31, Bedside Bl Gas O2 Saturation (Calc) 97, Bedside Arterial Blood Base Excess 7 05/27/22 18:17: Glucometer 120 05/27/22 23:18: Glucometer 104 05/28/22 04:30: White Blood Count 5.8, Red Blood Count 2.68, Hemoglobin 8.6, Hematocrit 26, Mean Corpuscular Volume 98, Mean Corpuscular Hemoglobin 32, Mean Corpuscular He moglobin Concent 33, Red Cell Distribution Width 13.2, Platelet Count 249, Mean Platelet Volume 8.7, Immature Granulocyte % (Auto) 1, Neutrophils (%) (Auto) 60, Lymphocytes (%) (Auto) 20, Monocytes (%) (Auto) 17, Eosinophils (%) (Auto) 2, Basophils (%) (Auto) 0, Neutrophils # (Auto) 3.5, Lymphocytes # (Auto) 1.2, Monocytes # (Auto) 1.0, Eosinophils # (Auto) 0.1, Basophils # (Auto) 0.0, Immature Granulocyte # (Auto) 0.0, Sodium Level 144, Potassium Level 3.0, Chloride Level 106, Carbon Dioxide Level 27, Anion Gap 11, Blood Urea Nitrogen 10, Creatinine 0.63, Estimat Glomerular Filtration Rate 98, BUN/Creatinine Ratio 16, Glucose Level 113, Calcium Level 8.6, Corrected Calcium 9.7, Phosphorus Level 2.9, Magnesium Level 1.8, Total Bilirubin 0.6, Aspartate Amino Transf (AST/SGOT) 20, Alanine Aminotransferase (ALT/SGPT) 33, Alkaline Phosphatase 53, Total Protein 5.3, Albumin 2.6 05/28/22 05:26: Glucometer 169 05/28/22 11:40: Glucometer 116 05/28/22 17:46: Glucometer 152 05/28/22 20:28: Glucometer 150 05/28/22 20:45: Potassium Level 2.8 05/29/22 04:05: Potassium Level 3.6, White Blood Count 8.8, Red Blood Count 2.69, Hemoglobin 8.7, Hematocrit 26, Mean Corpuscular Volume 98, Mean Corpuscular Hemoglobin 32, Mean Corpuscular Hemoglobin Concent 33, Red Cell Distribution Width 13.6, Platelet Count 290, Mean Platelet Volume 8.7, Immature Granulocyte % (Auto) 1, Neutrophils (%) (Auto) 69, Lymphocytes (%) (Auto) 16, Monocytes (%) (Auto) 14, Eosinophils (%) (Auto) 1, Basophils (%) (Auto) 0, Neutrophils # (Auto) 6.0, Lymphocytes # (Auto) 1.4, Monocytes # (Auto) 1.2, Eosinophils # (Auto) 0.1, Basophils # (Auto) 0.0, Immature Granulocyte # (Auto) 0.0, Sodium Level 144, Chloride Level 107, Carbon Dioxide Level 27, Anion Gap 10, Blood Urea Nitrogen 10, Creatinine 0.60, Estimat Glomerular Filtration Rate 99, BUN/Creatinine Ratio 17, Glucose Level 106, Calcium Level 8.8, Corrected Calcium 9.7, Phosphorus Level 1.9, Magnesium Level 1.7, Iron Level 46, Total Iron Binding Capacity 173, Unsaturated Iron Binding Capacity 127, Transferrin % Saturation 27, Ferritin 163.9, Total Bilirubin 0.8, Aspartate Amino Transf (AST/SGOT) 27, Alanine Aminotransferase (ALT/SGPT) 37, Alkaline Phosphatase 58, Total Protein 5.6, Albumin 2.9, Folate 8.8 05/29/22 11:03: Glucometer 95 05/29/22 15:32: Glucometer 110 05/30/22 04:20: White Blood Count 7.4, Red Blood Count 2.49, Hemoglobin 8.0, Hematocrit 25, Mean Corpuscular Volume 99, Mean Corpuscular Hemoglobin 32, Mean Corpuscular Hemoglobin Concent 33, Red Cell Distribution Width 13.9, Platelet Count 297, Mean Platelet Volume 8.7, Immature Granulocyte % (Auto) 0, Neutrophils (%) (Auto) 64, Lymphocytes (%) (Auto) 21, Monocytes (%) (Auto) 11, Eosinophils (%) (Auto) 3, Basophils (%) (Auto) 0, Neutrophils # (Auto) 4.7, Lymphocytes # (Auto) 1.6, Monocytes # (Auto) 0.8, Eosinophils # (Auto) 0.2, Basophils # (Auto) 0.0, Immature Granulocyte # (Auto) 0.0, Sodium Level 142, Potassium Level 3.0, Chloride Level 103, Carbon Dioxide Level 28, Anion Gap 11, Blood Urea Nitrogen 8, Creatinine 0.61, Estimat Glomerular Filtration Rate 99, BUN/Creatinine Ratio 13, Glucose Level 108, Calcium Level 8.1, Corrected Calcium 9.1, Phosphorus Level 2.6, Magnesium Level 2.1, Total Bilirubin 1.2, Aspartate Amino Transf (AST/SGOT) 24, Alanine Aminotransferase (ALT/SGPT) 28, Alkaline Phosphatase 50, Total Protein 5.0, Albumin 2.7 05/30/22 18:00: Sodium Level 140, Potassium Level 3.5, Chloride Level 103, Carbon Dioxide Level 29, Anion Gap 8, Blood Urea Nitrogen 8, Creatinine 0.61, Estimat Glomerular Filtration Rate 99, BUN/Creatinine Ratio 13, Glucose Level 101, Calcium Level 8.7 05/31/22 04:49: White Blood Count 7.3, Red Blood Count 2.53, Hemoglobin 8.1, Hematocrit 25, Mean Corpuscular Volume 99, Mean Corpuscular Hemoglobin 32, Mean Corpuscular Hemoglobin Concent 32, Red Cell Distribution Width 14.0, Platelet Count 310, Mean Platelet Volume 8.6, Immature Granulocyte % (Auto) 0, Neutrophils (%) (Auto) 63, Lymphocytes (%) (Auto) 23, Monocytes (%) (Auto) 10, Eosinophils (%) (Auto) 3, Basophils (%) (Auto) 0, Neutrophils # (Auto) 4.6, Lymphocytes # (Auto) 1.7, Monocytes # (Auto) 0.8, Eosinophils # (Auto) 0.2, Basophils # (Auto) 0.0, Immature Granulocyte # (Auto) 0.0, Sodium Level 142, Potassium Level 2.8, Chloride Level 103, Carbon Dioxide Level 29, Anion Gap 10, Blood Urea Nitrogen 6, Creatinine 0.62, Estimat Glomerular Filtration Rate 98, BUN/Creatinine Ratio 10, Glucose Level 117, Calcium Level 8.3, Corrected Calcium 9.2, Total Bilirubin 1.1, Aspartate Amino Transf (AST/SGOT) 23, Alanine Aminotransferase (ALT/SGPT) 27, Alkaline Phosphatase 51, Total Protein 5.4, Albumin 2.9 05/31/22 14:27: Potassium Level 4.0 Discharge Home Medications: Active Scripts Active Oxyir Tablet (Oxycodone HCl) 5 Mg Tab 5 Mg PO Q4H PRN Lisinopril 10 Mg Tablet 20 Mg PO DAILY Reported Aspirin 81 Mg Tab.chew 81 Mg PO DAILY Nitroglycerin 0.4 Mg Tab.subl 0.4 Mg SL UD PRN Potassium Chloride 20 Meq Tab.er.prt 20 Meq PO BID Clopidogrel (Clopidogrel Bisulfate) 75 Mg Tablet 75 Mg PO DAILY Cyclobenzaprine HCl 10 Mg Tablet 10 Mg PO Q8H PRN Iprat-Albut 0.5-3(2.5) mg/3 ml (Ipratropium/Albuterol Sulfate) 0.5 Mg-3 Mg (2.5 Mg Base)/3 Ml Ampul.neb 3 Ml NEB Q6H PRN Buspirone HCl 15 Mg Tablet 15 Mg PO BID Hydroxyzine HCl 25 Mg Tablet 25 Mg PO TID PRN Ventolin Hfa (Albuterol Sulfate) 90 Mcg Hfa.aer.ad 2 Puff INH Q6H PRN Incruse Ellipta (Umeclidinium [place]) 62.5 Mcg/Actuation Blst.w.dev 1 Puff INH DAILY Breo Ellipta 100-25 Mcg INH (Fluticasone/Vilanterol) 100 Mcg-25 Mcg/Dose Blst.w.dev 1 Puff INH DAILY Pantoprazole Sodium 40 Mg Tablet.dr 40 Mg PO DAILY Amlodipine Besylate 10 Mg Tablet 10 Mg PO DAILY Instructions to patient/family Please see electronic discharge instructions given to patient. VICKI WATERS DO May 31, 2022 17:27
== END 2022-05-31 17:10 | DRG 207 ==
LOC: EDUNIT# 23:32 → ER 23:39 → ICU 05-19 00:40 → 4TH 05-29 14:00
PROVIDERS: ADMIT Internal Medicine; ATTEND Internal Medicine
PROC: 5A1955Z Respiratory Ventilation, Greater than 96 Consecutive Hours (ICD-10-PCS; principal; 2022-05-19)
PROC: 0BH17EZ Insertion of Endotracheal Airway into Trachea, Via Natural or Artificial Opening (ICD-10-PCS; 2022-05-19)
PROC: 5A09457 Assistance with Respiratory Ventilation, 24-96 Consecutive Hours, Continuous Positive Airway Pressure (ICD-10-PCS; 2022-05-24)
DX: J96.21 Acute and chronic respiratory failure with hypoxia (principal); J44.1 Chronic obstructive pulmonary disease with (acute) exacerbation; E87.20 Acidosis, unspecified; G93.40 Encephalopathy, unspecified; J96.22 Acute and chronic respiratory failure with hypercapnia; I10 Essential (primary) hypertension; F14.90 Cocaine use, unspecified, uncomplicated; F12.90 Cannabis use, unspecified, uncomplicated; Z20.822 Contact with and (suspected) exposure to COVID-19; I25.10 Atherosclerotic heart disease of native coronary artery without angina pectoris; E78.00 Pure hypercholesterolemia, unspecified; K21.9 Gastro-esophageal reflux disease without esophagitis; M81.0 Age-related osteoporosis without current pathological fracture; F41.9 Anxiety disorder, unspecified; F32.A Depression, unspecified; Z87.891 Personal history of nicotine dependence; Z79.82 Long term (current) use of aspirin; Z79.899 Other long term (current) drug therapy; Z99.81 Dependence on supplemental oxygen; D64.9 Anemia, unspecified; F19.10 Other psychoactive substance abuse, uncomplicated; M19.90 Unspecified osteoarthritis, unspecified site; E16.2 Hypoglycemia, unspecified; R13.10 Dysphagia, unspecified; R53.81 Other malaise
CPT/HCPCS: 31500; 36410; 36415; 51702; 70450; 71045; 73502; 76937; 80048; 80053; 80306; 80320; 81000; 82550; 82553; 82728; 82746; 82805; 82947; 83540; 83550; 83605; 83735; 83874; 83880; 84100; 84132; 84145; 84484; 85007; 85025; 85027; 85379; 85610; 85652; 85730; 86141; 87040; 87070; 87081; 87088; 87205; 87636; 93005; 93041; 94002; 94003; 94640; 94660; 94664; 94760; 94761; 94799; 96365; 96375; 99291

== ENCOUNTER 2022-05-31 16:39 | Inpatient (IN) | payer MEDICARE ==
[~2022-05-31] VITALS: Ht 165.1 cm; Wt 63.5 kg
[~2022-05-31 16:39] MED LIST changes: +ASPI-999 PO; +NITR0.4T39 SL; +OXC5T PO; +POTA-179 PO
[2022-05-31 17:25] VITALS: BP 179/81
--- NOTE | 2022-05-31 17:26 | PM&R Post Admission Assessment ---
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 Patient has a history of continued smoking with oxygen dependent COPD other illicit drug use including cocaine. Patient was intubated for 10 days and ultimately was extubated maintained on BiPAP for several more days and ultimately improved to nasal cannula oxygen as she takes at home. She is reporting her bowels are moving and she is eating and drinking well but still very weak. Prior level of functioning was use of a walker with oxygen. Past [id number] Hx Past Med/Social Hx: Reviewed Nursing Past Med/Soc Hx, Reviewed and Corrections made Patient Social History Marrital Status: single Employed/Student: retired Alcohol Beverage of Choice: Wine Drug of Choice: marijuana Smoking Status: Current Everyday Smoker Former Smoker, Quit: Oct 02, 2017 Type Used: Cigarettes Recent Hopitalizations: No Seasonal Allergies Seasonal Allergies: No Past Medical History Surgeries: Cardiac, Section, Orthopedic, Tonsillectomy, Tubal Ligation Patient states she has had an IUD in the past and D and C done. Respiratory: COPD Currently Using CPAP: No Currently Using BIPAP: No Cardiac: Coronary Artery Disease, High Cholesterol, Hypertension Sexually Transmitted Disease: No HIV/AIDS: No Female Reproductive Disorders: Denies IUD, Tubal Ligation, Menopausal Genitourinary: Kidney Infection Gastrointestinal: Gastroesophageal Reflux Musculoskeletal: Osteoporosis, Arthritis HEENT: Dysphagia Hearing Impairment: Hard of Hearing Inhaled Nose ring, pt feel in back of throat Psychosocial: Anxiety, Depression Skin/Integumentary: Eczema History of Blood Disorders: Yes (had blood transfusion - 1972) Adverse Reaction to Blood Nickerson: No Family History Cardiovascular disease Diabetes mellitus Heart Disease, Diabetes, Hypertension Mother when she was 42 patient states she had a heart issue and also states it seems to run on her moms side of the family. Father when he was in his 70's and the reason is unknown. Patient has 4 kids and over 16 grandkids and 30 great grandkids. SOCIAL HISTORY: -SMOKED 1 PPD, QUIT -ETOH--HISTORY OF ABUSE/HEAVY USE -DRUGS--THC, COCAINE SOCIAL HISTORY: -SMOKES -ETOH--HEAVY/REGULAR USE -DRUGS--UDS POSITIVE FOR COCAINE, THC, TRICYCLICS ON 05/19/22 PM&R Allergy/Meds/Data Review Allergies Coded Allergies: No Known Drug Allergies (Unverified , 11/03/17) Home Medications Scheduled Amlodipine Besylate (Amlodipine Besylate), 10 MG PO DAILY, (Reported) Aspirin (Aspirin), 81 MG PO DAILY, (Reported) Buspirone HCl (Buspirone HCl), 15 MG PO BID, (Reported) Clopidogrel Bisulfate (Clopidogrel), 75 MG PO DAILY, (Reported) Fluticasone/Vilanterol (Breo Ellipta 100-25 Mcg INH), 1 PUFF INH DAILY, (Reported) Lisinopril (Lisinopril), 20 MG PO DAILY Pantoprazole Sodium (Pantoprazole Sodium), 40 MG PO DAILY, (Reported) Potassium Chloride (Potassium Chloride), 20 MEQ PO BID, (Reported) Umeclidinium Thorndike (Incruse Ellipta), 1 PUFF INH DAILY, (Reported) Scheduled PRN Albuterol Sulfate (Ventolin Hfa), 2 PUFF INH Q6H PRN for SHORTNESS OF BREATH, (Reported) Cyclobenzaprine HCl (Cyclobenzaprine HCl), 10 MG PO Q8H PRN for MUSCLE SPASMS, (Reported) Hydroxyzine HCl (Hydroxyzine HCl), 25 MG PO TID PRN for ANXIETY, (Reported) Ipratropium/Albuterol Sulfate (Iprat-Albut 0.5-3(2.5) mg/3 ml), 3 ML NEB Q6H PRN for SHORTNESS OF BREATH, (Reported) Nitroglycerin (Nitroglycerin), 0.4 MG SL UD PRN for CHEST PAIN, (Reported) Oxycodone Hcl (Oxyir Tablet), 5 MG PO Q4H PRN for PAIN-SEVERE (8-10) Current Medications Current Medications Reviewed Review of Systems Constitutional: see HPI, malaise, weakness EENTM: no symptoms reported Respiratory: dyspnea on exertion, short of breath Cardiovascular: no symptoms reported Gastrointestinal: no symptoms reported Genitourinary: no symptoms reported Musculoskeletal: no symptoms reported Skin: no symptoms reported Psychiatric/Neurological: Anxiety All Other Systems Reviewed Negative Unless Noted: Yes Physical Exam Physical Exam Vital Signs Capillary Refill : Height, Weight, BMI Height: 5'5.00" Weight: 136lbs. 1.0oz. [id number]; 25.03 BMI Method:Stated General Appearance: No Apparent Distress, WD/WN, Chronically ill Eyes: Bilateral Eye Normal Inspection, Bilateral Eye PERRL HEENT: PERRL/EOMI, Normal ENT Inspection, Pharynx Normal Neck: Full Range of Motion, Normal Inspection, Non Tender, Supple, Carotid Bruit Respiratory: Chest Non Tender, No Accessory Muscle Use, No Respiratory Distress, Decreased Breath Sounds Cardiovascular: Regular Rate, Rhythm, No Edema, No Gallop, No JVD, No Murmur, Normal Peripheral Pulses Gastrointestinal: Normal Bowel Sounds, No Organomegaly, No Pulsatile Mass, Non Tender, Soft Back: Normal Inspection, No CVA Tenderness, No Vertebral Tenderness Extremity: Normal Capillary Refill, Normal Inspection, Normal Range of Motion, Non Tender, No Calf Tenderness, No Pedal Edema Neurologic/Psychiatric: Alert, Oriented x3, Normal Mood/Affect, Abnormal Gait, Motor Weakness (Generalized legs 3/5 strength) Skin: Normal Color, Warm/Dry Lymphatic: No Adenopathy PM&R Medical Assessment & Plan REHAB/MEDICAL ASSESSMENT AND PLAN: REHAB IMPAIRMENT GROUP: COPD myopathy ETIOLOGIC DIAGNOSIS: COPD myopathy The comorbidities that impact the patients function and/or functional outcome by: Severe COPD at baseline, illicit drug use history, hypertension [id number] REHAB PLAN: The patient is being admitted to our comprehensive inpatient rehabilitation facility and can tolerate the intensity of service consisting of at least: 180 minutes of therapy a day, 5 out of 7 days a week Rehab treatment will consist of: PT and OT will focus on increasing stamina with ambulation with the use of assistive devices and work on increasing independence in ADLs The patient/family has a good understanding of our discharge process and will benefit from an interdisciplinary inpatient rehabilitation program. The patient has potential to make improvement and is in need of at least two of the following multidisciplinary therapies including but not limited to physical, occupational, speech, and prosthetics and orthotics. Additionally the patient will need services from respiratory, nutritional services, wound care, psychology, etc. (Customize this to each patient). Given the patients complex condition and risk of further medical complications, rehabilitation services cannot be safely or effectively provided at a lower level of care such as a alf facility. BARRIERS TO DISCHARGE: Severe COPD ESTIMATED LOS: 7 days DISPOSITION: Home RELEVANT CHANGES SINCE PREADMISSION SCREENING: I have compared the patients medical and functional status at the time of the preadmission screening and there are: No changes PROGNOSIS: Fair REHABILITATION GOALS: 1. PT and OT will focus on increasing stamina with ambulation with the use of assistive devices and work on increasing independence in ADLs All the above goals were reviewed with the patient and he/she is in agreement. By signing this document, I acknowledge that I have personally performed a full physical examination on this patient within 24 hours of admission to this inpatient rehabilitation facility and have determined the patient to be able to tolerate the above course of treatment at an intensive level for a reasonable period of time. I will be completing a detailed individualized Plan of Care for this patient by day #4 of the patients stay based upon the Preadmission Screen, the Post-Admission Evaluation, and the therapy evaluations. Admission Dx/Comorbidities: (1) Myopathy ICD Codes: G72.9 - Myopathy, unspecified (2) COPD exacerbation Status: Acute ICD Codes: J44.1 - Chronic obstructive pulmonary disease with (acute) exacerbation (3) Physical debility Status: Acute ICD Codes: R53.81 - Other malaise (4) Encephalopathy acute Status: Resolved ICD Codes: G93.40 - Encephalopathy, unspecified (5) Cocaine use Status: Chronic ICD Codes: F14.90 - Cocaine use, unspecified, uncomplicated (6) Polysubstance abuse Status: Chronic ICD Codes: F19.10 - Other psychoactive substance abuse, uncomplicated (7) HTN (hypertension) Status: Chronic ICD Codes: I10 - Essential (primary) hypertension (8) Normocytic anemia Status: Acute ICD Codes: D64.9 - Anemia, unspecified (9) Anxiety Status: Acute ICD Codes: F41.9 - Anxiety disorder, unspecified (10) Marijuana use Status: Acute ICD Codes: F12.90 - Cannabis use, unspecified, uncomplicated (11) History of alcohol abuse Status: Acute ICD Codes: F10.11 - Alcohol abuse, in remission Assessment/Plan Assessment and Plan Assess & Plan/Chief Complaint Assessment: COPD myopathy Smoker Hypertension Anxiety Polysubstance abuse including marijuana and cocaine Alcoholism Encephalopathy Plan: Aggressive PT and OT Maintain oxygen Nebulizers Supportive care VICKI WATERS DO May 31, 2022 17:26
[2022-05-31] MEDS ORDERED: DOCUSATE SODIUM 100 MG (COLACE) CAP PO PRN (17:30)
[2022-05-31] MEDS ORDERED: LOPERAMIDE 2 MG (IMODIUM) TABLET PO PRN (17:30)
[2022-05-31] MEDS ORDERED: CALCIUM CARBONATE 500 MG (TUMS) TAB.CHEW PO PRN (17:30)
[2022-05-31] MEDS ORDERED: ACETAMINOPHEN 650 MG SUPP (TYLENOL) PR PRN (17:30)
[2022-05-31] MEDS ORDERED: ONDANSETRON 4 MG (ZOFRAN) ORAL DISSOLVE TAB PO PRN (17:30)
[2022-05-31] MEDS ORDERED: LACTULOSE SYRUP 10GM/15ML (ENULOSE) 30ML UDC PO PRN (17:30)
[2022-05-31] MEDS ORDERED: BISACODYL 10 MG SUPP (DULCOLAX) PR PRN (17:30)
[2022-05-31] MEDS ORDERED: guaiFENesin/CODEINE (ROBITUSSIN AC) 10ML UDC PO PRN (17:30)
[2022-05-31] MEDS ORDERED: ACETAMINOPHEN 500 MG TAB (TYLENOL) PO PRN (17:30)
[2022-05-31] MEDS ORDERED: diphenhydrAMINE 25 MG TAB (BENADRYL) PO PRN (17:30)
[2022-05-31] MEDS ORDERED: FLEET ENEMA ADULT 1 EA BTL PR PRN (17:30)
[2022-05-31] MEDS ORDERED: cloNIDine 0.1 MG (CATAPRES) TAB PO PRN (17:30)
[2022-05-31] MEDS ORDERED: ACETAMINOPHEN 325 MG TABLET PO PRN (17:30)
--- OUTSIDE RECORDS SUMMARY | 2022-05-31 17:40 | XMS REPORT | Continuity of Care Document ---
Author Author [facility] Organization [facility] Address [address] [place] [address] Phone Support Name Relationship Address Phone [employer] [address] [place] [address] Priyanka Morales [employer] [address] [place] [address] MD Fabian Lizarraga [employer]S [address] [place] [address] Health Concerns Health concerns may be documented in an alternate section Allergies, Adverse Reactions, Alerts No known allergies Social History Smoking Status Status Start Date End Da te Date of Observation Unknown if ever smoked April 13, 2022 8:46am Observation Status Observation Response Elder e of Response Smoking Status Former Smoker April 13, 2022 8:46am Tobacco Type Cigarettes April 13, 2022 8:46am Alcohol Use Unknown Apr 8:46am Illicit Drug Use No Apr 8:46am Additional Data Assigned Sex Female Travel History Date of Travel Location Problems Active Problems Medical Problem Onset Date Status Acute exacerbation of chronic obstructive airways dise ase Active Diarrhea Active Gastroenteritis Active Nausea & vomiting Acti ve Acute hypokalemia Acti ve Medications Medication Status Dose Units Route Directions Qty Days Start Date End Date Instructions Albuterol Sulfate Active 2.5 MG IH NEEDED February 25, 2021 12:00am Amlodipine Active 10 MG PO DAILY February 25, 2021 12:00am Albuterol Active 180 MCG IH NEEDED February 25, 2021 12:00am Omeprazole Magnesium (Prilosec Otc) 20 m g Tablet,Delayed Release (Dr/Ec) Active 20 MG PO DAILY February 25, 2021 12:00am Fluticasone Furoate-Vilanterol (Breo Ell ipta) 100-25 mcg/dose Blister With Device Active 1 INHALATION IH DAILY February 25, 2021 12:00am Incruse Ellipta Active 1 INHALATION IH DAILY February 25, 2021 12:00am 62.5 mcg, 1 inhalation daily Azithromycin Active 0 PO .COMPLEX February 25, 2021 12:00am take 500 mg today (day 1), then 250 mg f or 4 days (days 2-5) Prednisone Discontinued 60 MG PO DAILY 15 February 25, 2021 12:00am March 02, 2021 12:01am Ondansetron Hcl (Zofran) 4 mg tablet Activ e 4 MG PO Q8H July 24, 2021 1:00am Ondansetron Hcl (Zofran) 4 mg tablet Activ e 4 MG PO Q8H August 04, 2021 1 :00am Immunizations No immunization information available Medical Equipment No implantable device information available Procedures Procedure Date Performed Status Chest 1V April 13, 2022 8:41am completed Relevant Diagnostic Tests and/or Laboratory Data Laboratory Results Test Date/Time Result Interpretation Reference Range Result Comment Performing Site White Blood Count April 13 8:16am 7.5 K/uL 4.8-10.8 [facility] [address] [address] Red Blood Count April 13, 2022 8:16a m 4.29 M/uL 4.20-5.40 [facility] [address] [address] Hemoglobin April 13, 2022 8:16am 14.0 gm/dL 12.0-16.0 [facility] [address] [place] [address] Hematocrit April 13, 2022 8:16am 42.0 % 37.0-47.0 [facility] [address] [place] [address] Mean Corpuscular Volume April 132021 8:16am 97.9 fL 81.0-99.0 [facility] [address] [place] [address] Mean Corpuscular Hemoglobin Septembe r 2021 8:16am 32.6 pg 27.0-31.0 [facility] [address] [place] [address] Mean Corpuscular Hemoglobin Concent April 13, 2022 8:16am 33.3 g/dL 30.0- 37.0 [facility] [address] [place] [address] Red Cell Distribution Width Septembe r 2021 8:16am 13.3 % 11.5-14.5 [facility] [address] [place] [address] Platelet Count April 13, 2022 8:16am 357 K/uL 130-400 [facility] [address] [place] [address] Neutrophils (%) (Auto) April 8:16am 56.7 % 42.2-75.2 [facility] [address] [place] [address] Lymphocytes (%) (Auto) April 8:16am 32.3 % 20.5-51.1 [facility] [address] [place] [address] Monocytes (%) (Auto) April 13, 2022 8:16am 9.5 % 0.0-10.0 [facility] [address] [address] Eosinophils (%) (Auto) April 8:16am 0.8 % 0.0-3.0 [facility] [address] [address] Basophils (%) (Auto) April 13, 2022 8:16am 0.3 % 0.0-1.0 [facility] [address] [place] [address] Neutrophils # (Auto) April 13, 2022 8:16am 4.26 K/uL 2.0-6.9 [facility] [address] [address] Lymphocytes # (Auto) April 13, 2022 8:16am 2.42 K/uL 1.2-3.4 [facility] [address] [place] [address] Monocytes # (Auto) April 13 8:16am 0.71 K/uL 0.1-0.6 [facility] [address] [place] [address] Eosinophils # (Auto) April 13, 2022 8:16am 0.06 K/uL 0.0-0.7 [facility] [address] [address] Basophils # (Auto) April 13 8:16am 0.02 K/uL 0.0-0.20 [facility] [address] [address] Immature Granulocyte % (Auto) 2021 8:16am 0.4 % [facility] [address] [address] Immature Granulocyte # (Auto) 2021 8:16am 0.03 K/uL [facility] [address] [address] Sodium Level April 13, 2022 8:16am 146 mEq/L 136-145 [facility] [address] [address] Potassium Level April 13, 2022 8:16a m 2.7 mEq/L 3.5-5.0 PANIC VALUE - RESULTS CALLED TO [ANTHONY CHINO RN] AT [ER]Sofía James 04/13/22 0910READ BACK PERFORMED [facility] [address] [address] Chloride Level April 13, 2022 8:16am 105 mEq/L 98-107 [facility] [address] [address] Carbon Dioxide Level April 13, 2022 8:16am 35.1 mEq/L 21-32 [facility] [address] [address] Random Glucose April 13, 2022 8:16am 95 mg/dL 70-110 [facility] [address] [address] Blood Urea Nitrogen April 13, 2022 8:16am 20 mg/dL 7-18 [facility] [address] [address] Creatinine April 13, 2022 8:16am 1.0 mg/dL 0.6-1.0 [facility] [address] [address] Glomerular Filtration Rate Calc Sept emb2021 8:16am 67.1 mL/min <128.0 [facility] [address] [place] [address] Calcium Level April 13, 2022 8:16am 9.0 mg/dL 8.8-10.5 [facility] [address] [place] [address] Total Bilirubin April 13, 2022 8:16a m 0.54 mg/dL 0.00-1.00 [facility] [address] [place] [address] Aspartate Amino Transf (AST/SGOT) Se ptember 2021 8:16am 27 U/L 15-37 [facility] [address] [place] [address] Alanine Aminotransferase (ALT/SGPT) April 13, 2022 8:16am 40 U/L 12-78 [facility] [address] [address] Total Protein April 13, 2022 8:16am 7.1 gm/dL 6.4-8.2 [facility] [address] [address] Albumin April 13, 2022 8:16am 3.6 gm/dL 3.4-5.0 [facility] [address] [place] [address] Alkaline Phosphatase April 13, 2022 8:16am 91 U/L 50-136 [facility] [address] [address] Venous Blood pH April 13, 2022 8:16a m 7.37 7.30-7.40 [facility] [address] [place] [address] Venous Blood Partial Pressure CO2 Se ptember 2021 8:16am 59 mmHg 42-80 [facility] [address] [place] [address] Venous Blood Partial Pressure O2 Sep tember 2021 8:16am 48 mmHg 35-45 [facility] [address] [address] Venous Blood HCO3 April 13 8:16am 30 mmHg 26-30 [facility] [address] [address] Venous Blood Total Carbon Dioxide Se ptember 2021 8:16am 36 mmHg 22-26 [facility] [address] [address] Venous Blood Base Excess April 042021 8:16am 6.9 mEq/L -2.0-2.0 [facility] [address] [address] Venous Blood Oxygen Saturation Septe mber 2021 8:16am 85.7 % [facility] [address] [address] Diagnostic Imaging Reports Report Dictated Date/Time Dictated By Status Radiology Report April 13 9:06am Star Kurtz II, MD [facility] [address] [place] [address] XRay Report Signed Patient: Merlin Rutledge MR#: [id number] : 1955 Acct:[id number] Age/Sex: 66 / F ADM Date: 2 Loc: ED Attending Dr: Ordering Physician: Fabian Lizarraga MD Date of Service: 04/13/22 Procedure(s): Chest 1V Accession Number(s): [id number] cc: ~ Patient: Merlin Rutledge Time Out: 09:06Exam(s): XR CHEST SINGLE VIEW CHEST SINGLE INDICATION: Dyspnea. COMPARISON: 07/24/2021. FINDINGS: The heart size is stable. There is no pleural effusion, pneumothorax or pneumonia. Mediastinum is unremarkable. There does appear to be some degree of chronic obstructive pulmonary disease. IMPRESSION: 1. No acute cardiopulmonary abnormality. 2. Chronic obstructive pulmonary disease. at 0906 Dictated By: Star Kurtz II, MD Signed By: 04/13/22905 DD/ 5 TD/TT: 04/13/22905Transcriptionist: ALE Vital Signs Vital Reading Result Ref erence Range Collection Date/Time Height 63 [in_i] April 13, 2022 8:30am Weight 47.62 kg April 13, 2022 8:30am Body Temperature 97.9 [degF] 97.5-100.3 April 13, 2022 8:30am Heart Rate 62 /min 60-100 April 13, 2022 1:05pm Respiratory rate 20 /min 12-20 April 13, 2022 9:30am Oxygen saturation by Pulse oximetry 98 % 95- 100 April 13, 2022 1:05pm BP Systolic 126 mm[Hg] 9 0-140 April 13, 2022 1:00pm BP Diastolic 59 mm[Hg] 6 0-90 April 13, 2022 1:00pm BMI (Body Mass Index) 18.6 kg/m2 April 13, 2022 8:30am Inhaled oxygen flow rate 2 L/min April 13, 2022 1:05pm Advance Directives Advance Directive Response Recorded Date/Time Does the patient have an Advance Directive on File? No February 25, 2021 4:02am Do you have a Medical Power of Roll Coating Machine Operator? N o February 25, 2021 4:02am Do you have a Health Care Proxy? No February 25, 2021 4:02am Do you have a Living Will? No February 25, 2021 4:02am Insurance Providers Guarantor Overton M Maty Address [address] [facility] [address] Contact Info. Home Phone: Payer Policy Id Coverage Id Subscriber's Name Subscriber Id Effective Date Expiration Date [employer] [facility] [id number] Merlin Guallpa Teodoroa [id number] Medicaid [id number] Merlin Guallpa Teodoroa [id number] Medicare [id number] Merlin Yeboahpetty [id number] [employer] [id number] Merlin Yeboahgueroa [id number] Self Pay Self N/A [facility] [id number] Merlin Guallpa Maty [id number] Encounters Encounter Location(s) Ar rival/Admit Date Discharge/Depart Date Provider(s) Departed Emergency [facility]Emergency Department April 13, 2022 8:30am April 13, 2022 1:05pm null Functional Status No functional status information available Mental Status No mental status information available Assessments No assessment information available Plan of Treatment Future Tests Future scheduled test information is unavailable Pending Tests Pending diagnostic test information is unavailable Future Visits Future appointment information is unavailable Referrals to Other Providers Reason for Referral Referral Start Date Provider Provider Conta ct Information Provider Address Please follow-up with your regular doctor early next week. Priyanka Morales Work Phone: [address] [place] [address] Future Procedures Future procedure information is unavailable Future Medications Future medication information is unavailable Patient Instructions COPD (Chronic Obstructive Pulmonary Dise ase) (ED) Goals Goals may be documented in an alternate section
--- OUTSIDE RECORDS SUMMARY | 2022-05-31 17:40 | XMS REPORT | Clinical Summary ---
Author Author [facility] Organization [facility] Address Unknown Phone Unavailable Care Team Providers Care Mid Teacher Name Role Phone Marleny Alfaro RN VOTATOR MACHINE OPERATOR PCP Allergies No known active allergies Medications Not on file Active Problems Problem Noted Date Rash, skin 11/08/2013 Acute sinusitis 10/01/2013 Overview: ICD-10 conversion Anxiety state 08/30/2013 Overview: ICD-10 conversion Arthropathy 08/10/2013 Overview: ICD-10 conversion Benign essential hypertension 08/10/2013 GERD (gastroesophageal reflux disease) 08/09/2013 Asthma 08/09/2013 Overview: ICD-10 conversion Neck pain 08/09/2013 Immunizations Name Administration Dates Next Due Pneumococcal Polysaccharide 23-Valent Tdap Family History Medical History Relation Name Comments Other Father Family history unkn own; Other Mother Family history unkn own; Cancer Other Family History; Fam kennedy history of cancer; Diabetes Other Family History; Fam kennedy history of diabetes mellitus; Glaucoma Other Family History; Fam kennedy history of glaucoma; Hypertension Other Family History; Fam kennedy history of hypertension; Relation Name Status Comments Father Mother Other Social History Date Tobacco Use Types Packs/Day Years Used Smoking Tobacco: Every Day Sex Assigned at Date Recorded Not on file Last Filed Vital Signs Reading Time Taken Comments Vital Sign 148/90 11/08/2013 10:19 AM CDT Blood Pressure 59 11/08/2013 10:19 AM CDT Pulse 36.5 C (97.7 F) 11/08/2013 10:19 AM CDT Temperature 12 11/08/2013 10:19 AM CDT Respiratory Rate 98% 11/08/2013 10:19 AM CDT Oxygen Saturation - - Inhaled Oxygen Concentration 82.1 kg (181 lb) 11/08/2013 10:19 AM CDT Weight 165.1 cm (5' 5") 10/01/2013 4:31 PM LUNCH WAGON OPERATOR Height 30.12 10/01/2013 4:31 PM LUNCH WAGON OPERATOR Body Mass Index Plan of Treatment Not on file Results Not on filefrom Last 3 Months Care Teams Start Date End Date Mid Teacher Relationship Specialty 11/08/13 Marleny Alfaro RN PCP - General VOTATOR MACHINE OPERATOR [address] [place] [address]
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
--- OUTSIDE RECORDS SUMMARY | 2022-05-31 17:40 | XMS REPORT | Clinical Summary ---
Author Author [facility] Address Unknown Phone Unavailable Care Team Providers Care Prenatal Teacher Name Role Phone None, Pcp MD PCP Unavailable Source Comments [facility] Comments Active Allergy Reactions Severity Noted Date Adhesive Rash 09/11/2012 Medications * Please verify current medications with patient. End Date Status Medication Sig Dispensed Refills Start Date Active CARVEDILOL ORAL 0 Active CITALOPRAM HYDROBROMIDE 0 (CITALOPRAM ORAL) Active NAPROXEN ORAL 0 Active CYCLOBENZAPRINE HCL 0 (FLEXERIL ORAL) Active cyclobenzaprine Take 1 tablet 20 tablet 0 01/03/20 1 (FLEXERIL) 10 mg tablet by mouth 2 three times a day, as needed for Muscle spasms. Active HYDROcodone-acetaminophen Take 1 tablet 20 tablet 0 , 5-325 mg/tab, (NORCO) by mouth 2 5-325 mg per tablet every six hours, as needed for Mild Pain. Active traMADol (FOR ULTRAM) 50 0 mg tablet Active HYDROcodone-acetaminophen Take 1 tablet 15 tablet 0 , 5-325 mg/tab, (FOR by mouth 2 NORCO) 5-325 mg per every four tablet hours, as needed for Moderate Pain. Active cyclobenzaprine (FOR Take 1 tablet 20 tablet 0 FLEXERIL) 10 mg tablet by mouth 2 three times a day, as needed for Muscle spasms. Active acetaminophen-codeine, Take 5 mL by 120 mL 0 conc: 120-12 mg/5 mL, mouth every 3 (FOR TYLENOL W/CODEINE) six hours, as elixir needed for Cough. Active ibuprofen (FOR MOTRIN) Take 1 tablet 20 tablet 0 0 800 mg tablet by mouth 3 every six hours, as needed for Moderate Pain. Active albuterol HFA, conc: 90 Take 2 puffs 1 Inhaler 0 0 mcg/puff, (FOR VENTOLIN) by inhalation 3 inhaler every four hours, as needed for Shortness of Breath or Wheezing. Active Problems Not on file Social History Date Tobacco Use Types Packs/Day Years Used Current Every Day Smoker 1 39 Comments Alcohol Use Standard Drinks/Week PT states she drinks 1 pint a week Yes 0 (1 standard drink = 0.6 o z pure alcohol) Alcohol Habits Answer Date Recorded How often do you have a drink containing alcohol? No t asked How many drinks containing alcohol do you have on No t asked a typical day when you are drinking? How often do you have six or more drinks on one Not asked occasion? Comment: PT states she drinks 1 pint a 09/11/19 13 week Sex Assigned at Date Recorded Not on file Last Filed Vital Signs Reading Time Taken Comments Vital Sign 156/101 09/11/2012 12:20 PM [employer] Blood Pressure 61 09/11/2012 12:20 PM [employer] Pulse 36.9 C (98.5 F) 09/11/2012 12:20 PM [employer] Temperature 18 09/11/2012 12:20 PM [employer] Respiratory Rate 99% 09/11/2012 12:20 PM [employer] Oxygen Saturation - - Inhaled Oxygen Concentration 72.6 kg (160 lb) 04/30/2012 10:12 AM CDT Weight 165.1 cm (5' 5") 04/30/2012 10:12 AM CDT Height 26.63 04/30/2012 10:12 AM CDT Body Mass Index Plan of Treatment Health Maintenance Due Date Last Done Comments CT Colonography 1955 Colonoscopy 1955 Colorectal Cancer 1955 Screening DNA-based stool test 1955 (Cologuard) DXA Scan 1955 Mammogram 1955 Sigmoidoscopy 1955 gFOBT or FIT 1955 COVID-19 Vaccine (1) 10/25/1960 Lung Cancer Screening 10/25/2005 Pneumococcal Vaccine: 65+ 10/25/2020 Years (1 - PCV) Influenza Vaccine (#1) 2022 HPV Vaccine Aged Out No longer eligible based on patient's age to complete this topic Hepatitis A Vaccine Aged Out No longer eligible based on patient's age to complete this topic Hepatitis B Vaccine Aged Out No longer eligible based on patient's age to complete this topic Hib Vaccine Aged Out No longer eligible based on patient's age to complete this topic IPV Vaccine Aged Out No longer eligible based on patient's age to complete this topic Meningococcal Vaccine Aged Out No longer eligib le based on patient's age to (MCV4) complete this topic Rotavirus Vaccine Aged Out No longer eligible based on patient's age to complete this topic Results Not on filefrom Last 3 Months Insurance Type Payer Benefit Subscriber ID Effective Phone Address Plan / Dates Group [facility] [id number] Effective [address] [place] for all [id number] [facility] [place] [phone] Care Teams Start Date End Date Prenatal Teacher Relationship Specialty 04/30/12 None, Pcp, MD PCP - General Other or Unknown Specialty
--- OUTSIDE RECORDS SUMMARY | 2022-05-31 17:40 | XMS REPORT ---
Author Author [facility] Organization [facility] Address Unknown Phone Unavailable Care Team Providers Care Post Office Manager Name Role Phone ZOILA BROWN MD Unavailable PROBLEMS Type Condition ICD9-CM Code [id number] Code Onset Dates Condition S tatus W/U Status Risk SNOMED Code Notes Problem Chronic kidney disease, stage 2 N18.2 Active confi rmed [id number] Problem Essential (primary) hypertension I10 Active conf irmed [id number] Problem CKD 3A N18.31 Active confirmed ALLERGIES No Known Allergies ENCOUNTERS from 1955 to 2022-04-18 Encounter Location Date Provider Diagnosis [facility] [address] [place] [address] Apr, ZOILA BROWN MD RAFIQ (acute kidney injury) N1 7.9 ; Chronic kidney disease, stage 2 N18.2 ; Essential (primary) hypertension I10 ; Hypokalemia E87.6 and Alkalosis, metabolic E87.3 IMMUNIZATIONS No Information SOCIAL HISTORY Tobacco Use: Social History Observation Description Date Details (start date - stop date) Former Smoker Sex Assigned At : Social History Observation Description Sex Assigned At Unknown Tobacco Use/Smoking Question Answer Notes Are you a: former smoker REASON FOR REFERRAL No Information VITAL SIGNS Height 5ft 6in in Apr, Weight 123 lbs Apr, BMI 19.85 kg/m2 Apr, Heart Rate 68 /min Apr, MEDICATIONS Medication SIG (Take, Route, Frequency, Duration) Notes Start Da te End Date Status Potassium Chloride ER 20 MEQ 1 tablet with food Orally Twice a day for 90 days Active Cyclobenzaprine HCl 10 MG 1 tablet at bedtime as needed Orally Once a day Active Ventolin HFA 108 (90 Base) MCG/ACT 1 puff as needed Inhalation ever y 4 hrs Active Plavix 75 MG 1 tablet Orally Once a day Active Multivitamin - 1 tablet Orally Once a day Active Elderberry 500 MG 1 capsule Orally daily Active Incruse Ellipta 62.5 MCG/INH 1 puff Inhalation Once a day Active Ipratropium-Albuterol 0.5-2.5 (3) MG/3ML 3 mL as needed Inha lation every 6 hrs Active Cetirizine HCl 10 MG 1 tablet Orally Once a day Active Krill Oil 1000 MG 1 capsule Orally daily Active Ondansetron HCl 4 MG 1 tablet Orally as needed Active busPIRone HCl 15 MG 1 tablet Orally Twice a day Active amLODIPine Besylate 10 MG 1 tablet Orally Once a day Active Daliresp 250 MCG 2 tablets Orally Once a day Active Pantoprazole Sodium 40 MG 1 tablet Orally Once a day Active Breo Ellipta 100-25 MCG/INH 1 puff Inhalation Once a day Active PROCEDURES No Information RESULTS No Results REASON FOR VISIT [employer]INE [employer]OM[employer]SEM[employer]ER DX CKD MEDICAL (GENERAL) HISTORY Type Description Date Medical History Chronic kidney disease, stage 3 Medical History Essential hypertension Medical History Gastroesophageal reflux disease Medical History Chronic obstructive pulmonary disease Medical History Anxiety Medical History Chronic pain Medical History Depression Medical History History of kidney infection Surgical History Tonsillectomy Surgical History section x2 Goals Section No Information Health Concerns No Information MEDICAL EQUIPMENT No Information MENTAL STATUS No Information FUNCTIONAL STATUS No Information ASSESSMENTS Encounter Date Diagnosis Assessment Notes Treatment Notes Treatm ent Clinical Notes Apr, RAFIQ (acute kidney injury) (ICD-10 - N17. 9) Apr, Chronic kidney disease, stage 2 (ICD-10 - N18.2) Apr, Essential (primary) hypertension (ICD-10 - I10) Apr, Hypokalemia (ICD-10 - E87.6) Apr, Alkalosis, metabolic (ICD-10 - E87.3) PLAN OF TREATMENT Medication Medication Name Sig Start Date Stop Date Potassium Chloride ER 20 MEQ 1 tablet with food Orally Twice a day for 90 days Pending Tests Test Name Order Date RENAL FUNCTION PANEL 2022-04-18 URINALYSIS, COMPLETE W/REFLEX TO CULTURE 2022-04-18 ALBUMIN, RANDOM URINE (W/CREATININE) 2022-04-18 URIC ACID 2022-04-18 CBC (H/H, RBC, INDICES, WBC, PLT) 2022-04-18 Future Test Test Name Order Date SODIUM W/O CREATININE, RANDOM URINE 20220422 CREATININE, RANDOM URINE 20220422 CORTISOL, A.M. 20220422 POTASSIUM W/O CREATININE, RANDOM URINE 20220422 METANEPHRINES, FRACT, FREE, LC/MS/MS, PLASMA 20220422 ALDOSTERONE, LC/MS 20220422 CORTISOL, TOTAL 20220422 PLASMA RENIN ACTIVITY, LC/MS/MS 20220422 MAGNESIUM 20220422 RENAL FUNCTION PANEL 20220422 URINALYSIS, COMPLETE W/REFLEX TO CULTURE 20220422 Next Appt Details 4 W,6 W Reason: Insurance Providers Payer Name Payer Address Payer Phone Insured Name Patient Relati onship to Insured Coverage Start Date Coverage End Date Subscriber Number Group Nu mary [facility] COMPLETE PPO [address] [address] [facility] [id number] Merlin Rutledge 2022 [id number]
[2022-05-31] MEDS ORDERED: ENALAPRILAT 2.5 MG/2 ML (VASOTEC) VIAL IV SCH (18:00)
[2022-05-31] MEDS: ENOXAPARIN 40 MG/0.4 ML (LOVENOX) SYR SC SCH (18:04)
[2022-05-31] MEDS: RT-ALBUTEROL/IPRATROPIUM 3 ML (DUONEB) VIAL INH PRN (18:54)
[2022-05-31] MEDS ORDERED: FLU QUAD HIGH DOSE 240 MCG/0.7 ML 2022-23 (FLUZONE) IM ONE (19:00)
[2022-05-31 20:00] VITALS: BP_SYST 180; BP_SYST 194; BP_DIAS 80; BP_DIAS 90
[2022-05-31] MEDS ORDERED: NITROGLYCERIN 0.4 MG SL TABS BTL 25'S SL PRN (20:45)
[2022-05-31] MEDS ORDERED: RT-ALBUTEROL SULF 2.5 MG/3 ML PRE-MIX VIAL INH PRN (20:45)
[2022-05-31] MEDS ORDERED: RT-ALBUTEROL/IPRATROPIUM 3 ML (DUONEB) VIAL IH PRN (20:45)
[2022-05-31] MEDS ORDERED: hydrOXYzine (VISTARIL/ATARAX) 25 MG capsule/tablet PO PRN (21:45)
[2022-05-31] MEDS: polyethylene glycoL POWDER 17 GM (MIRALAX) PACK PO SCH (22:00)
[2022-05-31] MEDS: SENNA W/DOCUSATE (SENOKOT S) TABLET PO SCH (22:11)
[2022-05-31] MEDS: hydrALAZINE (APRESOLINE) 25 MG TAB PO SCH (22:12)
[2022-05-31] MEDS: busPIRone 15 MG (BUSPAR) TABLET PO SCH (22:12)
[2022-05-31] MEDS: DOCUSATE SODIUM 100 MG (COLACE) CAP PO SCH (22:12)
[2022-05-31] MEDS: RT-ALBUTEROL/IPRATROPIUM 3 ML (DUONEB) VIAL INH SCH (23:35)
[2022-05-31] MEDS: ALPRAZolam 0.25 MG (XANAX) TAB PO PRN (23:38)
[2022-06-01] MEDS: THIAMINE 100 MG (VITAMIN B-1) TAB PO SCH (06:18)
[2022-06-01 06:33] LABS: BASOPHILS % (AUTO) 0 % (0-10); EOSINOPHILS # (AUTO) 0.3 10^3/uL (0.0-0.3); EOSINOPHILS % (AUTO) 4 % (0-10); HEMATOCRIT 28 % (35-52); HEMOGLOBIN 9.2 g/dL (11.5-16.0); LYMPHOCYTES # (AUTO) 1.5 10^3/uL (1.0-4.0); LYMPHOCYTES % (AUTO) 21 % (12-44); MEAN CORPUSCULAR HEMOGLOBIN 33 pg (25-34); MEAN CORPUSCULAR HGB CONC 33 g/dL (32-36); MEAN CORPUSCULAR VOLUME 99 fL (80-99); MEAN PLATELET VOLUME 8.7 fL (9.0-12.2); MONOCYTES # (AUTO) 0.8 10^3/uL (0.0-1.0); MONOCYTES % (AUTO) 10 % (0-12); NEUTROPHILS # (AUTO) 4.6 10^3/uL (1.8-7.8); NEUTROPHILS % (AUTO) 64 % (42-75); PLATELET COUNT 416 10^3/uL (130-400); WHITE BLOOD COUNT 7.2 10^3/uL (4.3-11.0)
[2022-06-01 06:43] LABS: ALBUMIN 3.6 GM/DL (3.2-4.5)
[2022-06-01 06:44] LABS: CALCIUM 9.2 MG/DL (8.5-10.1)
[2022-06-01 06:45] LABS: TOTAL PROTEIN 6.5 GM/DL (6.4-8.2)
[2022-06-01 06:47] LABS: BILIRUBIN,TOTAL 1.3 MG/DL (0.1-1.0)
[2022-06-01 06:49] LABS: CREATININE SERUM 0.67 MG/DL (0.60-1.30)
--- NOTE | 2022-06-01 08:12 | PM&R Progress Note ---
Subjective HPI/CC On Admission Date Seen by Provider: Jun 01, 2022 Time Seen by Provider: 12:30 Subjective/Events-last exam 06/01/2022: Patient doing really well Pain is controlled Did not sleep well so added trazodone 100 mg at night Thinks she has thrush so initiated nystatin swish and swallow Review of Systems General: Fatigue, Malaise Objective Exam Vital Signs Vital Signs Date Time Temp Pulse Resp B/P (MAP) Pulse Ox O2 Delivery O2 Flow Rate FiO2 06/01/22 15:20 97 Nasal Cannula 2.00 06/01/22 08:13 36.4 75 20 188/82 (117) Capillary Refill : General Appearance: No Apparent Distress, WD/WN, Chronically ill HEENT: PERRL/EOMI, Normal ENT Inspection, Pharynx Normal Neck: Full Range of Motion, Normal Inspection, Non Tender, Supple, Carotid Bruit Respiratory: Chest Non Tender, No Accessory Muscle Use, No Respiratory Distress, Decreased Breath Sounds Cardiovascular: Regular Rate, Rhythm, No Edema, No Gallop, No JVD, No Murmur, Normal Peripheral Pulses Gastrointestinal: Normal Bowel Sounds, No Organomegaly, No Pulsatile Mass, Non Tender, Soft Back: Normal Inspection, No CVA Tenderness, No Vertebral Tenderness Extremity: Normal Capillary Refill, Normal Inspection, Normal Range of Motion, Non Tender, No Calf Tenderness, No Pedal Edema Neurologic/Psychiatric: Alert, Oriented x3, Normal Mood/Affect, Abnormal Gait, Motor Weakness (Generalized legs 3/5 strength) Skin: Normal Color, Warm/Dry Lymphatic: No Adenopathy Results/Procedures Lab Laboratory Tests 06/01/22 06:10 Patient resulted labs reviewed. FIM Transfers Therapy Code Descriptions/Definitions Functional [place] Measure: 0=Not Assessed/NA 4=Minimal Assistance 1=Total Assistance 5=Supervision or Setup 2=Maximal Assistance 6=Modified [place] 3=Moderate Assistance 7=Complete IndependenceSCALE: Activities may be completed with or without assistive devices. 7-Qardhekqkg-avwlvzc completes the activity by him/herself with no assistance from a helper. 5-Set-up or Clean-up Assistance-helper sets up or cleans up; patient completes activity. [place] assists only prior to or following the activity. 4-Supervision or Touching Assistance-helper provides verbal cues and/or touching/steadying and/or contact guard assistance as patient completes activity. Assistance may be provided throughout the activity or intermittently. 3-Partial/Moderate Assistance-helper does LESS THAN HALF the effort. [place] lifts, holds or supports trunk or limbs, but provides less than half the effort. 2-Substantial/Maximal Assistance-helper does MORE THAN HALF the effort. [place] lifts or holds trunk or limbs and provides more than half the effort. 1-Shlbrdpbm-rmakcn does ALL the effort. Patient does none of the effort to complete the activity. Or, the assistance of 2 or more helpers is required for the patient to complete the activity. If activity was not attempted, code reason: 7-Patient Refused. 9-Not Applicable-not attempted and the patient did not perform the activity before the current illness, exacerbation or injury. 10-Not Attempted due to Environmental Limitations-(lack of equipment, weather restraints, etc.). 88-Not Attempted due to Medical Conditions or Safety Concerns. Assessment/Plan Assessment and Plan Assess & Plan/Chief Complaint Assessment: COPD myopathy Oxygen dependent at home Smoker Hypertension Anxiety Polysubstance abuse including marijuana and cocaine Alcoholism Encephalopathy Thrush Insomnia Plan: Aggressive PT and OT Maintain oxygen Nebulizers Supportive care 06/01/2022: Nystatin swish and swallow supportive care Supportive care Trazodone for insomnia Nystatin swish and swallow (1) Myopathy (2) COPD exacerbation Status: Acute (3) Physical debility Status: Acute (4) Encephalopathy acute Status: Resolved Resolution Date/Time: 05/28/22 @ 19:29 (5) Cocaine use Status: Chronic (6) Polysubstance abuse Status: Chronic (7) HTN (hypertension) Status: Chronic (8) Normocytic anemia Status: Acute (9) Anxiety Status: Acute (10) Marijuana use Status: Acute (11) History of alcohol abuse Status: Acute VICKI WATERS DO Jun 01, 2022 08:12
[2022-06-01 08:13] VITALS: BP 188/82
--- NOTE | 2022-06-01 08:15 | Physical Therapy Evaluation ---
PT Evaluation-General Medical Diagnosis Admission Date May 31, 2022 at 17:20 Medical Diagnosis: COPD exacerbation Onset Date: May 18, 2022 Therapy Diagnosis Therapy Diagnosis: generalized weakness/debility Height/Weight Height (Feet): 5 Height (Inches): 5.00 Weight (Pounds): 136 Weight (Ounces): 1.0 Precautions Precautions/Isolations: Fall Prevention, Standard Precautions Weight Bear Status Weight Bearing/Tolerated Weight Bearing/Tolerated Referral Physician: Kurnal Reason for Referral: Evaluation/Treatment Medical History Pertinent Medical History: CAD, COPD, HTN, Smoking Current History Pt presents to ARU following medical stay due to COPD exacerbation. Reviewed History: Yes Social History Home: Single Level Current Living Status: Alone PT Steps Into Home: 3 Pt lives home alone, in a flat home. She plans to DC from hospital to her sons house who lives in a split level home, with two flights of approx. 6 steps Prior Prior Level of Function SCALE: Activities may be completed with or without assistive devices. 2-Zmvxdlfkbx-gpujcsp completes the activity by him/herself with no assistance from a helper. 5-Set-up or Clean-up Assistance-helper sets up or cleans up; patient completes activity. [place] assists only prior to or following the activity. 4-Supervision or Touching Assistance-helper provides verbal cues and/or touching/steadying and/or contact guard assistance as patient completes activity. Assistance may be provided throughout the activity or intermittently. 3-Partial/Moderate Assistance-helper does LESS THAN HALF the effort. [place] lifts, holds or supports trunk or limbs, but provides less than half the effort. 2-Substantial/Maximal Assistance-helper does MORE THAN HALF the effort. [place] lifts or holds trunk or limbs and provides more than half the effort. 2-Mrzslvikx-dchxvu does ALL the effort. Patient does none of the effort to complete the activity. Or, the assistance of 2 or more helpers is required for the patient to complete the activity. If activity was not attempted, code reason: 7-Patient Refused. 9-Not Applicable-not attempted and the patient did not perform the activity before the current illness, exacerbation or injury. 10-Not Attempted due to Environmental Limitations-(lack of equipment, weather restraints, etc.). 88-Not Attempted due to Medical Conditions or Safety Concerns. Bed Mobility: 6 Transfers (B,C,W/C): 6 Gait: 6 Stairs: 6 Indoor Mobility (Ambulation): Independent Stairs: Independent Prior Devices Use: None Pt independent with all prior mobility, no AD PT Evaluation-Current Subjective Pt asleep in bed, son present at bedside. Pt denies any current pain, she states that she hasn't been able to sleep all night due to having to use the rest room frequently. Pain Section J - Health Conditions 1. Rarely or not at all 2. Occasionally 3. Frequently 4. Almost constantly 8. Unable to answer Pain Effect on Sleep: 1 Pain Interference with Therapy: 1 Pain Interference w/Day-to-Day: 1 Pt/Family Goals Return home Objective Patient Orientation: Person, Place, Situation Attachments: Oxygen (2L) ROM/Strength ROM Lower Extremities WFL Strength Lower Extremities grossly 4/5 hip flexion, knee extension and ankle strength Integumentary/Posture Integumentary refer to nursing notes Bowel Incontinence: No Bladder Incontinence: No Posture forward head posture, rounded shoulder and increased thoracic kyphosis Neuromuscular (Tone, Coordination, Reflexes) intact Sensory Vision: Functional Hearing: Functional Hand Dominance: Right Sensation Right Lower Extremit: Intact Sensation Left Lower Extremity: Intact Transfers Roll Left & Right (QC): 5 Sit to Lying (QC): 5 Lying to Sitting/Side of Bed(Q: 5 Sit to Stand (QC): 5 Chair/Dwg-yy-Kezyp Xfer(QC): 5 Toilet Transfer (QC): 5 Car Transfer (QC): 88 Pt performs all bed mobility and transfers with CGA at this time, cueing for management of blankets. Gait Does the Patient Walk?: Yes Mode of Locomotion: Walk Anticipated Mode of Locomotion: Walk Walk 10 feet (QC): 4 Walk 50 ft with 2 Turns(QC): 88 Walk 150 ft (QC): 88 Walking 10ft/uneven surface-QC: 88 Distance: 20' Gait Assistive Device: None Comments/Gait Description Pt ambulates within the room with CGA using no device. Pt has slightly wide [place]; however, steady on her feet with this short distance. Pt has to sit on the bed following ambulation and focus on breathing. Wheelchair Training Wheel 50 ft with 2 turns (QC): 9 Wheel 150 ft (QC): 9 Stairs 1 Step (curb) (QC): 88 4 Steps (QC): 88 12 Steps (QC): 88 Balance Sitting Static: Normal Sitting Dynamic: Normal Standing Static: Fair Standing Dynamic: Fair Picking up an Object (QC): 88 Assessment/Needs Pt is a 66 y.o female who presents to the ARU with decreased conditioning, decreased activity tolerance, mild strength deficits and decreased independence which impact her ability to return waqas (I) at this time. Pt would benefit from skilled PT to address limitations and ensure safety upon DC from hospital. Rehab Potential: Good PT Short Term Goals Short Term Goals Time Frame: Jun 08, 2022 Roll Left & Right: 6 Sit to lyin Lying to sitting on side of be: 6 Sit to stand: 6 Chair/npt-gb-vfdvj transfer: 6 Toilet transfer: 6 Car transfer: 6 Walk 10 feet: 6 Walk 50 feet with two turns: 5 Walk 150 feet: 5 Walking 10ft on uneven surface: 5 1 step (curb): 5 4 steps: 5 12 steps: 5 Picking up objects: 5 PT Group Home Goals Can Washer Goals PT Can Washer Goals Time Frame: Jun 15, 2022 Roll Left to Right (QC): 6 Sit to Lying (QC): 6 Lying-Sitting on Side/Bed(QC): 6 Sit to Stand (QC): 6 Chair/Wwm-id-Gaybs Xfer(QC): 6 Toilet/Commode Transfer (QC): 6 Car Transfer (QC): 6 Does the Patient Walk: Yes Walk 10 feet (QC): 6 Walk 10ft-Uneven Surface(QC): 6 Walk 50ft with 2 Turns (QC): 6 Walk 150 ft (QC): 6 Does the Pt use WC or Scooter?: No Wheel 50 feet with 2 turns (QC: 9 Wheel 150 feet: 9 1 Step (curb) (QC): 6 4 Steps (QC): 6 12 Steps (QC): 6 Picking up an Object (QC): 6 PT Plan Problem List Problem List: Activity Tolerance, Functional Strength, Safety, Balance, Gait, Transfer, Bed Mobility, ROM Treatment/Plan Treatment Plan: Continue Plan of Care Treatment Plan: Bed Mobility, Education, Functional Activity [place], Functional Strength, Group Therapy, Gait, Safety, Therapeutic Exercise, Transfers Treatment Duration: Jun 15, 2022 Frequency: At least 5 of 7 days/Wk (IRF) Estimated Hrs Per Day: 1.5 hours per day Patient and/or Family Agrees t: Yes Time Time In: 750 Time Out: 810 Total Billed Treatment Time: 20 Total Billed Treatment 1 EVLOWC (20') REMBERTO ROBLES PT Jun 01, 2022 08:15
[2022-06-01] MEDS: ASPIRIN 81 MG CHEW (CHILDREN'S ASA) PO SCH (08:20)
[2022-06-01] MEDS: PANTOPRAZOLE 40 MG (PROTONIX) TAB PO SCH (08:20)
[2022-06-01] MEDS: hydrALAZINE (APRESOLINE) 25 MG TAB PO SCH ×3 (08:20→21:45)
[2022-06-01] MEDS: lisINopril 10 MG (PRINIVIL) TABLET PO SCH (08:20)
[2022-06-01] MEDS: KCL 20 MEQ TAB (K-DUR) PO SCH ×4 (08:20→17:02)
[2022-06-01] MEDS: ALPRAZolam 0.25 MG (XANAX) TAB PO PRN (08:20)
[2022-06-01] MEDS: CLOPIDOGREL 75 MG (PLAVIX) TABLET PO SCH (08:21)
[2022-06-01] MEDS: amLODIPine 10 MG (NORVASC) TAB PO SCH (08:21)
--- NOTE | 2022-06-01 08:28 | Occupational Therapy Eval ---
OT Evaluation-General/PLF Medical Diagnosis Admission Date May 31, 2022 at 17:20 Medical Diagnosis: COPD exacerbation Onset Date: May 18, 2022 Therapy Diagnosis Therapy Diagnosis: decr self care, decr act tolerance, weakness, decr funct mobillity Height/Weight Height (Feet): 5 Height (Inches): 5.00 Weight (Pounds): 136 Weight (Ounces): 1.0 Precautions Precautions/Isolations: Fall Prevention, Standard Precautions Referral Physician: Krunal Referral Reason: Evaluation/Treatment Medical History Pertinent Medical History: Arthritis, CAD, COPD, GERD, HTN, Smoking Additional Medical History Osteoporosis. Dysphagia. BURNS PAIUTE. Chronic bronchitis. Anxiety, depression. ETOH and drug use. Current History Admitted through ED for respiratory failure. In ICU on vent for about 10 days. Reviewed History: Yes Social History Home: Single Level (Mobile home) Current Living Status: Alone Entry Into Home: Stairs Without Railing Pt will be staying with her son in [place], living is basement of split level home. Will have tub/shower combination. Rails on both sides of stairs ADL-Prior Level of Function SCALE: Activities may be completed with or without assistive devices. 6-Oyzbpijpsp-hntvnrx completes the activity by him/herself with no assistance from a helper. 5-Set-up or Clean-up Assistance-helper sets up or cleans up; patient completes activity. [place] assists only prior to or following the activity. 4-Supervision or Touching Assistance-helper provides verbal cues and/or touching/steadying and/or contact guard assistance as patient completes activity. Assistance may be provided throughout the activity or intermittently. 3-Partial/Moderate Assistance-helper does LESS THAN HALF the effort. [place] lifts, holds or supports trunk or limbs, but provides less than half the effort. 2-Substantial/Maximal Assistance-helper does MORE THAN HALF the effort. [place] lifts or holds trunk or limbs and provides more than half the effort. 8-Bmwzynlst-mivisn does ALL the effort. Patient does none of the effort to complete the activity. Or, the assistance of 2 or more helpers is required for the patient to complete the activity. If activity was not attempted, code reason: 7-Patient Refused. 9-Not Applicable-not attempted and the patient did not perform the activity before the current illness, exacerbation or injury. 10-Not Attempted due to Environmental Limitations-(lack of equipment, weather restraints, etc.). 88-Not Attempted due to Medical Conditions or Safety Concerns. ADL PLOF Comments Pt reported that she was able to manage all of her basic ADLs but they all took extra time. She had help for cleaning her house and laundry. She hasn't been driving because her car was not working and she doesn't have portable O2 tanks. She was mobile in her home without AD and has been on O2 for a number of years. She reported that she is claustrophobic and doesn't like having bathroom doors closed. Self Care: Independent Functional Cognition: Independent DME/Equipment: Shower OT Current Status Subjective Pt seen in room, up in bed, agreeable to OT No pain reported. Appearance Pleasant, cooperative. Fatigued easily and too much talking made her cough. Mental Status/Objective Patient Orientation: Person, Place, Time, Situation Attachments: Oxygen (2L), Saline Lock Current Glasses/Contacts: No Hearing Aids: No Dentures/Partials: Yes (hasn't work upper dentures since admission and has some sore places in her ) Hand Dominance: Right Upper Extremity ROM Grossly WFL bilat (with approx 130 degrees shoulder flex/abd) Upper Extremity Coordination WFL by observation Upper Extremity Sensation No problems, per pt report Upper Extremity Strength Grossly 3+/5 bilat Edema: None observed ADL-Treatment ADL-Current Pt was able to get up to EOB and to standing with SBA. Walked CGA, FWW to bathroom, managing O2 tubing. Toilet transfer CGA to [facility] toilet, using grab bar. Toileted, dressed on toilet and talked CGA, then stood SBA at sink to clean dentures. All ADLs took extra time and required frequent recovery periods. Returned to bed with CGA, FWW and sat EOB for exercises. Eating (QC): 6 (Pt reported food "just doesn't taste good" but she is able to feed herself without help.) Oral Hygiene (QC): 4 (SBA standing at sink to clean dentures and wash face, FWW) Shower/Bathe Self (QC): 4 (SBA for standing, sponge bath. Reported she does not shower every day due to thin skin.) Upper Body Dressing (QC): 4 (SBA, standing to put shirt on over her head. Able to take O2 out of shirt and reposition it.) Lower Body Dressing (QC): 4 (SBA for pulling pants up and down, FWW. ) On/Off Footwear (QC): 5 (setup for slipper socks) Toileting Hygiene (QC): 4 (SBA for clothing management) Other Treatments Pt demonstrated several bilat UE exercises with yellow theraband that she learned while on acute care. She did 3-5 reps of each one and paced herself so that she was not too fatigued. Pt provided with yellow theraputty with beads and she was able to pinch and squeeze to find them all, then completed squeezing exercises after pt education. All are to help with UE strengthening and increase activity tolerance as needed for self care. Pt left back in bed with O2 in place, family present Education OT Patient Education: Energy conservation, Exercise program, Modified ADL techniques, Purpose of tx/functional activities, Rehab process, Safety issues Teaching Recipient: Patient, Family Teaching Methods: Demonstration, Discussion Response to Teaching: Verbalize Understanding, Return Demonstration BIMS CAM BIMS Expression of Ideas and Wants: Without Difficulty Understanding Verbal Content: Understands Brief Interview/Mental Status: Yes IRF CHUCK BIMS: IRF CHUCK BIMS Response (Comments) Value Repitition of Three Words Three 3 Recalls Socks Yes, No Cue Required 2 Recalls Blue Yes, No Cue Required 2 Recalls Bed Yes, No Cue Required 2 Year Correct 3 Month Accurate Within 5 Days 2 Day Correct 1 Total 15 Patient Normally Able to Recal: Current Session, Staff Names and faces, That he/she in a [facility] Should Staff Asses. Mental St.: No Memory/Recall Ability: Current Season, Staff Names and Faces, That He[facility]She in [facility] Mental Status Change/Baseline: 0 Inattention: 0 Disorganized thinkin Altered level of consciousness: 0 OT Short Term Goals Short Term Goals Time Frame: Jun 05, 2022 Eatin Oral hygiene: 5 Toileting hygiene: 5 Shower/bathe self: 5 Upper body dressin Lower body dressin OT Long-Term Goals Long-Term Goals Time Frame: Jun 08, 2022 Acute change in mental status: 0 Inattention: 0 Disorganized thinkin Altered level of consciousness: 0 Eating (QC): 6 Oral Hygiene (QC): 6 Toileting Hygiene (QC): 6 Shower/Bathe Self (QC): 6 Upper Body Dressing (QC): 6 Lower Body Dressing (QC): 6 On/Off Footwear (QC): 6 Pt will verbalize three techniques to use to conserve energy on discharge Additional Goals: 1-Demonstrate ADL Tasks, 2-Verbalize Understanding, 3-ImproveStrength/Everette 1=Demonstrate adherence to instructed precautions during ADL tasks. 2=Patient will verbalize/demonstrate understanding of assistive devices/modifications for ADL. 3=Patient will improve strength/tolerance for activity to enable patient to perform ADL's. OT Education/Plan Problem List/Assessment Assessment: Decreased Activ Tolerance, Decreased UE Strength, Dependent Transfers, Impaired Self-Care Skills Discharge Recommendations Plan Pt would benefit from skilled OT to increase her independence in basic self care to allow her to safely discharge to son's home Plan/Recommendations: Continue POC Therapy Discharge Recommendati: Post Acute OT Target Placement Soon's home Treatment Plan/Plan of Care Treatment,Training & Education: Yes Patient would benefit from OT for education, treatment and training to promote independence in ADL's, mobility, safety and/or upper extremity function for ADL's. Plan of Care: ADL Retraining, Caregiver Training, Functional Mobility, Group Exercise/Act as Ind (education, activity tolerance, strengthening, funct mobility), UE Funct Exercise/Act, UE Neuromus Re-Ed/Coord, OTHER (Energy conservationn education) Treatment Duration: Jun 08, 2022 Frequency: At least 5 of 7 days/Wk (IRF) Estimated Hrs Per Day: 1.5 hours per day Agreement: Yes Rehab Potential: Good Time/GCodes Start Time: 08:30 Stop Time: 10:05 Total Time Billed (hr/min): 90 Billed Treatment Time visit, evaluation moderate intensity 30 min, ADL 35 min, exercise 25 minutes TRENT HINTON OT Jun 01, 2022 08:28
[2022-06-01] MEDS ORDERED: FLUTICASONE/VILANTEROL 100 MCG 14'S (BREO) IH SCH (09:00)
[2022-06-01] MEDS ORDERED: PANTOPRAZOLE 40 MG (PROTONIX) TAB PO SCH (09:00)
[2022-06-01] MEDS ORDERED: UMECLIDINIUM BROMIDE (INCRUSE ELLIPTA) 7'S IH SCH ×2 (09:00)
[2022-06-01] MEDS: RT-ALBUTEROL/IPRATROPIUM 3 ML (DUONEB) VIAL INH SCH ×3 (09:10→20:50)
[2022-06-01] MEDS: busPIRone 15 MG (BUSPAR) TABLET PO SCH ×2 (09:14→21:45)
[2022-06-01] MEDS: DOCUSATE SODIUM 100 MG (COLACE) CAP PO SCH ×2 (10:20→21:45)
[2022-06-01] MEDS: polyethylene glycoL POWDER 17 GM (MIRALAX) PACK PO SCH ×2 (10:21→21:45)
[2022-06-01] MEDS: SENNA W/DOCUSATE (SENOKOT S) TABLET PO SCH ×2 (10:21→21:45)
--- NOTE | 2022-06-01 11:52 | Physical Therapy Daily Note ---
PT Daily Note-Current Subjective Pt. and 2 attentive family members present. Pt. is agreeable to Rx, talkative, friendly and motivated. Pt. explains that she will DC not to her own mobile home in [place] but to a sons home in [facility] where she will have 12 steps to travel in his split level home. Pt. speaks of a history of tobacco use as well as marijuana smoking. No pain she rates but states she has a left hip that "can predict the weather". Pts main c/o is that she cannot ad has not slept since being in the hospital. Pt. also c/o anxiety and was opposed to wearing the mask ouut of her room for very long and does not want the door to her bthrm closed when she uses the toilet. Nursing was advised of pts c/o anxiety and not sleep. Son who is presnt concurs that he has stayed here with his Mother and she does not sleep, "therefore neither have I" Pain Location: No Pain Reported Section J - Health Conditions 1. Rarely or not at all 2. Occasionally 3. Frequently 4. Almost constantly 8. Unable to answer Pain Effect on Sleep: 1 Pain Interference with Therapy: 1 Pain Interference w/Day-to-Day: 1 Mental Status Patient Orientation: Normal For Age Attachments: Oxygen (2L) Transfers SCALE: Activities may be completed with or without assistive devices. 9-Hmwfngvvvg-tshrvxl completes the activity by him/herself with no assistance from a helper. 5-Set-up or Clean-up Assistance-helper sets up or cleans up; patient completes activity. [place] assists only prior to or following the activity. 4-Supervision or Touching Assistance-helper provides verbal cues and/or touching/steadying and/or contact guard assistance as patient completes activity. Assistance may be provided throughout the activity or intermittently. 3-Partial/Moderate Assistance-helper does LESS THAN HALF the effort. [place] lifts, holds or supports trunk or limbs, but provides less than half the effort. 2-Substantial/Maximal Assistance-helper does MORE THAN HALF the effort. [place] lifts or holds trunk or limbs and provides more than half the effort. 2-Sdlfqziyp-dxkteh does ALL the effort. Patient does none of the effort to complete the activity. Or, the assistance of 2 or more helpers is required for the patient to complete the activity. If activity was not attempted, code reason: 7-Patient Refused. 9-Not Applicable-not attempted and the patient did not perform the activity before the current illness, exacerbation or injury. 10-Not Attempted due to Environmental Limitations-(lack of equipment, weather restraints, etc.). 88-Not Attempted due to Medical Conditions or Safety Concerns. Roll Left & Right (QC): 6 Sit to Lying (QC): 6 Lying to Sitting/Side of Bed(Q: 6 Sit to Stand (QC): 6 Chair/Fnq-ym-Ocwjz Xfer(QC): 6 Toilet Transfer (QC): 6 Car Transfer (QC): 6 pt. does not lay flat secondary to SOB Weight Bearing Weight Bearing/Tolerated Weight Bearing/Tolerated Gait Training Does the Patient Walk?: Yes Walk 10 feet (QC): 4 Walk 50 ft with 2 Turns(QC): 4 Walk 150 ft (QC): 4 Walking 10ft/uneven surface-QC: 4 Gait Persons Needed: 1 Gait Assistive Device: FWW 150 ft x 2 slow, assisted for port O2 out of room , inside room pt amb 55 ft demonstrating safety with use of extended O2 tubing simulating what she will do at home. PT REQUIRED ASSIST FOR PORT O2 AND THERFORE SCORED 4 ON GAIT QC, IN ROOM WITH EXTENDED TUBING SIMULATING HOME PT. REQUIRED ONLY OBSERVATION /SBA = 6 Stair Training Stair Training: Handrails/: 2 handrails #of Steps: 4 1 Step (curb) (QC): 4 4 Steps (QC): 4 12 Steps (QC): 88 (SOB with 4 stairs, 8 to 12 not attempted at this time) Stairs: Pattern: Reciprocal fatigue and mild SOB after 4 stairs Balance Picking up an Object (QC): 6 Exercises Supine Ex: Ankle pumps, Quad Set, Rolling, Glut sets, Heel Slides, Short Arc Quads, Straight leg raise, Hip abd/add Supine Reps: 12 NuStep Minutes: 12 NuStep Workload: 1 Treatments TRFs, stairs, gait, therx, toileting, managing O2 tubing safety, education regarding ARU practices Assessment Current Status: Good Progress some mild SOB with Nustep with mask up, no SOB with mask down and no other patients in gym, Mild SOB after 4 steps, O2 sats consistently >90% with 2L O2 PT Short Term Goals Short Term Goals Time Frame: Jun 08, 2022 Roll Left & Right: 6 Sit to lyin Lying to sitting on side of be: 6 Sit to stand: 6 Chair/crc-xp-tnkal transfer: 6 Toilet transfer: 6 Car transfer: 6 Walk 10 feet: 6 Walk 50 feet with two turns: 5 Walk 150 feet: 5 Walking 10ft on uneven surface: 5 1 step (curb): 5 4 steps: 5 12 steps: 5 Picking up objects: 5 PT Halfway Goals Halfway Goals PT Air Chipper Goals Time Frame: Jun 15, 2022 Roll Left & Right (QC): 6 Sit to Lying (QC): 6 Lying-Sitting on Side/Bed(QC): 6 Sit to Stand (QC): 6 Chair/Gnb-wy-Oynui Xfer(QC): 6 Toilet Transfer (QC): 6 Car Transfer (QC): 6 Does the Patient Walk: Yes Walk 10 feet (QC): 6 Walk 50ft with 2 Turns (QC): 6 Walk 150 ft (QC): 6 Walking 10ft on Uneven Surface: 6 1 Step (curb) (QC): 6 4 Steps (QC): 6 12 Steps (QC): 6 Picking up an Object (QC): 6 Does the Pt use WC or Scooter?: No Wheel 50 feet with 2 turns (QC: 9 Wheel 150 feet: 9 PT Plan Treatment/Plan Treatment Plan: Continue Plan of Care Treatment Plan: Bed Mobility, Education, Functional Activity Everette, Functional Strength, Group Therapy, Gait, Safety, Therapeutic Exercise, Transfers Treatment Duration: Jun 15, 2022 Frequency: At least 5 of 7 days/Wk (IRF) Estimated Hrs Per Day: 1.5 hours per day Patient and/or Family Agrees t: Yes Safety Risks/Education Patient Education: Gait Training, Transfer Techniques, Steps, Correct Positioning, Disease Process, Safety Issues Teaching Recipient: Patient Teaching Methods: Demonstration, Discussion Response to Teaching: Verbalize Understanding, Return Demonstration, Reinforcement Needed Time Time In: 1030 Time Out: 1140 Total Billed Treatment Time: 70 Total Billed Treatment 1,EX40m,FA15m,GT15m ROBYN ROSAS CHEMICAL DETECTION EXPERT Jun 01, 2022 11:52
[2022-06-01] MEDS: NYSTATIN ORAL SUSP 5 ML UDC PO SCH ×3 (13:03→21:46)
[2022-06-01] MEDS: ENOXAPARIN 40 MG/0.4 ML (LOVENOX) SYR SC SCH (17:02)
[2022-06-01 20:15] VITALS: BP 179/86
[2022-06-01] MEDS: traZODone 100 MG (DESYREL) TAB PO SCH (21:45)
[2022-06-01] MEDS: MELATONIN 3 MG TABLET PO PRN (21:45)
[2022-06-02] MEDS: RT-ALBUTEROL/IPRATROPIUM 3 ML (DUONEB) VIAL INH PRN (04:44)
--- NOTE | 2022-06-02 06:31 | Individualized Plan of Care ---
Individualized Plan of Care Rehab Nursing IPOC Order Admission Date May 31, 2022 at 17:20 Current Orders Orders Admission Order(Inpt,Obs,Sdc) (05/31/22 17:22) Vital Signs: Per Unit Policy ( 08,16,00 (05/31/22 17:22) Paul Go 09,21 (05/31/22 17:22) Sequential Compression Device (05/31/22 17:22) Steam Clean Machine Operator-Inpt Rehab Con (05/31/22 17:22) Rehab Nursing Orders-Ipoc (05/31/22 17:22) Physical Therapy Rehab Orders (05/31/22 17:22) Occupational Therapy Rehab Ord (05/31/22 17:22) Speech Therapy Rehab Orders (05/31/22:22) Cbc With Automated Diff (06/01/22 06:00) Comprehensive Metabolic Panel (06/01/22 06:00) Precautions (Aru) (05/31/22:22) Weekly Weight WEEK (05/31/22:22) Rehab-Intensity Of Therapy (05/31/22 17:22) Initiate Admission Nursing Pro .admission (05/31/22 17:22) Alprazolam Tablet (Xanax Tablet) (05/31/22 17:30) Calcium Carbonate Chew Tablet (Antacid C (05/31/22 17:30) Diphenhydramine Tablet (Benadryl Tablet) (05/31/22 17:30) Docusate Sodium Capsule (Colace Capsule) (05/31/22 21:00) Docusate Sodium Capsule (Colace Capsule) (05/31/22 17:30) Bisacodyl Suppository (Dulcolax Supposit (05/31/22 17:30) Lactulose Oral Solution (Enulose Oral So (05/31/22 17:30) Na Phos/Na Biphos Enema (Fleet Enema Celio (05/31/22 17:30) Guaifenesin/Codeine Syrup (Robitussin Ac (05/31/22 17:30) Loperamide Tablet (Imodium Tablet) (05/31/22 17:30) Melatonin Tablet (Melatonin Tablet) (05/31/22 17:30) Polyethylene Glycol Powder Pkt (Miralax (05/31/22 21:00) Ondansetron Oral Dissolve Tab (Zofran (05/31/22 17:30) Senna S Tablet (Senokot S Tablet) (05/31/22 21:00) Acetaminophen Tablet/Caplet (Tylenol T (05/31/22 17:30) Code/Resuscitation (05/31/22 17:22) Admission Arrival Bed Request (05/31/22 17:20) Incentive Spirometry (Nursing) Q2H (05/31/22 17:24) General/Regular (05/31/22 Dinner) Acetaminophen Tablet (Tylenol Tablet) (05/31/22 17:30) Acetaminophen Suppository (Tylenol Suppo (05/31/22 17:30) Albuterol/Ipra Inhalation Soln (Duoneb I (05/31/22 17:30) Enalaprilat Injection (Vasotec Injection (05/31/22 18:00) Enoxaparin Injection (Lovenox Injection) (05/31/22 17:30) Pantoprazole Tablet (Protonix Tablet) (06/01/22 09:00) Thiamine Tablet (Vitamin B-1 Tablet) (06/01/22 07:00) Umeclidinium [place] Inhaler (Incruse El (06/01/22 09:00) Amlodipine Tablet (Norvasc Tablet) (06/01/22 09:00) Lisinopril Tablet (Zestril Tablet) (06/01/22 09:00) Oxycodone Immediate Rel Tablet (Oxyir Ta (05/31/22 17:30) Incentive Spirometry Initial (05/31/22 17:24) Clonidine Tablet (Catapres Tablet) (05/31/22 17:30) Flu High Dose Quad [id number] (Fluzone Hi (05/31/22 19:00) Albuterol/Ipra Inhalation Soln (Duoneb I (05/31/22 21:00) Hydralazine Tablet (Apresoline Tablet) (05/31/22 21:00) Albuterol Pre-Mix Nebs (Rt) (Proventil (05/31/22 20:45) Aspirin Chewable Tablet (Baby Aspirin Ch (06/01/22 09:00) Buspirone Tablet (Buspar Tablet) (05/31/22 21:00) Clopidogrel Tablet (Plavix Tablet) (06/01/22 09:00) Fluticasone/Vilanterol 100 Mcg (Breo Ell (06/01/22 09:00) Nitroglycerin 0.4 Mg Btl 25's (Nitrostat (05/31/22 20:45) Hydroxyzine Cap/Tab (Vistaril) (05/31/22 21:45) Cyclobenzaprine Tablet (Flexeril Tablet) (05/31/22 21:30) Potassium Chloride (Tablet) (K Dur Table (06/01/22 08:00) Potassium Chloride (Tablet) (K Dur Table (06/01/22 08:15) Magnesium (06/01/22 08:12) Patient Visit (06/01/22 ) Pt Eval Low Complexity (06/01/22 ) Patient Visit (06/01/22 ) Exercise Therap, Ea 15 Min (06/01/22 ) Functional Activities, Ea 15 (06/01/22 ) Gait Training, Ea 15 Min (06/01/22 ) Nystatin Oral Suspension (Mycostatin O (06/01/22 13:00) Trazodone Tablet (Desyrel Tablet) (06/01/22 21:00) Patient May Use Own Med,Single (Patient (06/02/22 08:30) Fluticasone/Vilanterol 100 Mcg (Breo Ell (06/02/22 09:00) Umeclidinium [place] Inhaler (Incruse El (06/02/22 09:00) Clonidine Patch (Catapres Patch) (06/09/22 09:00) Clonidine Patch (Catapres Patch) (06/02/22 14:00) Patch Removal (Patch Removal) (06/09/22 09:00) Rehab Nursing Orders: Ongoing Assess. of Cognitive Status, Ongoing Assess. of Function Status, Bladder Management, Bladder Scan, Bladder Training, Bowel Management, Bowel Training, Disease Management & Educaiton, DVT Prophylaxis, Fa ll Prevention, Fluid/Electrolyte/Nutrition Mgmt, Infection Prevention, Medication Management & Education, Management of Risks & Complications, Management of Skin Intergrity, Nutrition Management, Pain Management, Patient/Family Support, Safety Management Intensity of Therapy to be met Patient to be seen: Min.3h per day/5 of 7d PT IPOC Problem List: Activity Tolerance, Functional Strength, Safety, Balance, Gait, Transfer, Bed Mobility, ROM Treatment Plan: Continue Plan of Care Bed Mobility, Education, Functional Activity Everette, Functional Strength, Group Therapy, Gait, Safety, Therapeutic Exercise, Transfers Treatment Duration: Jun 15, 2022 Frequency: At least 5 of 7 days/Wk (IRF) Estimated Hrs Per Day: 1.5 hours per day OT IPOC Problems: Decreased Activ Tolerance, Decreased UE Strength, Dependent Transfers, Impaired Self-Care Skills OT Treatment, Training and Edu: Yes Plan of Care: ADL Retraining, Caregiver Training, Functional Mobility, Group Exercise/Act as Ind (education, activity tolerance, strengthening, funct mobility), UE Funct Exercise/Act, UE Neuromus Re-Ed/Coord, OTHER (Energy conservationn education) Treatment Duration: Jun 08, 2022 Frequency: At least 5 of 7 days/Wk (IRF) Estimated Hrs Per Day: 1.[address] IPOC Speech Therapy Treatment Plan: Modify Plan, See Comments Treatment Duration: May 24, 2022 Frequency: Modified Program (IRF) Estimated Hrs Per Day: Other Steam Clean Machine Operator/Case Mgmt Steam Clean Machine Operator/Case Managemen: Discharge Planning Dietitian/Pleasure Craft Sailor Dietitian/Pleasure Craft Sailor to monitor nutritional status and make changes and/or recommendations as needed and work with speech pathology on dietary upgrades as the occur. Physician IPOC Medical Issues being managed closely and that require the 24 hour availability of a physician: Recent critical illness requiring extended intubation status with severe COPD with polysubstance abuse now with continued slow recovery with labile HTN in need of close monitoring Medical Issues: Bowel/Bladder Function, DVT Prophylaxis, Falls Precautions, Fluid/Electrolyte/Nutrition Balance, Infection Protection, Pain Management Brief Synthesis of Preadmission Screen, Post-Admission Evaluation, and Therapy Evaluations: PT OT will focus on regaining function with AD to increase stamina and improve overall status in order to return home with independent living skills Medical Prognosis: Good Anticipated Length of Stay: 7 days VICKI WATERS DO Jun 02, 2022 06:31
--- NOTE | 2022-06-02 06:31 | PM&R Progress Note ---
Subjective HPI/CC On Admission Date Seen by Provider: Jun 02, 2022 Time Seen by Provider: 11:30 Subjective/Events-last exam 06/02/2022: Patient doing well No pain reported HTN is an issue No falls O2 maintained Only has a BM 3 times a month 06/01/2022: Patient doing really well Pain is controlled Did not sleep well so added trazodone 100 mg at night Thinks she has thrush so initiated nystatin swish and swallow Review of Systems General: Fatigue, Malaise Objective Exam Vital Signs Vital Signs Date Time Temp Pulse Resp B/P (MAP) Pulse Ox O2 Delivery O2 Flow Rate FiO2 06/02/22 12:22 97 191/83 (119) 06/02/22 09:55 93 Nasal Cannula 2.00 06/02/22 08:29 37.1 20 Capillary Refill : General Appearance: No Apparent Distress, WD/WN, Chronically ill HEENT: PERRL/EOMI, Normal ENT Inspection, Pharynx Normal Neck: Full Range of Motion, Normal Inspection, Non Tender, Supple, Carotid Bruit Respiratory: Chest Non Tender, No Accessory Muscle Use, No Respiratory Distress, Decreased Breath Sounds Cardiovascular: Regular Rate, Rhythm, No Edema, No Gallop, No JVD, No Murmur, Normal Peripheral Pulses Gastrointestinal: Normal Bowel Sounds, No Organomegaly, No Pulsatile Mass, Non Tender, Soft Back: Normal Inspection, No CVA Tenderness, No Vertebral Tenderness Extremity: Normal Capillary Refill, Normal Inspection, Normal Range of Motion, Non Tender, No Calf Tenderness, No Pedal Edema Neurologic/Psychiatric: Alert, Oriented x3, Normal Mood/Affect, Abnormal Gait, Motor Weakness (Generalized legs 3/5 strength) Skin: Normal Color, Warm/Dry Lymphatic: No Adenopathy Results/Procedures Lab Patient resulted labs reviewed. FIM Transfers Therapy Code Descriptions/Definitions Functional [place] Measure: 0=Not Assessed/NA 4=Minimal Assistance 1=Total Assistance 5=Supervision or Setup 2=Maximal Assistance 6=Modified [place] 3=Moderate Assistance 7=Complete IndependenceSCALE: Activities may be completed with or without assistive devices. 1-Dnoomlhwah-tawlqow completes the activity by him/herself with no assistance from a helper. 5-Set-up or Clean-up Assistance-helper sets up or cleans up; patient completes activity. [place] assists only prior to or following the activity. 4-Supervision or Touching Assistance-helper provides verbal cues and/or touching/steadying and/or contact guard assistance as patient completes acti vity. Assistance may be provided throughout the activity or intermittently. 3-Partial/Moderate Assistance-helper does LESS THAN HALF the effort. [place] lifts, holds or supports trunk or limbs, but provides less than half the effort. 2-Substantial/Maximal Assistance-helper does MORE THAN HALF the effort. [place] lifts or holds trunk or limbs and provides more than half the effort. 0-Ptkryyvfb-wwwjzo does ALL the effort. Patient does none of the effort to complete the activity. Or, the assistance of 2 or more helpers is required for the patient to complete the activity. If activity was not attempted, code reason: 7-Patient Refused. 9-Not Applicable-not attempted and the patient did not perform the activity before the current illness, exacerbation or injury. 10-Not Attempted due to Environmental Limitations-(lack of equipment, weather restraints, etc.). 88-Not Attempted due to Medical Conditions or Safety Concerns. Roll Left to Right (QC): 6 Sit to Lying (QC): 6 Sit to Stand (QC): 6 Chair/Bqt-ny-Cnbat Xfer(QC): 6 Car Transfer (QC): 6 Gait Training Does the Patient Walk?: Yes Walk 10 feet (QC): 4 Walk 50 ft with 2 Turns(QC): 4 Walk 150 ft (QC): 4 Walking 10ft/uneven surface-QC: 4 Gait Persons Needed: 1 Gait Assistive Device: FWW Wheelchair Training Wheel 50 ft with 2 turns (QC): 9 Wheel 150 ft (QC): 9 Stair Training Stair Training: Handrails/: 2 handrails #of Steps: 4 1 Step (curb) (QC): 4 4 Steps (QC): 4 12 Steps (QC): 88 (SOB with 4 stairs, 8 to 12 not attempted at this time) Stairs: Pattern: Reciprocal Balance Picking up an Object (QC): 6 ADL-Treatment Eating (QC): 6 (Pt reported food "just doesn't taste good" but she is able to feed herself without help.) Oral Hygiene (QC): 4 (SBA standing at sink to clean dentures and wash face, FWW) Shower/Bathe Self (QC): 4 (SBA for standing, sponge bath. Reported she does not shower every day due to thin skin.) Upper Body Dressing (QC): 4 (SBA, standing to put shirt on over her head. Able to take O2 out of shirt and reposition it.) Lower Body Dressing (QC): 4 (SBA for pulling pants up and down, FWW. ) On/Off Footwear (QC): 5 (setup for slipper socks) Toileting Hygiene (QC): 4 (SBA for clothing management) Assessment/Plan Assessment and Plan Assess & Plan/Chief Complaint Assessment: COPD myopathy Oxygen dependent at home Smoker Hypertension Anxiety Polysubstance abuse including marijuana and cocaine Alcoholism Encephalopathy Thrush Insomnia Chronic constipation Plan: Aggressive PT and OT Maintain oxygen Nebulizers Supportive care 06/01/2022: Nystatin swish and swallow supportive care Supportive care Trazodone for insomnia Nystatin swish and swallow 06/02/2022: Monitor closely Improved insomnia (1) Myopathy (2) COPD exacerbation Status: Acute (3) Physical debility Status: Acute (4) Encephalopathy acute Status: Resolved Resolution Date/Time: 05/28/22 @ 19:29 (5) Cocaine use Status: Chronic (6) Polysubstance abuse Status: Chronic (7) HTN (hypertension) Status: Chronic (8) Normocytic anemia Status: Acute (9) Anxiety Status: Acute (10) Marijuana use Status: Acute (11) History of alcohol abuse Status: Acute VICKI WATERS DO Jun 02, 2022 06:31
[2022-06-02] MEDS: THIAMINE 100 MG (VITAMIN B-1) TAB PO SCH (06:50)
[2022-06-02] MEDS: KCL 20 MEQ TAB (K-DUR) PO SCH ×3 (08:00→17:47)
[2022-06-02] MEDS: busPIRone 15 MG (BUSPAR) TABLET PO SCH ×2 (08:19→21:19)
[2022-06-02] MEDS: DOCUSATE SODIUM 100 MG (COLACE) CAP PO SCH ×2 (08:19→21:15)
[2022-06-02] MEDS: amLODIPine 10 MG (NORVASC) TAB PO SCH (08:19)
[2022-06-02] MEDS: PANTOPRAZOLE 40 MG (PROTONIX) TAB PO SCH (08:20)
[2022-06-02] MEDS: ASPIRIN 81 MG CHEW (CHILDREN'S ASA) PO SCH (08:20)
[2022-06-02] MEDS: lisINopril 10 MG (PRINIVIL) TABLET PO SCH (08:20)
[2022-06-02] MEDS: hydrALAZINE (APRESOLINE) 25 MG TAB PO SCH ×3 (08:20→21:19)
[2022-06-02] MEDS: CLOPIDOGREL 75 MG (PLAVIX) TABLET PO SCH (08:20)
[2022-06-02] MEDS: SENNA W/DOCUSATE (SENOKOT S) TABLET PO SCH ×2 (08:20→21:15)
[2022-06-02] MEDS: polyethylene glycoL POWDER 17 GM (MIRALAX) PACK PO SCH ×2 (08:22→21:15)
[2022-06-02] MEDS: NYSTATIN ORAL SUSP 5 ML UDC PO SCH ×4 (08:22→21:19)
[2022-06-02 08:29] VITALS: BP 191/81
[2022-06-02] MEDS ORDERED: PATIENT MAY USE OWN MED,SINGLE MED PO SCH (08:30)
[2022-06-02] MEDS: FLUTICASONE/VILANTEROL 100 MCG 14'S (BREO) IH SCH ×2 (09:00→09:54)
[2022-06-02] MEDS: UMECLIDINIUM BROMIDE (INCRUSE ELLIPTA) 7'S IH SCH ×2 (09:00→09:54)
[2022-06-02 09:30] VITALS: BP 160/73
[2022-06-02] MEDS: RT-ALBUTEROL/IPRATROPIUM 3 ML (DUONEB) VIAL INH SCH ×3 (09:53→20:23)
[2022-06-02 12:22] VITALS: BP 191/83
[2022-06-02] MEDS ORDERED: cloNIDine 0.1 MG PATCH (CATAPRES TTS) TDSY TD SCH (14:00)
[2022-06-02 17:00] VITALS: BP 150/70
[2022-06-02] MEDS: ENOXAPARIN 40 MG/0.4 ML (LOVENOX) SYR SC SCH (17:48)
[2022-06-02] MEDS ORDERED: CATHETER FLUSH 10 ML SYR IVP PRN (19:15)
[2022-06-02 20:10] VITALS: BP 169/82
[2022-06-02] MEDS: MELATONIN 3 MG TABLET PO PRN (21:19)
[2022-06-02] MEDS: traZODone 100 MG (DESYREL) TAB PO SCH (21:19)
[2022-06-02] MEDS: CATHETER FLUSH 10 ML SYR IVP SCH (21:27)
[2022-06-02] MEDS: CYCLOBENZAPRINE 10 MG (FLEXERIL) TAB PO PRN (21:39)
--- NOTE | 2022-06-03 05:54 | PM&R Progress Note ---
Subjective HPI/CC On Admission Date Seen by Provider: Jun 03, 2022 Time Seen by Provider: 10:30 Subjective/Events-last exam 06/03/2022: Pt is doing pretty well Bowels moved yesterday Flu vaccination was given Overall much improved 06/02/2022: Patient doing well No pain reported HTN is an issue No falls O2 maintained Only has a BM 3 times a month 06/01/2022: Patient doing really well Pain is controlled Did not sleep well so added trazodone 100 mg at night Thinks she has thrush so initiated nystatin swish and swallow Review of Systems General: Fatigue, Malaise Pulmonary: Dyspnea Objective Exam Vital Signs Vital Signs Date Time Temp Pulse Resp B/P (MAP) Pulse Ox O2 Delivery O2 Flow Rate FiO2 06/03/22 21:35 98 Nasal Cannula 2.00 06/03/22 19:30 36.9 83 16 152/70 (97) Capillary Refill : General Appearance: No Apparent Distress, WD/WN, Chronically ill HEENT: PERRL/EOMI, Normal ENT Inspection, Pharynx Normal Neck: Full Range of Motion, Normal Inspection, Non Tender, Supple, Carotid Bruit Respiratory: Chest Non Tender, No Accessory Muscle Use, No Respiratory Distress, Decreased Breath Sounds Cardiovascular: Regular Rate, Rhythm, No Edema, No Gallop, No JVD, No Murmur, Normal Peripheral Pulses Gastrointestinal: Normal Bowel Sounds, No Organomegaly, No Pulsatile Mass, Non Tender, Soft Back: Normal Inspection, No CVA Tenderness, No Vertebral Tenderness Extremity: Normal Capillary Refill, Normal Inspection, Normal Range of Motion, Non Tender, No Calf Tenderness, No Pedal Edema Neurologic/Psychiatric: Alert, Oriented x3, Normal Mood/Affect, Abnormal Gait, Motor Weakness (Generalized legs 3/5 strength) Skin: Normal Color, Warm/Dry Lymphatic: No Adenopathy Results/Procedures Lab Patient resulted labs reviewed. FIM Transfers Therapy Code Descriptions/Definitions Functional [place] Measure: 0=Not Assessed/NA 4=Minimal Assistance 1=Total Assistance 5=Supervision or Setup 2=Maximal Assistance 6=Modified [place] 3=Moderate Assistance 7=Complete IndependenceSCALE: Activities may be completed with or without assistive devices. 0-Eymbzkparh-mkutknf completes the activity by him/herself with no assistance from a helper. 5-Set-up or Clean-up Assistance-helper sets up or cleans up; patient completes activity. [place] assists only prior to or following the activity. 4-Supervision or Touching Assistance-helper provides verbal cues and/or touching/steadying and/or contact guard assistance as patient completes activity . Assistance may be provided throughout the activity or intermittently. 3-Partial/Moderate Assistance-helper does LESS THAN HALF the effort. [place] lifts, holds or supports trunk or limbs, but provides less than half the effort. 2-Substantial/Maximal Assistance-helper does MORE THAN HALF the effort. [place] lifts or holds trunk or limbs and provides more than half the effort. 3-Wvhaccxfl-qgffbp does ALL the effort. Patient does none of the effort to complete the activity. Or, the assistance of 2 or more helpers is required for the patient to complete the activity. If activity was not attempted, code reason: 7-Patient Refused. 9-Not Applicable-not attempted and the patient did not perform the activity before the current illness, exacerbation or injury. 10-Not Attempted due to Environmental Limitations-(lack of equipment, weather restraints, etc.). 88-Not Attempted due to Medical Conditions or Safety Concerns. Roll Left to Right (QC): 6 Sit to Lying (QC): 6 Sit to Stand (QC): 6 Chair/Ipk-eq-Rftir Xfer(QC): 6 Car Transfer (QC): 6 Gait Training Does the Patient Walk?: Yes Walk 10 feet (QC): 4 Walk 50 ft with 2 Turns(QC): 4 Walk 150 ft (QC): 4 Walking 10ft/uneven surface-QC: 4 Gait Persons Needed: 1 Gait Assistive Device: FWW Wheelchair Training Wheel 50 ft with 2 turns (QC): 9 Wheel 150 ft (QC): 9 Stair Training Stair Training: Handrails/: 2 handrails #of Steps: 4 1 Step (curb) (QC): 4 4 Steps (QC): 4 12 Steps (QC): 88 (SOB with 4 stairs, 8 to 12 not attempted at this time) Stairs: Pattern: Reciprocal Balance Picking up an Object (QC): 6 ADL-Treatment Eating (QC): 6 (Pt reported food "just doesn't taste good" but she is able to feed herself without help.) Oral Hygiene (QC): 4 (SBA standing at sink to clean dentures and wash face, FWW) Shower/Bathe Self (QC): 4 (SBA for standing, sponge bath. Reported she does not shower every day due to thin skin.) Upper Body Dressing (QC): 4 (SBA, standing to put shirt on over her head. Able to take O2 out of shirt and reposition it.) Lower Body Dressing (QC): 4 (SBA for pulling pants up and down, FWW. ) On/Off Footwear (QC): 5 (setup for slipper socks) Toileting Hygiene (QC): 4 (SBA for clothing management) Assessment/Plan Assessment and Plan Assess & Plan/Chief Complaint Assessment: COPD myopathy Oxygen dependent at home Smoker Hypertension Anxiety Polysubstance abuse including marijuana and cocaine Alcoholism Encephalopathy Thrush Insomnia Chronic constipation Plan: Aggressive PT and OT Maintain oxygen Nebulizers Supportive care 06/01/2022: Nystatin swish and swallow supportive care Supportive care Trazodone for insomnia Nystatin swish and swallow 06/02/2022: Monitor closely Improved insomnia 06/03/2022: Supportive care Continue aggressive therapy (1) Myopathy (2) COPD exacerbation Status: Acute (3) Physical debility Status: Acute (4) Encephalopathy acute Status: Resolved Resolution Date/Time: 05/28/22 @ 19:29 (5) Cocaine use Status: Chronic (6) Polysubstance abuse Status: Chronic (7) HTN (hypertension) Status: Chronic (8) Normocytic anemia Status: Acute (9) Anxiety Status: Acute (10) Marijuana use Status: Acute (11) History of alcohol abuse Status: Acute VICKI WATERS DO Jun 03, 2022 05:54
[2022-06-03] MEDS: THIAMINE 100 MG (VITAMIN B-1) TAB PO SCH (06:44)
[2022-06-03] MEDS: CATHETER FLUSH 10 ML SYR IVP SCH ×2 (06:44→21:33)
[2022-06-03] MEDS: KCL 20 MEQ TAB (K-DUR) PO SCH ×2 (07:10→17:40)
[2022-06-03] MEDS: ASPIRIN 81 MG CHEW (CHILDREN'S ASA) PO SCH (07:10)
[2022-06-03] MEDS: lisINopril 10 MG (PRINIVIL) TABLET PO SCH (07:10)
[2022-06-03] MEDS: amLODIPine 10 MG (NORVASC) TAB PO SCH (07:10)
[2022-06-03] MEDS: busPIRone 15 MG (BUSPAR) TABLET PO SCH ×2 (07:10→21:32)
[2022-06-03] MEDS: PANTOPRAZOLE 40 MG (PROTONIX) TAB PO SCH (07:11)
[2022-06-03] MEDS: NYSTATIN ORAL SUSP 5 ML UDC PO SCH ×4 (07:11→21:32)
[2022-06-03] MEDS: CLOPIDOGREL 75 MG (PLAVIX) TABLET PO SCH (07:11)
[2022-06-03] MEDS: hydrALAZINE (APRESOLINE) 25 MG TAB PO SCH ×3 (07:11→21:32)
[2022-06-03 07:30] VITALS: BP 156/70
[2022-06-03] MEDS: UMECLIDINIUM BROMIDE (INCRUSE ELLIPTA) 7'S IH SCH (07:31)
[2022-06-03] MEDS: FLUTICASONE/VILANTEROL 100 MCG 14'S (BREO) IH SCH (07:31)
[2022-06-03] MEDS: RT-ALBUTEROL/IPRATROPIUM 3 ML (DUONEB) VIAL INH SCH ×3 (07:39→21:35)
[2022-06-03] MEDS: DOCUSATE SODIUM 100 MG (COLACE) CAP PO SCH ×2 (08:07→21:41)
[2022-06-03] MEDS: SENNA W/DOCUSATE (SENOKOT S) TABLET PO SCH ×2 (08:07→21:41)
[2022-06-03] MEDS: polyethylene glycoL POWDER 17 GM (MIRALAX) PACK PO SCH ×2 (08:07→21:41)
--- NOTE | 2022-06-03 08:54 | Physical Therapy Daily Note ---
PT Daily Note-Current Subjective Patient in bed pre-tx, reports no pain, agrees to PT. Pain Section J - Health Conditions 1. Rarely or not at all 2. Occasionally 3. Frequently 4. Almost constantly 8. Unable to answer Pain Effect on Sleep: 1 Pain Interference with Therapy: 1 Pain Interference w/Day-to-Day: 1 Appearance Patient in bed post-tx with nurse call, phone, tray, all needs met. Mental Status Patient Orientation: Person, Place, Situation Attachments: Oxygen Transfers SCALE: Activities may be completed with or without assistive devices. 7-Mbztsdxokc-yqsbvrk completes the activity by him/herself with no assistance from a helper. 5-Set-up or Clean-up Assistance-helper sets up or cleans up; patient completes activity. [place] assists only prior to or following the activity. 4-Supervision or Touching Assistance-helper provides verbal cues and/or touching/steadying and/or contact guard assistance as patient completes activity. Assistance may be provided throughout the activity or intermittently. 3-Partial/Moderate Assistance-helper does LESS THAN HALF the effort. [place] lifts, holds or supports trunk or limbs, but provides less than half the effort. 2-Substantial/Maximal Assistance-helper does MORE THAN HALF the effort. [place] lifts or holds trunk or limbs and provides more than half the effort. 6-Gmfyvgsma-liydtm does ALL the effort. Patient does none of the effort to complete the activity. Or, the assistance of 2 or more helpers is required for the patient to complete the activity. If activity was not attempted, code reason: 7-Patient Refused. 9-Not Applicable-not attempted and the patient did not perform the activity before the current illness, exacerbation or injury. 10-Not Attempted due to Environmental Limitations-(lack of equipment, weather restraints, etc.). 88-Not Attempted due to Medical Conditions or Safety Concerns. Roll Left & Right (QC): 6 Sit to Lying (QC): 6 Lying to Sitting/Side of Bed(Q: 6 Sit to Stand (QC): 4 SBA for sit to stand, others noted are independent Weight Bearing Weight Bearing/Tolerated Weight Bearing/Tolerated Gait Training Does the Patient Walk?: Yes Distance: 400' Walk 10 feet (QC): 4 Walk 50 ft with 2 Turns(QC): 4 Walk 150 ft (QC): 4 Gait Persons Needed: 1 Gait Assistive Device: FWW SBA, Patient took standing break [facility] to catch her breath. Patient has good gait speed, foot clearance, and step length. Wheelchair Training Does the Pt Use a Wheelchair?: No Exercises Supine Ex: Bridging, Straight leg raise Supine Reps: 20 Standing: Hamstring curls, Heel/toe raises, Marching Standing Reps: 20 Clam [place] x20 in side-lying each side NuStep Minutes: 15 NuStep Workload: 2 Treatments Ambulation, LE Strengthening Assessment Current Status: Good Progress Patient has a lot more energy since previous visit with them Friday, gait was more fluid and natural, took less breaks to catch her breath. Patient demonstrated increased endurance, independent bed mobility, and SBA transfers. PT Short Term Goals Short Term Goals Time Frame: Jun 08, 2022 Roll Left & Right: 6 Sit to lyin Lying to sitting on side of be: 6 Sit to stand: 6 Chair/maw-mf-wczzt transfer: 6 Toilet transfer: 6 Car transfer: 6 Walk 10 feet: 6 Walk 50 feet with two turns: 5 Walk 150 feet: 5 Walking 10ft on uneven surface: 5 1 step (curb): 5 4 steps: 5 12 steps: 5 Picking up objects: 5 PT Skilled Nursing Goals Skilled Nursing Goals PT Skilled Nursing Goals Time Frame: Jun 15, 2022 Roll Left & Right (QC): 6 Sit to Lying (QC): 6 Lying-Sitting on Side/Bed(QC): 6 Sit to Stand (QC): 6 Chair/Dex-cs-Sordv Xfer(QC): 6 Toilet Transfer (QC): 6 Car Transfer (QC): 6 Does the Patient Walk: Yes Walk 10 feet (QC): 6 Walk 50ft with 2 Turns (QC): 6 Walk 150 ft (QC): 6 Walking 10ft on Uneven Surface: 6 1 Step (curb) (QC): 6 4 Steps (QC): 6 12 Steps (QC): 6 Picking up an Object (QC): 6 Does the Pt use WC or Scooter?: No Wheel 50 feet with 2 turns (QC: 9 Wheel 150 feet: 9 PT Plan Problem List Problem List: Activity Tolerance, Functional Strength, Safety, Balance, Gait, Transfer Treatment/Plan Treatment Plan: Continue Plan of Care Treatment Plan: Education, Functional Activity [place], Functional Strength, Group Therapy, Gait, Safety, Therapeutic Exercise, Transfers Treatment Duration: Jun 15, 2022 Frequency: At least 5 of 7 days/Wk (IRF) Estimated Hrs Per Day: 1.5 hours per day Patient and/or Family Agrees t: Yes Safety Risks/Education Patient Education: Gait Training, Transfer Techniques, Correct Positioning, Safety Issues Teaching Recipient: Patient Teaching Methods: Demonstration, Discussion Response to Teaching: Reinforcement Needed Time Time In: 0800 Time Out: 0900 Total Billed Treatment Time: 60 Total Billed Treatment 1 visit FA 30min EX 30min AGATHA CHO PT Jun 03, 2022 08:54
--- NOTE | 2022-06-03 10:22 | Occupational Ther Daily Note ---
OT Current Status-Daily Note Subjective Pt sitting up in bed with a family member present. Pt reported several times that she wants to go home tomorrow. She stated that she will not have any trouble with self-care tasks while at home, because of assist from family. Appearance Pt left sitting in bed with all needs within reach. Mental Status/Objective Patient Orientation: Person, Place, Time, Situation ADL-Treatment Therapy Code Descriptions/Definitions Functional [place] Measure: 0=Not Assessed/NA 4=Minimal Assistance 1=Total Assistance 5=Supervision or Setup 2=Maximal Assistance 6=Modified [place] 3=Moderate Assistance 7=Complete IndependenceSCALE: Activities may be completed with or without assistive devices. 1-Rnqnkxokuj-njitsph completes the activity by him/herself with no assistance from a helper. 5-Set-up or Clean-up Assistance-helper sets up or cleans up; patient completes activity. [place] assists only prior to or following the activity. 4-Supervision or Touching Assistance-helper provides verbal cues and/or touching/steadying and/or contact guard assistance as patient completes activity. Assistance may be provided throughout the activity or intermittently. 3-Partial/Moderate Assistance-helper does LESS THAN HALF the effort. [place] lifts, holds or supports trunk or limbs, but provides less than half the effort. 2-Substantial/Maximal Assistance-helper does MORE THAN HALF the effort. [place] lifts or holds trunk or limbs and provides more than half the effort. 3-Jsltraahh-abyyic does ALL the effort. Patient does none of the effort to comp lete the activity. Or, the assistance of 2 or more helpers is required for the patient to complete the activity. If activity was not attempted, code reason: 7-Patient Refused. 9-Not Applicable-not attempted and the patient did not perform the activity before the current illness, exacerbation or injury. 10-Not Attempted due to Environmental Limitations-(lack of equipment, weather restraints, etc.). 88-Not Attempted due to Medical Conditions or Safety Concerns. Eating (QC): 5 Oral Hygiene (QC): 5 Shower/Bathe Self (QC): 07 Upper Body Dressing (QC): 07 Lower Body Dressing (QC): 07 Pt declined all ADL options at this time. She reported that she took a shower last night with her sister present/helping her. Her sister said, "I just jumped right in there with her." She declined changing her clothes or getting cleaned up, stating that she changed her clothes yesterday and that she normally wears clothes for 2 days. She was easily distracted by her family member and multiple phone calls. Upon entering room with functional activity she was eating her breakfast. After given time to finish her breakfast, her sister gave her, her tooth brush and tooth paste and she was able to brush her teeth while sitting EOB. Multiple conversations were had about how the home is set up, safety when returning home, stairs, and showering. She reported that there are at least 12 stairs that she will need to climb every day to get from her bedroom to the kitchen/living room. She reported that her sister has gotten her a shower chair. Other Treatment Like said previously, pt is easily distracted and hypertalkative and needs adequate time to perform tasks or initiate tasks, due to distractibility. Pt performed functional task of medication management with no cues or assist with 100% accuracy. She was able to open and close all pill bottles and be able to use fine motor skills to grasp each "pill" with pincer grasp. Pt multitasking by also talking on the phone to family members as well. Education OT Patient Education: Correct positioning, Energy conservation, Modified ADL techniques, Purpose of tx/functional activities, Rehab process, Safety issues Teaching Recipient: Patient, Family Teaching Methods: Discussion Response to Teaching: Verbalize Understanding, Return Demonstration, Reinforcement Needed OT Short Term Goals Short Term Goals Time Frame: Jun 05, 2022 Eatin Oral hygiene: 5 Toileting hygiene: 5 Shower/bathe self: 5 Upper body dressin Lower body dressin OT Mcfp Goals Mcfp Goals Time Frame: Jun 08, 2022 Acute change in mental status: 0 Inattention: 0 Disorganized thinkin Altered level of consciousness: 0 Eating (QC): 6 Oral Hygiene (QC): 6 Toileting Hygiene (QC): 6 Shower/Bathe Self (QC): 6 Upper Body Dressing (QC): 6 Lower Body Dressing (QC): 6 On/Off Footwear (QC): 6 Pt will verbalize three techniques to use to conserve energy on discharge Additional Goals: 1-Demonstrate ADL Tasks, 2-Verbalize Understanding, 3- ImproveStrength/[place] 1=Demonstrate adherence to instructed precautions during ADL tasks. 2=Patient will verbalize/demonstrate understanding of assistive devices/modifications for ADL. 3=Patient will improve strength/tolerance for activity to enable patient to perform ADL's. OT Education/Plan Problem List/Assessment Assessment: Decreased Activ Tolerance, Decreased Safety Aware, Decreased UE Strength, Impaired Cognition, Impaired Coordination, Impaired Funct Balance, Impaired I ADL's, Impaired Self-Care Skills Discharge Recommendations Plan/Recommendations: Continue POC Treatment Plan/Plan of Care Treatment,Training & Education: Yes Patient would benefit from OT for education, treatment and training to promote independence in ADL's, mobility, safety and/or upper extremity function for ADL's. Plan of Care: ADL Retraining, Caregiver Training, Functional Mobility, Group Exercise/Act as Ind (education, activity tolerance, strengthening, funct mobility), UE Funct Exercise/Act, UE Neuromus Re-Ed/Coord, OTHER (Energy conservationn education) Treatment Duration: Jun 08, 2022 Frequency: At least 5 of 7 days/Wk (IRF) Estimated Hrs Per Day: 1.5 hours per day Agreement: Yes Rehab Potential: Good Time/GCodes Start Time: 09:00 Stop Time: 10:15 Total Time Billed (hr/min): 75 Billed Treatment Time 1 visit ADL x4 (55 min) FA (20 min) Shani Rivas OT Jun 03, 2022 10:22
--- NOTE | 2022-06-03 10:52 | ST Cognitive Linguistic Eval ---
Speech Evaluation-General Medical Diagnosis COPD Exacerbation Onset Date: May 18, 2022 Therapy Diagnosis Therapy Diagnosis: Intact/Baseline Cognition Precautions Precautions: Fall Precautions/Isolations: Fall Prevention, Standard Precautions Referral Referring Physician: Dr. 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 Reviewed History: Yes Social History Current Living Status: Alone Speech PLF-Current Status Prior Level of Function The patient denied challenges or concerns with her cognition, speech, language, or swallowing. The patient reports she is currently at cognitive baseline. Subjective The patient was seated upright on the edge of the bed, awake and alert, upon entrance to her room by the clinician. The patient greeted the clinician appropriately and was agreeable to participation in the cognitive linguistic assessment. The patient has a family member present at the close of the assessment. Language Eval: Auditory Comprehends Simple Yes/No Ques: Functional Indent/Objects Multiple Riggins: Functional Follows 1-Step Commands: Functional Follows General Conversations: Functional Language Eval: Verbal Language Completes Spontaneous Greeting: Functional Produces Auto, Serial Info: Functional Imitates Simple Words/Phrases: Functional Word Finding: Functional Requests Basic Needs: Functional States Basic Personal Info: Functional Language Evaluation: Reading Follows Simple Written Direct: Functional Language Evaluation: Writing Writes to Simple Dictation: Functional Cognitive Patient Orientation The patient was independently oriented to self, location, month, day of the week, date, and year. Objective Cognitive Domain Attention: WNL Memory: WNL Problem Solving: Functional Executive Functions: WNL Composite Severity Rating: WNL Clock Drawing Severity Rating: WNL Objective Formal/Standardized Tests [facility] Mental Status Exam (UMS) Results The patient demonstrated a result of +29/30 on the SLUMS correlating to a cognitive linguistic score within normal limits. Oral Motor/Speech Production The patient does not display dysarthria or apraxia of speech at this time. The patient is 100% intelligible in known and unknown contexts. Impression The patient demonstrated cognitive linguistic skills within normal limits at this time (per SLUMS). The patient requests discharge from acute rehabilitation on three occasions throughout the assessment, stating she is "all better." The clinician deferred her questions regarding appropriateness for discharge to her attending. Speech Patient Assess Expression of Ideas/Wants: Expression (4) Understanding Verbal Content: Understands (4) Brief Interview-Mental Status: Yes Repetition of Three Words: Three (3) Temporal Orientation: Year: Correct (3) Temporal Orientation: Month: Accurate within 5 days(2) Temporal Orientation: Day: Correct (1) Recall : Wear to say "Sock": Yes, no cue required (2) Recall : Color: Yes, no cue required (2) Recall : Bed: Yes, no cue required (2) Memory/Recall Ability: Current season, Location of own room, That he or she is in a hsp/hsp unit Speech-Plan Treatment Plan Speech Therapy Treatment Plan: Discontinue ST Treatment Duration: May 24, 2022 Frequency: 1 time per week Estimated Hrs Per Day: .25 hour per day Rehab Potential: Good Safety Risks/Education Teaching Recipient: Patient, Family Teaching Methods: Discussion Response to Teaching: Verbalize Understanding Education Topics Provided: Results, Recommendations, Plan of Care Time Speech Therapy Time In: 10:15 Speech Therapy Time Out: 10:45 Total Billed Time: 30 Billed Treatment Time 1, JOSE NEGRON ELIZABETH ST Jun 03, 2022 10:52
--- NOTE | 2022-06-03 11:55 | Physical Therapy Daily Note ---
PT Daily Note-Current Subjective Patient in bed pre-tx, reports no pain, agrees to PT. Pain Section J - Health Conditions 1. Rarely or not at all 2. Occasionally 3. Frequently 4. Almost constantly 8. Unable to answer Pain Effect on Sleep: 1 Pain Interference with Therapy: 1 Pain Interference w/Day-to-Day: 1 Appearance Patient sitting EOB post-tx with tray, nurse call, phone, and all needs met with family in room. Mental Status Patient Orientation: Person, Place, Situation Attachments: Oxygen Transfers SCALE: Activities may be completed with or without assistive devices. 5-Mynojnohfq-ocsuhxt completes the activity by him/herself with no assistance from a helper. 5-Set-up or Clean-up Assistance-helper sets up or cleans up; patient completes activity. [place] assists only prior to or following the activity. 4-Supervision or Touching Assistance-helper provides verbal cues and/or touching/steadying and/or contact guard assistance as patient completes activity. Assistance may be provided throughout the activity or intermittently. 3-Partial/Moderate Assistance-helper does LESS THAN HALF the effort. [place] lifts, holds or supports trunk or limbs, but provides less than half the effort. 2-Substantial/Maximal Assistance-helper does MORE THAN HALF the effort. [place] lifts or holds trunk or limbs and provides more than half the effort. 8-Wlvcjszfw-nqxpqn does ALL the effort. Patient does none of the effort to complete the activity. Or, the assistance of 2 or more helpers is required for the patient to complete the activity. If activity was not attempted, code reason: 7-Patient Refused. 9-Not Applicable-not attempted and the patient did not perform the activity before the current illness, exacerbation or injury. 10-Not Attempted due to Environmental Limitations-(lack of equipment, weather restraints, etc.). 88-Not Attempted due to Medical Conditions or Safety Concerns. Lying to Sitting/Side of Bed(Q: 6 Sit to Stand (QC): 4 SBA for sjk-rh-afuka Weight Bearing Weight Bearing/Tolerated Weight Bearing/Tolerated Gait Training Does the Patient Walk?: Yes Distance: 425' Walk 10 feet (QC): 4 Walk 50 ft with 2 Turns(QC): 4 Walk 150 ft (QC): 4 Gait Persons Needed: 1 Gait Assistive Device: FWW SBA, Patient gait speed, foot clearance, and step length WFL. Patient did not need a rest break while walking this time. Treatments Ambulation Assessment Current Status: Good Progress Patient did not need a standing break this time while walking, able to dual-task (talking and walking) without SOB. Patient wanted to weigh herself, reported 130lbs on the scale. PT Short Term Goals Short Term Goals Time Frame: Jun 08, 2022 Roll Left & Right: 6 Sit to lyin Lying to sitting on side of be: 6 Sit to stand: 6 Chair/zbc-ot-ayjgt transfer: 6 Toilet transfer: 6 Car transfer: 6 Walk 10 feet: 6 Walk 50 feet with two turns: 5 Walk 150 feet: 5 Walking 10ft on uneven surface: 5 1 step (curb): 5 4 steps: 5 12 steps: 5 Picking up objects: 5 PT Halfway Goals Skid Machine Operator Goals PT Halfway Goals Time Frame: Jun 15, 2022 Roll Left & Right (QC): 6 Sit to Lying (QC): 6 Lying-Sitting on Side/Bed(QC): 6 Sit to Stand (QC): 6 Chair/Iec-rn-Rwnqg Xfer(QC): 6 Toilet Transfer (QC): 6 Car Transfer (QC): 6 Does the Patient Walk: Yes Walk 10 feet (QC): 6 Walk 50ft with 2 Turns (QC): 6 Walk 150 ft (QC): 6 Walking 10ft on Uneven Surface: 6 1 Step (curb) (QC): 6 4 Steps (QC): 6 12 Steps (QC): 6 Picking up an Object (QC): 6 Does the Pt use WC or Scooter?: No Wheel 50 feet with 2 turns (QC: 9 Wheel 150 feet: 9 PT Plan Problem List Problem List: Activity Tolerance, Functional Strength, Safety, Balance, Gait, Transfer Treatment/Plan Treatment Plan: Continue Plan of Care Treatment Plan: Education, Functional Activity [place], Functional Strength, Group Therapy, Gait, Safety, Therapeutic Exercise, Transfers Treatment Duration: Jun 15, 2022 Frequency: At least 5 of 7 days/Wk (IRF) Estimated Hrs Per Day: 1.5 hours per day Patient and/or Family Agrees t: Yes Safety Risks/Education Patient Education: Gait Training, Transfer Techniques, Correct Positioning, Safety Issues Teaching Recipient: Patient Teaching Methods: Demonstration, Discussion Response to Teaching: Verbalize Understanding Time Time In: 1135 Time Out: 1150 Total Billed Treatment Time: 15 Total Billed Treatment 1 visit FA 15min AGATHA CHO PT Jun 03, 2022 11:55
[2022-06-03 12:42] VITALS: BP 140/65
[2022-06-03] MEDS: ENOXAPARIN 40 MG/0.4 ML (LOVENOX) SYR SC SCH (17:40)
[2022-06-03 19:30] VITALS: BP 152/70
[2022-06-03] MEDS: MELATONIN 3 MG TABLET PO PRN (21:32)
[2022-06-03] MEDS: CYCLOBENZAPRINE 10 MG (FLEXERIL) TAB PO PRN (21:32)
[2022-06-03] MEDS: traZODone 100 MG (DESYREL) TAB PO SCH (21:32)
[2022-06-04] MEDS: THIAMINE 100 MG (VITAMIN B-1) TAB PO SCH (05:51)
--- NOTE | 2022-06-04 05:55 | PM&R Progress Note ---
Subjective HPI/CC On Admission Date Seen by Provider: Jun 04, 2022 Time Seen by Provider: 09:00 Subjective/Events-last exam 06/04/2022: Pt is doing well Discharge planned for tomorrow Potassium 3.4, hemoglobin 8.9 Doing very well 06/03/2022: Pt is doing pretty well Bowels moved yesterday Flu vaccination was given Overall much improved 06/02/2022: Patient doing well No pain reported HTN is an issue No falls O2 maintained Only has a BM 3 times a month 06/01/2022: Patient doing really well Pain is controlled Did not sleep well so added trazodone 100 mg at night Thinks she has thrush so initiated nystatin swish and swallow Review of Systems General: Fatigue, Malaise Pulmonary: Dyspnea Objective Exam Vital Signs Vital Signs Date Time Temp Pulse Resp B/P (MAP) Pulse Ox O2 Delivery O2 Flow Rate FiO2 06/04/22 21:32 95 Nasal Cannula 2.00 06/04/22 19:34 36.6 69 16 173/73 (106) Capillary Refill : General Appearance: No Apparent Distress, WD/WN, Chronically ill HEENT: PERRL/EOMI, Normal ENT Inspection, Pharynx Normal Neck: Full Range of Motion, Normal Inspection, Non Tender, Supple, Carotid Bruit Respiratory: Chest Non Tender, No Accessory Muscle Use, No Respiratory Distress, Decreased Breath Sounds Cardiovascular: Regular Rate, Rhythm, No Edema, No Gallop, No JVD, No Murmur, Normal Peripheral Pulses Gastrointestinal: Normal Bowel Sounds, No Organomegaly, No Pulsatile Mass, Non Tender, Soft Back: Normal Inspection, No CVA Tenderness, No Vertebral Tenderness Extremity: Normal Capillary Refill, Normal Inspection, Normal Range of Motion, Non Tender, No Calf Tenderness, No Pedal Edema Neurologic/Psychiatric: Alert, Oriented x3, Normal Mood/Affect, Abnormal Gait, Motor Weakness (Generalized legs 3/5 strength) Skin: Normal Color, Warm/Dry Lymphatic: No Adenopathy Results/Procedures Lab Laboratory Tests 06/04/22 06:14 Patient resulted labs reviewed. FIM Transfers Therapy Code Descriptions/Definitions Functional [place] Measure: 0=Not Assessed/NA 4=Minimal Assistance 1=Total Assistance 5=Supervision or Setup 2=Maximal Assistance 6=Modified [place] 3=Moderate Assistance 7=Complete IndependenceSCALE: Activities may be completed with or without assistive devices. 1-Jdmxqozoal-qqjmoum completes the activity by him/herself with no assistance from a helper. 5-Set-up or Clean-up Assistance-helper sets up or cleans up; patient completes activity. [place] assists only prior to or following the activity. 4-Supervision or Touching Assistance-helper provides verbal cues and/or touching/steadying and/or contact guard assistance as patient completes activity. Assistance may be provided throughout the activity or intermittently. 3-Partial/Moderate Assistance-helper does LESS THAN HALF the effort. [place] lifts, holds or supports trunk or limbs, but provides less than half the effort. 2-Substantial/Maximal Assistance-helper does MORE THAN HALF the effort. [place] lifts or holds trunk or limbs and provides more than half the effort. 6-Dnmyevmpi-gqzdly does ALL the effort. Patient does none of the effort to complete the activity. Or, the assistance of 2 or more helpers is required for the patient to complete the activity. If activity was not attempted, code reason: 7-Patient Refused. 9-Not Applicable-not attempted and the patient did not perform the activity before the current illness, exacerbation or injury. 10-Not Attempted due to Environmental Limitations-(lack of equipment, weather restraints, etc.). 88-Not Attempted due to Medical Conditions or Safety Concerns. Roll Left to Right (QC): 6 Sit to Lying (QC): 6 Sit to Stand (QC): 4 Chair/Tbs-sk-Ujsup Xfer(QC): 6 Car Transfer (QC): 6 Gait Training Does the Patient Walk?: Yes Distance: 425' Walk 10 feet (QC): 4 Walk 50 ft with 2 Turns(QC): 4 Walk 150 ft (QC): 4 Walking 10ft/uneven surface-QC: 4 Gait Persons Needed: 1 Gait Assistive Device: FWW Wheelchair Training Does the Pt Use a Wheelchair?: No Wheel 50 ft with 2 turns (QC): 9 Wheel 150 ft (QC): 9 Stair Training Stair Training: Handrails/: 2 handrails #of Steps: 4 1 Step (curb) (QC): 4 4 Steps (QC): 4 12 Steps (QC): 88 (SOB with 4 stairs, 8 to 12 not attempted at this time) Stairs: Pattern: Reciprocal Balance Picking up an Object (QC): 6 ADL-Treatment Eating (QC): 5 Oral Hygiene (QC): 5 Shower/Bathe Self (QC): 07 Upper Body Dressing (QC): 07 Lower Body Dressing (QC): 07 On/Off Footwear (QC): 5 (setup for slipper socks) Toileting Hygiene (QC): 4 (SBA for clothing management) Assessment/Plan Assessment and Plan Assess & Plan/Chief Complaint Assessment: COPD myopathy Oxygen dependent at home Smoker Hypertension Anxiety Polysubstance abuse including marijuana and cocaine Alcoholism Encephalopathy Thrush Insomnia Chronic constipation Plan: Aggressive PT and OT Maintain oxygen Nebulizers Supportive care 06/01/2022: Nystatin swish and swallow supportive care Supportive care Trazodone for insomnia Nystatin swish and swallow 06/02/2022: Monitor closely Improved insomnia 06/03/2022: Supportive care Continue aggressive therapy 06/04/2022: Discharge is planned for tomorrow (1) Myopathy (2) COPD exacerbation Status: Acute (3) Physical debility Status: Acute (4) Encephalopathy acute Status: Resolved Resolution Date/Time: 05/28/22 @ 19:29 (5) Cocaine use Status: Chronic (6) Polysubstance abuse Status: Chronic (7) HTN (hypertension) Status: Chronic (8) Normocytic anemia Status: Acute (9) Anxiety Status: Acute (10) Marijuana use Status: Acute (11) History of alcohol abuse Status: Acute VICKI WATERS DO Jun 04, 2022 05:55
[2022-06-04] MEDS: CATHETER FLUSH 10 ML SYR IVP SCH ×3 (06:16→20:57)
[2022-06-04 06:25] LABS: BASOPHILS % (AUTO) 1 % (0-10); EOSINOPHILS # (AUTO) 0.4 10^3/uL (0.0-0.3); EOSINOPHILS % (AUTO) 10 % (0-10); HEMATOCRIT 27 % (35-52); HEMOGLOBIN 8.9 g/dL (11.5-16.0); LYMPHOCYTES # (AUTO) 1.2 10^3/uL (1.0-4.0); LYMPHOCYTES % (AUTO) 31 % (12-44); MEAN CORPUSCULAR HEMOGLOBIN 33 pg (25-34); MEAN CORPUSCULAR HGB CONC 33 g/dL (32-36); MEAN CORPUSCULAR VOLUME 102 fL (80-99); MEAN PLATELET VOLUME 8.4 fL (9.0-12.2); MONOCYTES # (AUTO) 0.4 10^3/uL (0.0-1.0); MONOCYTES % (AUTO) 10 % (0-12); NEUTROPHILS # (AUTO) 1.8 10^3/uL (1.8-7.8); NEUTROPHILS % (AUTO) 48 % (42-75); PLATELET COUNT 422 10^3/uL (130-400); WHITE BLOOD COUNT 3.8 10^3/uL (4.3-11.0)
[2022-06-04 06:41] LABS: ALBUMIN 3.2 GM/DL (3.2-4.5); BILIRUBIN,TOTAL 0.4 MG/DL (0.1-1.0); CALCIUM 8.9 MG/DL (8.5-10.1); CREATININE SERUM 0.71 MG/DL (0.60-1.30); POTASSIUM 3.4 MMOL/L (3.6-5.0); TOTAL PROTEIN 5.7 GM/DL (6.4-8.2)
[2022-06-04] MEDS: RT-ALBUTEROL/IPRATROPIUM 3 ML (DUONEB) VIAL INH SCH ×3 (07:20→21:32)
[2022-06-04 07:22] VITALS: BP 152/79
[2022-06-04] MEDS: busPIRone 15 MG (BUSPAR) TABLET PO SCH ×2 (07:42→20:56)
[2022-06-04] MEDS: KCL 20 MEQ TAB (K-DUR) PO SCH ×2 (07:42→18:05)
[2022-06-04] MEDS: PANTOPRAZOLE 40 MG (PROTONIX) TAB PO SCH (07:42)
[2022-06-04] MEDS: amLODIPine 10 MG (NORVASC) TAB PO SCH (07:42)
[2022-06-04] MEDS: DOCUSATE SODIUM 100 MG (COLACE) CAP PO SCH ×3 (07:42→20:33)
[2022-06-04] MEDS: CLOPIDOGREL 75 MG (PLAVIX) TABLET PO SCH (07:42)
[2022-06-04] MEDS: ASPIRIN 81 MG CHEW (CHILDREN'S ASA) PO SCH (07:42)
[2022-06-04] MEDS: SENNA W/DOCUSATE (SENOKOT S) TABLET PO SCH ×3 (07:42→20:33)
[2022-06-04] MEDS: NYSTATIN ORAL SUSP 5 ML UDC PO SCH ×4 (07:42→20:57)
[2022-06-04] MEDS: polyethylene glycoL POWDER 17 GM (MIRALAX) PACK PO SCH ×2 (07:43→20:33)
[2022-06-04] MEDS: hydrALAZINE (APRESOLINE) 25 MG TAB PO SCH ×3 (07:43→20:56)
--- NOTE | 2022-06-04 08:56 | Occupational Ther Daily Note ---
OT Current Status-Daily Note Subjective Pt denies any pain, reports being excited about getting to discharge tomorrow. Appearance Pt left sitting on side of bed, all needs within reach at OT departure. Mental Status/Objective Patient Orientation: Person, Place, Situation Attachments: IV, Oxygen (2L) ADL-Treatment Therapy Code Descriptions/Definitions Functional [place] Measure: 0=Not Assessed/NA 4=Minimal Assistance 1=Total Assistance 5=Supervision or Setup 2=Maximal Assistance 6=Modified [place] 3=Moderate Assistance 7=Complete IndependenceSCALE: Activities may be completed with or without assistive devices. 5-Cphnkqjiqh-fchnxja completes the activity by him/herself with no assistance from a helper. 5-Set-up or Clean-up Assistance-helper sets up or cleans up; patient completes activity. [place] assists only prior to or following the activity. 4-Supervision or Touching Assistance-helper provides verbal cues and/or touching/steadying and/or contact guard assistance as patient completes activity. Assistance may be provided throughout the activity or intermittently. 3-Partial/Moderate Assistance-helper does LESS THAN HALF the effort. [place] lifts, holds or supports trunk or limbs, but provides less than half the effort. 2-Substantial/Maximal Assistance-helper does MORE THAN HALF the effort. [place] lifts or holds trunk or limbs and provides more than half the effort. 2-Ehebxvyfw-bvvxpp does ALL the effort. Patient does none of the effort to complete the activity. Or, the assistance of 2 or more helpers is required for the patient to complete the activity. If activity was not attempted, code reason: 7-Patient Refused. 9-Not Applicable-not attempted and the patient did not perform the activity before the current illness, exacerbation or injury. 10-Not Attempted due to Environmental Limitations-(lack of equipment, weather restraints, etc.). 88-Not Attempted due to Medical Conditions or Safety Concerns. Eating (QC): 6 Oral Hygiene (QC): 6 Shower/Bathe Self (QC): 6 Upper Body Dressing (QC): 6 Lower Body Dressing (QC): 6 On/Off Footwear: 6 Toileting Hygiene (QC): 6 Toilet Transfer (QC): 6 Pt retrieved clothing and set up shower without any assist. Initially she was ambulating around room while keeping walker lifted off the floor. OT removed walker and patient able to ambulate without any AD, no LOB or unsteadiness exhibited. She was able to wash all body parts independently. ~50% of task completed in standing, no LOB. Pt reports feeling claustrophobic towards end of task but improves quickly once shower curtain was opened. She sat on toilet to dress. Several short rest breaks needed secondary to fatigue. "This is the first time I've actually washed all my own body parts as my Daughter in law has been doing it for me." Education provided on energy conservation strategies. Pt able to don all clothing independently. Other Treatment Pt ambulated to/from laundry room, loaded washer, and started machine without any difficulty. Education OT Patient Education: Energy conservation, Progress toward Goal/Update tx plan, Purpose of tx/functional activities Teaching Recipient: Patient Teaching Methods: Discussion Response to Teaching: Verbalize Understanding, Return Demonstration BIMS CAM BIMS Expression of Ideas and Wants: Without Difficulty Understanding Verbal Content: Understands Brief Interview/Mental Status: Yes IRF CHUCK BIMS: IRF CHUCK BIMS Response (Comments) Value Repitition of Three Words Three 3 Recalls Socks Yes, No Cue Required 2 Recalls Blue Yes, No Cue Required 2 Recalls Bed Yes, No Cue Required 2 Year Correct 3 Month Accurate Within 5 Days 2 Day Correct 1 Total [address] Mental [address] No Notes: CAM Mental Status Change/Baseline: 0 Inattention: 0 Disorganized thinkin Altered level of consciousness: 0 OT Short Term Goals Short Term Goals Time Frame: Jun 05, 2022 Eatin Oral hygiene: 5 Toileting hygiene: 5 Shower/bathe self: 5 Upper body dressin Lower body dressin OT [employer] Goals Group Home Goals Time Frame: Jun 08, 2022 Acute change in mental status: 0 Inattention: 0 Disorganized thinkin Altered level of consciousness: 0 Eating (QC): 6 (met) Oral Hygiene (QC): 6 (met) Toileting Hygiene (QC): 6 (met) Shower/Bathe Self (QC): 6 (met) Upper Body Dressing (QC): 6 (met) Lower Body Dressing (QC): 6 (met) On/Off Footwear (QC): 6 (met) Pt will verbalize three techniques to use to conserve energy on discharge Additional Goals: 1-Demonstrate ADL Tasks, 2-Verbalize Understanding, 3- ImproveStrength/[place] 1=Demonstrate adherence to instructed precautions during ADL tasks. 2=Patient will verbalize/demonstrate understanding of assistive devices/modifications for ADL. 3=Patient will improve strength/tolerance for activity to enable patient to perform ADL's. OT Education/Plan Problem List/Assessment Assessment: Decreased Activ Tolerance Discharge Recommendations Plan/Recommendations: Continue POC Therapy Discharge Recommendati: Homemaker Support, Home & Family Treatment Plan/Plan of Care Treatment,Training & Education: Yes Patient would benefit from OT for education, treatment and training to promote independence in ADL's, mobility, safety and/or upper extremity function for ADL 's. Plan of Care: ADL Retraining, Caregiver Training, Functional Mobility, Group Exercise/Act as Ind (education, activity tolerance, strengthening, funct mobility), UE Funct Exercise/Act, UE Neuromus Re-Ed/Coord, OTHER (Energy conserv ationn education) Treatment Duration: Jun 08, 2022 Frequency: At least 5 of 7 days/Wk (IRF) Estimated Hrs Per Day: 1.5 hours per day Agreement: Yes Rehab Potential: Good Time/GCodes Start Time: 07:25 Stop Time: 08:55 Total Time Billed (hr/min): 90 Billed Treatment Time 1 visit ADL x5 (75 min) FA (15 min) Shani Rivas OT Jun 04, 2022 08:56
--- NOTE | 2022-06-04 11:21 | Physical Therapy Daily Note ---
PT Daily Note-Current Subjective Patient in bed pre-tx, reports no pain, agrees to PT. Pain Section J - Health Conditions 1. Rarely or not at all 2. Occasionally 3. Frequently 4. Almost constantly 8. Unable to answer Pain Effect on Sleep: 1 Pain Interference with Therapy: 1 Pain Interference w/Day-to-Day: 1 Appearance Patient sitting EOB post-tx folding laundry with tray, nurse call, phone, and all needs met. Mental Status Patient Orientation: Person, Place, Situation Attachments: Oxygen Transfers SCALE: Activities may be completed with or without assistive devices. 4-Auvmsbgblo-ahlxitk completes the activity by him/herself with no assistance from a helper. 5-Set-up or Clean-up Assistance-helper sets up or cleans up; patient completes activity. [place] assists only prior to or following the activity. 4-Supervision or Touching Assistance-helper provides verbal cues and/or touching/steadying and/or contact guard assistance as patient completes activity. Assistance may be provided throughout the activity or intermittently. 3-Partial/Moderate Assistance-helper does LESS THAN HALF the effort. [place] lifts, holds or supports trunk or limbs, but provides less than half the effort. 2-Substantial/Maximal Assistance-helper does MORE THAN HALF the effort. [place] lifts or holds trunk or limbs and provides more than half the effort. 6-[place] does ALL the effort. Patient does none of the effort to co mplete the activity. Or, the assistance of 2 or more helpers is required for the patient to complete the activity. If activity was not attempted, code reason: 7-Patient Refused. 9-Not Applicable-not attempted and the patient did not perform the activity before the current illness, exacerbation or injury. 10-Not Attempted due to Environmental Limitations-(lack of equipment, weather restraints, etc.). 88-Not Attempted due to Medical Conditions or Safety Concerns. Roll Left & Right (QC): 6 Sit to Lying (QC): 6 Lying to Sitting/Side of Bed(Q: 6 Sit to Stand (QC): 6 Chair/Fob-rn-Crujo Xfer(QC): 6 Toilet Transfer (QC): 6 Car Transfer (QC): 6 Weight Bearing Weight Bearing/Tolerated Weight Bearing/Tolerated Gait Training Does the Patient Walk?: Yes Distance: 400', 500' Walk 10 feet (QC): 4 Walk 50 ft with 2 Turns(QC): 4 Walk 150 ft (QC): 4 Walking 10ft/uneven surface-QC: 4 Gait Persons Needed: 1 Gait Assistive Device: None Patient ambulates with good balance, gait speed, foot clearance, and reciprocal step length. Patient did not need breaks at all during ambulation. SBA, therapist manages O2. Wheelchair Training Does the Pt Use a Wheelchair?: No Wheel 50 ft with 2 turns (QC): 9 Wheel 150 ft (QC): 9 Stair Training Stair Training: Handrails/: 1 handrail, 2 handrails #of Steps: 12 1 Step (curb) (QC): 4 4 Steps (QC): 4 12 Steps (QC): 4 SBA using one railing Balance Picking up an Object (QC): 4 (without biological inspector SBA) Exercises Supine Ex: Straight leg raise Supine Reps: 20 Seated Therapy Exercises: Hip abd/add (Abduct w/ gait belt, Adduct w/ pillow between legs) Seated Reps: 20 Standing: Hamstring curls (2lbs ankle weights), Heel/toe raises, Side steps (20 reps each side), Step-ups Standing Reps: 20 Side-lying hip abduction 20 reps NuStep Minutes: 15 (needed one break to catch breath and drink water) NuStep Workload: 6 Neuromuscular Tinetti / Treatments Ambulation, LE Strengthening Assessment Current Status: Good Progress Patient ambulates without an assistive device for up to 500'. Patient demonstrates increased endurance and balance, independent bed mobility and transfers, and SBA with ambulation. PT Short Term Goals Short Term Goals Time Frame: Jun 08, 2022 Roll Left & Right: 6 Sit to lyin Lying to sitting on side of be: 6 Sit to stand: 6 Chair/udg-bz-yzqpz transfer: 6 Toilet transfer: 6 Car transfer: 6 Walk 10 feet: 6 Walk 50 feet with two turns: 5 Walk 150 feet: 5 Walking 10ft on uneven surface: 5 1 step (curb): 5 4 steps: 5 12 steps: 5 Picking up objects: 5 PT Jail Goals Jail Goals PT Corporate Travel Coordinator Goals Time Frame: Jun 15, 2022 Roll Left & Right (QC): 6 Sit to Lying (QC): 6 Lying-Sitting on Side/Bed(QC): 6 Sit to Stand (QC): 6 Chair/Dyv-xx-Fsxsf Xfer(QC): 6 Toilet Transfer (QC): 6 Car Transfer (QC): 6 Does the Patient Walk: Yes Walk 10 feet (QC): 6 Walk 50ft with 2 Turns (QC): 6 Walk 150 ft (QC): 6 Walking 10ft on Uneven Surface: 6 1 Step (curb) (QC): 6 4 Steps (QC): 6 12 Steps (QC): 6 Picking up an Object (QC): 6 Does the Pt use WC or Scooter?: No Wheel 50 feet with 2 turns (QC: 9 Wheel 150 feet: 9 PT Plan Problem List Problem List: Activity Tolerance, Functional Strength, Safety, Balance, Gait, Transfer, ROM Treatment/Plan Treatment Plan: Continue Plan of Care Treatment Plan: Education, Functional Activity [place], Functional Strength, Grou p Therapy, Gait, Safety, Therapeutic Exercise, Transfers Treatment Duration: Jun 15, 2022 Frequency: At least 5 of 7 days/Wk (IRF) Estimated Hrs Per Day: 1.5 hours per day Patient and/or Family Agrees t: Yes Safety Risks/Education Patient Education: Gait Training, Transfer Techniques, Steps, Correct Positioning, Safety Issues Teaching Recipient: Patient Teaching Methods: Demonstration, Discussion Response to Teaching: Verbalize Understanding Time Time In: 1000 Time Out: 1130 Total Billed Treatment Time: 90 Total Billed Treatment 1 visit FA 45min EX 45min AGATHA CHO PT Jun 04, 2022 11:21
[2022-06-04] MEDS: UMECLIDINIUM BROMIDE (INCRUSE ELLIPTA) 7'S IH SCH (11:56)
[2022-06-04] MEDS: FLUTICASONE/VILANTEROL 100 MCG 14'S (BREO) IH SCH (11:56)
[2022-06-04] MEDS: ENOXAPARIN 40 MG/0.4 ML (LOVENOX) SYR SC SCH (18:05)
[2022-06-04 19:34] VITALS: BP 173/73
[2022-06-04] MEDS: traZODone 100 MG (DESYREL) TAB PO SCH (20:56)
[2022-06-04] MEDS: MELATONIN 3 MG TABLET PO PRN (22:51)
[2022-06-04] MEDS: CYCLOBENZAPRINE 10 MG (FLEXERIL) TAB PO PRN (22:51)
[2022-06-05] MEDS ORDERED: CLON1PAT33 TD (06:11)
[2022-06-05] MEDS ORDERED: TRAZ-227 PO (06:11)
[2022-06-05] MEDS ORDERED: ALPR.25T PO (06:11)
[2022-06-05] MEDS ORDERED: OXC5T PO (06:11)
[2022-06-05] MEDS ORDERED: HYDR-3923 PO (06:11)
[2022-06-05] MEDS ORDERED: NYST1000 PO (06:11)
--- NOTE | 2022-06-05 06:13 | D/C HH Face to Face Order ---
D/C Face to Face Orders Reconcile Patient Problems Problems Reviewed?: Yes Instructions for Patient Patient Instructions/FollowUp: [facility] 1 week Physician to follow Patient: [facility] Discharge Diet for Home: No Restrictions Patient Problems: COPD Patient Data-Allergies,Ht & Wt Patient Allergies: Coded Allergies: lisinopril (Verified Allergy, Severe, THROAT CLOSED UP, 06/03/22) adhesive (Verified Allergy, Unknown, Rash, 06/04/22) Height (Feet): 5 Height (Inches): 5.00 Weight (Pounds): 136 Weight (Ounces): 1.0 Home Health Need/Face to Face Date of Face to Face: Jun 05, 2022 Clinical Findings: Muscle weakness, Shortness of breath I have seen Pt gpls-oe-xprh: Yes Discharged To: Home Diagnosis/Conditions: COPD Patient is Homebound due to: Muscle weakness, Shortness of breath/distress Homebound Status Due to the above stated illness, injury or surgical procedure (medical condition or diagnosis) and associated clinical findings, the patient is homebound because of his/her inability to leave home except with aid of a supportive device and/or person AND leaving the home requires a considerable and taxing effort or is medically contraindicated. Pt req the following assistanc: Walker Home Health Nursing Orders Home Health Services Order: Nursing Services, Juke Box Mechanic-Evaluate & Treat, Physical Therapy-Evaluate & Treat Certify Stmt I certify that this patient is under my care and that I, a nurse practitioner or a physician; a mailroom assistant working with me, had a face to face encounter that - meets the physician face to face encounter requirements with this patient as dated. VICKI WATERS DO Jun 05, 2022 06:13
--- NOTE | 2022-06-05 06:14 | Discharge Summary ---
Diagnosis/Chief Complaint Date of Admission May 31, 2022 at 17:20 Date of Discharge Discharge Date: Jun 05, 2022 Discharge Diagnosis Assessment: COPD myopathy Oxygen dependent at home Smoker Hypertension Anxiety Polysubstance abuse including marijuana and cocaine Alcoholism Encephalopathy Thrush Insomnia Chronic constipation Plan: Aggressive PT and OT Maintain oxygen Nebulizers Supportive care 06/01/2022: Nystatin swish and swallow supportive care Supportive care Trazodone for insomnia Nystatin swish and swallow 06/02/2022: Monitor closely Improved insomnia 06/03/2022: Supportive care Continue aggressive therapy 06/04/2022: Discharge is planned for tomorrow (1) Myopathy (2) COPD exacerbation Status: Acute (3) Physical debility Status: Acute (4) Encephalopathy acute Status: Resolved Resolution Date/Time: 05/28/22 @ 19:29 (5) Cocaine use Status: Chronic (6) Polysubstance abuse Status: Chronic (7) HTN (hypertension) Status: Chronic (8) Normocytic anemia Status: Acute (9) Anxiety Status: Acute (10) Marijuana use Status: Acute (11) History of alcohol abuse Status: Acute Discharge Summary Discharge Physical Examination Allergies: Coded Allergies: lisinopril (Verified Allergy, Severe, THROAT CLOSED UP, 06/03/22) adhesive (Verified Allergy, Unknown, Rash, 06/04/22) Vitals & I&Os Vital Signs Date Time Temp Pulse Resp B/P (MAP) Pulse Ox O2 Delivery O2 Flow Rate FiO2 06/05/22 11:32 36.2 75 18 171/75 94 Nasal Cannula 2.00 General Appearance: Alert, Oriented X3 Respiratory: Clear to Auscultation Cardiovascular: Regular Rate Neuro: Normal Gait, Normal Speech, Strength at 5/5 X4 Ext Psych/Mental Status: Mental Status NL Hospital Course Was the Problem List Reviewed?: Yes Pt had an uneventful hospital course for 6 days in rehab after she was intubated and critically ill. She was very weak. We were able to maintain on home oxygen. She had no decomposition during hospital course. BP management was required by cardiology. Overall she did very well. She was discharged on home care. Labs (last 24 hrs) Laboratory Tests 06/01/22 06:10: White Blood Count 7.2, Red Blood Count 2.82L, Hemoglobin 9.2L, Hematocrit 28L, Mean Corpuscular Volume 99, Mean Corpuscular Hemoglobin 33, Mean Corpuscular Hemoglobin Concent 33, Red Cell Distribution Width 14.1, Platelet Count 416H, Mean Platelet Volume 8.7L, Immature Granulocyte % (Auto) 0, Neutrophils (%) (Aut o) 64, Lymphocytes (%) (Auto) 21, Monocytes (%) (Auto) 10, Eosinophils (%) (Auto) 4, Basophils (%) (Auto) 0, Neutrophils # (Auto) 4.6, Lymphocytes # (Auto) 1.5, Monocytes # (Auto) 0.8, Eosinophils # (Auto) 0.3, Basophils # (Auto) 0.0, Immature Granulocyte # (Auto) 0.0, Sodium Level 141, Potassium Level 3.0L, Chloride Level 101, Carbon Dioxide Level 29, Anion Gap 11, Blood Urea Nitrogen 4L, Creatinine 0.67, Estimat Glomerular Filtration Rate 96, BUN/Creatinine Ratio 6, Glucose Level 104, Calcium Level 9.2, Corrected Calcium 9.5, Magnesium Level 2.0, Total Bilirubin 1.3H, Aspartate Amino Transf (AST/SGOT) 23, Alanine Aminotransferase (ALT/SGPT) 27, Alkaline Phosphatase 62, Total Protein 6.5, Albumin 3.6 06/04/22 06:14: White Blood Count 3.8L, Red Blood Count 2.69L, Hemoglobin 8.9L, Hematocrit 27L, Mean Corpuscular Volume 102H, Mean Corpuscular Hemoglobin 33, Mean Corpuscular Hemoglobin Concent 33, Red Cell Distribution Width 14.7H, Platelet Count 422H, Mean Platelet Volume 8.4L, Immature Granulocyte % (Auto) 1, Neutrophils (%) (Auto) 48, Lymphocytes (%) (Auto) 31, Monocytes (%) (Auto) 10, Eosinophils (%) (Auto) 10, Basophils (%) (Auto) 1, Neutrophils # (Auto) 1.8, Lymphocytes # (Auto) 1.2, Monocytes # (Auto) 0.4, Eosinophils # (Auto) 0.4H, Basophils # (Auto) 0.0, Immature Granulocyte # (Auto) 0.0, Sodium Level 143, Potassium Level 3.4L, Chloride Level 106, Carbon Dioxide Level 25, Anion Gap 12, Blood Urea Nitrogen 8, Creatinine 0.71, Estimat Glomerular Filtration Rate 94, BUN/Creatinine Ratio 11, Glucose Level 100, Calcium Level 8.9, Corrected Calcium 9.5, Total Bilirubin 0.4, Aspartate Amino Transf (AST/SGOT) 25, Alanine Aminotransferase (ALT/SGPT) 21, Alkaline Phosphatase 57, Total Protein 5.7L, Albumin 3.2 Pending Labs Laboratory Tests 06/01/22 06:10: White Blood Count 7.2, Red Blood Count 2.82, Hemoglobin 9.2, Hematocrit 28, Mean Corpuscular Volume 99, Mean Corpuscular Hemoglobin 33, Mean Corpuscular Hemoglobin Concent 33, Red Cell Distribution Width 14.1, Platelet Count 416, Mean Platelet Volume 8.7, Immature Granulocyte % (Auto) 0, Neutrophils (%) (Auto) 64, Lymphocytes (%) (Auto) 21, Monocytes (%) (Auto) 10, Eosinophils (%) (Auto) 4, Basophils (%) (Auto) 0, Neutrophils # (Auto) 4.6, Lymphocytes # (Auto) 1.5, Monocytes # (Auto) 0.8, Eosinophils # (Auto) 0.3, Basophils # (Auto) 0.0, Immature Granulocyte # (Auto) 0.0, Sodium Level 141, Potassium Level 3.0, Chloride Level 101, Carbon Dioxide Level 29, Anion Gap 11, Blood Urea Nitrogen 4, Creatinine 0.67, Estimat Glomerular Filtration Rate 96, BUN/Creatinine Ratio 6, Glucose Level 104, Calcium Level 9.2, Corrected Calcium 9.5, Magnesium Level 2.0, Total Bilirubin 1.3, Aspartate Amino Transf (AST/SGOT) 23, Alanine Aminotransferase (ALT/SGPT) 27, Alkaline Phosphatase 62, Total Protein 6.5, Albumin 3.6 06/04/22 06:14: White Blood Count 3.8, Red Blood Count 2.69, Hemoglobin 8.9, Hematocrit 27, Mean Corpuscular Volume 102, Mean Corpuscular Hemoglobin 33, Mean Corpuscular Hemoglobin Concent 33, Red Cell Distribution Width 14.7, Platelet Count 422, Mean Platelet Volume 8.4, Immature Granulocyte % (Auto) 1, Neutrophils (%) (Auto) 48, Lymphocytes (%) (Auto) 31, Monocytes (%) (Auto) 10, Eosinophils (%) (Auto) 10, Basophils (%) (Auto) 1, Neutrophils # (Auto) 1.8, Lymphocytes # (Auto) 1.2, Monocytes # (Auto) 0.4, Eosinophils # (Auto) 0.4, Basophils # (Auto) 0.0, Immature Granulocyte # (Auto) 0.0, Sodium Level 143, Potassium Level 3.4, Chloride Level 106, Carbon Dioxide Level 25, Anion Gap 12, Blood Urea Nitrogen 8, Creatinine 0.71, Estimat Glomerular Filtration Rate 94, BUN/Creatinine Ratio 11, Glucose Level 100, Calcium Level 8.9, Corrected Calcium 9.5, Total Bilirubin 0.4, Aspartate Amino Transf (AST/SGOT) 25, Alanine Aminotransferase (ALT/SGPT) 21, Alkaline Phosphatase 57, Total Protein 5.7, Albumin 3.2 Discharge Home Medications: Active Scripts Active Xanax Tablet (Alprazolam) 0.25 Mg Tab 0.25 Mg PO Q8H PRN Trazodone HCl 100 Mg Tablet 100 Mg PO HS Clonidine TTS 1 Patch (Clonidine) 0.1 Mg/24 Hour Patch.tdwk 0.1 Mg TD Q7D@09 Hydralazine HCl 25 Mg Tablet 50 Mg PO TID Nystatin 100,000 Unit/Ml Oral.susp 5 Ml PO QID Oxyir Tablet (Oxycodone HCl) 5 Mg Tab 5 Mg PO BID PRN Reported Aspirin 81 Mg Tab.chew 81 Mg PO DAILY Nitroglycerin 0.4 Mg Tab.subl 0.4 Mg SL UD PRN Potassium Chloride 20 Meq Tab.er.prt 20 Meq PO BID Clopidogrel (Clopidogrel Bisulfate) 75 Mg Tablet 75 Mg PO DAILY Cyclobenzaprine HCl 10 Mg Tablet 10 Mg PO Q8H PRN Iprat-Albut 0.5-3(2.5) mg/3 ml (Ipratropium/Albuterol Sulfate) 0.5 Mg-3 Mg (2.5 Mg Base)/3 Ml Ampul.neb 3 Ml NEB Q6H PRN Buspirone HCl 15 Mg Tablet 15 Mg PO BID Hydroxyzine HCl 25 Mg Tablet 25 Mg PO TID PRN Ventolin Hfa (Albuterol Sulfate) 90 Mcg Hfa.aer.ad 2 Puff INH Q6H PRN Incruse Ellipta (Umeclidinium Clark) 62.5 Mcg/Actuation Blst.w.dev 1 Puff INH DAILY Breo Ellipta 100-25 Mcg INH (Fluticasone/Vilanterol) 100 Mcg-25 Mcg/Dose Blst.w.dev 1 Puff INH DAILY Pantoprazole Sodium 40 Mg Tablet.dr 40 Mg PO DAILY Amlodipine Besylate 10 Mg Tablet 10 Mg PO DAILY Instructions to patient/family Please see electronic discharge instructions given to patient. Diagnosis/Problems Diagnosis/Problems (1) Myopathy (2) COPD exacerbation Status: Acute (3) Physical debility Status: Acute (4) Encephalopathy acute Status: Resolved Resolution Date/Time: 05/28/22 @ 19:29 (5) Cocaine use Status: Chronic (6) Polysubstance abuse Status: Chronic (7) HTN (hypertension) Status: Chronic (8) Normocytic anemia Status: Acute (9) Anxiety Status: Acute (10) Marijuana use Status: Acute (11) History of alcohol abuse Status: Acute VICKI WATERS DO Jun 05, 2022 06:14
[2022-06-05] MEDS: THIAMINE 100 MG (VITAMIN B-1) TAB PO SCH (06:41)
[2022-06-05] MEDS: CATHETER FLUSH 10 ML SYR IVP SCH (06:41)
[2022-06-05 07:35] VITALS: BP 171/75
[2022-06-05] MEDS: RT-ALBUTEROL/IPRATROPIUM 3 ML (DUONEB) VIAL INH SCH (07:57)
[2022-06-05] MEDS: NYSTATIN ORAL SUSP 5 ML UDC PO SCH (08:10)
[2022-06-05] MEDS: busPIRone 15 MG (BUSPAR) TABLET PO SCH (08:10)
[2022-06-05] MEDS: CLOPIDOGREL 75 MG (PLAVIX) TABLET PO SCH (08:10)
[2022-06-05] MEDS: amLODIPine 10 MG (NORVASC) TAB PO SCH (08:10)
[2022-06-05] MEDS: PANTOPRAZOLE 40 MG (PROTONIX) TAB PO SCH (08:10)
[2022-06-05] MEDS: KCL 20 MEQ TAB (K-DUR) PO SCH (08:10)
[2022-06-05] MEDS: ASPIRIN 81 MG CHEW (CHILDREN'S ASA) PO SCH (08:10)
[2022-06-05] MEDS: hydrALAZINE (APRESOLINE) 25 MG TAB PO SCH (08:10)
[2022-06-05] MEDS: DOCUSATE SODIUM 100 MG (COLACE) CAP PO SCH (08:11)
[2022-06-05] MEDS: polyethylene glycoL POWDER 17 GM (MIRALAX) PACK PO SCH (08:11)
[2022-06-05] MEDS: SENNA W/DOCUSATE (SENOKOT S) TABLET PO SCH (08:11)
[2022-06-05] MEDS: FLUTICASONE/VILANTEROL 100 MCG 14'S (BREO) IH SCH (08:12)
[2022-06-05] MEDS: UMECLIDINIUM BROMIDE (INCRUSE ELLIPTA) 7'S IH SCH (08:12)
[2022-06-05 11:32] VITALS: BP 171/75
--- NOTE | 2022-06-05 14:02 | Therapy Team Discharge Summary ---
Therapy Discharge Summary Discharge Recommendations Date of Discharge Jun 05, 2022 at 11:35 Therapy D/C Recommendations: Home w/ Family Support Physical Therapy Roll Left to Right (QC): 6 Sit to Lying (QC): 6 Lying to Sitting/Side of Bed(Q: 6 Sit to Stand (QC): 6 Chair/Haq-vg-Tkoit Xfer(QC): 6 Toilet Transfer (QC): 5 Car Transfer (QC): 6 Does the Patient Walk: Yes Mode of Locomotion: Walk Anticipated Mode of Locomotion: Walk Walk 10 feet (QC): 4 Walk 50 ft with 2 Turns(QC): 4 Walk 150 ft (QC): 4 Walking 10ft on uneven surface: 4 Distance: 20' Gait Assistive Device: None Does the Pt Use a Wheelchair: No Wheel 50 ft with 2 turns (QC): 9 Wheel 150 ft (QC): 9 Type of Wheelchair: N/A #of Steps: 12 1 Step (curb) (QC): 4 4 Steps (QC): 4 12 Steps (QC): 4 Balance Sitting Static: Normal Balance Sitting Dynamic: Normal Balance-Standing Static: Fair Picking up an Object (QC): 4 (without print developer automatic SBA) Occupational Therapy Pt admitted to ARU with COPD exacerbation. At time of eval, pt was SBA for toilet hygiene, lower body dressing, upper body dressing, showering and oral hyg iene, set up assist for footwear and independent with eating. During her stay on ARU, skilled OT worked on endurance, energy conservation, strengthening, balance, coordination, sensation and ADLs. Pt made good progress and met all of her adjunct faculty for medical terminology goals. She has now d/c from this facility. Decreased Activ Tolerance Eating (QC): 6 Oral Hygiene (QC): 6 Shower/Bathe Self (QC): 6 Upper Body Dressing (QC): 6 Lower Body Dressing (QC): 6 On/Off Footwear (QC): 6 Toileting Hygiene (QC): 6 BIMS CAM BIMS Expression of Ideas and Wants: Without Difficulty Understanding Verbal Content: Understands Brief Interview/Mental Status: Yes IRF CHUCK BIMS: IRF CHUCK BIMS Response (Comments) Value Repitition of Three Words Three 3 Recalls Socks Yes, No Cue Required 2 Recalls Blue Yes, No Cue Required 2 Recalls Bed Yes, No Cue Required 2 Year Correct 3 Month Accurate Within 5 Days 2 Day Correct 1 Total 15 Should Staff Asses. Mental St.: No CAM Mental Status Change/Baseline: 0 Inattention: 0 Disorganized thinkin Altered level of consciousness: 0 PT Toll Collector Supervisor Goals Toll Collector Supervisor Goals PT Toll Collector Supervisor Goals Time Frame: Jun 15, 2022 Roll Left to Right (QC): 6 Sit to Lying (QC): 6 Lying-Sitting on Side/Bed(QC): 6 Sit to Stand (QC): 6 Chair/Mpr-on-Rdvfu Xfer(QC): 6 Toilet/Commode Transfer (QC): 6 Car Transfer (QC): 6 Does the Patient Walk: Yes Walk 10 feet (QC): 6 Walk 10ft-Uneven Surface(QC): 6 Walk 50ft with 2 Turns (QC): 6 Walk 150 ft (QC): 6 Does the Pt use WC or Scooter?: No Wheel 50 feet with 2 turns (QC: 9 Wheel 150 feet: 9 1 Step (curb) (QC): 6 4 Steps (QC): 6 12 Steps (QC): 6 Picking up an Object (QC): 6 OT Half-Way Goals Toll Collector Supervisor Goals Time Frame: Jun 08, 2022 Acute change in mental status: 0 Inattention: 0 Disorganized thinkin Altered level of consciousness: 0 Eating (QC): 6 (met) Oral Hygiene (QC): 6 (met) Toileting Hygiene (QC): 6 (met) Shower/Bathe Self (QC): 6 (met) Upper Body Dressing (QC): 6 (met) Lower Body Dressing (QC): 6 (met) On/Off Footwear (QC): 6 (met) Pt will verbalize three techniques to use to conserve energy on discharge Additional Goals: 1-Demonstrate ADL Tasks, 2-Verbalize Understanding, 3- ImproveStrength/[place] 1=Demonstrate adherence to instructed precautions during ADL tasks. 2=Patient will verbalize/demonstrate understanding of assistive devices/modifications for ADL. 3=Patient will improve strength/tolerance for activity to enable patient to perform ADL's. Shani Rivas OT Jun 05, 2022 14:02
--- NOTE | 2022-06-05 15:02 | Therapy Team Discharge Summary ---
Therapy Discharge Summary Discharge Recommendations Date of Discharge Jun 05, 2022 at 11:35 Therapy D/C Recommendations: Home w/ Family Support Physical Therapy Patient came to rehab with COPD exacerbation. Upon evaluation patient performed rolling and supine <-> sit with setup, sit <-> stand and transfers with setup, ambulated 20' with a rolling walker with CGA. Patient has been performing bed mobility and transfer training, balance and endurance training, functional strengthening, stair training, gait training, and education. Patient has made some progress but has only met her fdc goals for bed mobility and transfers. Now, patient performs rolling and supine <-> sit with independence, sit <-> stand and transfers with independence, independent with car transfer, ambulates 500' with a rolling walker with SBA (including 50' with at least 2 turns of 90 degrees and 10' over an uneven surface), can go up and down 12 steps using 2 handrails with SBA, and can greens picker an object from the floor with SBA. Patient has been discharged from this facility and will be discharged from PT at this time. Roll Left to Right (QC): 6 Sit to Lying (QC): 6 Lying to Sitting/Side of Bed(Q: 6 Sit to Stand (QC): 6 Chair/Lao-dq-Ycuoo Xfer(QC): 6 Toilet Transfer (QC): 6 Car Transfer (QC): 6 Does the Patient Walk: Yes Mode of Locomotion: Walk Anticipated Mode of Locomotion: Walk Walk 10 feet (QC): 4 Walk 50 ft with 2 Turns(QC): 4 Walk 150 ft (QC): 4 Walking 10ft on uneven surface: 4 Distance: 20' Gait Assistive Device: None Does the Pt Use a Wheelchair: No Wheel 50 ft with 2 turns (QC): 9 Wheel 150 ft (QC): 9 Type of Wheelchair: N/A #of Steps: 12 1 Step (curb) (QC): 4 4 Steps (QC): 4 12 Steps (QC): 4 Balance Sitting Static: Normal Balance Sitting Dynamic: Normal Balance-Standing Static: Fair Picking up an Object (QC): 4 (without chemical equipment repairer SBA) Occupational Therapy Decreased Activ Tolerance Eating (QC): 6 Oral Hygiene (QC): 6 Shower/Bathe Self (QC): 6 Upper Body Dressing (QC): 6 Lower Body Dressing (QC): 6 On/Off Footwear (QC): 6 Toileting Hygiene (QC): 6 PT Long-Term Goals Long-Term Goals PT Prom Burn Off Operator Goals Time Frame: Jun 15, 2022 Roll Left to Right (QC): 6 Sit to Lying (QC): 6 Lying-Sitting on Side/Bed(QC): 6 Sit to Stand (QC): 6 Chair/Ueq-hc-Rkgnq Xfer(QC): 6 Toilet/Commode Transfer (QC): 6 Car Transfer (QC): 6 Does the Patient Walk: Yes Walk 10 feet (QC): 6 Walk 10ft-Uneven Surface(QC): 6 Walk 50ft with 2 Turns (QC): 6 Walk 150 ft (QC): 6 Does the Pt use WC or Scooter?: No Wheel 50 feet with 2 turns (QC: 9 Wheel 150 feet: 9 1 Step (curb) (QC): 6 4 Steps (QC): 6 12 Steps (QC): 6 Picking up an Object (QC): 6 OT Long-Term Goals Long-Term Goals Time Frame: Jun 08, 2022 Acute change in mental status: 0 Inattention: 0 Disorganized thinkin Altered level of consciousness: 0 Eating (QC): 6 (met) Oral Hygiene (QC): 6 (met) Toileting Hygiene (QC): 6 (met) Shower/Bathe Self (QC): 6 (met) Upper Body Dressing (QC): 6 (met) Lower Body Dressing (QC): 6 (met) On/Off Footwear (QC): 6 (met) Pt will verbalize three techniques to use to conserve energy on discharge Additional Goals: 1-Demonstrate ADL Tasks, 2-Verbalize Understanding, 3- ImproveStrength/E[place]rette 1=Demonstrate adherence to instructed precautions during ADL tasks. 2=Patient will verbalize/demonstrate understanding of assistive devices/modifications for ADL. 3=Patient will improve strength/tolerance for activity to enable patient to perform ADL's. AGATHA CHO PT Jun 05, 2022 15:02
[2022-06-09] MEDS ORDERED: cloNIDine 0.1 MG PATCH (CATAPRES TTS) TDSY TD SCH (09:00)
[2022-06-09] MEDS ORDERED: PATCH REMOVAL TP SCH (09:00)
== END 2022-06-05 11:35 | disposition home health service (06) | DRG 92 ==
PROVIDERS: ADMIT Internal Medicine; ATTEND Internal Medicine
DX: G72.81 Critical illness myopathy (principal); B37.0 Candidal stomatitis; G93.40 Encephalopathy, unspecified; J44.9 Chronic obstructive pulmonary disease, unspecified; F17.210 Nicotine dependence, cigarettes, uncomplicated; F14.90 Cocaine use, unspecified, uncomplicated; F12.90 Cannabis use, unspecified, uncomplicated; G47.00 Insomnia, unspecified; K59.09 Other constipation; I25.10 Atherosclerotic heart disease of native coronary artery without angina pectoris; E78.00 Pure hypercholesterolemia, unspecified; I10 Essential (primary) hypertension; K21.9 Gastro-esophageal reflux disease without esophagitis; M81.0 Age-related osteoporosis without current pathological fracture; M19.91 Primary osteoarthritis, unspecified site; R13.10 Dysphagia, unspecified; H91.90 Unspecified hearing loss, unspecified ear; F41.9 Anxiety disorder, unspecified; F32.A Depression, unspecified; E11.9 Type 2 diabetes mellitus without complications; F10.21 Alcohol dependence, in remission; Z99.81 Dependence on supplemental oxygen; Z79.82 Long term (current) use of aspirin
CPT/HCPCS: 36415; 80053; 83735; 85025; 90662; 94640; 94760